=== PATIENT | male | born 1960 | race Caucasian/White ===

== ENCOUNTER 2017-02-01 23:14 | Emergency (ER) | payer MEDICAID, SELFPAY | END 2017-02-02 00:20 | disposition home or self-care (01) | PROVIDERS: Emergency Provider Emergency Medicine; PCP Family Medicine; Visit Provider Emergency Medicine | DX: J20.9 Acute bronchitis, unspecified (principal); I10 Essential (primary) hypertension; E78.5 Hyperlipidemia, unspecified; E11.9 Type 2 diabetes mellitus without complications; F41.8 Other specified anxiety disorders | CPT/HCPCS: 87070; 87275; 87276; 87430; 96372; 99283 ==

== ENCOUNTER 2017-02-03 21:36 | Emergency (ER) | payer MEDICAID, SELFPAY | END 2017-02-04 00:53 | disposition home or self-care (01) | PROVIDERS: Emergency Provider Emergency Medicine; Family Provider Family Medicine; Visit Provider Emergency Medicine | DX: J10.1 Influenza due to other identified influenza virus with other respiratory manifestations (principal); Z87.891 Personal history of nicotine dependence; Z79.899 Other long term (current) drug therapy; I10 Essential (primary) hypertension; E78.5 Hyperlipidemia, unspecified; F41.8 Other specified anxiety disorders | CPT/HCPCS: 36415; 71020; 80053; 81001; 83605; 85025; 87040; 87275; 87276; 96365; 96375; 99285; J2405 ==

== ENCOUNTER 2017-02-17 11:44 | Day surgery (SDC) | payer MEDICAID, SELFPAY ==
[2017-02-17 12:05] VITALS: BP 129/80; BP 131/81; BP 138/84; PULSE 72; PULSE 77; PULSE 84; RESP 18; RESP 20; TEMP 36.2; O2SAT 95
--- NOTE | 2017-02-17 12:27 | HMH.PMPROC ---
- Procedure Date: 02/17/17 Time: 12:27 Anesthesiologist:: Kevin Mayfield MD Complications:: None Pre-procedure Diagnosis:: Degenerative disc disease of cervical spine with cervical radiculopathy symptoms. Post-procedure Diagnosis:: Same Indications for Procedure:: This patient is a pleasant 55-year-old white male who we are treating for neck pain and low back pain. Patient is doing well with his low back after lumbar facet joint injections. He does have some neck pain with radicular symptoms. He does have an MRI that shows degenerative changes with cervical spine with cervical spondylosis and bulging disc at C5-6 and C6-7. We will do a cervical epidural steroid injection today to see if this helps with his pain symptoms. Procedure Details:: Cervical epidural steroid injection under fluoroscopy Informed consent was obtained and the risks and benefits of the procedure was explained to the patient. The patient was taken to the procedure room placed prone on the procedure table. The neck was prepped using ChloraPrep. The skin and subcutaneous tissues were anesthetized using lidocaine. I placed a 18-gauge epidural needle into the C5-C6 interspace and advanced using [id number] to air and fluoroscopic guidance. After confirmation of needle placement in the epidural space with dye, I injected 3 mL's lidocaine 1.5% and Depo-Medrol 80 mg. The patient tolerated the procedure well with no complications. Plan and Disposition:: We will follow-up with him in 2 weeks. We will reevaluate his symptoms at that time.
--- NOTE | 2017-02-17 13:02 | P.PCN_ITS ---
- Procedure Date: 02/17/17 Time: 12:27 Anesthesiologist:: Kevin Mayfield MD Complications:: None Pre-procedure Diagnosis:: Degenerative disc disease of cervical spine with cervical radiculopathy symptoms. Post-procedure Diagnosis:: Same Indications for Procedure:: This patient is a pleasant 55-year-old white male who we are treating for neck pain and low back pain. Patient is doing well with his low back after lumbar facet joint injections. He does have some neck pain with radicular symptoms. He does have an MRI that shows degenerative changes with cervical spine with cervical spondylosis and bulging disc at C5-6 and C6-7. We will do a cervical epidural steroid injection today to see if this helps with his pain symptoms. Procedure Details:: Cervical epidural steroid injection under fluoroscopy Informed consent was obtained and the risks and benefits of the procedure was explained to the patient. The patient was taken to the procedure room placed prone on the procedure table. The neck was prepped using ChloraPrep. The skin and subcutaneous tissues were anesthetized using lidocaine. I placed a 18- gauge epidural needle into the C5-C6 interspace and advanced using loss-of- resistance to air and fluoroscopic guidance. After confirmation of needle placement in the epidural space with dye, I injected 3 mL's lidocaine 1.5% and Depo-Medrol 80 mg. The patient tolerated the procedure well with no complications. Plan and Disposition:: We will follow-up with him in 2 weeks. We will reevaluate his symptoms at that time.
[2017-02-17 13:58] VITALS: BP 122/75; PULSE 74; RESP 20; TEMP 36.6; O2SAT 93
== END 2017-02-17 13:10 | disposition home or self-care (01) ==
LOC: SC.PAINP 11:46
PROVIDERS: Family Provider Family Medicine; PCP Family Medicine; Visit Provider Anesthesiology
DX: M50.10 Cervical disc disorder with radiculopathy, unspecified cervical region (principal)
CPT/HCPCS: 62321; J1040; Q9966

== ENCOUNTER → 2017-05-01 14:16 | Outpatient (POV) | payer MEDICAID, SELFPAY ==
[2017-05-01 15:04] VITALS: BP 138/87; PULSE 80; RESP 21; O2SAT 96; BMI 35.4
--- NOTE | 2017-05-01 15:21 | P.CONS_ITS ---
[facility] Pain Management SOAP Note Subjective:: This patient is a pleasant 55-year-old white male who we have been treating for neck pain and low back pain. He did well after cervical epidural steroid injections and lumbar epidural steroid injections. He was doing well up until recently when he was wrestling with his 5-year-old grandson and aggravated his mid back. He was told that he had a herniated disc in his thoracic spine. This was aggravated after playing with his grandson. Now he has pain in the mid back with some radiation. We will get a thoracic MRI to discern any change in pathology. Objective:: Alert and oriented ?3 in no acute distress. Patient does have a normal gait. Motor strength of the upper and lower extremities is 5/5. There is no gross sensory deficit. Assessment:: Degenerative disc disease of the cervical spine with cervical radiculopathy symptoms. Degenerative disease of lumbar spine with lumbar radiculopathy symptoms. Mid back pain with thoracic radiculopathy. Plan:: We will obtain a MRI of the thoracic spine to discern any change in pathology. This patient may benefit from a thoracic epidural steroid injection.
== END ==
PROVIDERS: Family Provider Family Medicine; PCP Family Medicine; Visit Provider Anesthesiology
DX: M54.12 Radiculopathy, cervical region (principal); M54.16 Radiculopathy, lumbar region
CPT/HCPCS: 99212

== ENCOUNTER → 2017-05-15 12:43 | Outpatient (POV) | payer MEDICAID, SELFPAY ==
[2017-05-15 13:00] VITALS: BP 110/82; PULSE 76; RESP 21; O2SAT 99; BMI 36.1
--- NOTE | 2017-05-15 13:06 | HMH.PAINSOAP ---
[facility] Pain Management SOAP Note Subjective:: Patient is a pleasant 56-year-old white male who presents today for follow-up after recent insurance denial of thoracic MRI. Patient had increased pain after his 5-year-old grandson and him wrestling. Patient states his grandson hit his disc repeatedly . Patient has had an exacerbation of mid back pain because of this. We will send the patient for an x-ray today to help discern pathology. Patient is also having migraines. Patient has tenderness over the occiput bilaterally. Patient states that his migraines have become almost daily. Rates his pain today a 6 out of 10. Patient is receiving medication from his primary care. Patient states that at this time nothing really seems to be helping his overall pain. ROS General: no recent weight change, no fever, no sleep disturbances Respiratory: no cough, no shortness of air, no recurring pulmonary infections Cardiovascular/Peripheral Vascular: No chest pain, No palpitations, no edema, no shortness of breath. Gastrointestinal: no incontinence, normal bowel movements reported Genitourinary: no incontinence Musculoskeletal: Neck pain, occipital neuralgia, mid and low back pain Psychiatric: normal mood/ affect, Neurological: [denies weakness in extremities], [denies balance issues] Objective:: Physical Exam General: Alert and oriented x3, no acute distress, pleasant and cooperative, [on room air] Lungs: Resps E/U, Symmetrical chest expansion, Eyes: PERRL Musculoskeletal: Flexion and extension of thoracic spine somewhat guarded secondary to pain, deep tendon reflexes normal, strength in upper and lower extremities [5/5], slightly antalgic gait noted, extreme tenderness over bilateral occiputs Neurological: speech clear, c d reactor operator equal, no gross sensory deficits Assessment:: Occipital neuralgia, degenerative disc disease of the lumbar spine, degenerative disc disease of the cervical spine, mid back pain Plan:: We will order a thoracic x-ray to discern pathology. We will also schedule him an occipital nerve block. I believe that this will help with his migraines. I will follow-up with this patient after his x-ray or injection. This note was dictated using voice recognition software and may contain errors or omissions
--- NOTE | 2017-05-15 13:09 | P.CONS_ITS ---
[facility] Pain Management SOAP Note Subjective:: Patient is a pleasant 56-year-old white male who presents today for follow-up after recent insurance denial of thoracic MRI. Patient had increased pain after his 5-year-old grandson and him wrestling. Patient states his grandson hit his disc repeatedly . Patient has had an exacerbation of mid back pain because of this. We will send the patient for an x-ray today to help discern pathology. Patient is also having migraines. Patient has tenderness over the occiput bilaterally. Patient states that his migraines have become almost daily. Rates his pain today a 6 out of 10. Patient is receiving medication from his primary care. Patient states that at this time nothing really seems to be helping his overall pain. ROS General: no recent weight change, no fever, no sleep disturbances Respiratory: no cough, no shortness of air, no recurring pulmonary infections Cardiovascular/Peripheral Vascular: No chest pain, No palpitations, no edema, no shortness of breath. Gastrointestinal: no incontinence, normal bowel movements reported Genitourinary: no incontinence Musculoskeletal: Neck pain, occipital neuralgia, mid and low back pain Psychiatric: normal mood/ affect, Neurological: [denies weakness in extremities], [denies balance issues] Objective:: Physical Exam General: Alert and oriented x3, no acute distress, pleasant and cooperative, [ on room air] Lungs: Resps E/U, Symmetrical chest expansion, Eyes: PERRL Musculoskeletal: Flexion and extension of thoracic spine somewhat guarded secondary to pain, deep tendon reflexes normal, strength in upper and lower extremities [5/5], slightly antalgic gait noted, extreme tenderness over bilateral occiputs Neurological: speech clear, manager wind equal, no gross sensory deficits Assessment:: Occipital neuralgia, degenerative disc disease of the lumbar spine, degenerative disc disease of the cervical spine, mid back pain Plan:: We will order a thoracic x-ray to discern pathology. We will also schedule him an occipital nerve block. I believe that this will help with his migraines. I will follow-up with this patient after his x-ray or injection. This note was dictated using voice recognition software and may contain errors or omissions
--- NOTE | 2017-05-15 13:19 | XR_ITS ---
XR thoracic spine 3V COMPARISON: CT scan the chest noncontrast 11/19/2015 HISTORY: Back pain TECHNIQUE: AP and lateral views and swimmer's view cervicothoracic junction FINDINGS: There is normal curvature and alignment. There are multilevel degenerative changes in the lower thoracic spine primarily T8-T12. Prominent anterior ossific spurring is seen at several levels resulting in bony bridging at the T8-9 and T11-12 levels. There is no paraspinal mass. IMPRESSION: Prominent multilevel degenerative changes lower thoracic spine
== END ==
PROVIDERS: Family Provider Family Medicine; PCP Family Medicine; Visit Provider Clinical Nurse Specialist Family Health
DX: M54.81 Occipital neuralgia (principal); M50.30 Other cervical disc degeneration, unspecified cervical region; M51.36 Other intervertebral disc degeneration, lumbar region
CPT/HCPCS: 99212; 72072

== ENCOUNTER → 2017-05-27 13:50 | Outpatient (CLI) | payer MEDICAID, SELFPAY ==
--- NOTE | 2017-05-27 | XR_ITS ---
XR shoulder RT min 2V HISTORY: ITS.REASON: ACUTE PAIN OF RIGHT SHOULDER ORDERING PHYSICIAN: Zurdo Masters MD PATIENT AGE: 56 years COMPARISON: FINDINGS: No fracture or dislocation. No lytic or blastic change. There is normal mineralization. Mild osteoarthritic changes are present at the acromioclavicular joint with mild subacromial stenosis. Unremarkable glenohumeral joint. IMPRESSION: Mild osteoarthritis of the acromioclavicular joint with mild subacromial stenosis
== END ==
PROVIDERS: PCP Family Medicine; Visit Provider Family Medicine
DX: M25.511 Pain in right shoulder (principal)
CPT/HCPCS: 73030

== ENCOUNTER → 2017-06-20 09:37 | Outpatient (POV) | payer MEDICAID, SELFPAY ==
[2017-06-20 09:49] VITALS: BP 122/48; PULSE 86; RESP 18; TEMP 36.6; O2SAT 99; BMI 36.1
--- NOTE | 2017-06-20 11:28 | P.CONS_ITS ---
[facility] Pain Management SOAP Note Subjective:: Patient is a pleasant 56-year-old white male who presents today for follow-up after occipital nerve blocks. Patient states he is doing extremely well after this. He states he has only had one headache since the injection. Patient states that he is doing quite well other than his thoracic back pain. At the last visit we got a thoracic x-ray showing multilevel degenerative changes, prominent anterior ossific spurring resulting in bony bridging of T8-T9 and T11- T12. Patient has not had any epidural injections in this area. Patient is interested in injective therapy. Patient is not used a back brace in the past. Patient rates his pain a 6 out of 10 today. Patient states he is much more active in the summer and would like to be more functional. ROS General: no recent weight change, no fever, no sleep disturbances Respiratory: no cough, no shortness of air, no recurring pulmonary infections Cardiovascular/Peripheral Vascular: No chest pain, No palpitations, no edema, no shortness of breath. Gastrointestinal: no incontinence, normal bowel movements reported Genitourinary: no incontinence Musculoskeletal: Thoracic back pain Psychiatric: normal mood/ affect Neurological: [denies weakness in extremities], [denies balance issues] Objective:: Physical Exam General: Alert and oriented x3, no acute distress, pleasant and cooperative, [ on room air] Lungs: Resps E/U, Symmetrical chest expansion, Eyes: PERRL Musculoskeletal: Flexion and extension of thoracic spine somewhat guarded secondary to pain, deep tendon reflexes normal, strength in upper and lower extremities [5/5], slightly antalgic gait noted Neurological: speech clear, dog food dough mixer equal, no gross sensory deficits Assessment:: Degenerative disc disease of the thoracic spine Plan:: We will schedule a thoracic epidural at T8-T9. Patient has done well with injective therapy in the past. We will also give him a back brace. Patient is continuing to do home stretching routine. Patient's tried and failed NSAIDs along with medications. I will follow-up with the patient after his injection. This note was dictated using voice recognition software and may contain errors or omissions
== END ==
PROVIDERS: Family Provider Family Medicine; PCP Family Medicine; Visit Provider Clinical Nurse Specialist Family Health
DX: M51.34 Other intervertebral disc degeneration, thoracic region (principal)
CPT/HCPCS: 99212

== ENCOUNTER → 2017-06-21 13:35 | Outpatient (POV) | payer MEDICAID, SELFPAY | PROVIDERS: Family Provider Family Medicine; PCP Family Medicine | DX: Z00.00 Encounter for general adult medical examination without abnormal findings (principal) ==

== ENCOUNTER → 2017-09-05 10:30 | Outpatient (POV) | payer MEDICAID, SELFPAY ==
[2017-09-05 10:50] VITALS: BP 142/77; PULSE 81; RESP 18; O2SAT 98; BMI 35.4
--- NOTE | 2017-09-05 11:34 | HMH.PAINSOAP ---
[facility] Pain Management SOAP Note Subjective:: Patient is a pleasant 56-year-old white male who we are following up with after T8-T9 thoracic epidural steroid injection. States he had significant relief with this decreasing his pain up to 80%. However patient went fishing last week and his fishing pole fell off of the boat. Patient states he dove into the beth and the leg was more shallow than he expected. Patient states he el his back during this. Patient rates his pain a 5 out of 10 today. Patient is interested in another thoracic epidural steroid injection given the efficacy of the last one. Patient's tried and failed anti-inflammatories and medications. Patient continues to be as functional as possible and continues with a home stretching program. ROS General: no recent weight change, no fever, no sleep disturbances Respiratory: no cough, no shortness of air, no recurring pulmonary infections Cardiovascular/Peripheral Vascular: No chest pain, No palpitations, no edema, no shortness of breath. Gastrointestinal: no incontinence, normal bowel movements reported Genitourinary: no incontinence Musculoskeletal: Thoracic back pain Psychiatric: normal mood/ affect Neurological: [denies weakness in extremities], [denies balance issues] Objective:: Physical Exam General: Alert and oriented x3, no acute distress, pleasant and cooperative, [on room air] Lungs: Resps E/U, Symmetrical chest expansion, Eyes: PERRL Musculoskeletal: Flexion and extension of thoracic spine somewhat guarded secondary to pain, deep tendon reflexes normal, strength in upper and lower extremities [5/5], antalgic gait noted Neurological: speech clear, dance artist equal, no gross sensory deficits Assessment:: Degenerative disc disease of the thoracic spine with thoracic radiculopathy symptoms Plan:: We will schedule another T8-T9 thoracic epidural steroid injection given the efficacy of his last one. Patient is not on any anticoagulation therapy at this time. This note was dictated using voice recognition software and may contain errors or omissions
--- NOTE | 2017-09-05 11:37 | P.CONS_ITS ---
[facility] Pain Management SOAP Note Subjective:: Patient is a pleasant 56-year-old white male who we are following up with after T8-T9 thoracic epidural steroid injection. States he had significant relief with this decreasing his pain up to 80%. However patient went fishing last week and his fishing pole fell off of the boat. Patient states he dove into the beth and the leg was more shallow than he expected. Patient states he el his back during this. Patient rates his pain a 5 out of 10 today. Patient is interested in another thoracic epidural steroid injection given the efficacy of the last one. Patient's tried and failed anti-inflammatories and medications. Patient continues to be as functional as possible and continues with a home stretching program. ROS General: no recent weight change, no fever, no sleep disturbances Respiratory: no cough, no shortness of air, no recurring pulmonary infections Cardiovascular/Peripheral Vascular: No chest pain, No palpitations, no edema, no shortness of breath. Gastrointestinal: no incontinence, normal bowel movements reported Genitourinary: no incontinence Musculoskeletal: Thoracic back pain Psychiatric: normal mood/ affect Neurological: [denies weakness in extremities], [denies balance issues] Objective:: Physical Exam General: Alert and oriented x3, no acute distress, pleasant and cooperative, [ on room air] Lungs: Resps E/U, Symmetrical chest expansion, Eyes: PERRL Musculoskeletal: Flexion and extension of thoracic spine somewhat guarded secondary to pain, deep tendon reflexes normal, strength in upper and lower extremities [5/5], antalgic gait noted Neurological: speech clear, hazmat truck driver equal, no gross sensory deficits Assessment:: Degenerative disc disease of the thoracic spine with thoracic radiculopathy symptoms Plan:: We will schedule another T8-T9 thoracic epidural steroid injection given the efficacy of his last one. Patient is not on any anticoagulation therapy at this time. This note was dictated using voice recognition software and may contain errors or omissions
== END ==
PROVIDERS: Family Provider Family Medicine; PCP Family Medicine; Visit Provider Clinical Nurse Specialist Family Health
DX: M54.15 Radiculopathy, thoracolumbar region (principal)
CPT/HCPCS: 99212

== ENCOUNTER → 2017-09-11 06:46 | Outpatient (CLI) | payer MEDICAID, SELFPAY ==
--- NOTE | 2017-09-11 06:48 | NM_ITS ---
CARDIOLITE SPECT MYOCARDIAL PERFUSION SCAN, REST AND STRESS: EXERCISE STRESS [facility] REVIEW QGS EF AND WALL MOTION EVALUATION: QPS - PERFUSION EVALUATION HISTORY: Chest pain, HTN, DM, CAD DOSE: 10.16 mCi technetium 99m mibi intravenously at rest followed by 31.2 mCi technetium 99m mibi following the intravenous ministration of 0.4 mg of Lexiscan. Resting blood pressure is 126/81. Stress blood pressure 159/88. FINDINGS: Ejection fraction is calculated to be 66%. Stress images reveal decreased activity distal inferior apical wall with improved activity during rest images. Gated images calculated ejection fraction of 66% with normal wall motion IMPRESSION: Reversible ischemia in the inferior apical wall with normal ejection fraction normal wall motion.
--- NOTE | 2017-09-11 06:48 | CA_ITS ---
PROCEDURE: 2-D M-mode and color Doppler study INDICATIONS FOR THE TEST: Chest pain + COPD Heart Murmur Tobacco Smoking Palpitations Fatigue Syncope Edema Hypertension+Diabetes Mellitus+ Rheumatic Fever SOB SMALL Obesity Hyperlipidemia+ Family History HD Additional History SARKIS PATIENT INFORMATION HEIGHT: 69 WEIGHT:240 GENDER: Male B/P:129/79 2-D/M-MODE INTERPRETATION: 2-D MEASUREMENTS OBSERVED VALUES IN CMS Right Ventricular Dimension (RVDd) 2.5 Interventricular Septum (Thickness)(IVsd) 1.5 Left Ventricular Internal Dimensions(LVIDd) 5.7 Left Ventricular Posterior Wall (Thickness)(LVPWd) 0.9 Aortic Root 4.0 Aortic Cusp Separation 1.9 Left Atrial Dimensions (LAD) 4.7 2D 1. Left atrium is mildly enlarged, left ventricle is normal size, mild concentric left ventricular hypertrophy, visually estimated ejection fraction 55% with no signal wall motion abnormality. 2. The right atrium and right ventricle are normal size and contractility. 3. The aortic valve is minimally thickened and fibrosed. 4. The mitral and tricuspid valve leaflets are minimally thickened and calcified. 5. The pulmonic valve is poorly visualized. 6. No significant pericardial effusion noted. DOPPLER INTERROGATION: Doppler interrogation of the aortic, mitral and tricuspid valvular presence of mild mitral and tricuspid regurgitation, tricuspid and jet velocity is insufficient for calculation of the right ventricular systolic pressure, diastolic parameters are inconclusive. CONCLUSION: 1. Technically difficult study because of the patient's factor and poor acoustic windows 2. Mildly enlarged left atrium, normal left ventricular size, mild concentric left ventricular hypertrophy, visually estimated ejection fraction 55% with no obvious regional wall motion abnormality, diastolic parameters are inconclusive. 3. Mild mitral and tricuspid regurgitation 4. No significant pericardial effusion noted.
--- NOTE | 2017-09-11 07:10 | HMH.ITSHM ---
METOPROLOL FENOFIBRATE TAMSULOSIN RANOLAZINE SITAGLIPTIN OXYBUTYNIN MULTIVITAMIN METFORMIN VENLAFAXINE SUMATRIPTAN OXYCODONE CETIRIZINE ASA
== END ==
PROVIDERS: Family Provider Family Medicine; PCP Family Medicine; Visit Provider Internal Medicine Cardiovascular Disease
DX: I25.10 Atherosclerotic heart disease of native coronary artery without angina pectoris (principal); I20.9 Angina pectoris, unspecified; I10 Essential (primary) hypertension; E78.5 Hyperlipidemia, unspecified; E11.9 Type 2 diabetes mellitus without complications; G47.33 Obstructive sleep apnea (adult) (pediatric)
CPT/HCPCS: 78452; 93017; 93306; A9502; J2785

== ENCOUNTER → 2017-10-02 12:30 | Outpatient (POV) | payer MEDICAID, SELFPAY ==
[2017-10-02 12:53] VITALS: BP 137/87; PULSE 75; RESP 18; O2SAT 98; BMI 81.3
--- NOTE | 2017-10-02 12:57 | HMH.PAINSOAP ---
[facility] Pain Management SOAP Note Subjective:: Patient is a pleasant 56-year-old white male who presents today for follow-up after his thoracic epidural steroid injection. Patient states he is having no mid back pain and states that his injection helped him significantly. Patient recently had a cardiac stent placed and was put on Plavix. Patient was told by his workers compensation administrator that they did not want him to have any more injections for a year. Patient is going to start cardiac rehab. ROS General: no recent weight change, no fever, no sleep disturbances Respiratory: no cough, no shortness of air, no recurring pulmonary infections Cardiovascular/Peripheral Vascular: No chest pain, No palpitations, no edema, no shortness of breath. Gastrointestinal: no incontinence, normal bowel movements reported Genitourinary: no incontinence Musculoskeletal: Back pain Psychiatric: normal mood/ affect Neurological: [denies weakness in extremities], [denies balance issues] Objective:: Physical Exam General: Alert and oriented x3, no acute distress, pleasant and cooperative, [on room air] Lungs: Resps E/U, Symmetrical chest expansion, Eyes: PERRL Musculoskeletal: Flexion and extension of lumbar spine somewhat guarded secondary to pain, deep tendon reflexes normal, strength in upper and lower extremities [5/5], [abnormal gait noted] Neurological: speech clear, accounting supervisor equal, no gross sensory deficits Assessment:: Negative disc disease of the thoracic spine with thoracic radiculopathy symptoms and degenerative disc disease of lumbar spine with lumbar radiculopathy symptoms Plan:: Follow-up with the patient in 3 months to reassess his symptoms. Patient was instructed to call the office if he has any issues prior to his next appointment. This note was dictated using voice recognition software and may contain errors or omissions
--- NOTE | 2017-10-02 13:00 | P.CONS_ITS ---
[facility] Pain Management SOAP Note Subjective:: Patient is a pleasant 56-year-old white male who presents today for follow-up after his thoracic epidural steroid injection. Patient states he is having no mid back pain and states that his injection helped him significantly. Patient recently had a cardiac stent placed and was put on Plavix. Patient was told by his building inspection engineer that they did not want him to have any more injections for a year. Patient is going to start cardiac rehab. ROS General: no recent weight change, no fever, no sleep disturbances Respiratory: no cough, no shortness of air, no recurring pulmonary infections Cardiovascular/Peripheral Vascular: No chest pain, No palpitations, no edema, no shortness of breath. Gastrointestinal: no incontinence, normal bowel movements reported Genitourinary: no incontinence Musculoskeletal: Back pain Psychiatric: normal mood/ affect Neurological: [denies weakness in extremities], [denies balance issues] Objective:: Physical Exam General: Alert and oriented x3, no acute distress, pleasant and cooperative, [ on room air] Lungs: Resps E/U, Symmetrical chest expansion, Eyes: PERRL Musculoskeletal: Flexion and extension of lumbar spine somewhat guarded secondary to pain, deep tendon reflexes normal, strength in upper and lower extremities [5/5], [abnormal gait noted] Neurological: speech clear, c iron worker equal, no gross sensory deficits Assessment:: Negative disc disease of the thoracic spine with thoracic radiculopathy symptoms and degenerative disc disease of lumbar spine with lumbar radiculopathy symptoms Plan:: Follow-up with the patient in 3 months to reassess his symptoms. Patient was instructed to call the office if he has any issues prior to his next appointment. This note was dictated using voice recognition software and may contain errors or omissions
== END ==
PROVIDERS: Family Provider Family Medicine; PCP Family Medicine; Visit Provider Clinical Nurse Specialist Family Health
DX: M51.14 Intervertebral disc disorders with radiculopathy, thoracic region (principal); M51.16 Intervertebral disc disorders with radiculopathy, lumbar region
CPT/HCPCS: 99213

== ENCOUNTER → 2017-10-11 11:06 | Outpatient (CLI) | payer MEDICAID, SELFPAY ==
[2017-10-11 13:54] LABS: Alanine Aminotransferase 34 U/L (12-78); Albumin Level 4.2 gm/dL (3.4-5.0); Alkaline Phosphatase 70 U/L (46-116); Anion Gap 13.8 mEq/L (5-15); Aspartate Amino Transferase 32 U/L (15-37); Bilirubin,Direct 0.1 mg/dL (0.0-0.2); Bilirubin,Indirect 0.2 mg/dL (0.0-0.9); Bilirubin,Total 0.3 mg/dL (0.2-1.0); Blood Urea Nitrogen 19 mg/dL (7-18); Calcium 9.2 mg/dL (8.5-10.1); Carbon Dioxide 28 mmol/L (21.0-32.0); Chloride 106 mmol/L (98-107); Chol/HDL Ratio 4.9 (1-3.5); Cholesterol 233 mg/dL (140-200); Creatinine,Serum 1.07 mg/dL (0.70-1.30); Estimated Glomerular Filt Rate 72 ml/min (>60); GFR (African American) 87 ML/MIN (>60); Glucose 116 mg/dL (74-106); HDL Cholesterol 48 mg/dL (27-67); LDL Cholesterol 153 mg/dL (0-130); Potassium 4.8 mmoL/L (3.5-5.1); Sodium 143 mmol/L (136-145); Total Protein,Serum 8.1 gm/dL (6.4-8.2); Triglycerides 159 mg/dL (30-200); VLDL Cholesterol 32 mg/dL (0-40)
== END ==
PROVIDERS: PCP Family Medicine; Visit Provider Internal Medicine Cardiovascular Disease
DX: R06.00 Dyspnea, unspecified (principal); E78.5 Hyperlipidemia, unspecified; E11.9 Type 2 diabetes mellitus without complications; G47.33 Obstructive sleep apnea (adult) (pediatric); I10 Essential (primary) hypertension; I25.10 Atherosclerotic heart disease of native coronary artery without angina pectoris; I20.9 Angina pectoris, unspecified
CPT/HCPCS: 36415; 80048; 80061; 80076

== ENCOUNTER 2017-10-24 13:32 | Outpatient (RCR) | payer MEDICAID, SELFPAY | END 2018-01-26 15:08 | disposition home or self-care (01) | LOC: PT 13:32 | PROVIDERS: Visit Provider Internal Medicine | DX: Z95.5 Presence of coronary angioplasty implant and graft (principal) | CPT/HCPCS: 93798 ==

== ENCOUNTER → 2017-11-09 11:48 | Outpatient (CLI) | payer MEDICAID, SELFPAY | PROVIDERS: Family Provider Family Medicine; PCP Family Medicine; Visit Provider Internal Medicine Cardiovascular Disease | DX: E11.9 Type 2 diabetes mellitus without complications (principal) ==

== ENCOUNTER → 2017-11-13 08:16 | Outpatient (CLI) | payer MEDICAID, SELFPAY ==
[2017-11-13 09:17] LABS: Chloride 104 mmol/L (98-107); Potassium 4.1 mmoL/L (3.5-5.1); Sodium 144 mmol/L (136-145)
[2017-11-13 09:28] LABS: Alanine Aminotransferase 35 U/L (12-78); Albumin Level 4.2 gm/dL (3.4-5.0); Alkaline Phosphatase 76 U/L (46-116); Anion Gap 13.1 mEq/L (5-15); Aspartate Amino Transferase 38 U/L (15-37); Bilirubin,Direct 0.1 mg/dL (0.0-0.2); Bilirubin,Indirect 0.4 mg/dL (0.0-0.9); Bilirubin,Total 0.5 mg/dL (0.2-1.0); Blood Urea Nitrogen 10 mg/dL (7-18); Calcium 9.4 mg/dL (8.5-10.1); Carbon Dioxide 31 mmol/L (21.0-32.0); Chol/HDL Ratio 4.8 (1-3.5); Cholesterol 182 mg/dL (140-200); Creatinine,Serum 1.11 mg/dL (0.70-1.30); Estimated Glomerular Filt Rate 69 ml/min (>60); GFR (African American) 83 ML/MIN (>60); Glucose 125 mg/dL (74-106); HDL Cholesterol 38 mg/dL (27-67); LDL Cholesterol 113 mg/dL (0-130); Total Protein,Serum 8.2 gm/dL (6.4-8.2); Triglycerides 157 mg/dL (30-200); VLDL Cholesterol 31 mg/dL (0-40)
== END ==
PROVIDERS: PCP Family Medicine; Visit Provider Internal Medicine Cardiovascular Disease
DX: E11.9 Type 2 diabetes mellitus without complications (principal); E78.5 Hyperlipidemia, unspecified; G47.33 Obstructive sleep apnea (adult) (pediatric); I10 Essential (primary) hypertension; I25.10 Atherosclerotic heart disease of native coronary artery without angina pectoris; R06.00 Dyspnea, unspecified; I20.9 Angina pectoris, unspecified
CPT/HCPCS: 36415; 80048; 80061; 80076

== ENCOUNTER → 2017-12-14 10:27 | Outpatient (CLI) | payer MEDICAID, SELFPAY ==
[2017-12-14 12:42] LABS: Blood Urea Nitrogen 11 mg/dL (7-18); Calcium 9.5 mg/dL (8.5-10.1); Carbon Dioxide 28 mmol/L (21.0-32.0); Chloride 101 mmol/L (98-107); Creatinine,Serum 1.08 mg/dL (0.70-1.30); Estimated Glomerular Filt Rate 71 ml/min (>60); GFR (African American) 86 ML/MIN (>60); Glucose 145 mg/dL (74-106); Sodium 140 mmol/L (136-145)
[2017-12-14 13:14] LABS: Creatine Kinase 95 U/L (39-308)
== END ==
PROVIDERS: Physician Assistant; PCP Family Medicine; Visit Provider Internal Medicine Cardiovascular Disease
DX: M79.10 Myalgia, unspecified site (principal); I10 Essential (primary) hypertension; I25.10 Atherosclerotic heart disease of native coronary artery without angina pectoris; E78.5 Hyperlipidemia, unspecified; G47.33 Obstructive sleep apnea (adult) (pediatric); Z95.5 Presence of coronary angioplasty implant and graft
CPT/HCPCS: 36415; 80048; 82550

== ENCOUNTER → 2017-12-20 18:58 | Outpatient (CLI) | payer MEDICAID, SELFPAY | PROVIDERS: PCP Family Medicine; Visit Provider Nurse Practitioner Family | DX: G47.33 Obstructive sleep apnea (adult) (pediatric) (principal); G47.19 Other hypersomnia; R53.83 Other fatigue | CPT/HCPCS: 95811 ==

== ENCOUNTER → 2018-01-15 13:36 | Outpatient (POV) | payer MEDICAID, SELFPAY ==
[2018-01-15 14:10] VITALS: BP 131/82; PULSE 83; RESP 18; O2SAT 98; BMI 36.1
--- NOTE | 2018-01-15 14:16 | HMH.PAINSOAP ---
[facility] Pain Management SOAP Note Subjective:: Patient is a pleasant 57-year-old white male who presents today for follow-up. Patient having a lot of myofascial pain mostly in his thoracic paraspinous. Patient rates his pain a 7 out of 10 today. Patient is on blood thinner and unable to have epidural injections however he is done well with these in the past. Patient is interested in possible trigger point injections. I do believe they would be beneficial for him. Patient is continuing a home stretching program. ROS General: no recent weight change, no fever, no sleep disturbances Respiratory: no cough, no shortness of air, no recurring pulmonary infections Cardiovascular/Peripheral Vascular: No chest pain, No palpitations, no edema, no shortness of breath. Gastrointestinal: no incontinence, normal bowel movements reported Genitourinary: no incontinence Musculoskeletal: Back pain, myofascial pain Psychiatric: normal mood/ affect Neurological: [denies weakness in extremities], [denies balance issues] Objective:: Physical Exam General: Alert and oriented x3, no acute distress, pleasant and cooperative, [on room air] Lungs: Resps E/U, Symmetrical chest expansion, Eyes: PERRL Musculoskeletal: Flexion and extension of thoracic and lumbar spine somewhat guarded secondary to pain, deep tendon reflexes normal, strength in upper and lower extremities [5/5], [abnormal gait noted] Neurological: speech clear, director wholesale equal, no gross sensory deficits Assessment:: Degenerative disc disease lumbar spine lumbar radiculopathy and myofascial pain syndrome Plan:: We will schedule bilateral thoracic paraspinous trigger point injections for the patient. I believe it would be beneficial for him. I will follow-up with him after his injections. Patient does not have to be off of his coagulation therapy. This note was dictated using voice recognition software and may contain errors or omissions
== END ==
PROVIDERS: PCP Family Medicine; Visit Provider Clinical Nurse Specialist Family Health
DX: M51.16 Intervertebral disc disorders with radiculopathy, lumbar region (principal); M79.18 Myalgia, other site
CPT/HCPCS: 99213

== ENCOUNTER → 2018-04-02 11:52 | Outpatient (CLI) | payer MEDICAID, SELFPAY ==
--- NOTE | 2018-04-02 11:58 | XR_ITS ---
XR shoulder RT min 2V Ordering Physician: Taniya Little MD Patient Age: 57 years: Male HISTORY: ITS.REASON: Pain with moving right arm. TECHNIQUE: 3 views right shoulder included Axillary, Grashey, AP internal rotation view right shoulder Order states grashy,scapular y and axillary views COMPARISON :01/30/2018 right shoulder study FINDINGS The humeral head and neck are intact. Glenohumeral relationships appear normal. No fracture nor dislocation. . The roughening along superior aspect greater tuberosity and its junction with base of humeral head or noted on recent January right shoulder radiograph. This feature is slight less evident on today's study but I would note some sclerosis here & note that just above this area, there is some minimal inferior spurring from tip of of acromion which may contribute to impingements and such findings.. Are there impingement symptoms??.] . IMPRESSION: . Slight inferior spurring from the tip of acromion noted. May contribute to impingement symptoms if present. Sequela of such would include slight roughening & sclerosis along superior base of humeral head..
== END ==
PROVIDERS: PCP Family Medicine; Visit Provider Orthopaedic Surgery
DX: M25.511 Pain in right shoulder (principal)
CPT/HCPCS: 73030

== ENCOUNTER → 2018-04-04 12:58 | Outpatient (CLI) | payer MEDICAID, SELFPAY ==
--- NOTE | 2018-04-04 12:59 | MR_ITS ---
MR shoulder RT wo con COMPARISON: 04/02/2018 HISTORY: Right shoulder pain with limited range of motion ORDERING PHYSICIAN: Taniya Little MD PATIENT AGE: 57 years TECHNIQUE: Routine multiplanar multiecho sequences are performed without contrast FINDINGS: Hypertrophic changes are present at the acromioclavicular joint causing some indentation upon the musculotendinous junction of the supraspinatus muscle and tendon. There is heterogeneous increased T2 signal involving the supraspinatus tendon appears somewhat thickened consistent with tendinopathy/tendinosis. There is disruption of the supraspinatous tendon fibers posteriorly and distally consistent with a full-thickness tear. A complete tear with musculotendinous retraction is not present. There is tendinopathy/tendinosis of the infraspinatus tendon as well with pain of the fibers distally suggesting a partial tear. The subscapularis and teres minor tendons are intact. No obvious labral tear. The bicipital tendon is in place. Small amount fluid is present in the bicipital tendon sheath. There is some subcortical irregularity of the humeral head at the greater tuberosity base and a small amount of fluid along the distal aspect of the junction of the supraspinatus and infraspinatus tendons. No fracture evident. IMPRESSION: 1. Full-thickness tear of the distal and posterior aspect of the supraspinatus tendon with partial tear of the infraspinatus tendon with tendinopathy/tendinosis of both supraspinatus and infraspinatus tendons 2. Acromioclavicular hypertrophy causing some impingement of along the superior aspect of the musculotendinous junction of the supraspinatus 3. Small amount fluid in the bicipital tendon sheath suggesting tendinitis
== END ==
PROVIDERS: PCP Family Medicine; Visit Provider Orthopaedic Surgery
DX: M25.511 Pain in right shoulder (principal)
CPT/HCPCS: 73221

== ENCOUNTER → 2018-05-01 15:53 | Outpatient (CLI) | payer MEDICAID, SELFPAY ==
--- NOTE | 2018-05-01 16:06 | XR_ITS ---
XR chest 2V HISTORY: Hypertension ITS.REASON: preop testing ORDERING PHYSICIAN: Taniya Little MD PATIENT AGE: 57 years COMPARISON: 02/01/1717 FINDINGS: The cardiomediastinal silhouette and pulmonary vascularity are within normal limits. The lungs are clear without infiltrates, suspicious nodules, or pleural effusions. There is old granulomatous disease with calcified granuloma within the lingula and calcified nodes in the mediastinum and theodore. There is slight reversal of the thoracic kyphosis. No lobar consolidation or collapse. IMPRESSION: No change with no acute finding
[2018-05-01 16:18] LABS: Basophils % 0.4 % (0.1-2.0); Eosinophils # 0.2 K/mm3 (0.0-0.4); Eosinophils % 3.2 % (0.1-12.0); Hematocrit 39.1 % (42.0-52.0); Hemoglobin 13.1 g/dL (14.1-18.0); Lymphocytes # 2.4 K/mm3 (0.7-4.5); Lymphocytes % 35.5 % (10-50); Mean Corpuscular HGB Conc 33.4 g/dL (31.8-35.4); Mean Corpuscular Volume 83.9 fl (80-94); Mean Platelet Volume 8.9 fl (7.4-10.4); Monocytes # 0.4 K/mm3 (0.1-1.0); Monocytes % 5.5 % (1.7-9.3); Neutrophils # 3.8 K/mm3 (1.8-7.8); Neutrophils % 55.4 % (37.0-80.0); Platelet Count 176 K/mm3 (142-424); Red Blood Count 4.66 M/mm3 (4.60-6.20); Red Cell Distribution Width 14.7 % (11.5-17.5); White Blood Count 6.9 K/mm3 (4.8-10.8)
[2018-05-01 16:24] LABS: INR 1.04 (0.9-1.1); Prothrombin Time 10.7 seconds (9.4-11.8)
[2018-05-01 17:33] LABS: Alanine Aminotransferase 73 U/L (12-78); Albumin Level 4.1 gm/dL (3.4-5.0); Albumin/Globulin Ratio 0.9 (1.1-1.8); Alkaline Phosphatase 220 U/L (46-116); Anion Gap 16.9 mEq/L (5-15); Aspartate Amino Transferase 58 U/L (15-37); Bilirubin,Total 0.5 mg/dL (0.2-1.0); Blood Urea Nitrogen 18 mg/dL (7-18); Calcium 9.4 mg/dL (8.5-10.1); Carbon Dioxide 27 mmol/L (21.0-32.0); Chloride 98 mmol/L (98-107); Creatinine,Serum 0.86 mg/dL (0.70-1.30); Estimated Glomerular Filt Rate 92 ml/min (>60); GFR (African American) 111 ML/MIN (>60); Globulin 4.5 gm/dl (1.3-3.2); Glucose 174 mg/dL (74-106); Potassium 3.9 mmoL/L (3.5-5.1); Sodium 138 mmol/L (136-145); Total Protein,Serum 8.6 gm/dL (6.4-8.2)
[2018-05-01 17:34] LABS: Bilirubin,Direct 0.1 mg/dL (0.0-0.2); Chol/HDL Ratio 6.7 (1-3.5); Cholesterol 254 mg/dL (140-200); HDL Cholesterol 38 mg/dL (27-67); LDL Cholesterol 146 mg/dL (0-130); Triglycerides 351 mg/dL (30-200); VLDL Cholesterol 70 mg/dL (0-40)
== END ==
PROVIDERS: Internal Medicine Cardiovascular Disease; Visit Provider Orthopaedic Surgery
DX: Z01.818 Encounter for other preprocedural examination (principal); E11.9 Type 2 diabetes mellitus without complications; E78.5 Hyperlipidemia, unspecified; G47.33 Obstructive sleep apnea (adult) (pediatric); I10 Essential (primary) hypertension; I25.10 Atherosclerotic heart disease of native coronary artery without angina pectoris; M79.10 Myalgia, unspecified site; Z79.84 Long term (current) use of oral hypoglycemic drugs
CPT/HCPCS: 71046; 80053; 80061; 82248; 85025; 85610

== ENCOUNTER → 2018-05-24 08:32 | Outpatient (CLI) | payer MEDICAID, SELFPAY ==
--- NOTE | 2018-05-24 08:38 | XR_ITS ---
XR shoulder RT min 2V HISTORY: ITS.REASON: AP of shoulder, Scapular-Y, auxillary views ORDERING PHYSICIAN: Taniya Little MD PATIENT AGE: 57 years Comparison: 04/02/2018 FINDINGS: There is an acute nondisplaced fracture of the right neck extending from the greater trochanter region inferiorly. There is a lucency present in the proximal aspect of the humerus measuring 10 mm. The patient has had interval right shoulder surgery. The lucency could be related to sequela from the previous surgery. There are 2 small spikelike densities in the humeral head. There are mild degenerative changes of the glenohumeral joint IMPRESSION: Interval right shoulder surgery with nondisplaced humeral neck fracture along with a lucency in the proximal aspect of the right humerus possibly postsurgical. Please correlate with surgical procedure. If there has not been a surgical defect created in this area than a lytic lesion is considered.
== END ==
PROVIDERS: PCP Family Medicine; Visit Provider Orthopaedic Surgery
DX: S42.309A Unspecified fracture of shaft of humerus, unspecified arm, initial encounter for closed fracture (principal)
CPT/HCPCS: 73030

== ENCOUNTER → 2018-06-07 12:29 | Outpatient (CLI) | payer MEDICAID, SELFPAY ==
--- NOTE | 2018-06-07 12:32 | XR_ITS ---
XR shoulder RT min 2V HISTORY: Follow-up fracture ITS.REASON: ap, scapular-y ORDERING PHYSICIAN: Taniya Little MD PATIENT AGE: 57 years Comparison: 05/24/2018 FINDINGS: Nondisplaced oblique fracture of the right humeral neck is again noted. Fracture lines are somewhat less defined and may represent healing. There is some callus formation noted medially and laterally. There remains good alignment. 2. Anchors are once again noted in the humeral head region. IMPRESSION: Healing nondisplaced oblique right humeral neck fracture
== END ==
PROVIDERS: PCP Family Medicine; Visit Provider Orthopaedic Surgery
DX: M75.101 Unspecified rotator cuff tear or rupture of right shoulder, not specified as traumatic (principal)
CPT/HCPCS: 73030

== ENCOUNTER → 2018-06-29 12:30 | Outpatient (CLI) | payer MEDICAID, SELFPAY ==
--- NOTE | 2018-06-29 12:33 | XR_ITS ---
XR shoulder RT min 2V HISTORY: Follow-up fracture ITS.REASON: AP and Scapular y views ORDERING PHYSICIAN: Taniya Little MD PATIENT AGE: 57 years Comparison: 06/07/2018 FINDINGS: There is a healing oblique fracture involving the proximal shaft of the humerus. Fracture line is still visible. There is some increased callus formation noted. There are 2 anchors along the humeral head. IMPRESSION: Healing nondisplaced proximal right humeral fracture
== END ==
PROVIDERS: PCP Family Medicine; Visit Provider Orthopaedic Surgery
DX: S42.301A Unspecified fracture of shaft of humerus, right arm, initial encounter for closed fracture (principal)
CPT/HCPCS: 73030

== ENCOUNTER → 2018-07-27 09:21 | Outpatient (CLI) | payer MEDICAID, SELFPAY ==
--- NOTE | 2018-07-27 09:31 | XR_ITS ---
XR shoulder RT min 2V HISTORY: Follow-up fracture ITS.REASON: shoulder ORDERING PHYSICIAN: Taniya Little MD PATIENT AGE: 57 years Comparison: 06/29/2018 FINDINGS: Healing fracture involves the neck and diaphyseal metaphyseal region of the proximal humerus. Fracture line is somewhat less apparent with sclerosis indicating healing. [address] along the humeral head. IMPRESSION: Healing proximal humeral fracture
== END ==
PROVIDERS: PCP Family Medicine; Visit Provider Orthopaedic Surgery
DX: M75.100 Unspecified rotator cuff tear or rupture of unspecified shoulder, not specified as traumatic (principal)
CPT/HCPCS: 73030

== ENCOUNTER 2018-08-23 14:30 | Outpatient (RCR) | payer MEDICAID, SELFPAY ==
--- NOTE | 2018-08-17 13:19 | HMH.RHREAS ---
Rehab Reassessment Rehab OP Re-assessment Start: 08/17/18 13:02 Freq: Status: Active Protocol: Document 08/17/18 13:03 TFRY (Rec: 08/17/18 13:19 TFRY [id number]) Electronically Signed By Joanie Jha OT 08/17/18 13:03 Rehab Re-assessment Subjective Subjective 'I'm doing more. Objective Objective Notes Patient seen this date for skilled occupational therapy services. See exercises flow sheet for exercises. Reassessment of right shoulder AROM: flexion - 0-135; abduction - 0-140; int rot - 0 -40; ext rot - 0-60. Right shoulder strength: flexion - 4 -/5; abduction - 4-/5; int rot - 3+/5; ext rot - 3+/5. Patient reports pain as 5/6 on 0-10 scale. He reports that he is able to do more at home. Assessment Progress Assessment Progressing as Expected Assessment Notes Patient showing progress with AROM and strength. Patient goals met STG's - /8 LTG's - 02/21 Goals Not Met strength and pain Plan Plan Continue occupational therapy services working on unmet goals Frequency of Therapy 2x a week Duration of therapy 6 weeks Time and Billing Re-Eval Time 5 Re-Eval Billing Units 0 PHYSICIAN CERTIFICATION: I certify the specified therapy services for Santo Diaz are required, authorized, and reviewed every 30 days.
== END 2018-08-23 14:35 | disposition home or self-care (01) ==
LOC: OT 14:30
PROVIDERS: Visit Provider Orthopaedic Surgery
DX: M75.100 Unspecified rotator cuff tear or rupture of unspecified shoulder, not specified as traumatic (principal)
CPT/HCPCS: 97014; 97110; 97140; 97164; 97165; G0283

== ENCOUNTER → 2018-08-29 09:47 | Outpatient (CLI) | payer MEDICAID, SELFPAY ==
--- NOTE | 2018-08-29 10:19 | XR_ITS ---
XR shoulder RT min 2V HISTORY: ITS.REASON: shoulder postop ORDERING PHYSICIAN: Taniya Little MD PATIENT AGE: 57 years Comparison: 07/27/2018 FINDINGS: 2 metallic anchors once again noted along the proximal humerus. There is a healing oblique proximal humeral fracture with good alignment. No other significant anomalies are evident. No evidence of dislocation. IMPRESSION: Healing proximal humeral fracture
== END ==
PROVIDERS: PCP Family Medicine; Visit Provider Orthopaedic Surgery
DX: Z48.89 Encounter for other specified surgical aftercare (principal)
CPT/HCPCS: 73030

== ENCOUNTER → 2018-12-06 08:57 | Outpatient (POV) | payer MEDICAID, SELFPAY ==
[2018-12-06 09:48] VITALS: BP 131/76; PULSE 73; RESP 18; O2SAT 99; BMI 33.2
--- NOTE | 2018-12-06 11:16 | HMH.PAINSOAP ---
[facility] Pain Management SOAP Note Subjective:: Patient is a pleasant 58-year-old white male who presents today for follow-up. Patient is being treated for mid back to low back pain with lumbar radiculopathy symptoms. Patient has undergone lumbar epidural steroid injections in the past. Recently, the patient was unable to have any type of epidural injections secondary to anticoagulation therapy. Patient did have cardiac stents greater than a year ago. Patient reports that he has not taken any type of anticoagulation therapy for the last 4 months. He is complaining of low back pain today with radiation into his bilateral lower extremities patient says that he has gotten up to 80% relief with his lumbar epidural steroid injections in the past. He says that the pain has been relieved for 2-month in the past. He would like to try another lumbar epidural steroid injection to see if he can get some relief. He is continuing stretching program with anti-inflammatories. Review of Systems General: No recent weight changes, no fever, no sleep disturbances Respiratory: No cough, no shortness of air, no recurring pulmonary infections Cardiovascular/peripheral vascular: No chest pain, no palpitations, no edema, no shortness of breath Gastrointestinal: No new onset incontinence, normal bowel movements reported Genitourinary: No new onset incontinence Musculoskeletal: Back pain, bilateral leg pain Psychiatric: Normal mood/affect Neurological: [Denies weakness in extremities], [denies balance issues] Objective:: Physical exam General: Alert and oriented x3, no acute distress, pleasant and cooperative, [on room air] Lungs: Respirations even and unlabored, symmetrical chest expansion Eyes: PERRL Musculoskeletal: Flexion and extension of lumbar spine somewhat guarded secondary to pain, deep tendon reflexes normal, strength in upper and lower extremities [5/5], slightly antalgic gait noted Neurological: Speech clear, hardware designer equal, no gross sensory deficit Assessment:: Degenerative disc disease lumbar spine with lumbar Plan:: We will plan for the patient to get a lumbar epidural steroid injection at L4-L5. He is not on any anticoagulation therapy. He will continue with anti-inflammatories and home stretching program. We will see the patient back in the clinic following his procedure to reassess his symptoms. He has been instructed to contact the clinic if he has any concerns before his next appointment. Dr. Mayfield has reviewed this note and agrees with this plan of care. This note was dictated using voice recognition software and make contain errors or omissions. [facility] History Medical History: Reports:: Atherosclerotic Heart Disease, Coronary Artery Disease, Diabetes Mellitus Type 2, Gastroesophageal Reflux Disease(GERD), Hyperlipidemia, Hypertension, Migraine Denies:: Cancer, Diabetes Mellitus Type 1, Internal Pacemaker, MRSA, Seizures *Have you ever received a pneumonia vaccine?: Yes *Have you received a flu vaccine this season?: Yes Other Medical History: Reports: Anemia, Arthritis, Other. Denies: Blood Transfusion Reaction Laterality Cases: Other Surgeries: Yes: Angioplasty, Cardiac Catheterization, Coronary Stent, Other. No: Pacemaker Amputation: No Fractures: No - *Social History Smoking Status: Never smoker Tobacco Type: cigarettes Alcohol Intake: never Alcohol Intake Frequency:: other Substance Use Type: denies use *Occupational Status:: other Housing: house Household Members: spouse *Travel in the last 8 weeks: None Family Hx:: Coronary Artery Disease, Cancer, Diabetes, Stroke
== END ==
PROVIDERS: PCP Family Medicine; Visit Provider Clinical Nurse Specialist Family Health
DX: M51.36 Other intervertebral disc degeneration, lumbar region (principal)
CPT/HCPCS: 99212

== ENCOUNTER → 2019-02-26 14:27 | Outpatient (POV) | payer OTHER, SELFPAY ==
[2019-02-26 14:42] VITALS: BP 147/88; PULSE 105; RESP 18; O2SAT 96; BMI 32.9
--- NOTE | 2019-03-05 13:09 | HMH.PAINSOAP ---
[facility] Pain Management SOAP Note Subjective:: Patient is a 58-year-old male who presents today for follow-up after his injection. Patient has not been getting much relief from his injective therapy. He has low back pain bilateral leg pain. Patient is interested in implantable therapies I do believe this would be beneficial for him. He does have color changes along with swelling in his bilateral lower extremities. He rates his pain today a 7 out of 10 he is tried and failed over 6 months of conservative therapy including injections, anti-inflammatories and medications. ROS General: no recent weight change, no fever, no sleep disturbances Respiratory: no cough, no shortness of air, no recurring pulmonary infections Cardiovascular/Peripheral Vascular: No chest pain, No palpitations, no edema, no shortness of breath. Gastrointestinal: no new onset incontinence, normal bowel movements reported Genitourinary: no new onset incontinence Musculoskeletal: Back pain, leg pain Psychiatric: normal mood/ affect Neurological: [denies new onset weakness in extremities], [denies new onset balance issues] Objective:: Physical Exam General: Alert and oriented x3, no acute distress, pleasant and cooperative, [on room air] Lungs: Resps E/U, Symmetrical chest expansion, Eyes: PERRL Musculoskeletal: Flexion and extension of lumbar spine somewhat guarded secondary to pain, deep tendon reflexes normal, strength in upper and lower extremities [5/5], [abnormal gait noted] Neurological: speech clear, poison information specialist equal, no gross sensory deficits Assessment:: Degenerative disc disease lumbar spine with lumbar radiculopathy, CRPS type II Plan:: We will we will set the patient up for psychological evaluation to determine if he is a good candidate for neurostimulator. I do believe it would be beneficial given his symptomology. I will follow-up with the patient after his evaluation reassess his symptoms at that time he is been instructed to call the office if he has any issues prior to his next appointment. Dr. Mayfield has reviewed this note and agrees with this plan of care. This note was dictated using voice recognition software and may contain errors or omissions [facility] History I have reviewed the patient's past medical history: Yes Medical History: Reports:: Atherosclerotic Heart Disease, Coronary Artery Disease, Diabetes Mellitus Type 2, Gastroesophageal Reflux Disease(GERD), Hyperlipidemia, Hypertension, Migraine Denies:: Cancer, Diabetes Mellitus Type 1, Internal Pacemaker, MRSA, Seizures *Have you ever received a pneumonia vaccine?: No *Have you received a flu vaccine this season?: No Other Medical History: Reports: Anemia, Arthritis, Other. Denies: Blood Transfusion Reaction Laterality Cases: Left: Other, Bilateral: Arthroscopy Shoulder, Carpal Tunnel Release Other Surgeries: Yes: Angioplasty, Cardiac Catheterization, Coronary Stent, Other. No: Pacemaker Amputation: No Fractures: No - *Social History Smoking Status: Never smoker Tobacco Type: cigarettes Alcohol Intake: never Alcohol Intake Frequency:: other Substance Use Type: denies use *Occupational Status:: disabled Housing: house Household Members: spouse *Travel in the last 8 weeks: None Family Hx:: Coronary Artery Disease, Cancer, Diabetes, Stroke
== END ==
PROVIDERS: PCP Family Medicine; Visit Provider Clinical Nurse Specialist Family Health
DX: M51.16 Intervertebral disc disorders with radiculopathy, lumbar region (principal); G57.73 Causalgia of bilateral lower limbs; E11.9 Type 2 diabetes mellitus without complications; I10 Essential (primary) hypertension; I25.10 Atherosclerotic heart disease of native coronary artery without angina pectoris; E78.5 Hyperlipidemia, unspecified; K21.9 Gastro-esophageal reflux disease without esophagitis
CPT/HCPCS: 99212; 99213

== ENCOUNTER → 2019-03-19 09:54 | Outpatient (POV) | payer OTHER, SELFPAY ==
[2019-03-19 10:05] VITALS: BP 118/81; PULSE 90; RESP 18; O2SAT 99; BMI 33.2
--- NOTE | 2019-03-19 10:19 | HMH.PAINSOAP ---
[facility] Pain Management SOAP Note Subjective:: Patient is a pleasant 58-year-old white male who presents today for follow-up. Patient is awaiting a neurostimulator psychological evaluation. Patient has degenerative disc disease with CRPS type II bilateral lower extremities. He has color changes along with swelling in his bilateral lower extremities. He is tried and failed stretching, physical therapy, medications. Patient's ultimate goal will be to come off of his pain medication and have sustained control of his pain. He rates his pain a 4 out of 10. Patient has tried and failed sympathetic blocks, epidurals. Patient would like one epidural prior to his implant due to his increased pain. He has tried and failed anti-inflammatories. He has had pain for over 2 years. He is not on any anticoagulation therapy. ROS General: no recent weight change, no fever, no sleep disturbances Respiratory: no cough, no shortness of air, no recurring pulmonary infections Cardiovascular/Peripheral Vascular: No chest pain, No palpitations, no edema, no shortness of breath. Gastrointestinal: no new onset incontinence, normal bowel movements reported Genitourinary: no new onset incontinence Musculoskeletal: Back pain, leg pain Psychiatric: normal mood/ affect, [denies depression], [denies anxiety] Neurological: [denies new onset weakness in extremities], [denies new onset balance issues] Objective:: Physical Exam General: Alert and oriented x3, no acute distress, pleasant and cooperative, [on room air] Lungs: Resps E/U, Symmetrical chest expansion, Eyes: PERRL Musculoskeletal: Flexion and extension of lumbar spine somewhat guarded secondary to pain, deep tendon reflexes normal, strength in upper and lower extremities [5/5], [abnormal gait noted] Neurological: speech clear, concrete panel installer equal, no gross sensory deficits Assessment:: Degenerative disc disease lumbar spine with lumbar radiculopathy and CRPS type II Plan:: We will set the patient up for a lumbar epidural steroid injection along with a psychological evaluation for neurostimulator. I will follow-up with the patient after this reassess his symptoms at that time he is been instructed to call the office if he has any issues prior to his next appointment. Dr. Mayfield has reviewed this note and agrees with this plan of care. This note was dictated using voice recognition software and may contain errors or omissions [facility] History I have reviewed the patient's past medical history: Yes Medical History: Reports:: Atherosclerotic Heart Disease, Coronary Artery Disease, Diabetes Mellitus Type 2, Gastroesophageal Reflux Disease(GERD), Hyperlipidemia, Hypertension, Migraine Denies:: Cancer, Diabetes Mellitus Type 1, Internal Pacemaker, MRSA, Seizures *Have you ever received a pneumonia vaccine?: Yes *Have you received a flu vaccine this season?: Yes Other Medical History: Reports: Anemia, Arthritis, Other. Denies: Blood Transfusion Reaction Laterality Cases: Left: Other, Bilateral: Arthroscopy Shoulder, Carpal Tunnel Release Other Surgeries: Yes: Angioplasty, Cardiac Catheterization, Coronary Stent, Other. No: Pacemaker Amputation: No Fractures: No - *Social History Smoking Status: Never smoker Tobacco Type: cigarettes Alcohol Intake: never Alcohol Intake Frequency:: other Substance Use Type: denies use *Occupational Status:: other Housing: house Household Members: spouse *Travel in the last 8 weeks: None Family Hx:: Coronary Artery Disease, Cancer, Diabetes, Stroke
== END ==
PROVIDERS: PCP Family Medicine; Visit Provider Clinical Nurse Specialist Family Health
DX: M51.16 Intervertebral disc disorders with radiculopathy, lumbar region (principal); G57.73 Causalgia of bilateral lower limbs
CPT/HCPCS: 99212

== ENCOUNTER → 2019-03-20 12:18 | Outpatient (CLI) | payer OTHER, SELFPAY ==
--- NOTE | 2019-03-20 12:50 | MR_ITS ---
PROCEDURE: MR HEAD/BRAIN WO/W CON CLINICAL INDICATION: HEADACHE CAUSING FREQUENT AWAKENING FROM SLEEP, CERVICAL DIS Severe headaches COMPARISON: No exams were available for comparison TECHNIQUE: Routine multiplanar multi echo sequences are performed without and with gadolinium enhancement. FINDINGS: No midline shift, mass effect, intracranial hemorrhage, or hydrocephalus is evident. No evidence of acute infarction. No enhancing lesions are evident. There is prominent pneumatization of the sphenoid sinus. The pituitary, optic chiasm corpus callosum, and craniocervical junction have an unremarkable appearance. There are scattered small T2 white matter hyperintensities bilaterally within the frontal and parietal lobes some of which are subcortical. These are nonspecific. The cerebellopontine angles, cerebellum, and brainstem are unremarkable. There are some scattered opacified mastoid air cells on both sides. No sinus air-fluid level. IMPRESSION: 1. Scattered small T2 white matter hyperintensities. These do not demonstrate enhancement or restricted diffusion and may be due to tiny ischemic gliotic foci from small vessel disease. Migraine headache would be included in the differential diagnosis. 2. Mild bilateral mastoid sinus disease Dictated by: Jhonny Pearce MD 03/21/2019 08:58 Electronically signed by Jhonny Pearce MD in [place] 03/21/2019 08:58
[2019-03-20 13:17] LABS: Blood Urea Nitrogen 17 mg/dL (7-18); Estimated Glomerular Filt Rate 100 ml/min (>60); GFR (African American) 121 ML/MIN (>60)
== END ==
PROVIDERS: Visit Provider Family Medicine
DX: R51 Headache (principal); M50.90 Cervical disc disorder, unspecified, unspecified cervical region
CPT/HCPCS: 36415; 70553; 82565; 84520; A9576

== ENCOUNTER → 2019-03-26 12:49 | Outpatient (CLI) | payer OTHER, SELFPAY ==
--- NOTE | 2019-03-26 12:52 | XR_ITS ---
PROCEDURE: XR FOOT WT BEARING RT 3V CLINICAL INDICATION: pain COMPARISON: No exams were available for comparison FINDINGS: No fracture or dislocation. No lytic or blastic change. There is normal mineralization. Osteoarthritic changes are present at the 1st metatarsophalangeal joint, talonavicular joint, and calcaneal cuboid joint. There is a small calcaneal spur. There are osteoarthritic changes also at the ankle joint. IMPRESSION: Osteoarthritic changes at the foot and Dictated by: Jhonny Pearce MD 03/26/2019 14:58 Electronically signed by Jhonny Pearce MD in [place] 03/26/2019 14:58
--- NOTE | 2019-03-26 12:52 | XR_ITS ---
PROCEDURE: XR FOOT WT BEARING LT 3V CLINICAL INDICATION: pain Foot pain plantar foot pain COMPARISON: XR FOOT WT BEARING RT 3V from 03/26/2019 FINDINGS: No fracture or dislocation. No lytic or blastic change. There is normal mineralization. There are osteoarthritic changes of the 1st MTP joint. Osteoarthritic changes are also present at the talonavicular and navicular cuneiform joint. Decreased attenuation is present along the dorsal medial aspect of the navicular cuneiform joint. This however has a somewhat similar appearance on right side. There is a small calcaneal spur and there is a os trigonum Other findings:None. IMPRESSION: Osteoarthritic changes Dictated by: Jhonny Pearce MD 03/26/2019 14:57 Electronically signed by Jhonny Pearce MD in [place] 03/26/2019 14:57
== END ==
PROVIDERS: PCP Family Medicine; Visit Provider Nurse Practitioner
DX: M72.2 Plantar fascial fibromatosis (principal)
CPT/HCPCS: 73630

== ENCOUNTER → 2019-04-30 10:18 | Outpatient (POV) | payer OTHER, SELFPAY ==
[2019-04-30 10:28] VITALS: BP 128/78; PULSE 86; RESP 18; O2SAT 99; BMI 34.7
--- NOTE | 2019-04-30 10:39 | HMH.PAINSOAP ---
[facility] Pain Management SOAP Note Subjective:: Patient is a pleasant 58-year-old white male who presents today to discuss his recent insurance denial on his neurostimulator. Patient's ultimate goal will be to get off his oral narcotic medications. Patient has had nerve pain caused by diabetic neuropathy CRPS type II for over 12 months. He is failed multiple medications including narcotics, anticonvulsants, anti-inflammatories. Patient has done physical therapy within the last year with no success. Patient is continuing a home stretching program. Patient has had ankle surgery in the past. This did not assist in his nerve pain recovery. Patient's pain keeps him from doing physical activity decreases his activities of daily living. He rates his pain today a 5 out of 10. Mostly in his low back bilateral legs. Patient has swelling in his legs along with color changes at times. ROS General: no recent weight change, no fever, no sleep disturbances Respiratory: no cough, no shortness of air, no recurring pulmonary infections Cardiovascular/Peripheral Vascular: No chest pain, No palpitations, no edema, no shortness of breath. Gastrointestinal: no new onset incontinence, normal bowel movements reported Genitourinary: no new onset incontinence Musculoskeletal: Back pain, leg pain Psychiatric: normal mood/ affect, Neurological: [denies new onset weakness in extremities], [denies new onset balance issues] Objective:: Physical Exam General: Alert and oriented x3, no acute distress, pleasant and cooperative, [on room air] Lungs: Resps E/U, Symmetrical chest expansion, Eyes: PERRL Musculoskeletal: Flexion and extension of lumbar spine somewhat guarded secondary to pain, deep tendon reflexes normal, strength in upper and lower extremities [5/5], [abnormal gait noted] Neurological: speech clear, business rules developer equal, no gross sensory deficits Assessment:: Degenerative disc disease lumbar spine with lumbar radiculopathy, diabetic neuropathy, peripheral neuropathy, CRPS type II Plan:: We will see if we can get his neurostimulator trial approved. He does have an appropriate psychological evaluation. I will follow-up with him after this reassess his symptoms at that time we plan on using a [employer] system. I have answered all of his questions. Dr. Mayfield has reviewed this note and agrees with this plan of care. This note was dictated using voice recognition software and may contain errors or omissions [facility] History I have reviewed the patient's past medical history: Yes Medical History: Reports:: Atherosclerotic Heart Disease, Coronary Artery Disease, Diabetes Mellitus Type 2, Gastroesophageal Reflux Disease(GERD), Hyperlipidemia, Hypertension, Migraine Denies:: Cancer, Diabetes Mellitus Type 1, Internal Pacemaker, MRSA, Seizures *Have you ever received a pneumonia vaccine?: Yes *Have you received a flu vaccine this season?: Yes Other Medical History: Reports: Anemia, Arthritis, Other. Denies: Blood Transfusion Reaction Laterality Cases: Left: Other, Bilateral: Arthroscopy Shoulder, Carpal Tunnel Release Other Surgeries: Yes: Angioplasty, Cardiac Catheterization, Coronary Stent, Other. No: Pacemaker Amputation: No Fractures: No - *Social History Smoking Status: Never smoker Tobacco Type: cigarettes Alcohol Intake: never Alcohol Intake Frequency:: other Substance Use Type: denies use *Occupational Status:: other Housing: house Household Members: spouse *Travel in the last 8 weeks: None Family Hx:: Coronary Artery Disease, Cancer, Diabetes, Stroke
== END ==
PROVIDERS: PCP Family Medicine; Visit Provider Clinical Nurse Specialist Family Health
DX: M51.16 Intervertebral disc disorders with radiculopathy, lumbar region (principal); E11.42 Type 2 diabetes mellitus with diabetic polyneuropathy; G57.73 Causalgia of bilateral lower limbs
CPT/HCPCS: 99212

== ENCOUNTER → 2019-07-10 12:59 | Outpatient (POV) | payer OTHER, SELFPAY | DX: Z00.00 Encounter for general adult medical examination without abnormal findings (principal) ==

== ENCOUNTER 2019-07-18 13:42 | Emergency (ER) | payer OTHER, SELFPAY ==
[2019-07-18 14:05] VITALS: BP 148/90; PULSE 83; RESP 20; TEMP 36.9; O2SAT 97; BMI 34.0
--- NOTE | 2019-07-18 14:08 | XR_ITS ---
PROCEDURE: XR RIBS LT MIN 3V W CXR1V CLINICAL INDICATION: INJURY Posttraumatic pain COMPARISON: [facility] CT CHEST W/O CONTRAST from 11/19/2015 CXR CHEST(2 VIEWS-NOT PORTABLE) from 02/03/2017 [id number] XR ribs LT min 3V w CXR1V from 06/15/2017 CXR2V XR chest 2V from 05/01/2018 FINDINGS: Multiple views of the left ribs show no obvious fracture. No lytic or blastic change. Consider follow-up in 7-[address] with 3D reformats if pain persists Frontal view of the chest shows no acute finding IMPRESSION: No acute findings. If pain persists, consider follow-up exam in 7-[address] with 3D reformats Dictated by: Jhonny Pearce MD 07/18/2019 14:41 Electronically signed by Jhonny Pearce MD in [place] 07/18/2019 14:41
--- NOTE | 2019-07-18 14:21 | HMH.EDUTC ---
[facility] [place] Impression: Rib pain on left side Disposition: Home, Self-Care Condition on Discharge: Good Instructions: Acetaminophen (Alternative Therapy) Additional Instructions: Rest area but make sure that you are taking deep breathes to keep lungs well expanded and secretions clear *Ice and/or heat to the area may help with pain associated with rib pain, you may alternate or see which one helps more with you pain Over the counter Tylenol may help with pain associated with rib pain Return if needed IF no improvement follow up with family doctor for further testing and evaluation Straight to ER if any life threatening symptoms There is some patches over the counter that may help with pain like Lidocaine, Tigerbalm etc Referrals: Zurdo Masters MD [Primary Care Provider] - As needed Time of Disposition: 14:51 Medical Decision Making - Jose Inquiry Pt receiving controlled substance: No Jose was queried for this patient: No Vital Signs: 07/18/19 14:05 Temperature 98.5 F Temperature Source Oral Pulse Rate [Right Brachial] 83 Respiratory Rate 20 Blood Pressure [Right Arm] 148/90 H Blood Pressure Mean [Right Arm] 109 Blood Pressure Source [Right Arm] Automatic Cuff Blood Pressure Position [Right Arm] Sitting 02 Sat by Pulse Oximetry 97 Oxygen Delivery Method Room Air Orders (Tests/Meds): ORDERS Category Date Time Status XR ribs LT min 3V w CXR1V Stat Exams 07/18/19 14:08 Taken - Radiology Data #1 Image(s): Chest (with left ribs) Image Reviewed: Yes I reviewed the patient's radiology image w/the ED provider Preliminary Findings: Normal/NAD, No Fracture Seen Discussed with ED physician negative xray no acute [facility] [place] - General Stated complaint: Rib Pain Time Seen by Provider: 07/18/19 14:21 Mode of Arrival: Ambulatory Source of Information: Patient Limitations: No Limitations Description of Symptoms (Recalled from Triage Doc. by RN): PATIENT STATES HE WAS CRAWLING UNDER HIS HOUSE 2 DAYS AGO TO GET A PUPPY OUT AND INJURED HIS LEFT RIBS. HE DENIES DIFFICULTY BREATHING/SOA, BUT STATES IT IS PAINFUL TO TAKE A DEEP BREATH. NO OTHER INJURIES NOTED. HEENT Symptoms (Recalled from RN notes): No Resp Symptoms (Recalled from RN notes): No Skin Symptoms (Recalled from RN notes): No MS Symptoms (Recalled from RN notes): Yes Functional Status (Recalled from RN notes): WNL - History of Present Illness Provider Complaint: Patient states that 2 days ago his new puppy crawled under trailer and he tried to crawl under there and get it State that he is not sure if he turned the wrong way or what but had a sharp pain in his left ribs and states that he has continued to have pain in his ribs and hurts at times when he takes a deep breath State that he didnt hit his ribs but not sure if he may have twisted them or something Denies any other injury denies shortness of breath States that has pain in left ribs with deep breath and certain movements - Related Data Home Medications Medication Instructions Recorded Confirmed Aspirin [Aspirin 81mg chewable 81 mg PO DAILY 06/15/17 07/02/19 tab] Venlafaxine HCl [Venlafaxine HCl 150 mg PO DAILY 06/15/17 07/02/19 ER] tamsulosin 0.4 mg capsule 0.4 mg PO DAILY 06/20/17 07/02/19 oxycodone-acetaminophen 10 mg-325 1 tab PO Q6H PRN tab 11/22/17 07/02/19 mg tablet diphenhydramine HCl 25 mg capsule 50 mg PO QHS PRN cap 03/08/18 07/02/19 sumatriptan succinate 100 mg tablet 100 mg PO DAILY PRN 03/08/18 07/02/19 empagliflozin 25 mg tablet 25 mg PO DAILY 08/27/18 07/02/19 metformin 1,000 mg tablet 1,000 mg PO BID tab 03/26/19 07/02/19 omeprazole 40 mg capsule,delayed 40 mg PO DAILY cap 03/26/19 07/02/19 release oxybutynin chloride 15 mg 15 mg PO tab 03/26/19 07/02/19 tablet,extended release 24 hr Previous Rx's Medication Instructions Recorded furosemide 40 mg tablet 40 mg PO DAILY 30 Days #90 tab 12/31/18 diclofenac sodium 1 %
[2019-07-18 14:52] VITALS: BP 148/90; PULSE 83; RESP 20; TEMP 36.9; O2SAT 97
== END 2019-07-18 15:00 | disposition home or self-care (01) ==
PROVIDERS: Emergency Provider Nurse Practitioner; PCP Family Medicine
DX: R07.81 Pleurodynia (principal); E11.9 Type 2 diabetes mellitus without complications; Z79.84 Long term (current) use of oral hypoglycemic drugs; I25.10 Atherosclerotic heart disease of native coronary artery without angina pectoris; K21.9 Gastro-esophageal reflux disease without esophagitis; E78.5 Hyperlipidemia, unspecified; I10 Essential (primary) hypertension; Z79.899 Other long term (current) drug therapy
CPT/HCPCS: 71101; 99201

== ENCOUNTER 2019-09-15 08:57 | Emergency (ER) | payer OTHER, SELFPAY ==
[2019-09-15 08:57] VITALS: BP 128/92; PULSE 115; RESP 17; TEMP 36.8; O2SAT 98; BMI 34.7
--- NOTE | 2019-09-15 09:01 | CT_ITS ---
Procedure: CT ABDOMEN PELVIS W CON Patient Age:58Y CLINICAL INDICATION: N/V/D With pain in back COMPARISON: WO CT CHEST W/O CONTRAST from 11/19/2015 ABDPELW/O CT ABD PELVIS W/O CONTRAST from 03/17/2016 TECHNIQUE: Axial images obtained with sagittal and coronal reformats. All CT scans at the facility use one or more dose reduction, viz: automated exposure control, ma/kV adjustment per patient size (including targeted exams where dose is matched to indication, i.e. head), or iterative reconstruction technique. FINDINGS: Lower thorax: No acute finding ABDOMEN: Liver: No masses or biliary dilatation. Overall the liver actually seems slightly smaller than on 2017 exam the right lobe of normal size with perhaps slightly generous portion all left lobe again observed Gallbladder: Nondistended. No radio opaque stones.. Common duct normal Pancreas: No masses or peripancreatic fluid collections. Spleen: Borderline--mild splenomegaly again noted as as seen on 2017 study There has been slight progression of the grouping collateral vessels noted inferior to the spleen.-Curious feature. The portal vein does not appear to be dilated and I do not see other collaterals to support portal venous hypertension. This may warrant follow-up to exclude a developing small AVM type feature Adrenals: unremarkable tract Kidneys/ureters: unremarkable kidneys with normal enhancement. Ureters unremarkable. PELVIS: No free fluid. Small prostate Bladder: Nondistended. No obvious stones or masses. --------GI tract : Stomach: Unremarkable. Moderate fluid in stomach most evident towards fundus and body. Duodenum loop unremarkable. However remainder small-bowel does demonstrate abnormal fluid-filled slightly distended bowel loops throughout abdomen and pelvis. Most prominent fluid-filled bowel loops here at the left abdomen measuring up to 4.2 cm diameter. These distended loops reflected on today's CT tilesetter view as well.. Scattered moderate air-fluid levels.. With some generous air-fluid levels the more prominent loops, upper abdomen. No focal small bowel obstructing lesion or abrupt caliber change identified. Terminal ileum with fluid throughout, but upper normal wall thickness not dilated with no adjacent inflammation. Appendix well visualized and normal Suggestion of small developing right fat containing right inguinal hernia. No bowel loops. No inflammation Large bowel. Liquid stool, fluid do out but most most evident throughout the left colon and rectosigmoid. Minimal fluid at cecum and right colon. No solid stool. Scattered air-fluid levels throughout large bowel. Overall findings most likely reflect a gastroenteritis correlation required. No areas of prominent wall thickening no inflammation and fat adjacent to the bowel. Mesentery satisfactory. No mesenteric or retroperitoneal or pelvic adenopathy. Peritoneum: No abnormal fluid collections. No obvious inflammatory changes. No free air. Lymph nodes: No enlarged lymph nodes apparent. Vasculature: No evidence of abdominal aortic aneurysm.. SMA DREAD celiac unremarkable Bones: No acute fracture or findings.. Lumbar spine degenerative changes IMPRESSION: 1..Findings most likely reflect enterocolitis. Correlation required Notable increased fluid throughout small-bowel and to lesser degree large bowel. No wall thickening nor inflammation and adjacent fat . Fluid-filled, dilated small-bowel loops with moderate air-fluid levels throughout small bowel. Liquid stool throughout nondilated colon most evident left colon and rectosigmoid reflecting diarrhea. 2..Appendix n
--- NOTE | 2019-09-15 09:06 | HMH.EDGENADL ---
ED Disposition Clinical Impression: Gastroenteritis, Enterocolitis Disposition: Home, Self-Care Condition on Discharge: Good Instructions: DI for Colitis, DI for Diarrhea and Traveler's Diarrhea -- Adult Additional Instructions: You have been evaluated for abdominal cramping and diarrhea, most likely due to enterocolitis. Please take Zofran for nausea. Try to drink fluids to stay hydrated. Follow-up with your primary care doctor in 1 to 2 days for symptom recheck and for results of stool studies. Return to the emergency department if you have any new or worsening symptoms, vomiting, headache, chest pain, other concerns. Prescriptions: Ondansetron [Zofran 4mg ODT] 4 mg PO Q6 PRN 3 Days #12 tab.rapdis PRN Reason: Nausea Prescription Printed - Critical Care Critical Care Time: No Attestation: On , the high probability of a clinically significant, sudden or life threatening deterioration of the following system(s) required my full and direct attention, intervention and personal management. The time I documented below is in addition to time spent performing reported procedures but includes the following listed in this critical care notation. Medical Decision Making - Medical Records Medical records reviewed: Yes: I reviewed the patient's medical records. - Jose Inquiry Pt receiving controlled substance: Yes Jose was queried for this patient: Yes Reference #:: [id number] Risks and benefits of using a controlled substance: were discussed with pt by me Vital Signs: 09/15/19 08:57 09/15/19 09:24 09/15/19 09:48 Temperature 98.2 F Temperature Source Oral Pulse Rate [Right Radial] 115 H 104 H 107 H Respiratory Rate 17 Blood Pressure [Right Arm] 128/92 H 125/92 H 143/79 H Blood Pressure Mean [Right Arm] 104 103 100 Blood Pressure Source [Right Arm] Automatic Cuff Automatic Cuff Blood Pressure Position [Right Arm] Sitting Sitting 02 Sat by Pulse Oximetry 98 96 95 Oxygen Delivery Method Room Air Room Air Room Air 09/15/19 10:53 Temperature Temperature Source Pulse Rate [Right Radial] 100 H Respiratory Rate Blood Pressure [Right Arm] 159/99 H Blood Pressure Mean [Right Arm] 119 Blood Pressure Source [Right Arm] Automatic Cuff Blood Pressure Position [Right Arm] Sitting 02 Sat by Pulse Oximetry 95 Oxygen Delivery Method Room Air - Lab Data Lab Results 09/15/19 09:15: WBC 17.6 H, RBC 5.80, Hgb 17.0, Hct 46.6, MCV 80.3, MCH 29.3, MCHC 36.5 H, RDW 14.8, Plt Count 287, MPV 7.7, Neut % (Auto) 86.2 H, Lymph % (Auto) 9.1 L, [place] % (Auto) 4.1, Eos % (Auto) 0.3, Baso % (Auto) 0.4, Neut # (Auto) 15.2 H, Lymph # (Auto) 1.6, [place] # (Auto) 0.7, Eos # (Auto) 0.1, Baso # (Auto) 0.1, Total Counted 100, Neutrophils % (Manual) 82 H, Lymphocytes % (Manual) 17, Monocytes % (Manual) 1 L, Platelet Estimate Normal, RBC Morphology Normal 09/15/19 09:15: Sodium 142, Potassium 3.2 L, Chloride 102, Carbon Dioxide 15 L, Anion Gap 28.2 H, BUN 17, Creatinine 1.30 H, Estimated Creat Clear 95, Estimated GFR 57 L, Est GFR ( Amer) 69, Glucose 251 H, Calcium 10.6 H, Total Bilirubin 1.3, AST 77 H, ALT 81 H, Alkaline Phosphatase 199 H, Total Protein 10.4 H, Albumin 5.4 H, Globulin 5.0 H, Albumin/Globulin Ratio 1.1, Amylase 98, Lipase 62 Result diagrams: 09/15/19 09:15 09/15/19 09:15 Orders (Tests/Meds): ED MEDICATIONS Generic Name Dose Route Start Last Admin Trade Name Freq PRN Reason Stop Dose Admin Sodium Chloride 1,000 mls @ 999 mls/hr 09/15/19 09:15 09/15/19 09:22 Sod Chlor 0.9% 1000ml Bag IV 09/15/19 10:15 999 mls/hr .Q1H1M SJ Administration Sodium Chloride 1,000 mls @ 999 mls/hr 09/15/19 11:30 Sod Chlor 0.9% 1000ml Bag IV 09/15/19 12:30 .Q1H1M SJ Discontinued Medications Generic Name Dose Route Start Last Admin Trade Name Freq PRN Reason Stop Dose Admin Ioversol 75 ml 09/15/19 10:05 09/15/19 10:07 Rad-Optiray 350 100ml Vial IV 09/15/19 10:06 75 ml ONCE ONE Admini
[2019-09-15 09:24] VITALS: BP 125/92; PULSE 104; O2SAT 96
[2019-09-15 09:25] LABS: Basophils # 0.1 K/mm3 (0-0.2); Basophils % 0.4 % (0.1-2.0); Eosinophils # 0.1 K/mm3 (0.0-0.4); Eosinophils % 0.3 % (0.1-12.0); Hematocrit 46.6 % (42.0-52.0); Lymphocytes # 1.6 K/mm3 (0.7-4.5); Lymphocytes % 9.1 % (10-50); Mean Corpuscular HGB Conc 36.5 g/dL (31.8-35.4); Mean Corpuscular Hemoglobin 29.3 pg (27.0-31.2); Mean Corpuscular Volume 80.3 fl (80-94); Mean Platelet Volume 7.7 fl (7.4-10.4); Monocytes # 0.7 K/mm3 (0.1-1.0); Monocytes % 4.1 % (1.7-9.3); Neutrophils # 15.2 K/mm3 (1.8-7.8); Neutrophils % 86.2 % (37.0-80.0); Platelet Count 287 K/mm3 (142-424); Red Cell Distribution Width 14.8 % (11.5-17.5); White Blood Count 17.6 K/mm3 (4.8-10.8)
[2019-09-15 09:27] LABS: MANUAL DIFFERENTIAL MANUAL DIFFERENTIAL (MANUAL DIFF)
[2019-09-15 09:28] LABS: Chloride 102 mmol/L (98-107); Potassium 3.2 mmoL/L (3.5-5.1); Sodium 142 mmol/L (136-145)
[2019-09-15 09:30] LABS: Amylase 98 U/L (30-110); Blood Urea Nitrogen 17 mg/dl (9-20); Creatinine Clearance Estimated 95 mL/min (50-200); Estimated Glomerular Filt Rate 57 ml/min (>60); GFR (African American) 69 ML/MIN (>60)
[2019-09-15 09:31] LABS: Alanine Aminotransferase 81 U/L (12-78); Albumin Level 5.4 g/dl (3.5-5.0); Albumin/Globulin Ratio 1.1 (1.1-1.8); Alkaline Phosphatase 199 U/L (38-126); Anion Gap 28.2 mEq/L (5-15); Aspartate Amino Transferase 77 U/L (17-59); Bilirubin,Total 1.3 mg/dl (0.2-1.3); Calcium 10.6 mg/dl (8.4-10.2); Carbon Dioxide 15 mmol/L (22.0-30.0); Glucose 251 mg/dl (74-100); Lipase 62 U/L (23-300); Total Protein,Serum 10.4 g/dl (6.3-8.2)
[2019-09-15 09:38] LABS: Lymphocytes % 17 % (10-50); Monocytes % 1 % (2-9); Neutrophils % 82 % (42-76); Platelet Estimate Normal; RBC Morphology Normal; Total Cells Counted 100
--- NOTE | 2019-09-15 09:47 | PC.NURSE ---
Pt up to restroom independently
[2019-09-15 09:48] VITALS: BP 143/79; PULSE 107; O2SAT 95
--- NOTE | 2019-09-15 10:17 | PC.NURSE ---
Pt returned from rad
--- NOTE | 2019-09-15 10:52 | PC.NURSE ---
v/s delayed due to pt making several trips to the restroom. Pt states he is still unable to urinate but is having diarrhea.
[2019-09-15 10:53] VITALS: BP 159/99; PULSE 100; O2SAT 95
[2019-09-15 11:22] VITALS: BP 158/100; PULSE 100; O2SAT 95
[2019-09-15 13:06] VITALS: BP 158/100; PULSE 100; RESP 17; TEMP 36.8; O2SAT 95
== END 2019-09-15 12:30 | disposition home or self-care (01) ==
PROVIDERS: Emergency Provider Emergency Medicine; PCP Family Medicine
DX: K52.9 Noninfective gastroenteritis and colitis, unspecified (principal); E11.65 Type 2 diabetes mellitus with hyperglycemia; I25.10 Atherosclerotic heart disease of native coronary artery without angina pectoris; I10 Essential (primary) hypertension; K21.9 Gastro-esophageal reflux disease without esophagitis; E78.5 Hyperlipidemia, unspecified; G43.709 Chronic migraine without aura, not intractable, without status migrainosus; Z88.8 Allergy status to other drugs, medicaments and biological substances; Z79.899 Other long term (current) drug therapy
CPT/HCPCS: 36415; 74177; 80053; 82150; 83690; 85007; 85025; 96365; 96366; 96375; 99283; J2405; Q9967

== ENCOUNTER → 2020-10-08 14:18 | Outpatient (POV) | payer OTHER, SELFPAY ==
[2020-10-08 14:58] VITALS: BP 159/96; PULSE 83; RESP 18; O2SAT 95; BMI 33.7
--- NOTE | 2020-10-08 15:09 | HMH.PAINSOAP ---
[facility] Pain Management SOAP Note Subjective:: Patient is a pleasant 88-year-old white male who presents today for follow-up. Patient was last seen in the clinic on 04/30/2019. At that time, the patient was approval for spinal cord stimulator. Patient had undergone injective therapy as well as conservative therapies of physical therapy for greater than 6 weeks and continued home stretching. Patient is not getting any relief and was continuing to have pain. His goal was to stop oral narcotic medications. The patient is being treated in the clinic for CRPS type II of his lower extremity as well as chronic low back pain. Patient is here today with complaints of right low back pain with radiation into his right buttock and right knee. He is having left hip pain with radiation into his left knee. He is having numbness and tingling to his bilateral buttock that is worse with sitting. The patient says his pain is constant. The pain continues whether he is standing, sitting, walking, or lying down. Patient says he is only able to walk for short periods without developing significant pain. He has pain regardless of standing straight or leaning forward. The patient's pain is a 5 out of 10. He has not had any recent injective therapy. He does say he has tried multiple injections which consisted of medial branch block/facet injections as well as lumbar epidural steroid injections. The patient says the best relief he got was from the initial injection given to him by Dr. Mayfield. The patient's first injection in our clinic was a lumbar epidural steroid injection at L4-L5. The patient reports after that injection, he did get approximately 4 to 5 weeks. Patient has undergone physical therapy for more than 6 weeks. He has tried anti-inflammatories and continues with home stretching. The patient says his pain has progressively worsened. Review of Systems General: No recent weight changes, no fever, no sleep disturbances Respiratory: No cough, no shortness of air, no recurring pulmonary infections Cardiovascular/peripheral vascular: No chest pain, no palpitations, no edema, no shortness of breath Gastrointestinal: No new onset incontinence, normal bowel movements reported Genitourinary: No new onset incontinence Musculoskeletal: Right low back pain, right buttock pain, right knee pain, left hip pain, left knee pain, numbness and tingling to bilateral buttock Psychiatric: [Normal mood/affect] Neurological: [Denies weakness in extremities], [denies balance issues] Objective:: Physical exam General: Alert and oriented x3, no acute distress, pleasant and cooperative, [on room air] Lungs: Respirations even and unlabored, symmetrical chest expansion Eyes: PERRL Musculoskeletal: Flexion and extension of lumbar [spine] somewhat guarded secondary to pain, strength in upper and lower extremities [5/5], [antalgic gait noted] Neurological: Speech clear, [manager storage equal], no gross sensory deficit Assessment:: Degenerative disc disease lumbar spine with lumbar radiculopathy symptoms, Plan:: Patient was worked up for a spinal cord stimulator, however, was denied by his insurance. The patient now has new insurance. He would, however, like to try a repeat injection before proceeding with possible implanted devices. He did get up to 5 weeks of relief with a lumbar epidural steroid injection at L4-L5. Patient says he is not on any anticoagulation therapy. We will schedule him for the lumbar epidural steroid injection at L4-5 and see him back afterwards for reevaluation of symptoms. He will continue with home stretching and anti-inflammatories. Patient does take oxycodone as prescribed by Dr. Masters. Risks and benefits of the procedure have been explained to the patient. Patient would like to proceed with the procedure. Possible side effects of corticosteroids have been discussed with the patient. Patient has been instructed to contact the clinic with any c
== END ==
PROVIDERS: Visit Provider Clinical Nurse Specialist Family Health
DX: M51.16 Intervertebral disc disorders with radiculopathy, lumbar region (principal)
CPT/HCPCS: 99212; G0463

== ENCOUNTER 2020-11-13 10:32 | Day surgery (SDC) | payer OTHER, SELFPAY ==
[2020-11-13 10:36] VITALS: BP 144/81; PULSE 87; RESP 18; TEMP 36.8; O2SAT 97; BMI 34.0
[2020-11-13 11:11] VITALS: BP 147/88; PULSE 83; RESP 18; O2SAT 96
[2020-11-13 11:13] VITALS: BP 141/88; PULSE 78; RESP 18; O2SAT 95
[2020-11-13 11:32] VITALS: BP 141/83; PULSE 87; RESP 20; O2SAT 98
--- NOTE | 2020-11-13 11:32 | HMH.PMPROC ---
- Procedure Date: 11/13/20 Time: 11:32 Anesthesiologist:: Kevin Mayfield MD Complications:: None Pre-procedure Diagnosis:: Degenerative disc disease of lumbar spine with lumbar radiculopathy symptoms Post-procedure Diagnosis:: Same Indications for Procedure:: This patient is a pleasant 60-year-old white male who we are treating for low back pain with lumbar radiculopathy symptoms. He has increasing pain in his back rating down his legs. We will plan on lumbar epidural steroid injection under fluoroscopy today. These have helped in the past. Procedure Details:: Informed consent was obtained and the risk and benefits of the procedure was explained to the patient. The patient was taken to the procedure room. The patient was placed prone on the procedure table. The patient was prepped and draped in sterile fashion. C-arm fluoroscopy was used to view the lumbar spine. Skin and subcutaneous tissues were anesthetized using lidocaine. I placed an 18-gauge epidural needle and advanced into the L4-L5 interspace using fluoroscopic guidance and [id number] to air. After confirmation of needle placement in the epidural space with dye I injected 2 mL of lidocaine 1.5% with Depo-Medrol 80 mg. Patient tolerated the procedure well with no complications. Plan and Disposition:: We will follow-up with him in 2 weeks. Will reevaluate his symptoms at that time.
== END 2020-11-13 11:33 | disposition home or self-care (01) ==
LOC: SC.PAINP 10:33
PROVIDERS: PCP Family Medicine; Visit Provider Anesthesiology
DX: M51.16 Intervertebral disc disorders with radiculopathy, lumbar region (principal); G43.909 Migraine, unspecified, not intractable, without status migrainosus; I25.10 Atherosclerotic heart disease of native coronary artery without angina pectoris; E78.5 Hyperlipidemia, unspecified; I10 Essential (primary) hypertension; G47.33 Obstructive sleep apnea (adult) (pediatric); K21.9 Gastro-esophageal reflux disease without esophagitis; E11.9 Type 2 diabetes mellitus without complications; D64.9 Anemia, unspecified; F41.9 Anxiety disorder, unspecified; F32.9 Major depressive disorder, single episode, unspecified; Z88.8 Allergy status to other drugs, medicaments and biological substances
CPT/HCPCS: 62323; J1040; Q9966

== ENCOUNTER → 2020-12-01 10:03 | Outpatient (POV) | payer OTHER, SELFPAY ==
--- NOTE | 2020-12-01 10:43 | HMH.PAINSOAP ---
[facility] Pain Management SOAP Note Subjective:: Patient is a 60-year-old white male who presents today for follow-up. The patient recently underwent a lumbar epidural steroid injection at L4-L5 area. He is treated for chronic low back pain with radiation into his bilateral lower extremities. The patient reports that he got 100% relief for 1 week. Unfortunately, the patient's pain did return. He has undergone multiple rounds of injective therapy and has gotten short-term relief at 80 to 100%. He has tried physical therapy for greater than 6 weeks and continues with oral medications. Patient does not get long-term relief with conservative therapies. He has tried ice and heat therapies and continues home stretching with limited relief. Today, while sitting, the patient's pain is a 2 out of 10. Standing, walking, and repetitive movements worsen his pain. Patient does have numbness and tingling into his bilateral lower extremities and denies saddle anesthesia or any changes in bowel and bladder habit. Patient has not had any recent imaging. He says that is been greater than 5 years since his last MRI. He is requesting imaging before proceeding with implanted devices. Review of Systems General: No recent weight changes, no fever, no sleep disturbances Respiratory: No cough, no shortness of air, no recurring pulmonary infections Cardiovascular/peripheral vascular: No chest pain, no palpitations, no edema, no shortness of breath Gastrointestinal: No new onset incontinence, normal bowel movements reported Genitourinary: No new onset incontinence Musculoskeletal: Low back pain with radiation into bilateral lower extremities with numbness and tingling Psychiatric: [Normal mood/affect] Neurological: [Denies weakness in extremities], [denies balance issues] Objective:: Physical exam General: Alert and oriented x3, no acute distress, pleasant and cooperative Lungs: Respirations even and unlabored, symmetrical chest expansion Eyes: PERRL Musculoskeletal: Flexion and extension of lumbar [spine] somewhat guarded secondary to pain, [antalgic gait noted] Neurological: Speech clear, no gross sensory deficit Assessment:: Degenerative disc disease lumbar spine with lumbar radiculopathy symptoms Plan:: Patient has had multiple rounds of injection therapy and gets short-term relief with injections at 8200%. Unfortunately he does not get long-term relief. He has not had any recent imaging of his lumbar spine. We will order an MRI of his lumbar spine to determine any changes and pathology of pain. He is open to possible implanted devices, but would like to have imaging before proceeding. We will see him back after his MRI for reevaluation and discussion for plan of care. Patient has been instructed to contact the clinic with any concerns before the next appointment. Dr. Mayfield has reviewed this note and agrees with this plan of care. This note was dictated using voice recognition software and make contain errors or omissions. [facility] History I have reviewed the patient's past medical history: Yes Medical History: Reports:: Atherosclerotic Heart Disease, Coronary Artery Disease, Diabetes Mellitus Type 2, Gastroesophageal Reflux Disease(GERD), Hyperlipidemia, Hypertension, Migraine Denies:: Cancer, Diabetes Mellitus Type 1, Internal Pacemaker, MRSA, Seizures *Have you ever received a pneumonia vaccine?: No *Have you received a flu vaccine this season?: No Other Medical History: Reports: Anemia, Arthritis, Other. Denies: Blood Transfusion Reaction Laterality Cases: Left: Other, Bilateral: Arthroscopy Shoulder, Carpal Tunnel Release, Tonsillectomy Other Surgeries: Yes: Angioplasty, Cardiac Catheterization, Coronary Stent, Other. No: Pacemaker Amputation: No Fractures: No - *Social History Smoking Status: Never smoker Tobacco Type: cigarettes Alcohol Intake: never Alcohol Intake Frequency:: other Substance Use Type: denies use *Occupational Status:: unemploye
[2020-12-01 11:17] VITALS: BP 148/86; PULSE 80; RESP 18; O2SAT 96; BMI 34.0
== END ==
PROVIDERS: Visit Provider Clinical Nurse Specialist Family Health
DX: M51.16 Intervertebral disc disorders with radiculopathy, lumbar region (principal)
CPT/HCPCS: 99212; G0463

== ENCOUNTER → 2020-12-11 09:13 | Outpatient (CLI) | payer OTHER, SELFPAY ==
--- NOTE | 2020-12-11 09:21 | MR_ITS ---
PROCEDURE: MR LUMBAR SPINE WO CON CLINICAL INDICATION: BACK PAIN Low back pain with tingling and numbness in right leg for years. COMPARISON: MR MR HEAD/BRAIN WO/W CON from 03/20/[address] ABDOMEN PELVIS W CON from 09/15/2019 TECHNIQUE: Standard multiplanar multiecho sequences are performed without contrast. 3-D MIP and myelographic images are also rendered and reviewed FINDINGS: Alignment is within normal limits. There is a tiny hemangioma in L2. At T12-L1, the there is no canal or neural foraminal stenosis. At L1-2, there is no canal or neural foraminal stenosis. At L2-3, there is no canal or neural foraminal stenosis. At L3-4, there is diffuse disc bulge and facet arthropathy producing moderate bilateral neural foraminal stenosis. At L4-5, there is diffuse disc bulge producing mild right neural foraminal stenosis. At L5-S1, there is facet arthropathy however no canal or neural foraminal stenosis. There is diffuse muscular atrophy. Visualized abdominal contents appear unremarkable. IMPRESSION: Moderate lumbar spondylosis as detailed above. Dictated by: Nano Guthrie MD 12/11/2020 14:58 Nano Guthrie MD in [place] 12/11/2020 14:58
== END ==
PROVIDERS: PCP Family Medicine; Visit Provider Clinical Nurse Specialist Family Health
DX: M54.50 Low back pain, unspecified (principal)
CPT/HCPCS: 72148; 76376

== ENCOUNTER → 2021-01-21 14:22 | Outpatient (POV) | payer OTHER, SELFPAY ==
[2021-01-21 15:02] VITALS: BP 138/81; PULSE 82; RESP 18; O2SAT 95; BMI 34.7
--- NOTE | 2021-01-21 15:34 | HMH.PAINSOAP ---
[facility] Pain Management SOAP Note Subjective:: Patient is a 60-year-old white male who presents today for follow-up. The patient is following up for an MRI today. Patient says that he has had multiple rounds of different types of injections in his lumbar spine with minimal relief. He has tried physical therapy for greater than 6 weeks in the past and does continue with home stretching. He has taken high doses of anti-inflammatories as well as ice and heat therapies with no relief. He is not considered a neurosurgical candidate. He is having low back pain with radiation into bilateral buttock and legs. The pain does stop at bilateral knee. He does have numbness and tingling into his lower extremities as well. The patient has not gotten any long-term relief with injective therapy is here today to review his MRI and discuss his options. Review of Systems General: No recent weight changes, no fever, no sleep disturbances Respiratory: No cough, no shortness of air, no recurring pulmonary infections Cardiovascular/peripheral vascular: No chest pain, no palpitations, no edema, no shortness of breath Gastrointestinal: No new onset incontinence, normal bowel movements reported Genitourinary: No new onset incontinence Musculoskeletal: Low back pain with radiation into bilateral lower extremities Psychiatric: [Normal mood/affect] Neurological: [Denies weakness in extremities], [denies balance issues] Objective:: Physical exam General: Alert and oriented x3, no acute distress, pleasant and cooperative Lungs: Respirations even and unlabored, symmetrical chest expansion Eyes: PERRL Musculoskeletal: Flexion and extension of lumbar [spine] somewhat guarded secondary to pain, [antalgic gait noted] Neurological: Speech clear, no gross sensory deficit Assessment:: Degenerative disc disease lumbar spine with lumbar facet arthropathy and lumbar spondylosis Plan:: Patient I discussed his options. He would like to consider possible spinal cord stimulation. He is not interested in intrathecal therapy. The patient says he would like to discuss his options with his before proceeding. We will follow up with the patient after he has a discussion with his concerning the procedure. If he does decide to pursue the spinal cord stimulator trial we will need to send the patient for a psychological evaluation. He does understand this. He has had a psychological evaluation in the past. He was worked up for possible spinal cord stimulator screen in the past, but was denied by his insurance company. He now has a different insurance company and is hopeful that he would be approved. Patient has been instructed to contact the clinic with any concerns before the next appointment. Dr. Mayfield has reviewed this note and agrees with this plan of care. This note was dictated using voice recognition software and make contain errors or omissions. [facility] History I have reviewed the patient's past medical history: Yes Medical History: Reports:: Atherosclerotic Heart Disease, Coronary Artery Disease, Diabetes Mellitus Type 2, Gastroesophageal Reflux Disease(GERD), Hyperlipidemia, Hypertension, Migraine Denies:: Cancer, Diabetes Mellitus Type 1, Internal Pacemaker, MRSA, Seizures *Have you ever received a pneumonia vaccine?: No *Have you received a flu vaccine this season?: No Other Medical History: Reports: Anemia, Arthritis, Other. Denies: Blood Transfusion Reaction Laterality Cases: Left: Other, Bilateral: Arthroscopy Shoulder, Carpal Tunnel Release, Tonsillectomy Other Surgeries: Yes: Angioplasty, Cardiac Catheterization, Coronary Stent, Other. No: Pacemaker Amputation: No Fractures: No - *Social History Smoking Status: Never smoker Tobacco Type: cigarettes Alcohol Intake: never Alcohol Intake Frequency:: other Substance Use Type: denies use *Occupational Status:: unemployed Housing: house Household Members: spouse *Travel in the last 8 weeks
== END ==
PROVIDERS: Visit Provider Clinical Nurse Specialist Family Health
DX: M51.36 Other intervertebral disc degeneration, lumbar region (principal); M47.816 Spondylosis without myelopathy or radiculopathy, lumbar region; M54.06 Panniculitis affecting regions of neck and back, lumbar region
CPT/HCPCS: 99202; G0463

== ENCOUNTER 2022-07-21 15:54 | Emergency (ER) | payer OTHER, SELFPAY ==
[2022-07-21 15:55] VITALS: BP 141/89; PULSE 88; RESP 16; TEMP 36.6; O2SAT 95; BMI 35.4
[2022-07-21 16:00] VITALS: BP 141/89; PULSE 86; RESP 20; O2SAT 97
--- NOTE | 2022-07-21 16:08 | HMH.EDEYEP ---
Discharge Plan Disposition Patient Disposition: Home, Self-Care Chief Complaint: Eye Problems Prescriptions Prescriptions: No Action tamsulosin 0.4 mg capsule,extended release 24hr 0.4 mg PO DAILY metformin 1,000 mg tablet 1,000 mg PO BID oxybutynin chloride 15 mg tablet extended release 24hr 15 mg PO DAILY diclofenac sodium 1 % gel 4 g TOPICAL QID PRN (Reason: pain ) Qty: 100 2RF Rx Instructions: apply to single, ankle, foot; for foot includes sole/toes/top of foot urea 40 % cream 1 applic TOPICAL BID Qty: 28 0RF ezetimibe 10 mg tablet 10 mg PO DAILY diphenhydramine HCl [Benadryl] 25 mg capsule 50 mg PO QHS PRN (Reason: unknown) Jardiance 25 mg tablet 25 mg PO DAILY nitroglycerin 400 mcg/spray spray,non-aerosol 0.4 mg SUBLINGUAL Q5M PRN (Reason: chest pain) Qty: 4.9 2RF furosemide 40 mg tablet See Rx Instructions .ROUTE .COMPLEX Qty: 90 1RF Dose Instruction: TAKE 1 TABLET BY MOUTH ONCE DAILY FOR FLUID Rx Instructions: TAKE 1 TABLET BY MOUTH ONCE DAILY FOR FLUID venlafaxine [Effexor XR] 75 mg capsule,extended release 24hr 75 mg PO .COMPLEX Qty: 90 0RF Rx Instructions: 75 mg PO take daily with 150mg capsule; total dose is 225mg daily venlafaxine 150 mg tablet extended release 24hr 150 mg PO DAILY Qty: 90 0RF quetiapine [Seroquel] 100 mg tablet 100 mg PO QHS Qty: 90 0RF omeprazole 40 MG capsule,delayed release(DR/EC) 40 mg PO DAILY Rx Instructions: Needs follow up appt for additional refills. aspirin 81 MG tablet,chewable 81 mg PO DAILY oxycodone-acetaminophen 10-325 mg tablet 1 tab PO Q6H PRN (Reason: PAIN) sumatriptan succinate 100 mg tablet 100 mg PO DAILY PRN (Reason: Headache) Referrals Follow up/Referrals: Zurdo Masters MD [Primary Care Provider] - See instructions Activity Restrictions/Add. Instructions Additional Instructions/Restrictions: Please instill 1 drop of the eyedrops given to you today by me 5 times a day for 1 week. Follow-up with your primary care doctor in about 2 to 3 days if your symptoms do not improve. Return to the emergency department immediately if your symptoms worsen in any way. You can also take over the counter Tylenol for your pain. Clinical Impressions Clinical Impression: Conjunctivitis Instructions Patient Instructions: DI for Conjunctivitis Discharge ED Provider: Kip Modi Eye Problem HPI General Chief complaint: Eye Problems Stated complaint: left side of head pain and eye pain Time Seen by Provider: 07/21/22 16:07 Mode of Arrival: Ambulatory Source of Information: Patient Limitations: No Limitations Description of Symptoms (Recalled from ER Triage Doc. by RN): c/o left eye and head pain. Pt denies any injury, states he was awake all night, today he dosed off and once he woke up, he had light sentivity, pain and irritation. History of Present Illness HPI Narrative: The patient presents to the emergency department complaining of left eye pain after having fallen asleep while playing on his phone last night. He denies any injury. He describes it as burning and pressure. chief complaint: eye redness Related Data Home Medications Medication Instructions Recorded Confirmed aspirin 81 mg chewable tablet 81 mg PO DAILY PREVENTION' 06/15/17 05/26/22 tamsulosin 0.4 mg capsule 0.4 mg PO DAILY bladder 06/20/17 05/26/22 oxycodone-acetaminophen 10 mg-325 1 tab PO Q6H PRN PAIN 11/22/17 05/26/22 mg tablet diphenhydramine HCl 25 mg capsule 50 mg PO QHS PRN unknown 03/08/18 05/26/22 (Benadryl) sumatriptan succinate 100 mg tablet 100 mg PO DAILY PRN Headache 03/08/18 05/26/22 empagliflozin 25 mg tablet 25 mg PO DAILY . 08/27/18 05/26/22 (Jardiance) metformin 1,000 mg tablet 1,000 mg PO BID . 03/26/19 05/26/22 oxybutynin chloride 15 mg 15 mg PO DAILY . 03/26/19 05/26/22 tablet,extended release 24 hr omeprazole 40 mg
[2022-07-21 16:19] VITALS: BP 141/89; PULSE 84; RESP 18; TEMP 36.6; O2SAT 97
== END 2022-07-21 16:18 | disposition home or self-care (01) ==
PROVIDERS: Emergency Provider Emergency Medicine; PCP Family Medicine
DX: H10.32 Unspecified acute conjunctivitis, left eye (principal); F31.9 Bipolar disorder, unspecified; F41.9 Anxiety disorder, unspecified
CPT/HCPCS: 99283; 99284

== ENCOUNTER → 2022-07-27 13:12 | Outpatient (CLI) | payer OTHER, SELFPAY ==
--- NOTE | 2022-07-27 13:20 | XR_ITS ---
FINAL REPORT CLINICAL HISTORY: foot pain FINDINGS: Right foot Three views were obtained. There is no acute fracture or dislocation. There are mild degenerative changes. A plantar calcaneal spur is identified. No soft tissue abnormality is identified. IMPRESSION: No acute process. Reviewed, Interpreted and Dictated by Bernard Virgen III, MD Transcribed by Mellisa Conway Authenticated and [facility]
--- NOTE | 2022-07-27 15:14 | XR_ITS ---
FINAL REPORT CLINICAL HISTORY: Right ankle pain @ medial malleolus COMPARISON: None FINDINGS: RIGHT ANKLE: Three views of the right ankle were obtained. There is no acute fracture or dislocation. There is severe degenerative change. Calcaneal spurs are noted. There is no soft tissue abnormality. IMPRESSION: No acute bony abnormality. Reviewed, Interpreted and Dictated by Bernard Virgen III, MD Transcribed by Karlene Menjivar Authenticated and [facility] [place] [place]
== END ==
PROVIDERS: PCP Family Medicine; Visit Provider Nurse Practitioner Family
DX: M79.671 Pain in right foot (principal); M25.571 Pain in right ankle and joints of right foot
CPT/HCPCS: 73610; 73630

== ENCOUNTER → 2022-09-12 13:59 | Outpatient (CLI) | payer OTHER, SELFPAY ==
[2022-09-12 14:58] LABS: Basophils % 0.3 % (0.1-2.0); Eosinophils # 0.1 K/mm3 (0.0-0.4); Eosinophils % 2.5 % (0.1-12.0); Hematocrit 41.4 % (42.0-52.0); Lymphocytes # 2.5 K/mm3 (0.7-4.5); Lymphocytes % 43.3 % (10-50); Mean Corpuscular HGB Conc 33.7 g/dL (31.8-35.4); Mean Corpuscular Hemoglobin 27.5 pg (27.0-31.2); Mean Corpuscular Volume 81.6 fl (80-94); Mean Platelet Volume 8.3 fl (7.4-10.4); Monocytes # 0.3 K/mm3 (0.1-1.0); Monocytes % 4.7 % (1.7-9.3); Neutrophils # 2.8 K/mm3 (1.8-7.8); Neutrophils % 49.2 % (37.0-80.0); Platelet Count 169 K/mm3 (142-424); Red Blood Count 5.08 M/mm3 (4.60-6.20); Red Cell Distribution Width 15.2 % (11.5-17.5); White Blood Count 5.7 K/mm3 (4.8-10.8)
[2022-09-12 15:45] LABS: Alanine Aminotransferase 51 U/L (12-78); Albumin Level 4.8 g/dl (3.5-5.0); Albumin/Globulin Ratio 1.5 (1.1-1.8); Alkaline Phosphatase 107 U/L (38-126); Anion Gap 16.8 mEq/L (5-15); Aspartate Amino Transferase 61 U/L (17-59); Bilirubin,Total 0.4 mg/dl (0.2-1.3); Blood Urea Nitrogen 15 mg/dl (9-20); Calcium 9.5 mg/dl (8.4-10.2); Carbon Dioxide 25 mmol/L (22.0-30.0); Chloride 106 mmol/L (98-107); Estimated Glomerular Filt Rate 86 ml/min (>60); GFR (African American) 104 ML/MIN (>60); Globulin 3.1 g/dL (1.3-3.2); Glucose 132 mg/dl (74-100); Potassium 3.8 mmoL/L (3.5-5.1); Sodium 144 mmol/L (136-145); Total Protein,Serum 7.9 g/dl (6.3-8.2)
[2022-09-12 16:33] LABS: Erythrocyte Sedimentation Rate 23 mm/hr (0-20)
[2022-09-12 16:35] LABS: Hemoglobin A1C 6.3 % (4.0-6.0)
[2022-09-17 17:08] LABS: 1,25 Dihydroxy Vitamin D 64 pg/mL (.); 1,25-Dihydroxy, Vitamin D-2 <10 pg/mL (.); 1,25-Dihydroxy, Vitamin D-3 61 pg/mL (.)
== END ==
PROVIDERS: PCP Family Medicine; Visit Provider Podiatrist
DX: R60.9 Edema, unspecified (principal); M19.071 Primary osteoarthritis, right ankle and foot; E11.65 Type 2 diabetes mellitus with hyperglycemia; E66.9 Obesity, unspecified; Z68.34 Body mass index [BMI] 34.0-34.9, adult; Z79.84 Long term (current) use of oral hypoglycemic drugs
CPT/HCPCS: 36415; 80053; 82652; 83036; 85025; 85651; 86140

== ENCOUNTER → 2022-09-28 09:06 | Outpatient (CLI) | payer OTHER, SELFPAY ==
--- NOTE | 2022-09-28 09:08 | MR_ITS ---
FINAL REPORT CLINICAL HISTORY: RIGHT ANKLE PAIN, OLD ANKLE INJURY YEARS AGO FINDINGS: Multiplanar MR imaging of the right ankle was performed without contrast. There are moderate degenerative changes. There is chronic calcification adjacent to the lateral malleolus. There is bone marrow edema of the medial malleolus and medial talus with subchondral cysts. There are also several subchondral cysts in the distal tibial articular surface. There is irregularity of the anterior talofibular ligament, favor chronic partial tear. There is posterior tibial and flexor digitorum longus and brevis tenosynovitis. There is a partial tear of the peroneus longus inferior to the lateral malleolus. There is posterior plantar fasciitis with a partial tear. No significant joint effusion is seen. The musculature is intact. There is no evidence of soft tissue mass or cyst. IMPRESSION: Tenosynovitis as detailed above. Partial tear of the peroneus longus. Posterior plantar fasciitis with a partial tear. Degenerative and chronic appearing findings as detailed above. Reviewed, Interpreted and Dictated by Bernard Virgen III, MD Transcribed by Mellisa Conway Authenticated and [facility]
== END ==
PROVIDERS: PCP Family Medicine; Visit Provider Podiatrist
DX: M25.571 Pain in right ankle and joints of right foot (principal)
CPT/HCPCS: 73721

== ENCOUNTER 2022-10-07 14:08 | Outpatient (RCR) | payer OTHER, SELFPAY | END 2022-10-07 16:00 | disposition home or self-care (01) | LOC: PT 14:08 | PROVIDERS: Visit Provider Orthopaedic Surgery | DX: M79.641 Pain in right hand (principal); M25.571 Pain in right ankle and joints of right foot | CPT/HCPCS: 97760 ==

== ENCOUNTER → 2022-10-18 10:40 | Outpatient (CLI) | payer OTHER, SELFPAY ==
--- NOTE | 2022-10-18 11:05 | XR_ITS ---
FINAL REPORT CLINICAL HISTORY: right trigger finger of thumb, hx of carpal tunnel sx COMPARISON: None FINDINGS: RIGHT HAND: 3 views of the right hand were obtained. There is no acute fracture or dislocation. Visualized joint spaces are normally aligned with mild degenerative changes noted.. Soft tissues are unremarkable. IMPRESSION: No acute bony abnormality. Reviewed, Interpreted and Dictated by Bernard Virgen III, MD Transcribed by Karoline Whitfield Authenticated and [facility]
== END ==
PROVIDERS: PCP Family Medicine; Visit Provider Orthopaedic Surgery
DX: M65.311 Trigger thumb, right thumb (principal)
CPT/HCPCS: 73130

== ENCOUNTER → 2022-10-21 08:22 | Outpatient (CLI) | payer OTHER, SELFPAY ==
--- NOTE | 2022-10-21 08:29 | MR_ITS ---
FINAL REPORT CLINICAL HISTORY: NEW ONSET HEADACHES, FAMILY HISTORY OF STROKES double vision 21ml prohance COMPARISON: 03/20/2019 FINDINGS: Multiplanar MR imaging of the brain was performed without and with contrast. Scattered foci of increased T2 signal are seen in the cerebral white matter that have a nonspecific appearance but likely represent mild chronic ischemic/gliotic changes. There is no evidence of intracranial hemorrhage or mass. No abnormal ventricular dilatation is identified. There is no evidence of shift of the midline structures. No abnormal extra-axial fluid collection is seen. No area of abnormal restricted diffusion is identified. The posterior fossa and brainstem have an unremarkable appearance. No abnormal contrast enhancement is seen. Normal major vessel vascular flow voids are seen. IMPRESSION: Mild chronic ischemic/gliotic changes. No acute intracranial abnormality. Reviewed, Interpreted and Dictated by Bernard Virgen III, MD Transcribed by Mellisa Conway Authenticated and [facility]
[2022-10-21 09:01] LABS: Blood Urea Nitrogen 20 mg/dl (9-20); Estimated Glomerular Filt Rate 68 ml/min (>60); GFR (African American) 83 ML/MIN (>60)
== END ==
PROVIDERS: PCP Family Medicine; Visit Provider Family Medicine
DX: H53.2 Diplopia (principal); R51.9 Headache, unspecified; I25.10 Atherosclerotic heart disease of native coronary artery without angina pectoris; Z82.3 Family history of stroke
CPT/HCPCS: 36415; 70553; 82565; 84520; A9576

== ENCOUNTER → 2022-12-01 12:51 | Outpatient (CLI) | payer OTHER, SELFPAY ==
--- NOTE | 2022-12-01 13:19 | XR_ITS ---
FINAL REPORT CLINICAL HISTORY: Right ankle pain COMPARISON: 07/27/2022 FINDINGS: Right ankle Three views were obtained. There is no acute fracture or dislocation. There are moderate degenerative changes. Calcaneal spurs are identified. No acute soft tissue abnormality is identified. IMPRESSION: Moderate degenerative changes. Reviewed, Interpreted and Dictated by Bernard Virgen III, MD Transcribed by Mellisa Conway Authenticated and [facility]
== END ==
PROVIDERS: PCP Family Medicine; Visit Provider Orthopaedic Surgery
DX: M25.571 Pain in right ankle and joints of right foot (principal)
CPT/HCPCS: 73600

== ENCOUNTER 2023-05-30 13:03 | Outpatient (CLI) | payer OTHER, SELFPAY ==
--- NOTE | 2023-05-30 13:07 | XR_ITS ---
FINAL REPORT CLINICAL HISTORY: Right Hand Pain x2 months FINDINGS: Right hand Three views were obtained. There is no acute fracture or dislocation. There is mild DIP and PIP joint space narrowing consistent with mild osteoarthritis. No soft tissue abnormality is identified. IMPRESSION: Mild osteoarthritis. Reviewed, Interpreted and Dictated by Francis Tidwell MD Transcribed by Mellisa Conway Authenticated and . [facility]
--- NOTE | 2023-05-30 13:07 | XR_ITS ---
FINAL REPORT CLINICAL HISTORY: left hand pain x2 months FINDINGS: Left hand Three views were obtained. There is no acute fracture or dislocation. There is mild DIP and PIP joint space narrowing consistent with mild osteoarthritis. No soft tissue abnormality is identified. IMPRESSION: Mild osteoarthritis. Reviewed, Interpreted and Dictated by Francis Tidwell MD Transcribed by Mellisa Conway Authenticated and . [facility]
== END 2023-05-30 23:59 | disposition home or self-care (01) ==
LOC: RAD 13:04
PROVIDERS: PCP Family Medicine; Visit Provider Orthopaedic Surgery
DX: M79.641 Pain in right hand (principal); M79.642 Pain in left hand
CPT/HCPCS: 73130

== ENCOUNTER 2023-07-15 13:05 | Emergency (ER) | payer OTHER, SELFPAY ==
[2023-07-15 13:35] VITALS: BP 124/71; PULSE 74; RESP 18; TEMP 36.9; O2SAT 100; BMI 32.7
--- NOTE | 2023-07-15 13:36 | EXP.UTC ---
Discharge Plan Disposition Patient Disposition: Home, Self-Care Condition: Good Prescriptions Prescriptions: New sulfamethoxazole-trimethoprim [Bactrim DS] 800-160 mg Tablet 1 tab PO BID Qty: 20 0RF No Action tamsulosin 0.4 mg capsule,extended release 24hr 0.4 mg PO DAILY metformin 1,000 mg tablet 1,000 mg PO BID oxybutynin chloride 15 mg tablet extended release 24hr 15 mg PO DAILY diclofenac sodium 1 % gel 4 g TOPICAL QID PRN (Reason: pain ) Qty: 100 2RF Rx Instructions: apply to single, ankle, foot; for foot includes sole/toes/top of foot urea 40 % cream 1 applic TOPICAL BID Qty: 28 0RF ezetimibe 10 mg tablet 10 mg PO DAILY venlafaxine 150 mg tablet extended release 24hr 150 mg PO DAILY Qty: 90 0RF venlafaxine [Effexor XR] 75 mg capsule,extended release 24hr 75 mg PO .COMPLEX Qty: 90 0RF Rx Instructions: 75 mg PO take daily with 150mg capsule; total dose is 225mg daily quetiapine 100 mg tablet 200 mg PO ONCE HS Qty: 180 0RF diphenhydramine HCl [Benadryl] 25 mg capsule 50 mg PO QHS PRN (Reason: unknown) Jardiance 25 mg tablet 25 mg PO DAILY nitroglycerin 400 mcg/spray spray,non-aerosol 0.4 mg SUBLINGUAL Q5M PRN (Reason: chest pain) Qty: 4.9 2RF furosemide 40 mg tablet See Rx Instructions .ROUTE .COMPLEX Qty: 90 3RF Dose Instruction: TAKE 1 TABLET BY MOUTH ONCE DAILY FOR FLUID Rx Instructions: TAKE 1 TABLET BY MOUTH ONCE DAILY FOR FLUID meloxicam 7.5 mg tablet See Rx Instructions .ROUTE .COMPLEX Qty: 60 0RF Dose Instruction: TAKE 1 TABLET BY MOUTH TWICE DAILY FOR PAIN Rx Instructions: TAKE 1 TABLET BY MOUTH TWICE DAILY FOR PAIN omeprazole 40 MG capsule,delayed release(DR/EC) 40 mg PO DAILY Rx Instructions: Needs follow up appt for additional refills. aspirin 81 MG tablet,chewable 81 mg PO DAILY oxycodone-acetaminophen 10-325 mg tablet 1 tab PO Q6H PRN (Reason: PAIN) sumatriptan succinate 100 mg tablet 100 mg PO DAILY PRN (Reason: Headache) Referrals Follow up/Referrals: Zurdo Masters MD [Primary Care Provider] - See instructions Activity Restrictions/Add. Instructions Additional Instructions/Restrictions: Drink plenty of fluids. Take tylenol for pain or fever. Take the medications as directed. Follow up with your regular doctor. GO TO THE ER FOR ANY WORSENING SYMPTOMS We will culture the urine. That will tell what bacteria is causing your infection and which antibiotics will treat it best. Sometimes the first antibiotic we prescribe turns out to not work against different bacteria. So, make sure you follow up within 3 days if you are not getting better. Clinical Impressions Clinical Impression: Dysuria, Low back pain Instructions Patient Instructions: Urine Culture, DI for Urinary Tract Infection (UTI) Discharge ED Provider: Jake Alejo [facility] General Stated complaint: Urine sample for kidney Inf-sent by Dr. Masters Time Seen by Provider: 07/15/23 13:36 History of Present Illness Provider Complaint: He was told to come here today to have his urine checked for infection. He states that he has had low back pain, dysuria and urinary frequency for the past 4 days. He denies any fever, but he has had chills and malaise. Related Data Home Medications Medication Instructions Recorded Confirmed aspirin 81 mg chewable tablet 81 mg PO DAILY PREVENTION' 06/15/17 06/20/23 tamsulosin 0.4 mg capsule 0.4 mg PO DAILY bladder 06/20/17 06/20/23 oxycodone-acetaminophen 10 mg-325 1 tab PO Q6H PRN PAIN 11/22/17 06/20/23 mg tablet diphenhydramine HCl 25 mg capsule 50 mg PO QHS PRN unknown 03/08/18 06/20/23 (Benadryl) sumatriptan succinate 100 mg tablet 100 mg PO DAILY PRN Headache 03/08/18 06/20/23 empagliflozin 25 mg tablet 25 mg PO DAILY . 08/27/18 06/20/23 (Jardiance) metformin 1,000 mg tablet 1,000 mg PO BID . 03/26/19 06/20/23 oxybutynin chloride 15 mg 15 mg PO DAILY . 03/26/19 06/20/23 tablet,extended release 24 hr omeprazole 40 mg capsule,delayed 40 mg PO DAILY GERD 11/13/20 06/20/23 release ezetimibe 10 mg tablet 10 mg PO DAILY 05/26/22 06/20/23 Previous Rx's Medication Instructions Recorded diclofenac sodium 1 % topical gel 4 g topical QID PRN pain #100 03/26/19 grams urea 40 % topical cream 1 applic topical BID dry skin #28 03/26/19 grams nitroglycerin 400 mcg/spray 0.4 mg sublingual Q5M PRN chest 08/05/19 translingual pain #4.9 grams furosemide 40 mg tablet See Rx Instructions .Route 05/29/23 .COMPLEX #90 tabs quetiapine 100 mg tablet 200 mg (2 x 100 mg) PO ONCE HS 06/02/23 #180 tabs venlafaxine 150 mg tablet,extended 150 mg PO DAILY Depression #90 tabs 06/02/23 release 24 hr venlafaxine 75 mg capsule,extended 75 mg PO .COMPLEX #90 caps 06/02/23 release 24 hr (Effexor XR) meloxicam 7.5 mg tablet See Rx Instructions .Route 07/15/23 .COMPLEX #60 tabs sulfamethoxazole 800 1 tab PO BID #20 tabs 07/15/23 mg-trimethoprim 160 mg tablet (Bactrim DS) Allergies Allergy/AdvReac Type Severity Reaction Status Date / Time atorvastatin Allergy Mild myalgias Verified 06/20/23 09:26 rosuvastatin [From Crestor] Allergy Mild myaglias Verified 06/20/23 09:26 simvastatin [From Zocor] Allergy Mild myalgias Verified 06/20/23 09:26 fexofenadine [From YEFRI] Allergy Unknown UNKNOWN Verified 06/20/23 09:26 naproxen [NAPROXEN] Allergy Unknown HAND Verified 06/20/23 09:26 SWELLING PFSH PFS Disclaimer: The information contained in this section may have been updated after the patient was seen, as this information can be updated by other users. Medical History Insomnia Generalized anxiety disorder Bipolar II disorder Social History Smoking Status: Unknown if ever smoked second hand exposure: No alcohol intake: never substance use type: denies use current occupational status: unemployed Travel in the last 8 weeks: Inside the [place] household members: spouse housing: house current occupational exposures/hazards: No caffeine: Yes ROS Obtained: Yes All systems reviewed & no additional complaints except as documented Constitutional Constitutional: Denies chills and Denies fever(s) Eyes Eyes: Denies eye discharge ENT Ears, Nose, Mouth, and Throat: Denies dizziness, Denies otalgia and Denies sore throat Cardiovascular Cardiovascular: Denies chest pain Respiratory Respiratory: Denies shortness of breath, Denies chest congestion, Denies cough, Denies stridor and Denies wheezing Gastrointestinal Gastrointestingal: Denies abdominal pain, constipation, cramping, diarrhea, nausea or vomiting Genitourinary Male Genitourinary: Reports as per HPI, Denies hematuria, Denies testicular pain, Reports urinary frequency and Denies urinary hesitancy Musculoskeletal Musculoskeletal: Reports system reviewed and no additional complaints, except as documented and Denies arthralgias Integumentary/Breasts Skin/Breast: Denies rash Neurologic Neurologic: Denies dizziness and Denies paresthesias Allergic/Immunologic Allergic/Immunologic: Denies wheezing Physical Exam General General appearance: alert and in no apparent distress Head Head exam: atraumatic, normocephalic and normal inspection Eye Eye exam: Present normal appearance, PERRL and EOMI ENT ENT exam: Present normal exam, normal oropharynx, mucous membranes moist, TM's normal bilaterally and normal external ear exam Neck Neck exam: Present normal inspection, full ROM and trachea midline; Absent meningismus or lymphadenopathy Chest Chest inspection: Present normal inspection and symmetric chest wall rise; Absent tenderness Respiratory Respiratory exam: Present normal lung sounds bilaterally; Absent respiratory distress Cardiovascular Cardiovascular exam: Present regular rate and normal rhythm; Absent JVD Abdominal Exam Abdominal exam: Present soft and normal bowel sounds; Absent distention, tenderness or guarding Extremities Exam Extremities exam: Present normal inspection, full ROM and normal capillary refill; Absent calf tenderness Back Exam Back exam: Present normal inspection; Absent tenderness, CVA tenderness (R) or CVA tenderness (L) Neurological Exam Neurological exam: Present alert and oriented X3 Psychiatric Psychiatric exam: Present normal affect and normal mood Skin Skin exam: Present warm, dry, intact and normal color Lymphatic Lymphatic Findings: no adenopathy Medical Decision Making Medical Records Medical records reviewed: No I reviewed the patient's medical records. Jose Inquiry Pt receiving controlled substance: No
[2023-07-15 14:05] LABS: Apearance,Urine Clear (Clear); Color,Urine Yellow (Yellow)
[2023-07-15 14:06] LABS: Bilirubin,Urine Negative (Negative); Blood, Urine Negative (Negative); Glucose,Urine (UA) 1000 (Negative); Ketones,Urine Negative (Negative); Protein,Urine Negative (Negative); Specific Gravity, Urine 1.015 (1.005-1.030); UTC Leukocyte Esterase,Urine Negative (Negative); UTC Nitrate,Urine Negative (Negative); Urobilinogen,Urine 0.2 EU/dl (0.2)
--- NOTE | 2023-07-15 14:06 | PC.NURSE ---
pt refused to go to ER
[2023-07-15 14:18] VITALS: BP 124/71; PULSE 74; RESP 18; TEMP 36.9; O2SAT 100
== END 2023-07-15 14:18 | disposition home or self-care (01) ==
PROVIDERS: Emergency Provider Nurse Practitioner Family; PCP Family Medicine
DX: R30.0 Dysuria (principal); M54.59 Other low back pain; R35.0 Frequency of micturition
CPT/HCPCS: 81003; 87086; 99204; 99212; G0463

== ENCOUNTER 2023-07-19 04:02 | Emergency (ER) | payer OTHER, SELFPAY ==
[2023-07-19] VITALS (18 sets, daily range): BP systolic 97–118; BP diastolic 40–69; PULSE 68–104; RESP 16–20; TEMP 36.8–37.6; O2SAT 89–97; BMI 32.8
--- NOTE | 2023-07-19 04:07 | CT_ITS ---
PROCEDURE INFORMATION: Exam: CT Abdomen And Pelvis With Contrast Exam date and time: 07/19/2023 4:41 AM Age: 62 years old Clinical indication: Other: Back pain; Additional info: Fever, back pain, HX stones/infection TECHNIQUE: Imaging protocol: Computed tomography of the abdomen and pelvis with contrast. Radiation optimization: All CT scans at this facility use at least one of these dose optimization techniques: automated exposure control; mA and/or kV adjustment per patient size (includes targeted exams where dose is matched to clinical indication); or iterative reconstruction. Contrast material: ISOVUE; Contrast volume: 75 ml; Contrast route: IV; COMPARISON: CT ABDOMEN PELVIS W CON 09/15/2019 9:56 AM FINDINGS: Coronary arteries: Coronary atherosclerosis. Liver: Normal. No mass. Gallbladder and bile ducts: Normal. No calcified stones. No ductal dilation. Pancreas: Normal. No ductal dilation. Spleen: Splenomegaly new since prior study of 2019. Adrenal glands: Normal. No mass. Kidneys and ureters: No evidence of renal stone or obstruction is noted. Stomach and bowel: Moderate stool seen throughout the colon.. Appendix: No evidence of appendicitis. Intraperitoneal space: Unremarkable. No free air. No significant fluid collection. Vasculature: Unremarkable. No abdominal aortic aneurysm. Lymph nodes: Unremarkable. No enlarged lymph nodes. Urinary bladder: The bladder is moderately distended. Reproductive: Unremarkable as visualized. Bones/joints: Unremarkable. No acute fracture. Soft tissues: Unremarkable. IMPRESSION: 1. No acute process identified to explain the patient's symptoms. 2. Splenomegaly new since prior exam of uncertain etiology. 3. Moderate retained stool, no evidence of ileus or obstruction.
--- NOTE | 2023-07-19 04:11 | ED_ITS ---
Discharge Plan Disposition Patient Disposition: Home, Self-Care Chief Complaint: Back Pain/Injury Prescriptions Prescriptions: No Action tamsulosin 0.4 mg capsule,extended release 24hr 0.4 mg PO DAILY metformin 1,000 mg tablet 1,000 mg PO BID oxybutynin chloride 15 mg tablet extended release 24hr 15 mg PO DAILY diclofenac sodium 1 % gel 4 g TOPICAL QID PRN (Reason: pain ) Qty: 100 2RF Rx Instructions: apply to single, ankle, foot; for foot includes sole/toes/top of foot urea 40 % cream 1 applic TOPICAL BID Qty: 28 0RF ezetimibe 10 mg tablet 10 mg PO DAILY venlafaxine 150 mg tablet extended release 24hr 150 mg PO DAILY Qty: 90 0RF quetiapine 100 mg tablet 200 mg PO ONCE HS Qty: 180 0RF diphenhydramine HCl [Benadryl] 25 mg capsule 50 mg PO QHS PRN (Reason: unknown) Jardiance 25 mg tablet 25 mg PO DAILY nitroglycerin 400 mcg/spray spray,non-aerosol 0.4 mg SUBLINGUAL Q5M PRN (Reason: chest pain) Qty: 4.9 2RF furosemide 40 mg tablet See Rx Instructions .ROUTE .COMPLEX Qty: 90 3RF Dose Instruction: TAKE 1 TABLET BY MOUTH ONCE DAILY FOR FLUID Rx Instructions: TAKE 1 TABLET BY MOUTH ONCE DAILY FOR FLUID meloxicam 7.5 mg tablet See Rx Instructions .ROUTE .COMPLEX Qty: 60 0RF Dose Instruction: TAKE 1 TABLET BY MOUTH TWICE DAILY FOR PAIN Rx Instructions: TAKE 1 TABLET BY MOUTH TWICE DAILY FOR PAIN omeprazole 40 MG capsule,delayed release(DR/EC) 40 mg PO DAILY Rx Instructions: Needs follow up appt for additional refills. aspirin 81 MG tablet,chewable 81 mg PO DAILY oxycodone-acetaminophen 10-325 mg tablet 1 tab PO Q6H PRN (Reason: PAIN) sumatriptan succinate 100 mg tablet 100 mg PO DAILY PRN (Reason: Headache) sulfamethoxazole-trimethoprim [Bactrim DS] 800-160 mg Tablet 1 tab PO BID Qty: 20 0RF venlafaxine [Effexor XR] 75 mg capsule,extended release 24hr 75 mg PO DAILY Rx Instructions: 75 mg PO take daily with 150mg capsule; total dose is 225mg daily ropinirole 1 mg tablet 1 mg PO ONCE ergocalciferol (vitamin D2) [Vitamin D2] 1,250 mcg (50,000 unit) capsule 50,000 mcg PO WEEKLY Activity Restrictions/Add. Instructions Additional Instructions/Restrictions: Finish entire antibiotic course and follow-up with your family doctor. Call your family doctor to establish care for this visit to the emergency department and schedule follow-up within 48 hours to ensure improvement. If you have any worsening of your condition or any other concerning signs or symptoms, return to the emergency department or your primary care doctor for further evaluation. Clinical Impressions Clinical Impression: Lower back pain, Fever Instructions Patient Instructions: DI for Low Back Pain Discharge ED Provider: Don Lyman General Adult HPI <Mack Vázquez MD - Last Filed: 07/19/23 07:10> General Chief complaint: Back Pain/Injury Stated complaint: low back pain Time Seen by Provider: 07/19/23 04:07 History of Present Illness HPI narrative: 62-year-old male with history of obesity, [id number] diabetes, hypertension, hyperlipidemia, coronary artery disease presents with multiple complaints that includes back pain, dysuria, fever, headache, confusion. Patient is currently being treated with Bactrim for a presumed UTI. He reports he has been having low back pain and dysuria for over a week, he has been on Bactrim for the last 4 days. We do not have a urinalysis from prior to when he was started on antibiotics, but his urine culture from that time showed no growth at 48 hours. He reports history of kidney stones. Regarding his back pain, his pain seems most prominent in the midline, he has no CVA tenderness. His back pain is worse than normal and has been ongoing for couple of weeks. Regarding his headache, he reports it has been present for couple of days. He reports he does sometimes get headaches and when he gets them they last for several days. He reports this headache feels consistent with his prior headaches. They called the ambulance tonight because the patient was reportedly confused and not with it . EMS reports he was febrile to 102 on their arrival. He reports that he has been sweating a lot. Related Data Home Medications Medication Instructions Recorded Confirmed aspirin 81 mg chewable tablet 81 mg PO DAILY PREVENTION' 06/15/17 07/19/23 tamsulosin 0.4 mg capsule 0.4 mg PO DAILY bladder 06/20/17 07/19/23 oxycodone-acetaminophen 10 mg-325 1 tab PO Q6H PRN PAIN 11/22/17 07/19/23 mg tablet diphenhydramine HCl 25 mg capsule 50 mg PO QHS PRN unknown 03/08/18 07/19/23 (Benadryl) sumatriptan succinate 100 mg tablet 100 mg PO DAILY PRN Headache 03/08/18 07/19/23 empagliflozin 25 mg tablet 25 mg PO DAILY . 08/27/18 07/19/23 (Jardiance) metformin 1,000 mg tablet 1,000 mg PO BID . 03/26/19 07/19/23 oxybutynin chloride 15 mg 15 mg PO DAILY . 03/26/19 07/19/23 tablet,extended release 24 hr omeprazole 40 mg capsule,delayed 40 mg PO DAILY GERD 11/13/20 07/19/23 release ezetimibe 10 mg tablet 10 mg PO DAILY 05/26/22 07/19/23 ergocalciferol (vitamin D2) 1,250 50,000 mcg PO WEEKLY SUPPPLEMENT 07/19/23 07/19/23 mcg (50,000 unit) capsule (Vitamin D2) ropinirole 1 mg tablet 1 mg PO ONCE RLS 07/19/23 07/19/23 venlafaxine 75 mg capsule,extended 75 mg PO DAILY Depression 07/19/23 07/19/23 release 24 hr (Effexor XR) Previous Rx's Medication Instructions Recorded diclofenac sodium 1 % topical gel 4 g topical QID PRN pain #100 03/26/19 grams urea 40 % topical cream 1 applic topical BID dry skin #28 03/26/19 grams nitroglycerin 400 mcg/spray 0.4 mg sublingual Q5M PRN chest 08/05/19 translingual pain #4.9 grams furosemide 40 mg tablet See Rx Instructions .Route 05/29/23 .COMPLEX #90 tabs quetiapine 100 mg tablet 200 mg (2 x 100 mg) PO ONCE HS 06/02/23 #180 tabs venlafaxine 150 mg tablet,extended 150 mg PO DAILY Depression #90 tabs 06/02/23 release 24 hr meloxicam 7.5 mg tablet See Rx Instructions .Route 07/15/23 .COMPLEX #60 tabs sulfamethoxazole 800 1 tab PO BID #20 tabs 07/15/23 mg-trimethoprim 160 mg tablet (Bactrim DS) Allergies Allergy/AdvReac Type Severity Reaction Status Date / Time atorvastatin Allergy Mild myalgias Verified 06/20/23 09:26 rosuvastatin [From Crestor] Allergy Mild myaglias Verified 06/20/23 09:26 simvastatin [From Zocor] Allergy Mild myalgias Verified 06/20/23 09:26 fexofenadine [From YEFRI] Allergy Unknown UNKNOWN Verified 06/20/23 09:26 naproxen [NAPROXEN] Allergy Unknown HAND Verified 06/20/23 09:26 SWELLING PFSH <Mack Vázquez MD - Last Filed: 07/19/23 07:10> [facility] Disclaimer: The information contained in this section may have been updated after the patient was seen, as this information can be updated by other users. Medical History Insomnia Generalized anxiety disorder Bipolar II disorder Social History Smoking Status: Never smoker second hand exposure: No alcohol intake: never substance use type: denies use current occupational status: unemployed Travel in the last 8 weeks: Inside the [place] household members: spouse housing: house current occupational exposures/hazards: No caffeine: Yes <Mack Vázquez MD - Last Filed: 07/19/23 07:10> ROS Obtained: Yes All systems reviewed & no additional complaints except as documented Physical Exam <Mack Vázquez MD - Last Filed: 07/19/23 07:10> General General appearance: alert, in no apparent distress and obese Head Head exam: atraumatic and normocephalic Eye Eye exam: Present normal appearance, PERRL and EOMI ENT ENT exam: Present normal oropharynx and normal external ear exam Neck Neck exam: Present normal inspection and full ROM Chest Chest inspection: Present normal inspection and symmetric chest wall rise; Absent tenderness Respiratory Respiratory exam: Present normal lung sounds bilaterally; Absent respiratory distress Cardiovascular Cardiovascular exam: Present normal rhythm and tachycardia Abdominal Exam Abdominal exam: Present soft; Absent distention, tenderness or guarding Extremities Exam Extremities exam: Present normal inspection; Absent edema or joint swelling Back Exam Back exam: Present normal inspection; Absent tenderness Neurological Exam Neurological exam: Present alert, oriented X3, CN II-XII intact and other (Mildly confused/slow to answer questions.); Absent motor sensory deficit Psychiatric Psychiatric exam: Present normal affect and normal mood Skin Skin exam: Present warm, dry and normal color Lymphatic Lymphatic Findings: no adenopathy Medical Decision Making <Mack Vázquez MD - Last Filed: 07/19/23 07:10> Medical Records Medical records reviewed: Yes I reviewed the patient's medical records. Jose Inquiry Pt receiving controlled substance: No Jose was queried for this patient: No Vital Signs: 07/19/23 04:02 07/19/23 05:00 07/19/23 05:30 Temperature 99.6 F Temperature Source Oral Pulse Rate 104 H 98 H Pulse Rate [Left Radial] 103 H Respiratory Rate 20 Blood Pressure 107/60 L 108/66 L Blood Pressure [Right Arm] 115/68 Blood Pressure Mean 75 76 Blood Pressure Mean [Right Arm] 83 Blood Pressure Source [Right Arm] Automatic Cuff Blood Pressure Position [Right Arm] Sitting 02 Sat by Pulse Oximetry 93 L 96 Oxygen Delivery Method Room Air 07/19/23 06:00 07/19/23 06:30 07/19/23 07:00 Temperature Temperature Source Pulse Rate 95 H 94 H 91 H Pulse Rate [Left Radial] Respiratory Rate Blood Pressure 100/59 L 110/64 104/59 L Blood Pressure [Right Arm] Blood Pressure Mean 66 74 Blood Pressure Mean [Right Arm] Blood Pressure Source [Right Arm] Blood Pressure Position [Right Arm] 02 Sat by Pulse Oximetry 92 L 95 89 L Oxygen Delivery Method 07/19/23 07:30 07/19/23 08:00 07/19/23 08:30 Temperature Temperature Source Pulse Rate 87 80 94 H Pulse Rate [Left Radial] Respiratory Rate Blood Pressure 110/64 97/63 L 108/69 L Blood Pressure [Right Arm] Blood Pressure Mean Blood Pressure Mean [Right Arm] Blood Pressure Source [Right Arm] Blood Pressure Position [Right Arm] 02 Sat by Pulse Oximetry 90 L 92 L 92 L Oxygen Delivery Method 07/19/23 09:00 07/19/23 09:30 07/19/23 10:00 Temperature Temperature Source Pulse Rate 87 93 H 77 Pulse Rate [Left Radial] Respiratory Rate Blood Pressure 116/68 110/69 111/69 Blood Pressure [Right Arm] Blood Pressure Mean Blood Pressure Mean [Right Arm] Blood Pressure Source [Right Arm] Blood Pressure Position [Right Arm] 02 Sat by Pulse Oximetry 90 L 93 L 92 L Oxygen Delivery Method 07/19/23 10:30 07/19/23 12:28 07/19/23 12:30 Temperature Temperature Source Pulse Rate 85 91 H 83 Pulse Rate [Left Radial] Respiratory Rate 16 18 16 Blood Pressure 118/66 101/50 L 105/53 L Blood Pressure [Right Arm] Blood Pressure Mean 83 63 63 Blood Pressure Mean [Right Arm] Blood Pressure Source [Right Arm] Blood Pressure Position [Right Arm] 02 Sat by Pulse Oximetry 93 L 97 96 Oxygen Delivery Method 07/19/23 13:00 Temperature Temperature Source Pulse Rate 68 Pulse Rate [Left Radial] Respiratory Rate Blood Pressure 97/45 L Blood Pressure [Right Arm] Blood Pressure Mean 61 Blood Pressure Mean [Right Arm] Blood Pressure Source [Right Arm] Blood Pressure Position [Right Arm] 02 Sat by Pulse Oximetry 94 L Oxygen Delivery Method Lab Data Lab results reviewed: Yes I reviewed the patient's lab results. Lab Results 07/19/23 03:50: WBC 6.3, RBC 4.34 L, Hgb 12.6 L, Hct 36.5 L, MCV 84.2, MCH 29.1, MCHC 34.6, RDW 15.7, Plt Count 112 L, MPV 8.4, Neut % (Auto) 51.0, Lymph % (Auto) 42.0, [place] % (Auto) 5.6, Eos % (Auto) 0.1, Baso % (Auto) 1.2, Neut # (Auto) 3.2, Lymph # (Auto) 2.7, [place] # (Auto) 0.4, Eos # (Auto) 0.0, Baso # (Auto) 0.1, ESR 30 H, Sodium 130 L, Potassium 4.1, Chloride 95 L, Carbon Dioxide 25, Anion Gap 14.1, BUN 15, Creatinine 1.10, Estimated Creat Clear 106, Estimated GFR 68, Est GFR ( Amer) 82, Glucose 116 H, Calcium 9.0, Total Bilirubin 1.1, AST 61 H, ALT 46, Alkaline Phosphatase 136 H, C-Reactive Protein 39.5 H, Total Protein 8.2, Albumin 4.5, Globulin 3.7 H, Albumin/Globulin Ratio 1.2 07/19/23 04:10: VBG pH 7.43 H, VBG pCO2 35.1, VBG pO2 40.5 H, VBG HCO3 22.5 L, VBG Total CO2 23.6, VBG O2 Saturation 78.6 H, VBG Base Excess -1.9, VBG Lactic Acid 2.5 H, Lactate 1.2 07/19/23 04:55: Urine Color Yellow, Urine Appearance Clear, Urine pH 6.5, Ur Specific [place] 1.015, Urine Protein Negative, Urine Glucose (UA) 1+, Urine Ketones Negative, Urine Blood Negative, Urine Nitrate Negative, Urine Bilirubin Negative, Urine Urobilinogen 2.0, Ur Leukocyte Esterase Negative, Urine RBC 5- 10, Urine WBC 3-5, Ur Squamous Epith Cells 3-5, Urine Bacteria 1+ 07/19/23 08:25: Lactate 1.5 07/19/23 03:50 07/19/23 03:50 Orders (Tests/Meds): ED MEDICATIONS Generic Name Dose Route Start Last Admin Trade Name Freq PRN Reason Stop Dose Admin Sodium Chloride 10 ml 07/19/23 04:50 07/19/23 04:51 Sodium Chloride 0.9% 10ml Syr (Rad Only) IV 08/18/23 04:49 10 ml NEEDED PRN Administration Maintain IV Site Discontinued Medications Generic Name Dose Route Start Last Admin Trade Name Freq PRN Reason Stop Dose Admin Acetaminophen 1,000 mg 07/19/23 04:07 07/19/23 04:21 Acetaminophen 500mg Tab PO 07/19/23 04:08 1,000 mg ONCE ONE Administration Gadoteridol 20 ml 07/19/23 11:44 07/19/23 11:46 Gadoteridol Inj 20ml Syringe IV 07/19/23 11:45 20 ml ONCE ONE Administration Sodium Chloride 1,000 mls @ 999 mls/hr 07/19/23 04:15 07/19/23 04:22 Sod Chlor 0.9% 1000ml Bag IV 07/19/23 05:15 999 mls/hr .Q1H1M SJ Administration Magnesium Sulfate 2 gm in 50 mls @ 50 mls/hr 07/19/23 05:55 07/19/23 06:01 Magnesium Sulfate 2gm/50ml Premix IV 07/19/23 06:54 50 mls/hr ONCE ONE Administration Iopamidol 75 ml 07/19/23 04:50 07/19/23 04:51 Iopamidol-370 (76%);100ml Bottle IV 07/19/23 04:51 75 ml ONCE ONE Administration Ketorolac Tromethamine 30 mg 07/19/23 05:31 07/19/23 05:38 Ketorolac 30mg/Ml Vial IV 07/19/23 05:32 30 mg ONCE ONE Administration Prochlorperazine Edisylate 10 mg 07/19/23 05:31 07/19/23 05:39 Prochlorperazine 10mg/2ml Vial IV 07/19/23 05:32 10 mg ONCE ONE Administration Sodium Chloride 10 ml 07/19/23 11:44 07/19/23 11:46 Sodium Chloride 0.9% 10ml Syr (Rad Only) IV 07/19/23 11:45 10 ml ONCE ONE Administration ORDERS Category Date Time Status CT abdomen pelvis w con Stat Cat Scan 07/19/23 04:07 Completed CBC w/Auto Diff [Complete Blood Count Auto Diff] Stat Lab 07/19/23 03:50 Completed CMP [Comprehensive Metabolic Panel] Stat Lab 07/19/23 03:50 Completed CRP [C-Reactive Protein] Stat Lab 07/19/23 03:50 Completed ESR [Erythrocyte Sedimentation Rate] Stat Lab 07/19/23 03:50 Completed Lactic Acid Follow Up (RFLX 1) Stat Lab 07/19/23 08:25 Completed Lactic Acid Stat Lab 07/19/23 04:10 Completed UA [Urinalysis and Microscopic] Stat Lab 07/19/23 04:55 Completed Blood Culture Stat Micro 07/19/23 03:40 Received Urine Culture Stat Micro 07/19/23 04:55 Received VBG [Venous Blood Gas] Stat RT 07/19/23 04:10 Completed Tissue Perfus/Sepsis Re-Eval Sepsis Re-Evaluation Performed: Yes Date Performed: 07/19/23 Time Performed: 06:12 Medical Decision Narrative: 62-year-old male with history of obesity, sjw-[id number] diabetes, hypertension, hyperlipidemia, coronary artery disease presents with multiple complaints that includes back pain, dysuria, fever, headache, confusion. Currently on Bactrim for possible UTI. History was obtained interactive discussion with patient, chart review, EMS. On arrival, patient is afebrile, 99.6 (was reportedly 102.0 with EMS), moving all extremities spontaneously, alert and oriented but somewhat slow to answer questions. Full physical exam performed and significant for midline lumbar spinal tenderness Differential includes but is not limited to UTI, pyelonephritis, ureterolithiasis, osteomyelitis, discitis, COVID, tension headache, migraine headache, viral syndrome, dehydration, meningitis, encephalitis. Patient was given 1 L IV fluid bolus, Tylenol, Toradol, Compazine, mag for symptomatic management of back pain and headache and correction of underlying abnormalities. Full sepsis bolus was not given as patient did not appear to be significantly hypovolemic and I did not feel full bolus was indicated. Workup initiated including CBC CMP blood cultures urine urine cultures CT abdomen pelvis with IV contrast ESR CRP. On re-evaluation, patient [remains afebrile, HD stable.] Patient is more with it, he is able to provide a more clear history of events. Laboratory workup independently interpreted by me and significant for no leukocytosis, mild thrombocytopenia, minimally elevated lactate, mild hyponatremia, ESR 30, CRP 39.5, both elevated. Urine shows 5-10 RBCs, 3-5 WBCs 3-5 squamous cells, and 1+ bacteria with negative nitrates. Imaging independently interpreted by me and significant for CT shows no evidence of ureterolithiasis, no obvious spinal lesions, some constipation. See radiology read for full review of final results. LP was considered, but deemed unnecessary due to history and exam, low concern for bacterial meningitis at this time. At this time I am not convinced that the patient's urine is the underlying source of his fever and back pain. This is because the patient's urine several days ago before antibiotics did not grow anything,, his back pain is different than normal, back pain is midline in nature and not CVA. No improvement with Bactrim, urinalysis here does not appear convincing for urosepsis. Given this, I am concerned patient could have a possible spinal infection such as osteomyelitis or discitis. Given this, lumbar spine MRI with and without contrast was ordered for further assessment. At this time care is handed off to oncoming physician. <Don Lyman MD - Last Filed: 07/19/23 13:56> Vital Signs: 07/19/23 04:02 07/19/23 05:00 07/19/23 05:30 Temperature 99.6 F Temperature Source Oral Pulse Rate 104 H 98 H Pulse Rate [Left Radial] 103 H Respiratory Rate 20 Blood Pressure 107/60 L 108/66 L Blood Pressure [Right Arm] 115/68 Blood Pressure Mean 75 76 Blood Pressure Mean [Right Arm] 83 Blood Pressure Source [Right Arm] Automatic Cuff Blood Pressure Position [Right Arm] Sitting 02 Sat by Pulse Oximetry 93 L 96 Oxygen Delivery Method Room Air 07/19/23 06:00 07/19/23 06:30 07/19/23 07:00 Temperature Temperature Source Pulse Rate 95 H 94 H 91 H Pulse Rate [Left Radial] Respiratory Rate Blood Pressure 100/59 L 110/64 104/59 L Blood Pressure [Right Arm] Blood Pressure Mean 66 74 Blood Pressure Mean [Right Arm] Blood Pressure Source [Right Arm] Blood Pressure Position [Right Arm] 02 Sat by Pulse Oximetry 92 L 95 89 L Oxygen Delivery Method 07/19/23 07:30 07/19/23 08:00 07/19/23 08:30 Temperature Temperature Source Pulse Rate 87 80 94 H Pulse Rate [Left Radial] Respiratory Rate Blood Pressure 110/64 97/63 L 108/69 L Blood Pressure [Right Arm] Blood Pressure Mean Blood Pressure Mean [Right Arm] Blood Pressure Source [Right Arm] Blood Pressure Position [Right Arm] 02 Sat by Pulse Oximetry 90 L 92 L 92 L Oxygen Delivery Method 07/19/23 09:00 07/19/23 09:30 07/19/23 10:00 Temperature Temperature Source Pulse Rate 87 93 H 77 Pulse Rate [Left Radial] Respiratory Rate Blood Pressure 116/68 110/69 111/69 Blood Pressure [Right Arm] Blood Pressure Mean Blood Pressure Mean [Right Arm] Blood Pressure Source [Right Arm] Blood Pressure Position [Right Arm] 02 Sat by Pulse Oximetry 90 L 93 L 92 L Oxygen Delivery Method 07/19/23 10:30 07/19/23 12:28 07/19/23 12:30 Temperature Temperature Source Pulse Rate 85 91 H 83 Pulse Rate [Left Radial] Respiratory Rate 16 18 16 Blood Pressure 118/66 101/50 L 105/53 L Blood Pressure [Right Arm] Blood Pressure Mean 83 63 63 Blood Pressure Mean [Right Arm] Blood Pressure Source [Right Arm] Blood Pressure Position [Right Arm] 02 Sat by Pulse Oximetry 93 L 97 96 Oxygen Delivery Method 07/19/23 13:00 Temperature Temperature Source Pulse Rate 68 Pulse Rate [Left Radial] Respiratory Rate Blood Pressure 97/45 L Blood Pressure [Right Arm] Blood Pressure Mean 61 Blood Pressure Mean [Right Arm] Blood Pressure Source [Right Arm] Blood Pressure Position [Right Arm] 02 Sat by Pulse Oximetry 94 L Oxygen Delivery Method Lab Data Lab Results 07/19/23 03:50: WBC 6.3, RBC 4.34 L, Hgb 12.6 L, Hct 36.5 L, MCV 84.2, MCH 29.1, MCHC 34.6, RDW 15.7, Plt Count 112 L, MPV 8.4, Neut % (Auto) 51.0, Lymph % (Auto) 42.0, [place] % (Auto) 5.6, Eos % (Auto) 0.1, Baso % (Auto) 1.2, Neut # (Auto) 3.2, Lymph # (Auto) 2.7, [place] # (Auto) 0.4, Eos # (Auto) 0.0, Baso # (Auto) 0.1, ESR 30 H, Sodium 130 L, Potassium 4.1, Chloride 95 L, Carbon Dioxide 25, Anion Gap 14.1, BUN 15, Creatinine 1.10, Estimated Creat Clear 106, Estimated GFR 68, Est GFR ( Amer) 82, Glucose 116 H, Calcium 9.0, Total Bilirubin 1.1, AST 61 H, ALT 46, Alkaline Phosphatase 136 H, C-Reactive Protein 39.5 H, Total Protein 8.2, Albumin 4.5, Globulin 3.7 H, Albumin/Globulin Ratio 1.2 07/19/23 04:10: VBG pH 7.43 H, VBG pCO2 35.1, VBG pO2 40.5 H, VBG HCO3 22.5 L, VBG Total CO2 23.6, VBG O2 Saturation 78.6 H, VBG Base Excess -1.9, VBG Lactic Acid 2.5 H, Lactate 1.2 07/19/23 04:55: Urine Color Yellow, Urine Appearance Clear, Urine pH 6.5, Ur Specific [place] 1.015, Urine Protein Negative, Urine Glucose (UA) 1+, Urine Ketones Negative, Urine Blood Negative, Urine Nitrate Negative, Urine Bilirubin Negative, Urine Urobilinogen 2.0, Ur Leukocyte Esterase Negative, Urine RBC 5- 10, Urine WBC 3-5, Ur Squamous Epith Cells 3-5, Urine Bacteria 1+ 07/19/23 08:25: Lactate 1.5 Orders (Tests/Meds): ED MEDICATIONS Generic Name Dose Route Start Last Admin Trade Name Frank PRN Reason Stop Dose Admin Sodium Chloride 10 ml 07/19/23 04:50 07/19/23 04:51 Sodium Chloride 0.9% 10ml Syr (Rad Only) IV 08/18/23 04:49 10 ml NEEDED PRN Administration Maintain IV Site Discontinued Medications Generic Name Dose Route Start Last Admin Trade Name Frank PRN Reason Stop Dose Admin Acetaminophen 1,000 mg 07/19/23 04:07 07/19/23 04:21 Acetaminophen 500mg Tab PO 07/19/23 04:08 1,000 mg ONCE ONE Administration Gadoteridol 20 ml 07/19/23 11:44 07/19/23 11:46 Gadoteridol Inj 20ml Syringe IV 07/19/23 11:45 20 ml ONCE ONE Administration Sodium Chloride 1,000 mls @ 999 mls/hr 07/19/23 04:15 07/19/23 04:22 Sod Chlor 0.9% 1000ml Bag IV 07/19/23 05:15 999 mls/hr .Q1H1M SJ Administration Magnesium Sulfate 2 gm in 50 mls @ 50 mls/hr 07/19/23 05:55 07/19/23 06:01 Magnesium Sulfate 2gm/50ml Premix IV 07/19/23 06:54 50 mls/hr ONCE ONE Administration Iopamidol 75 ml 07/19/23 04:50 07/19/23 04:51 Iopamidol-370 (76%);100ml Bottle IV 07/19/23 04:51 75 ml ONCE ONE Administration Ketorolac Tromethamine 30 mg 07/19/23 05:31 07/19/23 05:38 Ketorolac 30mg/Ml Vial IV 07/19/23 05:32 30 mg ONCE ONE Administration Prochlorperazine Edisylate 10 mg 07/19/23 05:31 07/19/23 05:39 Prochlorperazine 10mg/2ml Vial IV 07/19/23 05:32 10 mg ONCE ONE Administration Sodium Chloride 10 ml 07/19/23 11:44 07/19/23 11:46 Sodium Chloride 0.9% 10ml Syr (Rad Only) IV 07/19/23 11:45 10 ml ONCE ONE Administration ORDERS Category Date Time Status CT abdomen pelvis w con Stat Cat Scan 07/19/23 04:07 Completed CBC w/Auto Diff [Complete Blood Count Auto Diff] Stat Lab 07/19/23 03:50 Completed CMP [Comprehensive Metabolic Panel] Stat Lab 07/19/23 03:50 Completed CRP [C-Reactive Protein] Stat Lab 07/19/23 03:50 Completed ESR [Erythrocyte Sedimentation Rate] Stat Lab 07/19/23 03:50 Completed Lactic Acid Follow Up (RFLX 1) Stat Lab 07/19/23 08:25 Completed Lactic Acid Stat Lab 07/19/23 04:10 Completed UA [Urinalysis and Microscopic] Stat Lab 07/19/23 04:55 Completed Blood Culture Stat Micro 07/19/23 03:40 Received Urine Culture Stat Micro 07/19/23 04:55 Received VBG [Venous Blood Gas] Stat RT 07/19/23 04:10 Completed Medical Decision Narrative: 62-year-old male with history of obesity, [id number] diabetes, hypertension, hyperlipidemia, coronary artery disease presents with multiple complaints that includes back pain, dysuria, fever, headache, confusion. Currently on Bactrim for possible UTI. History was obtained interactive discussion with patient, chart review, EMS. On arrival, patient is afebrile, 99.6 (was reportedly 102.0 with EMS), moving all extremities spontaneously, alert and oriented but somewhat slow to answer questions. Full physical exam performed and significant for midline lumbar spinal tenderness Differential includes but is not limited to UTI, pyelonephritis, ureterolithiasis, osteomyelitis, discitis, COVID, tension headache, migraine headache, viral syndrome, dehydration, meningitis, encephalitis. Patient was given 1 L IV fluid bolus, Tylenol, Toradol, Compazine, mag for symptomatic management of back pain and headache and correction of underlying abnormalities. Full sepsis bolus was not given as patient did not appear to be significantly hypovolemic and I did not feel full bolus was indicated. Workup initiated including CBC CMP blood cultures urine urine cultures CT abdomen pelvis with IV contrast ESR CRP. On re-evaluation, patient remains afebrile, HD stable. Patient is more with it, he is able to provide a more clear history of events. Laboratory workup independently interpreted by me and significant for no leukocytosis, mild thrombocytopenia, minimally elevated lactate, mild hyponatremia, ESR 30, CRP 39.5, both elevated. Urine shows 5-10 RBCs, 3-5 WBCs 3-5 squamous cells, and 1+ bacteria with negative nitrates. Imaging independently interpreted by me and significant for CT shows no evidence of ureterolithiasis, no obvious spinal lesions, some constipation. See radiology read for full review of final results. LP was considered, but deemed unnecessary due to history and exam, low concern for bacterial meningitis at this time. At this time I am not convinced that the patient's urine is the underlying source of his fever and back pain. This is because the patient's urine several days ago before antibiotics did not grow anything,, his back pain is different than normal, back pain is midline in nature and not CVA. No improvement with Bactrim, urinalysis here does not appear convincing for urosepsis. Given this, I am concerned patient could have a possible spinal infection such as osteomyelitis or discitis. Given this, lumbar spine MRI with and without contrast was ordered for further assessment. At this time care is handed off to oncoming physician. Nura: I assumed primary responsibility for this patient after signout from previous physician. No leukocytosis. ESR elevated at 30, CRP elevated at 40. Patient does have mild hyponatremia 130, otherwise nonactionable chemistry. Lactate unremarkable at 1.2. Urinalysis without concern for UTI, no leukocyte esterase, no nitrates, no blood or protein -confounded by the fact patient currently on Bactrim. Patient was placed in observation beginning at 7 AM in order to obtain lumbar spine MRI and rule out discitis versus osteomyelitis versus epidural abscess, among other pathologies and determine need for admission versus home-going. The patient was provided serial exams, monitoring, while awaiting results. Independent interpretation of results demonstrated nonacute MRI of the lumbar spine. On reevaluation, patient alert, oriented, has no complaints at this time other than being thirsty and hungry. At this time, I feel patient is appropriate for discharge. Total observation time 5 hours. Because patient at baseline without signs or symptoms of clinical decompensation, deemed appropriate for discharge. Results were relayed to patient who voiced understanding and were agreeable to outpatient management and follow up. I discussed my clinical impression with patient and answered all questions. At this time, the evidence for any other entities in the differential is insufficient to warrant any further testing or ED observation. This was explained as well. Advisory was given that persistent or worsening symptoms require further evaluation. I confirmed the understanding of this discussion. Procedures <Mack Vázquez MD - Last Filed: 07/19/23 07:10> Risk/Benefits of Procedure(s) Were Explained: Yes Critical Care <Mack Vázquez MD - Last Filed: 07/19/23 07:10> Critical Care Time Critical Care Time: No
--- NOTE | 2023-07-19 04:16 | PC.NURSE ---
MD Vázquez notified of sepsis risk
[2023-07-19 04:19] LABS: VBG Base Excess -1.9 mmol/L (-2.4-2.3); VBG HCO3 22.5 mmol/L (23-30); VBG Oxygen Saturation 78.6 % (50-70); VBG PCO2 35.1 mmol/L (35-51); VBG PH 7.43 mmol/L (7.31-7.41); VBG PO2 40.5 mmol/L (28-40); VBG Total CO2 23.6 mmol/L (23-27)
[2023-07-19 04:20] LABS: Lactate Venous 2.5 mmol/L (0.4-2.0)
[2023-07-19 04:21] LABS: Basophils # 0.1 K/mm3 (0-0.2); Basophils % 1.2 % (0.1-2.0); Chloride 95 mmol/L (98-107); Eosinophils % 0.1 % (0.1-12.0); Hematocrit 36.5 % (42.0-52.0); Hemoglobin 12.6 g/dL (14.1-18.0); Lymphocytes # 2.7 K/mm3 (0.7-4.5); Mean Corpuscular HGB Conc 34.6 g/dL (31.8-35.4); Mean Corpuscular Hemoglobin 29.1 pg (27.0-31.2); Mean Corpuscular Volume 84.2 fl (80-94); Mean Platelet Volume 8.4 fl (7.4-10.4); Monocytes # 0.4 K/mm3 (0.1-1.0); Monocytes % 5.6 % (1.7-9.3); Neutrophils # 3.2 K/mm3 (1.8-7.8); Platelet Count 112 K/mm3 (142-424); Potassium 4.1 mmoL/L (3.5-5.1); Red Blood Count 4.34 M/mm3 (4.60-6.20); Red Cell Distribution Width 15.7 % (11.5-17.5); Sodium 130 mmol/L (136-145); White Blood Count 6.3 K/mm3 (4.8-10.8)
[2023-07-19] MEDS: ACETAMINOPHEN 500MG TAB 1000 MG PO (04:21)
[2023-07-19] MEDS: 0.9 % SODIUM CHLORIDE 1000ML 1,000 ML 999 ML IV (04:22)
[2023-07-19 04:24] LABS: Alanine Aminotransferase 46 U/L (12-78); Albumin Level 4.5 g/dl (3.5-5.0); Albumin/Globulin Ratio 1.2 (1.1-1.8); Alkaline Phosphatase 136 U/L (38-126); Anion Gap 14.1 mEq/L (5-15); Aspartate Amino Transferase 61 U/L (17-59); Bilirubin,Total 1.1 mg/dl (0.2-1.3); Blood Urea Nitrogen 15 mg/dl (9-20); Carbon Dioxide 25 mmol/L (22.0-30.0); Creatinine Clearance Estimated 106 mL/min (50-200); Estimated Glomerular Filt Rate 68 ml/min (>60); GFR (African American) 82 ML/MIN (>60); Globulin 3.7 g/dL (1.3-3.2); Total Protein,Serum 8.2 g/dl (6.3-8.2)
[2023-07-19 04:25] LABS: Glucose 116 mg/dl (74-100)
[2023-07-19 04:29] LABS: Lactic Acid 1.2 mmol/L (0.7-2.1)
[2023-07-19] MEDS: SODIUM CHLORIDE 0.9% 10ML SYR (RAD ONLY) 10 ML IV ×2 (04:51→11:46)
[2023-07-19] MEDS: IOPAMIDOL-370 (76%);100ML BOTTLE 75 ML IV (04:51)
[2023-07-19 05:00] LABS: Microscopic, Urine URINE MICROSCOPIC (MICROSCOPIC)
[2023-07-19 05:01] LABS: Appearance,Urine CLEAR (Clear); Bilirubin,Urine Negative (Negative); Blood, Urine Negative (Negative); Color,Urine YELLOW (Yellow); Glucose,Urine (UA) 1+ (Negative); Ketones,Urine Negative (Negative); Leukocyte Esterase,Urine Negative (Negative); Nitrate,Urine Negative (Negative); PH,Urine 6.5 (5.0-8.5); Protein,Urine Negative (Negative); Specific Gravity, Urine 1.015 (1.005-1.030)
[2023-07-19 05:11] LABS: Bacteria,Urine 1+ /lpf
--- NOTE | 2023-07-19 05:33 | PC.NURSE ---
ESR,CRP ADDED TO ORDERS VIA MD. LAB NOTIFIED.
[2023-07-19] MEDS: KETOROLAC 30MG/ML VIAL 30 MG IV (05:38)
[2023-07-19] MEDS: PROCHLORPERAZINE 10MG/2ML VIAL 10 MG IV (05:39)
[2023-07-19 05:47] LABS: C-Reactive Protein 39.5 mg/L (0-4)
[2023-07-19 06:00] LABS: Erythrocyte Sedimentation Rate 30 mm/hr (0-20)
[2023-07-19] MEDS: MAGNESIUM SULFATE IN WATER 2 GM/50 ML PIGGYBACK IV (06:01)
--- NOTE | 2023-07-19 06:28 | MR_ITS ---
FINAL REPORT CLINICAL HISTORY: low back pain, fever COMPARISON: 12/11/2020 FINDINGS: Multiplanar MR imaging of the lumbar spine was performed without and with contrast. Motion artifact is identified on some of the images. On the sagittal T2-weighted images, disc degeneration is seen throughout. There is a hemangioma in the L2 vertebral body. The vertebral alignment is normal. There is no evidence of fracture. The conus is seen at approximately the L1 level and has an unremarkable appearance. L1-2: An annular bulge is present. Facet arthropathy and osteophytes are present. There is mild bilateral neural foraminal narrowing. L2-3: An annular bulge and facet arthropathy are present. There is mild bilateral neural foraminal narrowing. L3-4: An annular bulge is present. Facet arthropathy and osteophytes are present. There is mild right and moderate left neural foraminal narrowing. L4-5: An annular bulge is present. Facet arthropathy and osteophytes are present. There is moderate bilateral neural foraminal narrowing. L5-S1: An annular bulge and facet arthropathy are present. No abnormal contrast enhancement is identified. IMPRESSION: Multilevel mild degenerative disc disease and spondylosis with areas of neural foraminal narrowing as described. Findings are stable since previous. Reviewed, Interpreted and Dictated by Bernard Virgen III, MD Transcribed by Mellisa Conway Authenticated and [facility]
--- NOTE | 2023-07-19 06:47 | PC.NURSE ---
rounded on pt at this time. Pt voices no needs. Mag infusing @ 50 ml/hr.
--- NOTE | 2023-07-19 07:53 | PC.NURSE ---
this nurse took call from MRI, asking about care management approval for MRI. call made to care management, spoke with Enriqueta, approval given for MRI. Dr. Lyman looking for discitis versus osteomylitis. call made to [facility], spoke with elsa, states that she can work pt into schedule around 11am.
[2023-07-19 08:19] LABS: Reflex Lactic Add Lactic Reflex
[2023-07-19 08:45] LABS: Lactic Acid Follow Up (RFLX 1) 1.5 mmol/L (0.7-2.1)
--- NOTE | 2023-07-19 08:57 | PC.NURSE ---
600 ml emptied out of pts urinal at bedside
--- NOTE | 2023-07-19 10:34 | PC.NURSE ---
PT TO MRI
--- NOTE | 2023-07-19 11:45 | PC.NURSE ---
Pt back from MRI
[2023-07-19] MEDS: GADOTERIDOL INJ 20ML SYRINGE 20 ML IV (11:46)
--- NOTE | 2023-07-19 12:28 | PC.NURSE ---
mri said they are reading mri now
--- NOTE | 2023-07-19 13:57 | PC.NURSE ---
LUNCH PROVIDED FOR PT
== END 2023-07-19 14:04 | disposition home or self-care (01) ==
PROVIDERS: Emergency Medicine; Emergency Provider Emergency Medicine; PCP Family Medicine
DX: M54.59 Other low back pain (principal); R50.9 Fever, unspecified; R74.02 Elevation of levels of lactic acid dehydrogenase [LDH]; E87.1 Hypo-osmolality and hyponatremia; R70.0 Elevated erythrocyte sedimentation rate; R79.82 Elevated C-reactive protein (CRP); R30.0 Dysuria; R51.9 Headache, unspecified; R41.0 Disorientation, unspecified; I11.9 Hypertensive heart disease without heart failure; I25.10 Atherosclerotic heart disease of native coronary artery without angina pectoris; E78.5 Hyperlipidemia, unspecified; E11.9 Type 2 diabetes mellitus without complications; Z79.84 Long term (current) use of oral hypoglycemic drugs
CPT/HCPCS: 72158; 74177; 80053; 81001; 82803; 83605; 85025; 85651; 86140; 87040; 87086; 96361; 96365; 96375; 99285; A9576; J3475; Q9967

== ENCOUNTER 2023-07-23 06:09 | Inpatient (IN) | payer OTHER, SELFPAY ==
[2023-07-23] VITALS (30 sets, daily range): BP systolic 86–140; BP diastolic 41–89; PULSE 99–161; RESP 12–27; TEMP 37.7–39.6; O2SAT 92–100; BMI 35.4; BMI 32.6
--- NOTE | 2023-07-23 06:13 | XR_ITS ---
PROCEDURE INFORMATION: Exam: XR Chest Exam date and time: 07/23/2023 6:57 AM Age: 62 years old Clinical indication: Fever TECHNIQUE: Imaging protocol: Radiologic exam of the chest. Views: 1 view. COMPARISON: CR XR RIBS LT MIN 3V W CXR1V 07/18/2019 2:12 PM FINDINGS: Lungs: Sequela of granulomatous disease. Hypoventilatory changes bilaterally. Suggestion of retrocardiac airspace opacity. Pleural spaces: Unremarkable. No pleural effusion. No pneumothorax. Heart/Mediastinum: Unremarkable. No cardiomegaly. Bones/joints: Diffuse degenerative change of the visualized osseous structures. IMPRESSION: 1. Suggestion of possible retrocardiac airspace opacity which can be seen in pneumonia, although nonspecific. 2. Additional findings as above.
--- NOTE | 2023-07-23 06:14 | CT_ITS ---
PROCEDURE INFORMATION: Exam: CT Head Without Contrast Exam date and time: 07/23/2023 6:39 AM Age: 62 years old Clinical indication: Altered mental status/memory loss; Additional info: Confusion TECHNIQUE: Imaging protocol: Computed tomography of the head without contrast. Radiation optimization: All CT scans at this facility use at least one of these dose optimization techniques: automated exposure control; mA and/or kV adjustment per patient size (includes targeted exams where dose is matched to clinical indication); or iterative reconstruction. COMPARISON: MR HEAD/BRAIN WO/W CON 10/21/2022 8:51 AM FINDINGS: Brain: Scattered dural calcifications. Pineal gland calcifications. Cerebral ventricles: Choroid plexus calcifications. Paranasal sinuses: Visualized sinuses are unremarkable. No fluid levels. Mastoid air cells: Visualized mastoid air cells are well aerated. Bones: Unremarkable. No acute fracture. Soft tissues: Unremarkable. Other findings: Moderate calcified intracranial atherosclerotic disease. IMPRESSION: No acute intracranial findings.
--- NOTE | 2023-07-23 06:30 | PC.NURSE ---
Pt arrived via [facility] with a #20 in right a/c that has infiltrated. IV removed, coban placed around swelling.
[2023-07-23 06:55] LABS: Adenovirus,PCR Not Detected (NotDetected); Bordetella Pertussis Not Detected (NotDetected); Chlamydophila Pneumoniae, PCR Not Detected (NotDetected); Coronavirus 19, PCR Not Detected (NotDetected); Coronavirus 229E Not Detected (NotDetected); Coronavirus NL63 Not Detected (NotDetected); Coronavirus OC43 Not Detected (NotDetected); Coronovirus HKU1,PCR Not Detected (NotDetected); Human Metapneumovirus Not Detected (NotDetected); Influenza A, PCR Not Detected (NotDetected); Influenza AH1, 2009 Not Detected (NotDetected); Influenza AH1, PCR Not Detected (NotDetected); Influenza AH3,PCR Not Detected (NotDetected); Influenza B, PCR Not Detected (NotDetected); Mycoplasma Pneumoniae, PCR Not Detected (NotDetected); Parainfluenza 1, PCR Not Detected (NotDetected); Parainfluenza 2, PCR Not Detected (NotDetected); Parainfluenza 3, PCR Not Detected (NotDetected); Parainfluenza 4, PCR Not Detected (NotDetected); Respiratory Syncytial Virus Not Detected (NotDetected); Rhinovirus/Enterovirus Not Detected (NotDetected)
[2023-07-23 07:13] LABS: Basophils # 0.1 K/mm3 (0-0.2); Basophils % 1.9 % (0.1-2.0); Eosinophils % 0.1 % (0.1-12.0); Hematocrit 40.2 % (42.0-52.0); Hemoglobin 13.2 g/dL (14.1-18.0); Lymphocytes # 0.7 K/mm3 (0.7-4.5); Mean Corpuscular HGB Conc 32.7 g/dL (31.8-35.4); Mean Corpuscular Hemoglobin 28.7 pg (27.0-31.2); Mean Corpuscular Volume 87.7 fl (80-94); Mean Platelet Volume 11.5 fl (7.4-10.4); Monocytes # 0.1 K/mm3 (0.1-1.0); Monocytes % 2.7 % (1.7-9.3); Neutrophils % 71.2 % (37.0-80.0); Red Blood Count 4.59 M/mm3 (4.60-6.20); White Blood Count 2.8 K/mm3 (4.8-10.8)
--- NOTE | 2023-07-23 07:13 | ED_ITS ---
Discharge Plan Disposition Patient Disposition: Admitted Chief Complaint: Fever Prescriptions Prescriptions: No Action tamsulosin 0.4 mg capsule,extended release 24hr 0.4 mg PO DAILY metformin 1,000 mg tablet 1,000 mg PO BID oxybutynin chloride 15 mg tablet extended release 24hr 15 mg PO DAILY diclofenac sodium 1 % gel 4 g TOPICAL QID PRN (Reason: pain ) Qty: 100 2RF Rx Instructions: apply to single, ankle, foot; for foot includes sole/toes/top of foot urea 40 % cream 1 applic TOPICAL BID Qty: 28 0RF ezetimibe 10 mg tablet 10 mg PO DAILY venlafaxine 150 mg tablet extended release 24hr 150 mg PO DAILY Qty: 90 0RF quetiapine 100 mg tablet 200 mg PO ONCE HS Qty: 180 0RF diphenhydramine HCl [Benadryl] 25 mg capsule 50 mg PO QHS PRN (Reason: unknown) Jardiance 25 mg tablet 25 mg PO DAILY nitroglycerin 400 mcg/spray spray,non-aerosol 0.4 mg SUBLINGUAL Q5M PRN (Reason: chest pain) Qty: 4.9 2RF furosemide 40 mg tablet See Rx Instructions .ROUTE .COMPLEX Qty: 90 3RF Dose Instruction: TAKE 1 TABLET BY MOUTH ONCE DAILY FOR FLUID Rx Instructions: TAKE 1 TABLET BY MOUTH ONCE DAILY FOR FLUID meloxicam 7.5 mg tablet See Rx Instructions .ROUTE .COMPLEX Qty: 60 0RF Dose Instruction: TAKE 1 TABLET BY MOUTH TWICE DAILY FOR PAIN Rx Instructions: TAKE 1 TABLET BY MOUTH TWICE DAILY FOR PAIN omeprazole 40 MG capsule,delayed release(DR/EC) 40 mg PO DAILY Rx Instructions: Needs follow up appt for additional refills. aspirin 81 MG tablet,chewable 81 mg PO DAILY oxycodone-acetaminophen 10-325 mg tablet 1 tab PO Q6H PRN (Reason: PAIN) sumatriptan succinate 100 mg tablet 100 mg PO DAILY PRN (Reason: Headache) sulfamethoxazole-trimethoprim [Bactrim DS] 800-160 mg Tablet 1 tab PO BID Qty: 20 0RF venlafaxine [Effexor XR] 75 mg capsule,extended release 24hr 75 mg PO DAILY Rx Instructions: 75 mg PO take daily with 150mg capsule; total dose is 225mg daily ropinirole 1 mg tablet 1 mg PO ONCE ergocalciferol (vitamin D2) [Vitamin D2] 1,250 mcg (50,000 unit) capsule 50,000 mcg PO WEEKLY Referrals Follow up/Referrals: Provider,Referral, [Primary Care Provider] - See instructions Clinical Impressions Clinical Impression: Tick-borne fever, Sepsis, Atrial flutter, Transaminitis, Hyponatremia, Thrombocytopenia Discharge ED Provider: Mack Vázquez Adult HPI <Mack Vázquez MD - Last Filed: 07/23/23 07:22> General Chief complaint: Fever Stated complaint: weakness, fever Time Seen by Provider: 07/23/23 06:12 Mode of Arrival: EMS Source of Information: Patient Limitations: No Limitations Description of Symptoms (Recalled from ER Triage Doc. by RN): Pt arrives via EMS from home when family became concerned for increased confusion, temp of 103.0 and difficulty walking. Pt was dx with UTI 1 week ago and placed on Bactrim, pt states he stopped taking it because he had allergic reaction to it. Pt is a/o x 3 at this time, temp 99.8 complains of lower back pain at this time. Denies any CP or SOA History of Present Illness HPI narrative: 62-year-old male with history of obesity [id number]-[id number] diabetes hypertension hyperlipidemia coronary artery disease presents with fever and confusion. He was seen around the beginning of the month at urgent care and was diagnosed with UTI and was placed on Bactrim. He was seen here a few days later for fever back pain dysuria. His workup at that time did not show a source, despite extensive workup including CT abdomen pelvis, MRI lumbar spine, blood cultures urine urine culture. He was discharged home. He has reportedly not been taking his Bactrim because he had some sort of reaction. Today he has apparently been doing worse. Tachycardic to the 120 on arrival, febrile with EMS to 103. Patient currently complains of low back pain which she reports is chronic. Denies chest pain abdominal pain shortness of breath headache etc. Patient is a poor historian. Related Data Home Medications Medication Instructions Recorded Confirmed aspirin 81 mg chewable tablet 81 mg PO DAILY PREVENTION' 06/15/17 07/19/23 tamsulosin 0.4 mg capsule 0.4 mg PO DAILY bladder 06/20/17 07/19/23 oxycodone-acetaminophen 10 mg-325 1 tab PO Q6H PRN PAIN 11/22/17 07/19/23 mg tablet diphenhydramine HCl 25 mg capsule 50 mg PO QHS PRN unknown 03/08/18 07/19/23 (Benadryl) sumatriptan succinate 100 mg tablet 100 mg PO DAILY PRN Headache 03/08/18 07/19/23 empagliflozin 25 mg tablet 25 mg PO DAILY . 08/27/18 07/19/23 (Jardiance) metformin 1,000 mg tablet 1,000 mg PO BID . 03/26/19 07/19/23 oxybutynin chloride 15 mg 15 mg PO DAILY . 03/26/19 07/19/23 tablet,extended release 24 hr omeprazole 40 mg capsule,delayed 40 mg PO DAILY GERD 11/13/20 07/19/23 release ezetimibe 10 mg tablet 10 mg PO DAILY 05/26/22 07/19/23 ergocalciferol (vitamin D2) 1,250 50,000 mcg PO WEEKLY SUPPPLEMENT 07/19/23 07/19/23 mcg (50,000 unit) capsule (Vitamin D2) ropinirole 1 mg tablet 1 mg PO ONCE RLS 07/19/23 07/19/23 venlafaxine 75 mg capsule,extended 75 mg PO DAILY Depression 07/19/23 07/19/23 release 24 hr (Effexor XR) Previous Rx's Medication Instructions Recorded diclofenac sodium 1 % topical gel 4 g topical QID PRN pain #100 03/26/19 grams urea 40 % topical cream 1 applic topical BID dry skin #28 03/26/19 grams nitroglycerin 400 mcg/spray 0.4 mg sublingual Q5M PRN chest 08/05/19 translingual pain #4.9 grams furosemide 40 mg tablet See Rx Instructions .Route 05/29/23 .COMPLEX #90 tabs quetiapine 100 mg tablet 200 mg (2 x 100 mg) PO ONCE HS 06/02/23 #180 tabs venlafaxine 150 mg tablet,extended 150 mg PO DAILY Depression #90 tabs 06/02/23 release 24 hr meloxicam 7.5 mg tablet See Rx Instructions .Route 07/15/23 .COMPLEX #60 tabs sulfamethoxazole 800 1 tab PO BID #20 tabs 07/15/23 mg-trimethoprim 160 mg tablet (Bactrim DS) Allergies Allergy/AdvReac Type Severity Reaction Status Date / Time sulfamethoxazole Allergy Intermediate Verified 07/23/23 06:21 [From Bactrim] trimethoprim [From Bactrim] Allergy Intermediate Verified 07/23/23 06:21 atorvastatin Allergy Mild myalgias Verified 06/20/23 09:26 rosuvastatin [From Crestor] Allergy Mild myaglias Verified 06/20/23 09:26 simvastatin [From Zocor] Allergy Mild myalgias Verified 06/20/23 09:26 fexofenadine [From YEFRI] Allergy Unknown UNKNOWN Verified 06/20/23 09:26 naproxen [NAPROXEN] Allergy Unknown HAND Verified 06/20/23 09:26 SWELLING PFSH <Mack Vázquez MD - Last Filed: 07/23/23 07:22> PFS Disclaimer: The information contained in this section may have been updated after the patient was seen, as this information can be updated by other users. Medical History Insomnia Generalized anxiety disorder Bipolar II disorder Social History Smoking Status: Unknown if ever smoked second hand exposure: No alcohol intake: never substance use type: denies use current occupational status: unemployed Travel in the last 8 weeks: Inside the [place] household members: spouse housing: house current occupational exposures/hazards: No caffeine: Yes <Mack Vázquez MD - Last Filed: 07/23/23 07:22> ROS Obtained: Yes All systems reviewed & no additional complaints except as documented Physical Exam <Mack Vázquez MD - Last Filed: 07/23/23 07:22> General General appearance: alert Comment: In no acute distress Head Head exam: atraumatic and normocephalic Eye Eye exam: Present normal appearance, PERRL and EOMI ENT ENT exam: Present normal oropharynx and normal external ear exam Neck Neck exam: Present normal inspection and full ROM; Absent meningismus Chest Chest inspection: Present normal inspection and symmetric chest wall rise; Absent tenderness Respiratory Respiratory exam: Present normal lung sounds bilaterally; Absent respiratory distress Cardiovascular Cardiovascular exam: Present normal rhythm and tachycardia Abdominal Exam Abdominal exam: Present soft; Absent distention, tenderness or guarding Extremities Exam Extremities exam: Present normal inspection; Absent edema or joint swelling Back Exam Back exam: Present normal inspection and tenderness (Midline, lumbar) Neurological Exam Neurological exam: Present alert and other (Poor historian, only intermittently answers questions); Absent motor sensory deficit Psychiatric Psychiatric exam: Present flat affect Skin Skin exam: Present warm, dry and normal color Lymphatic Lymphatic Findings: no adenopathy Medical Decision Making <Mack Vázquez MD - Last Filed: 07/23/23 07:22> Medical Records Medical records reviewed: Yes I reviewed the patient's medical records. Jose Inquiry Pt receiving controlled substance: No Jose was queried for this patient: No Vital Signs: 07/23/23 06:09 07/23/23 06:18 07/23/23 06:29 Temperature 99.8 F H Temperature Source Oral Oral Pulse Rate 122 H Pulse Rate [Left] 130 H Respiratory Rate 16 17 Blood Pressure 99/80 L Blood Pressure [Right Arm] 99/80 L Blood Pressure Mean Blood Pressure Mean [Right Arm] 86 Blood Pressure Source [Right Arm] Automatic Cuff Blood Pressure Position [Right Arm] Supine 02 Sat by Pulse Oximetry 99 98 Oxygen Delivery Method Room Air 07/23/23 06:30 07/23/23 07:15 07/23/23 07:31 Temperature Temperature Source Pulse Rate 122 H 127 H 127 H Pulse Rate [Left] Respiratory Rate 12 17 14 Blood Pressure 90/53 L 100/68 L 109/89 L Blood Pressure [Right Arm] Blood Pressure Mean Blood Pressure Mean [Right Arm] Blood Pressure Source [Right Arm] Blood Pressure Position [Right Arm] 02 Sat by Pulse Oximetry 98 98 98 Oxygen Delivery Method 07/23/23 07:37 07/23/23 08:01 07/23/23 08:28 Temperature 103.2 F H 103.1 F H Temperature Source Oral Oral Pulse Rate 123 H Pulse Rate [Left] Respiratory Rate 18 Blood Pressure 121/79 Blood Pressure [Right Arm] Blood Pressure Mean Blood Pressure Mean [Right Arm] Blood Pressure Source [Right Arm] Blood Pressure Position [Right Arm] 02 Sat by Pulse Oximetry 94 L Oxygen Delivery Method Room Air 07/23/23 08:42 07/23/23 09:30 07/23/23 09:37 Temperature Temperature Source Pulse Rate 119 H 116 H 158 H Pulse Rate [Left] Respiratory Rate 17 14 18 Blood Pressure 108/64 L 90/59 L 109/69 L Blood Pressure [Right Arm] Blood Pressure Mean Blood Pressure Mean [Right Arm] Blood Pressure Source [Right Arm] Blood Pressure Position [Right Arm] 02 Sat by Pulse Oximetry 94 L 96 92 L Oxygen Delivery Method 07/23/23 09:41 07/23/23 10:04 07/23/23 10:30 Temperature 100.1 F H Temperature Source Oral Pulse Rate 143 H 145 H Pulse Rate [Left] Respiratory Rate 21 27 H Blood Pressure 86/57 L 95/57 L Blood Pressure [Right Arm] Blood Pressure Mean Blood Pressure Mean [Right Arm] Blood Pressure Source [Right Arm] Blood Pressure Position [Right Arm] 02 Sat by Pulse Oximetry 92 L 94 L Oxygen Delivery Method Room Air Room Air 07/23/23 11:00 Temperature Temperature Source Pulse Rate 152 H Pulse Rate [Left] Respiratory Rate Blood Pressure 104/62 L Blood Pressure [Right Arm] Blood Pressure Mean 76 Blood Pressure Mean [Right Arm] Blood Pressure Source [Right Arm] Blood Pressure Position [Right Arm] 02 Sat by Pulse Oximetry 94 L Oxygen Delivery Method Room Air Lab Data Lab results reviewed: Yes I reviewed the patient's lab results. Lab Results 07/23/23 06:40: WBC 2.8 L, RBC 4.59 L, Hgb 13.2 L, Hct 40.2 L, MCV 87.7, MCH 28.7, MCHC 32.7, RDW 16.0, Plt Count 41 L*, MPV 11.5 H, Neut % (Auto) 71.2, Lymph % (Auto) 24.0, Russell % (Auto) 2.7, Eos % (Auto) 0.1, Baso % (Auto) 1.9, Neut # (Auto) 2.0, Lymph # (Auto) 0.7, Russell # (Auto) 0.1, Eos # (Auto) 0.0, Baso # (Auto) 0.1, Troponin I 0.03, Chlamy pneumoniae PCR Not detected, Adenovirus (PCR) Not detected, B. pertussis DNA (PCR) Not detected, Coronavirus OC43 (PCR) Not detected, Coronavirus HKU1 (PCR) Not detected, Coronavirus 229E (PCR) Not detected, SARS-CoV-2 (PCR) Not detected, Coronavirus NL63 (PCR) Not detected, Human Metapneumovir PCR Not detected, Influenza A (H1) PCR Not detected, Influ A (H1N1/09) PCR Not detected, Influenza A (H3) PCR Not detected, Influenza Type A (PCR) Not detected, Influenza Type B (PCR) Not detected, M. pneumoniae (PCR) Not detected, Parainfluenza 1 (PCR) Not detected, Parainfluenza 2 (PCR) Not detected, Parainfluenza 3 (PCR) Not detected, Parainfluenza 4 (PCR) Not detected, RSV (PCR) Not detected, Entero/Rhino (PCR) Not detected 07/23/23 07:48: WBC 2.8 L, RBC 4.30 L, Hgb 12.3 L, Hct 37.2 L, MCV 86.6, MCH 28.6, MCHC 33.0, RDW 15.9, Plt Count 40 L*, MPV 9.4, Neut % (Auto) 70.8, Lymph % (Auto) 23.8, Russell % (Auto) 3.3, Eos % (Auto) 0.2, Baso % (Auto) 1.9, Neut # (Auto) 2.0, Lymph # (Auto) 0.7, Russell # (Auto) 0.1, Eos # (Auto) 0.0, Baso # (Auto) 0.1 07/23/23 07:50: VBG pH 7.38, VBG pCO2 25.4 L, VBG pO2 63.5 H, VBG HCO3 14.6 L, V BG Total CO2 15.4 L, VBG O2 Saturation 92.2 H, VBG Base Excess -10.5 L, VBG Lactic Acid 6.2 H 07/23/23 07:58: Sodium 131 L, Potassium 4.0, Chloride 102, Carbon Dioxide 15 L, Anion Gap 18.0 H, BUN 30 H, Creatinine 1.50 H, Estimated Creat Clear 80, E stimated GFR 48 L, Est GFR ( Amer) 58 L, Glucose 167 H, Calcium 8.2 L, Total Bilirubin 0.9, AST 173 H, ALT 67, Alkaline Phosphatase 309 H, Total Creatine Kinase 51 L, Total Protein 7.3, Albumin 3.5, Globulin 3.8 H, A lbumin/Globulin Ratio 0.9 L 07/23/23 09:48: Urine Color Yellow, Urine Appearance Slightly cloudy, Urine pH 5.5, Ur Specific [place] 1.015, Urine Protein 1+, Urine Glucose (UA) 3+, Urine Ketones Negative, Urine Blood Negative, Urine Nitrate Negative, Urine Bilirubin Negative, Urine Urobilinogen 0.2, Ur Leukocyte Esterase Negative, Urine RBC Occasional, Urine WBC Occasional, Ur Squamous Epith Cells Occasional, Amorphous Sediment 2+, Urine Bacteria 1+ 07/23/23 10:23: Troponin I 0.05 H 07/23/23 07:48 07/23/23 07:58 Orders (Tests/Meds): ED MEDICATIONS Generic Name Dose Route Start Last Admin Trade Name Frank PRN Reason Stop Dose Admin Acetaminophen 650 mg 07/23/23 10:14 Acetaminophen 325mg Tab PO 08/22/23 10:13 Q4HP PRN Fever or Mild Pain (1-3) Acyclovir Sodium 900 mg/ 250 mls @ 250 mls/hr 07/23/23 08:00 07/23/23 09:11 Sodium Chloride IV 07/30/23 07:59 250 mls/hr Q8H SJ Administration Diltiazem HCl 100 mg/ Sodium 100 mls @ 5 mls/hr 07/23/23 09:54 07/23/23 11:25 Chloride IV 08/22/23 09:53 15 mg/hr .Q20H SJ 15 mls/hr Titration Protocol 5 MG/HR Sodium Chloride 10 ml 07/23/23 09:04 07/23/23 09:05 Sodium Chloride 0.9% 10ml Syr (Rad Only) IV 08/22/23 09:03 10 ml NEEDED PRN Administration Maintain IV Site Discontinued Medications Generic Name Dose Route Start Last Admin Trade Name Frank PRN Reason Stop Dose Admin Acetaminophen 1,000 mg 07/23/23 07:38 07/23/23 07:41 Acetaminophen 1,000mg/100ml Vial IV 07/23/23 07:39 1,000 mg ONCE ONE Administration Diltiazem HCl 20 mg 07/23/23 11:34 Diltiazem 25mg/5ml Vial IV 07/23/23 11:35 ONCE ONE Piperacillin Sod/Tazobactam 100 mls @ 200 mls/hr 07/23/23 07:11 07/23/23 07:34 Sod 4.5 gm/ Sodium Chloride IV 07/23/23 07:40 Not Given ONCE ONE Lactated Ringer's 1,000 mls @ 999 mls/hr 07/23/23 07:15 07/23/23 07:39 Lactated Ringer's 1000 Ml Bag IV 07/23/23 08:15 Not Given .Q1H1M SJ Cefepime HCl 2 gm/ Sodium 100 mls @ 200 mls/hr 07/23/23 07:30 07/23/23 07:39 Chloride IV 07/23/23 07:59 200 mls/hr ONCE ONE Administration Metronidazole 500 mg in 100 mls @ 100 mls/hr 07/23/23 07:30 07/23/23 07:41 Flagyl 500mg/100ml Ivpb IV 07/23/23 08:29 100 mls/hr ONCE ONE Administration Lactated Ringer's 2,120 mls @ 1,060 mls/hr 07/23/23 07:38 07/23/23 07:40 Lactated Ringer's 1000 Ml Bag 30 ml/kg infuse over 2 hr (2120 ml) 07/23/23 09:37 1,060 mls/hr IV Administration .Q2H ONE Vancomycin/PEG/NADA/Lysine/Water 1.75 gm in 350 mls @ 175 mls/hr 07/23/23 08:15 07/23/23 11:36 Vancomycin 1.75gm/350ml (Peg) Premix IV 07/23/23 10:14 175 mls/hr ONCE ONE Administration Doxycycline Hyclate 100 mg/ 250 mls @ 166.667 mls/hr 07/23/23 09:40 07/23/23 09:52 Sodium Chloride IV 07/23/23 09:41 166.667 mls/hr ONCE ONE Administration Iopamidol 100 ml 07/23/23 09:04 07/23/23 09:05 Iopamidol-370 (76%);100ml Bottle IV 07/23/23 09:05 100 ml ONCE ONE Administration Metoprolol Tartrate 5 mg 07/23/23 09:53 07/23/23 09:56 Metoprolol Tartrate 5mg/5ml Vial IV 07/23/23 09:54 5 mg ONCE ONE Administration Miscellaneous 1 each 07/23/23 07:15 07/23/23 08:29 Vancomycin Consult Request NOTAPPLIC 08/22/23 07:14 1 each CONSULT PHARMACY SJ Administration Sodium Chloride 50 ml 07/23/23 09:04 07/23/23 09:05 0.9 % Sodium Chloride 50 Ml Vial IV 07/23/23 09:05 50 ml ONCE ONE Administration ORDERS Category Date Time Status CT angio chest - dissection Stat Cat Scan 07/23/23 07:[address] head/brain wo con Stat Cat Scan 07/23/23 06:14 Completed CXR --portable [XR chest portable] Stat Exams 07/23/23 06:13 Completed CBC w/Auto Diff [Complete Blood Count Auto Diff] Stat Lab 07/23/23 06:40 Completed CK [Creatine Kinase] Stat Lab 07/23/23 07:58 Completed CMP [Comprehensive Metabolic Panel] Stat Lab 07/23/23 07:58 Completed Complete Blood Count Auto Diff AMLAB Lab 07/24/23 06:00 Ordered Complete Blood Count Auto Diff Stat Lab 07/23/23 07:48 Completed Comprehensive Metabolic Panel AMLAB Lab 07/24/23 06:00 Ordered Full Resp Panel w/COVID ([facility]) Routine Lab 07/23/23 06:40 Completed Magnesium AMLAB Lab 07/24/23 06:00 Ordered Trop I [Troponin I] Stat Lab 07/23/23 06:40 Completed Troponin I Q3H Lab 07/23/23 10:23 Completed Troponin I Q3H Lab 07/23/23 13:30 Ordered UA [Urinalysis and Microscopic] Stat Lab 07/23/23 09:48 Completed Blood Culture Stat Micro 07/23/23 06:40 Received VBG [Venous Blood Gas] Stat RT 07/23/23 07:50 Completed EKG Request [ECG Request] Stat Y 07/23/23 07:28 Ordered Tissue Perfus/Sepsis Re-Eval Sepsis Re-Evaluation Performed: Yes Date Performed: 07/23/23 Time Performed: 07:19 Medical Decision Narrative: 62-year-old male with history of hypertension hyperlipidemia fux-cqhrafu-[id number] diabetes, obesity, coronary artery disease presents with persistent fever, confusion. Recently treated for potential UTI. Has been seen in the ER within the last week and had extensive workup which did not find an ultimate source. Blood cultures and urine cultures have all grown out negative. History was obtained interactive discussion with patient and EMS. On arrival, patient is febrile, tachycardic, normotensive, moving all extremities spontaneously. Full physical exam performed and significant for no significant physical exam abnormalities. Differential includes but is not limited to UTI, pyelonephritis, intra-abdominal infection, pneumonia, viral infection, bacteremia, meningitis encephalitis Patient was given 1 L IV fluid bolus, IV vancomycin, IV Zosyn for symptomatic management and correction of underlying abnormalities. Workup initiated including CBC CMP UA blood cultures urine urine cultures CT head chest x-ray EKG. At this time care handed off to oncoming physician. <Mil Chau MD - Last Filed: 07/23/23 11:44> Vital Signs: 07/23/23 06:09 07/23/23 06:18 07/23/23 06:29 Temperature 99.8 F H Temperature Source Oral Oral Pulse Rate 122 H Pulse Rate [Left] 130 H Respiratory Rate 16 17 Blood Pressure 99/80 L Blood Pressure [Right Arm] 99/80 L Blood Pressure Mean Blood Pressure Mean [Right Arm] 86 Blood Pressure Source [Right Arm] Automatic Cuff Blood Pressure Position [Right Arm] Supine 02 Sat by Pulse Oximetry 99 98 Oxygen Delivery Method Room Air 07/23/23 06:30 07/23/23 07:15 07/23/23 07:31 Temperature Temperature Source Pulse Rate 122 H 127 H 127 H Pulse Rate [Left] Respiratory Rate 12 17 14 Blood Pressure 90/53 L 100/68 L 109/89 L Blood Pressure [Right Arm] Blood Pressure Mean Blood Pressure Mean [Right Arm] Blood Pressure Source [Right Arm] Blood Pressure Position [Right Arm] 02 Sat by Pulse Oximetry 98 98 98 Oxygen Delivery Method 07/23/23 07:37 07/23/23 08:01 07/23/23 08:28 Temperature 103.2 F H 103.1 F H Temperature Source Oral Oral Pulse Rate 123 H Pulse Rate [Left] Respiratory Rate 18 Blood Pressure 121/79 Blood Pressure [Right Arm] Blood Pressure Mean Blood Pressure Mean [Right Arm] Blood Pressure Source [Right Arm] Blood Pressure Position [Right Arm] 02 Sat by Pulse Oximetry 94 L Oxygen Delivery Method Room Air 07/23/23 08:42 07/23/23 09:30 07/23/23 09:37 Temperature Temperature Source Pulse Rate 119 H 116 H 158 H Pulse Rate [Left] Respiratory Rate 17 14 18 Blood Pressure 108/64 L 90/59 L 109/69 L Blood Pressure [Right Arm] Blood Pressure Mean Blood Pressure Mean [Right Arm] Blood Pressure Source [Right Arm] Blood Pressure Position [Right Arm] 02 Sat by Pulse Oximetry 94 L 96 92 L Oxygen Delivery Method 07/23/23 09:41 07/23/23 10:04 07/23/23 10:30 Temperature 100.1 F H Temperature Source Oral Pulse Rate 143 H 145 H Pulse Rate [Left] Respiratory Rate 21 27 H Blood Pressure 86/57 L 95/57 L Blood Pressure [Right Arm] Blood Pressure Mean Blood Pressure Mean [Right Arm] Blood Pressure Source [Right Arm] Blood Pressure Position [Right Arm] 02 Sat by Pulse Oximetry 92 L 94 L Oxygen Delivery Method Room Air Room Air 07/23/23 11:00 Temperature Temperature Source Pulse Rate 152 H Pulse Rate [Left] Respiratory Rate Blood Pressure 104/62 L Blood Pressure [Right Arm] Blood Pressure Mean 76 Blood Pressure Mean [Right Arm] Blood Pressure Source [Right Arm] Blood Pressure Position [Right Arm] 02 Sat by Pulse Oximetry 94 L Oxygen Delivery Method Room Air Lab Data Lab Results 07/23/23 06:40: WBC 2.8 L, RBC 4.59 L, Hgb 13.2 L, Hct 40.2 L, MCV 87.7, MCH 28.7, MCHC 32.7, RDW 16.0, Plt Count 41 L*, MPV 11.5 H, Neut % (Auto) 71.2, Lymph % (Auto) 24.0, Russell % (Auto) 2.7, Eos % (Auto) 0.1, Baso % (Auto) 1.9, Neut # (Auto) 2.0, Lymph # (Auto) 0.7, Russell # (Auto) 0.1, Eos # (Auto) 0.0, Baso # (Auto) 0.1, Troponin I 0.03, Chlamy pneumoniae PCR Not detected, Adenovirus (PCR) Not detected, B. pertussis DNA (PCR) Not detected, Coronavirus OC43 (PCR) Not detected, Coronavirus HKU1 (PCR) Not detected, Coronavirus 229E (PCR) Not detected, SARS-CoV-2 (PCR) Not detected, Coronavirus NL63 (PCR) Not detected, Human Metapneumovir PCR Not detected, Influenza A (H1) PCR Not detected, Influ A (H1N1/09) PCR Not detected, Influenza A (H3) PCR Not detected, Influenza Type A (PCR) Not detected, Influenza Type B (PCR) Not detected, M. pneumoniae (PCR) Not detected, Parainfluenza 1 (PCR) Not detected, Parainfluenza 2 (PCR) Not detected, Parainfluenza 3 (PCR) Not detected, Parainfluenza 4 (PCR) Not detected, RSV (PCR) Not detected, Entero/Rhino (PCR) Not detected 07/23/23 07:48: WBC 2.8 L, RBC 4.30 L, Hgb 12.3 L, Hct 37.2 L, MCV 86.6, MCH 28.6, MCHC 33.0, RDW 15.9, Plt Count 40 L*, MPV 9.4, Neut % (Auto) 70.8, Lymph % (Auto) 23.8, Russell % (Auto) 3.3, Eos % (Auto) 0.2, Baso % (Auto) 1.9, Neut # (Auto) 2.0, Lymph # (Auto) 0.7, Russell # (Auto) 0.1, Eos # (Auto) 0.0, Baso # (Auto) 0.1 07/23/23 07:50: VBG pH 7.38, VBG pCO2 25.4 L, VBG pO2 63.5 H, VBG HCO3 14.6 L, V BG Total CO2 15.4 L, VBG O2 Saturation 92.2 H, VBG Base Excess -10.5 L, VBG Lactic Acid 6.2 H 07/23/23 07:58: Sodium 131 L, Potassium 4.0, Chloride 102, Carbon Dioxide 15 L, Anion Gap 18.0 H, BUN 30 H, Creatinine 1.50 H, Estimated Creat Clear 80, E stimated GFR 48 L, Est GFR ( Amer) 58 L, Glucose 167 H, Calcium 8.2 L, Total Bilirubin 0.9, AST 173 H, ALT 67, Alkaline Phosphatase 309 H, Total Creatine Kinase 51 L, Total Protein 7.3, Albumin 3.5, Globulin 3.8 H, A lbumin/Globulin Ratio 0.9 L 07/23/23 09:48: Urine Color Yellow, Urine Appearance Slightly cloudy, Urine pH 5.5, Ur Specific [place] 1.015, Urine Protein 1+, Urine Glucose (UA) 3+, Urine Ketones Negative, Urine Blood Negative, Urine Nitrate Negative, Urine Bilirubin Negative, Urine Urobilinogen 0.2, Ur Leukocyte Esterase Negative, Urine RBC Occasional, Urine WBC Occasional, Ur Squamous Epith Cells Occasional, Amorphous Sediment 2+, Urine Bacteria 1+ 07/23/23 10:23: Troponin I 0.05 H Orders (Tests/Meds): ED MEDICATIONS Generic Name Dose Route Start Last Admin Trade Name Freq PRN Reason Stop Dose Admin Acetaminophen 650 mg 07/23/23 10:14 Acetaminophen 325mg Tab PO 08/22/23 10:13 Q4HP PRN Fever or Mild Pain (1-3) Acyclovir Sodium 900 mg/ 250 mls @ 250 mls/hr 07/23/23 08:00 07/23/23 09:11 Sodium Chloride IV 07/30/23 07:59 250 mls/hr Q8H SJ Administration Diltiazem HCl 100 mg/ Sodium 100 mls @ 5 mls/hr 07/23/23 09:54 07/23/23 11:25 Chloride IV 08/22/23 09:53 15 mg/hr .Q20H SJ 15 mls/hr Titration Protocol 5 MG/HR Sodium Chloride 10 ml 07/23/23 09:04 07/23/23 09:05 Sodium Chloride 0.9% 10ml Syr (Rad Only) IV 08/22/23 09:03 10 ml NEEDED PRN Administration Maintain IV Site Discontinued Medications Generic Name Dose Route Start Last Admin Trade Name Freq PRN Reason Stop Dose Admin Acetaminophen 1,000 mg 07/23/23 07:38 07/23/23 07:41 Acetaminophen 1,000mg/100ml Vial IV 07/23/23 07:39 1,000 mg ONCE ONE Administration Diltiazem HCl 20 mg 07/23/23 11:34 Diltiazem 25mg/5ml Vial IV 07/23/23 11:35 ONCE ONE Piperacillin Sod/Tazobactam 100 mls @ 200 mls/hr 07/23/23 07:11 07/23/23 07:34 Sod 4.5 gm/ Sodium Chloride IV 07/23/23 07:40 Not Given ONCE ONE Lactated Ringer's 1,000 mls @ 999 mls/hr 07/23/23 07:15 07/23/23 07:39 Lactated Ringer's 1000 Ml Bag IV 07/23/23 08:15 Not Given .Q1H1M SJ Cefepime HCl 2 gm/ Sodium 100 mls @ 200 mls/hr 07/23/23 07:30 07/23/23 07:39 Chloride IV 07/23/23 07:59 200 mls/hr ONCE ONE Administration Metronidazole 500 mg in 100 mls @ 100 mls/hr 07/23/23 07:30 07/23/23 07:41 Flagyl 500mg/100ml Ivpb IV 07/23/23 08:29 100 mls/hr ONCE ONE Administration Lactated Ringer's 2,120 mls @ 1,060 mls/hr 07/23/23 07:38 07/23/23 07:40 Lactated Ringer's 1000 Ml Bag 30 ml/kg infuse over 2 hr (2120 ml) 07/23/23 09:37 1,060 mls/hr IV Administration .Q2H ONE Vancomycin/PEG/NADA/Lysine/Water 1.75 gm in 350 mls @ 175 mls/hr 07/23/23 08:15 07/23/23 11:36 Vancomycin 1.75gm/350ml (Peg) Premix IV 07/23/23 10:14 175 mls/hr ONCE ONE Administration Doxycycline Hyclate 100 mg/ 250 mls @ 166.667 mls/hr 07/23/23 09:40 07/23/23 09:52 Sodium Chloride IV 07/23/23 09:41 166.667 mls/hr ONCE ONE Administration Iopamidol 100 ml 07/23/23 09:04 07/23/23 09:05 Iopamidol-370 (76%);100ml Bottle IV 07/23/23 09:05 100 ml ONCE ONE Administration Metoprolol Tartrate 5 mg 07/23/23 09:53 07/23/23 09:56 Metoprolol Tartrate 5mg/5ml Vial IV 07/23/23 09:54 5 mg ONCE ONE Administration Miscellaneous 1 each 07/23/23 07:15 07/23/23 08:29 Vancomycin Consult Request NOTAPPLIC 08/22/23 07:14 1 each CONSULT PHARMACY [facility] Administration Sodium Chloride 50 ml 07/23/23 09:04 07/23/23 09:05 0.9 % Sodium Chloride 50 Ml Vial IV 07/23/23 09:05 50 ml ONCE ONE Administration ORDERS Category Date Time Status CT angio chest - dissection Stat Cat Scan 07/23/23 07:[address] head/brain wo con Stat Cat Scan 07/23/23 06:14 Completed CXR --portable [XR chest portable] Stat Exams 07/23/23 06:13 Completed CBC w/Auto Diff [Complete Blood Count Auto Diff] Stat Lab 07/23/23 06:40 Completed CK [Creatine Kinase] Stat Lab 07/23/23 07:58 Completed CMP [Comprehensive Metabolic Panel] Stat Lab 07/23/23 07:58 Completed Complete Blood Count Auto Diff AMLAB Lab 07/24/23 06:00 Ordered Complete Blood Count Auto Diff Stat Lab 07/23/23 07:48 Completed Comprehensive Metabolic Panel AMLAB Lab 07/24/23 06:00 Ordered Full Resp Panel w/COVID ([facility]) Routine Lab 07/23/23 06:40 Completed Magnesium AMLAB Lab 07/24/23 06:00 Ordered Trop I [Troponin I] Stat Lab 07/23/23 06:40 Completed Troponin I Q3H Lab 07/23/23 10:23 Completed Troponin I Q3H Lab 07/23/23 13:30 Ordered UA [Urinalysis and Microscopic] Stat Lab 07/23/23 09:48 Completed Blood Culture Stat Micro 07/23/23 06:40 Received VBG [Venous Blood Gas] Stat RT 07/23/23 07:50 Completed EKG Request [ECG Request] Stat Y 07/23/23 07:28 Ordered ECG Data Tracing #1: Independently interpreted by me, rate is 125, rhythm is regular, axis is normal tachycardia, no ST elevation in anatomical contiguous leads, QTc 409. Tracing #2: Independently interpreted by me, rate is 160, rhythm is regular, axis is normal, atrial flutter with 2-1 block, no ST elevation in anatomical contiguous leads, QTc 394. HEART Score History (anamnesis): Slightly suspicious ECG: Normal Age: 45-65 years Risk factors: 1-2 risk factors Troponin: </= normal limit HEART Score: 2 Medical Decision Narrative: 62-year-old male with history of hypertension hyperlipidemia [id number] diabetes, obesity, coronary artery disease presents with persistent fever, confusion. Recently treated for potential UTI. Has been seen in the ER within the last week and had extensive workup which did not find an ultimate source. Blood cultures and urine cultures have all grown out negative. History was obtained interactive discussion with patient and EMS. On arrival, patient is febrile, tachycardic, normotensive, moving all extremities spontaneously. Full physical exam performed and significant for no significant physical exam abnormalities. Differential includes but is not limited to UTI, pyelonephritis, intra-abdominal infection, pneumonia, viral infection, bacteremia, meningitis encephalitis Patient was given 1 L IV fluid bolus, IV vancomycin, IV Zosyn for symptomatic management and correction of underlying abnormalities. Workup initiated including CBC CMP UA blood cultures urine urine cultures CT head chest x-ray EKG. At this time care handed off to oncoming physician. Mil Chau: Upon assumption of care patient was hemodynamically stable, tachycardic, febrile temperature 103.2 ?F. Family is at bedside, patient has chronic low back pain, no vomiting, no significant cough. He is reportedly being treated for UTI with Bactrim which was discontinued after he developed high fever and they called the urgent care for advice. Patient has normal functional baseline. In the middle of the night patient stood up walked down the hallway and had an episode of urinary incontinence after standing in the middle of the hallway. He is intermittently oriented, has automatisms with his mouth on exam. Patient has thrombocytopenia and leukopenia however lab called to say that his CMP was hemolyzed, given significant abnormalities CBC will be repeated as well. Antibiotics will be broadened to vancomycin, cefepime, Flagyl, acyclovir given encephalitis is a consideration. Platelets less than 50 preclude me from performing lumbar puncture. A more favorable diagnosis that would align with all of these findings would be a viral infection. Bactrim is also known to cause aseptic meningitis and thrombocytopenia as well as myelosuppression which could align with all of the symptoms. Patient reportedly last administered Bactrim approximately 48 hours ago. Remainder of workup reviewed by me, thrombocytopenia is real, repeat platelet count of 40, acid-base status lactic acidosis with respiratory compensation, no critical electrolyte abnormality, there is MIKEY. Workup not consistent with DKA. Chest x-ray shows possible retrocardiac opacity, clinically patient does not have significant cough however encephalopathy is a known presentation of pulmonary embolism given tachycardia and additional evaluation of lung parenchyma CT imaging will be conducted. CT imaging of the chest shows no acute abnormality. CT head no acute intracranial abnormality. Leading differential currently is sepsis secondary to UTI, urine has not been collected yet as patient voided without capture. Differential also includes encephalitis versus medication adverse reaction. Upon further discussion with family they note that he has a tick on his pubis that has been there for an unknown amount of time. Confirmed on physical exam and removed, it was in his right intertriginous area in the suprapubic region. Case was discussed with labs and tickborne illness antibody panel will be sent out with 2 gold tops. Patient had volume responsive tachycardia heart rate 115 however jumped to approximately 152 with minimal variation. Repeat EKG shows atrial flutter with 2:1 block. The case was discussed with Dr. Manriquez who recommends metoprolol followed by diltiazem which will be administered. The case was discussed with Dr. White guarding management who recommends immediate initiation of doxycycline which will be administered, he is concern for tickborne illness versus serotonin or dopamine mediated process given his medication list. Patient does have hyponatremia, thrombocytopenia with tick present which is concerning for tickborne illness. Given this patient admitted to hospitalist for continued evaluation at this time. Procedures <Mack Vázquez MD - Last Filed: 07/23/23 07:22> Risk/Benefits of Procedure(s) Were Explained: Yes Critical Care <Mack Vázquez MD - Last Filed: 07/23/23 07:22> Critical Care Time Critical Care Time: No
[2023-07-23 07:17] LABS: Platelet Count 41 K/mm3 (142-424)
--- NOTE | 2023-07-23 07:34 | ECG_ITS ---
APPROVED REPORT Exam: Resting ECG HR:125 bpm ECG Measurements Heart Rate 125 AXES KS 138 P 51 QRSd 89 QRS 34 QT 335 T 34 QTc 409 Conclusion SINUS TACHYCARDIA LOW QRS VOLTAGE IN PRECORDIAL LEADS [QRS DEFLECTION < 1.0 mV IN CHEST LEADS] ABNORMAL RHYTHM ECG Electronically signed by : NATALY SPANN, 07/23/2023 12:22:02
[2023-07-23] MEDS: CEFEPIME HCL 2 GM in 0.9 % SODIUM CHLORIDE 100 ML IV (07:39)
[2023-07-23] MEDS: LACTATED RINGERS 1000ML 2,120 ML 1060 ML IV (07:40)
[2023-07-23] MEDS: ACETAMINOPHEN 1,000MG/100ML VIAL 1000 MG IV (07:41)
[2023-07-23] MEDS: METRONIDAZ/SOD CHL 500 MG/100 ML PIGGYBACK 100 MG IV (07:41)
--- NOTE | 2023-07-23 07:55 | CT_ITS ---
PROCEDURE INFORMATION: Exam: CTA Chest With Contrast Exam date and time: 07/23/2023 8:46 AM Age: 62 years old Clinical indication: Tachypnea; Additional info: Tachycardia, encephalopathy TECHNIQUE: Imaging protocol: Computed tomographic angiography of the chest with contrast. Exam focused on the arteries. 3D rendering (Not supervised by radiologist): MIP and/or 3D reconstructed images were created by the technologist. Radiation optimization: All CT scans at this facility use at least one of these dose optimization techniques: automated exposure control; mA and/or kV adjustment per patient size (includes targeted exams where dose is matched to clinical indication); or iterative reconstruction. Contrast material: ISOVUE 370; Contrast volume: 100 ml; Contrast route: INTRAVENOUS (IV); COMPARISON: CR XR CHEST PORTABLE 07/23/2023 6:57 AM FINDINGS: Pulmonary arteries: Contrast bolus is not well timed for assessment of the distal main pulmonary arteries, segmental pulmonary arteries, subsegmental pulmonary arteries. Within the limitations, no large main pulmonary embolus. No secondary signs of hemodynamically significant pulmonary embolus. Aorta: Mild scattered calcified atherosclerotic disease of the aorta. Lungs: Hypoventilatory changes of the bilateral lung goncalves. Pleural spaces: Unremarkable. No pneumothorax. No pleural effusion. Heart: Unremarkable. No cardiomegaly. No pericardial effusion. Coronary arteries: Heavy coronary calcified atherosclerotic disease. Lymph nodes: Unremarkable. No enlarged lymph nodes. Bones/joints: Diffuse degenerative change of the visualized osseous structures. Soft tissues: Unremarkable. Other findings: Sequela of granulomatous disease. IMPRESSION: 1. Within the limitations as discussed above, no acute vascular finding. 2. No acute thoracic findings.
[2023-07-23 08:04] LABS: Troponin I 0.03 ng/ml (0.00-0.034)
[2023-07-23 08:06] LABS: VBG Base Excess -10.5 mmol/L (-2.4-2.3); VBG HCO3 14.6 mmol/L (23-30); VBG Oxygen Saturation 92.2 % (50-70); VBG PCO2 25.4 mmol/L (35-51); VBG PH 7.38 mmol/L (7.31-7.41); VBG PO2 63.5 mmol/L (28-40); VBG Total CO2 15.4 mmol/L (23-27)
[2023-07-23 08:08] LABS: Lactate Venous 6.2 mmol/L (0.4-2.0)
[2023-07-23 08:14] LABS: Basophils # 0.1 K/mm3 (0-0.2); Basophils % 1.9 % (0.1-2.0); Eosinophils % 0.2 % (0.1-12.0); Hematocrit 37.2 % (42.0-52.0); Hemoglobin 12.3 g/dL (14.1-18.0); Lymphocytes # 0.7 K/mm3 (0.7-4.5); Lymphocytes % 23.8 % (10-50); Mean Corpuscular Hemoglobin 28.6 pg (27.0-31.2); Mean Corpuscular Volume 86.6 fl (80-94); Mean Platelet Volume 9.4 fl (7.4-10.4); Monocytes # 0.1 K/mm3 (0.1-1.0); Monocytes % 3.3 % (1.7-9.3); Neutrophils % 70.8 % (37.0-80.0); Platelet Count 40 K/mm3 (142-424); Red Cell Distribution Width 15.9 % (11.5-17.5); White Blood Count 2.8 K/mm3 (4.8-10.8)
[2023-07-23 08:15] LABS: Chloride 102 mmol/L (98-107); Sodium 131 mmol/L (136-145)
[2023-07-23 08:18] LABS: Alanine Aminotransferase 67 U/L (12-78); Albumin Level 3.5 g/dl (3.5-5.0); Albumin/Globulin Ratio 0.9 (1.1-1.8); Alkaline Phosphatase 309 U/L (38-126); Aspartate Amino Transferase 173 U/L (17-59); Bilirubin,Total 0.9 mg/dl (0.2-1.3); Blood Urea Nitrogen 30 mg/dl (9-20); Calcium 8.2 mg/dl (8.4-10.2); Carbon Dioxide 15 mmol/L (22.0-30.0); Creatinine Clearance Estimated 80 mL/min (50-200); Estimated Glomerular Filt Rate 48 ml/min (>60); GFR (African American) 58 ML/MIN (>60); Globulin 3.8 g/dL (1.3-3.2); Glucose 167 mg/dl (74-100); Total Protein,Serum 7.3 g/dl (6.3-8.2)
[2023-07-23] MEDS: VANCOMYCIN CONSULT REQUEST 1 EACH NOTAPPLIC (08:29)
[2023-07-23] MEDS: IOPAMIDOL-370 (76%);100ML BOTTLE 100 ML IV (09:05)
[2023-07-23] MEDS: SODIUM CHLORIDE 0.9% 10ML SYR (RAD ONLY) 10 ML IV (09:05)
[2023-07-23] MEDS: 0.9 % SODIUM CHLORIDE 50 ML VIAL IV (09:05)
[2023-07-23] MEDS: SODIUM CHLORIDE 0.9% IV ×3 (09:11→23:56)
[2023-07-23] MEDS: ACYCLOVIR SODIUM IV ×3 (09:11→23:56)
--- NOTE | 2023-07-23 09:30 | ECG_ITS ---
APPROVED REPORT Exam: Resting ECG HR:160 bpm ECG Measurements Heart Rate 160 AXES QRSd 114 QRS 34 QT 305 T -66 QTc 394 Conclusion ATRIAL FLUTTER/TACHYCARDIA WITH RAPID VENTRICULAR RESPONSE MODERATE INTRAVENTRICULAR CONDUCTION DELAY [110+ ms QRS DURATION] MODERATE T-WAVE ABNORMALITY, CONSIDER INFERIOR ISCHEMIA [-0.1+ mV T-WAVE IN II/aVF] Electronically signed by : NATALY SPANN, 07/23/2023 12:21:11
--- NOTE | 2023-07-23 09:35 | PC.NURSE ---
on phone with hospitalist
[2023-07-23 09:49] LABS: Creatine Kinase 51 U/L (55-170)
[2023-07-23 09:51] LABS: Microscopic, Urine URINE MICROSCOPIC (MICROSCOPIC)
[2023-07-23] MEDS: DOXYCYCLINE HYCLATE 100 MG in 0.9 % SODIUM CHLORIDE 250 ML 166.667 MG IV ×2 (09:52→20:47)
[2023-07-23] MEDS: METOPROLOL TARTRATE 5MG/5ML VIAL 5 MG IV ×2 (09:56→14:10)
[2023-07-23 10:00] LABS: Bilirubin,Urine Negative (Negative); Blood, Urine Negative (Negative); Color,Urine YELLOW (Yellow); Glucose,Urine (UA) 3+ (Negative); Ketones,Urine Negative (Negative); Leukocyte Esterase,Urine Negative (Negative); Nitrate,Urine Negative (Negative); PH,Urine 5.5 (5.0-8.5); Protein,Urine 1+ (Negative); Specific Gravity, Urine 1.015 (1.005-1.030); Urobilinogen,Urine 0.2 EU/dl (0.2)
[2023-07-23 10:09] LABS: Appearance,Urine Slightly Cloudy (Clear)
--- NOTE | 2023-07-23 10:16 | P.HP_ITS ---
History of Present Illness *Admission Date: 07/23/23 *Reason for visit:: Fever *History of present illness: 62-year-old male who presents to the ER because he is felt bad for approximately 2 weeks. States has been feeling more weak. Today he has worsening abdominal pain. Has had fever and worsening confusion over the past 4 to 5 days. Temperature of 103 on arrival to the ER today. Family at bedside states has been having difficulty walking. Reportedly was diagnosed with a UTI week ago and started on Bactrim however urine cultures did not grow any pathogens. History significant for diabetes, hypertension, hyperlipidemia, bipolar, obesity. Workup in the ER initiated. Imaging of his abdomen showed splenomegaly but no focal source of infection or abscess. Labs remarkable for leukopenia, thrombocytopenia, mild elevation in liver enzymes, and MIKEY. Patient clinically meeting sepsis criteria with tachycardia, tachypnea, fever, low white cell count, and elevated lactate. Administered sepsis bolus in the ER. Differential diagnosis includes tickborne fever (tick found on exam in the ER), tickborne illness, neuroleptic malignant syndrome (patient on Seroquel and venlafaxine), allergic reaction to Bactrim, viral illness, meningitis. Medicine consulted for admission and further management. Started on broad-spectrum antibiotics including vancomycin, Zosyn, doxycycline. On arrival to the floor, patient is reportedly looking somewhat better according to family at bedside. Patient went into a flutter with RVR prior to transferring to the floor and was initiated on a diltiazem drip. Heart rate still fast at time of evaluation. Oxygen for comfort but was not hypoxic prior to application. Denies any nausea or vomiting. Has been having some urinary incontinence per family. Was also having some myoclonic jerking earlier at home. Difficulty obtaining history from patient, majority of history obtained from ER record and family at bedside. [facility] Disclaimer: The information contained in this section may have been updated after the patient was seen, as this information can be updated by other users. Medical History Diabetes mellitus CAD (coronary artery disease) BPH (benign prostatic hyperplasia) RLS (restless legs syndrome) Chest pain HLD (hyperlipidemia) HTN (hypertension) Kidney stones Depression Insomnia Generalized anxiety disorder Bipolar II disorder Social History Smoking Status: Unknown if ever smoked second hand exposure: No alcohol intake: never substance use type: denies use current occupational status: unemployed Travel in the last 8 weeks: Inside the [place] household members: spouse housing: house current occupational exposures/hazards: No caffeine: Yes Review of Systems Review of Systems Review of systems (narrative): 14 point review of systems performed, pertinent positives and negatives as per [facility] Meds Home Medications and Allergies Home Medications Medication Instructions Recorded Confirmed Type aspirin 81 mg chewable tablet 81 mg PO DAILY PREVENTION' 06/15/17 07/23/23 History tamsulosin 0.4 mg capsule 0.4 mg PO DAILY bladder 06/20/17 07/23/23 History diphenhydramine HCl 25 mg capsule 50 mg PO QHS PRN unknown 03/08/18 07/23/23 History (Benadryl) empagliflozin 25 mg tablet 25 mg PO DAILY . 08/27/18 07/23/23 History (Jardiance) metformin 1,000 mg tablet 1,000 mg PO BID . 03/26/19 07/23/23 History oxybutynin chloride 15 mg 15 mg PO DAILY . 03/26/19 07/23/23 History tablet,extended release 24 hr nitroglycerin 400 mcg/spray 0.4 mg sublingual Q5M PRN chest 08/05/19 07/23/23 Rx translingual pain #4.9 grams omeprazole 40 mg capsule,delayed 40 mg PO DAILY GERD 11/13/20 07/23/23 History release ezetimibe 10 mg tablet 10 mg PO DAILY 05/26/22 07/23/23 History furosemide 40 mg tablet See Rx Instructions .Route 05/29/23 07/23/23 Rx .COMPLEX #90 tabs quetiapine 100 mg tablet 200 mg (2 x 100 mg) PO ONCE HS 06/02/23 07/23/23 Rx #180 tabs venlafaxine 150 mg tablet,extended 150 mg PO DAILY Depression #90 tabs 06/02/23 07/23/23 Rx release 24 hr meloxicam 7.5 mg tablet See Rx Instructions .Route 07/15/23 07/23/23 Rx .COMPLEX #60 tabs ergocalciferol (vitamin D2) 1,250 50,000 mcg PO WEEKLY SUPPPLEMENT 07/19/23 07/23/23 History mcg (50,000 unit) capsule (Vitamin D2) venlafaxine 75 mg capsule,extended 75 mg PO DAILY Depression 07/19/23 07/23/23 History release 24 hr (Effexor XR) oxycodone 5 mg tablet 10 mg PO QIDP PRN Pain, Moderate 07/23/23 07/23/23 History ropinirole 1 mg tablet 1 mg PO DAILY 07/23/23 07/23/23 History New Prescriptions to Start Prescriptions: Allergies Allergy/AdvReac Type Severity Reaction Status Date / Time sulfamethoxazole Allergy Intermediate Verified 07/23/23 13:45 [From Bactrim] trimethoprim [From Bactrim] Allergy Intermediate Verified 07/23/23 13:45 atorvastatin Allergy Mild myalgias Verified 07/23/23 13:45 rosuvastatin [From Crestor] Allergy Mild myaglias Verified 07/23/23 13:45 simvastatin [From Zocor] Allergy Mild myalgias Verified 07/23/23 13:45 fexofenadine [From YEFRI] Allergy Unknown UNKNOWN Verified 07/23/23 13:45 naproxen [NAPROXEN] Allergy Unknown HAND Verified 07/23/23 13:45 SWELLING Exam Data for Last 24 hours Vital signs and Labs for Last 24 Hours: Temp Pulse Resp BP Pulse Ox O2 Del Method 100.1 F H 143 H 21 86/57 L 92 L Room Air 07/23/23 09:41 07/23/23 10:04 07/23/23 10:04 07/23/23 10:04 07/23/23 10:04 07/23/23 10:04 Laboratory Results - last 24 hr 07/23/23 06:40: WBC 2.8 L, RBC 4.59 L, Hgb 13.2 L, Hct 40.2 L, MCV 87.7, MCH 28.7, MCHC 32.7, RDW 16.0, Plt Count 41 L*, MPV 11.5 H, Neut % (Auto) 71.2, Lymph % (Auto) 24.0, [place] % (Auto) 2.7, Eos % (Auto) 0.1, Baso % (Auto) 1.9, Neut # (Auto) 2.0, Lymph # (Auto) 0.7, [place] # (Auto) 0.1, Eos # (Auto) 0.0, Baso # (Auto) 0.1, Troponin I 0.03, Chlamy pneumoniae PCR Not detected, Adenovirus (PCR) Not detected, B. pertussis DNA (PCR) Not detected, Coronavirus OC43 (PCR) Not detected, Coronavirus HKU1 (PCR) Not detected, Coronavirus 229E (PCR) Not detected, SARS-CoV-2 (PCR) Not detected, Coronavirus NL63 (PCR) Not detected, Human Metapneumovir PCR Not detected, Influenza A (H1) PCR Not detected, Influ A (H1N1/) PCR Not detected, Influenza A (H3) PCR Not detected, Influenza Type A (PCR) Not detected, Influenza Type B (PCR) Not detected, M. pneumoniae (PCR) Not detected, Parainfluenza 1 (PCR) Not detected, Parainfluenza 2 (PCR) Not detected, Parainfluenza 3 (PCR) Not detected, Parainfluenza 4 (PCR) Not detected, RSV (PCR) Not detected, Entero/Rhino (PCR) Not detected 07/23/23 07:48: WBC 2.8 L, RBC 4.30 L, Hgb 12.3 L, Hct 37.2 L, MCV 86.6, MCH 28.6, MCHC 33.0, RDW 15.9, Plt Count 40 L*, MPV 9.4, Neut % (Auto) 70.8, Lymph % (Auto) 23.8, [place] % (Auto) 3.3, Eos % (Auto) 0.2, Baso % (Auto) 1.9, Neut # (Auto) 2.0, Lymph # (Auto) 0.7, [place] # (Auto) 0.1, Eos # (Auto) 0.0, Baso # (Auto) 0.1 07/23/23 07:50: VBG pH 7.38, VBG pCO2 25.4 L, VBG pO2 63.5 H, VBG HCO3 14.6 L, VBG Total CO2 15.4 L, VBG O2 Saturation 92.2 H, VBG Base Excess -10.5 L, VBG Lactic Acid 6.2 H 07/23/23 07:58: Sodium 131 L, Potassium 4.0, Chloride 102, Carbon Dioxide 15 L, Anion Gap 18.0 H, BUN 30 H, Creatinine 1.50 H, Estimated Creat Clear 80, Estimated GFR 48 L, Est GFR ( Amer) 58 L, Glucose 167 H, Calcium 8.2 L, Total Bilirubin 0.9, AST 173 H, ALT 67, Alkaline Phosphatase 309 H, Total Creatine Kinase 51 L, Total Protein 7.3, Albumin 3.5, Globulin 3.8 H, Albumin/Globulin Ratio 0.9 L 07/23/23 09:48: Urine Color Yellow, Urine Appearance Slightly cloudy, Urine pH 5.5, Ur Specific [place] 1.015, Urine Protein 1+, Urine Glucose (UA) 3+, Urine Ketones Negative, Urine Blood Negative, Urine Nitrate Negative, Urine Bilirubin Negative, Urine Urobilinogen 0.2, Ur Leukocyte Esterase Negative I & O for Last 24 hours: Intake & Output 07/20/23 07/21/23 07/22/23 07/23/23 23:59 23:59 23:59 23:59 Weight 108.862 kg Constitutional Constitutional: moderate distress, obese, chronically ill appearing and cooperative *Routine HEENT Exam Head: Present normocephalic Eye: Present EOMI and PERRL ENT: Present mucous membranes moist Comments: Light sensitivity on exam *Routine Neck Exam Neck: Present supple; Absent lymphadenopathy or meningismus *Routine Respiratory Exam Respiratory: Present CTA bilaterally; Absent rhonchi, wheezes or crackles *Routine Cardiovascular Exam Cardiovascular: Present tachycardia *Routine Abdominal Exam Abdominal: Present soft, normoactive bowel sounds, tenderness (Mild, nonfocal) and distended *Routine Rectal Exam Rectal:: deferred *Routine Genitalia Exam Genitalia:: deferred *Routine Extremities Exam Extremities: Absent cyanosis, clubbing or edema *Routine Skin Exam Skin: Present warm; Absent rash *Routine Neurological Exam Neurological: Present alert, altered mental status and moving all extremities Comments: Oriented to self. Slow to answer questions. Senior [employer] Program [employer]st strength equal. No hyperreflexia. Assessment and Plan *Assessment and plan (1) Sepsis: Status: Acute Category: Medical Code(s): A41.9 - Sepsis, unspecified organism (2) Thrombocytopenia: Status: Acute Category: Medical Code(s): D69.6 - Thrombocytopenia, unspecified (3) Hyponatremia: Status: Acute Category: Medical Code(s): E87.1 - Hypo-osmolality and hyponatremia (4) Transaminitis: Status: Acute Category: Medical Code(s): R74.01 - Elevation of levels of liver transaminase levels (5) Atrial flutter: Status: Acute Category: Medical Code(s): I48.92 - Unspecified atrial flutter (6) Tick-borne fever: Status: Acute Category: Medical Code(s): A93.8 - Other specified arthropod-borne viral fevers (7) Bipolar II disorder: Status: Acute Category: Medical Code(s): F31.81 - Bipolar II disorder (8) Obesity (BMI 30.0-34.9): Status: Acute Category: Medical Code(s): E66.9 - Obesity, unspecified (9) Type 2 diabetes mellitus: Status: Acute Qualifiers: Diabetes mellitus complication status: with hyperglycemia Diabetes mellitus long-term insulin use: without termite control representative use Qualified Code(s): E11.65 - Type 2 diabetes mellitus with hyperglycemia Category: Medical Code(s): E11.9 - Type 2 diabetes mellitus without complications (10) SARKIS (obstructive sleep apnea): Status: Acute Category: Medical Code(s): G47.33 - Obstructive sleep apnea (adult) (pediatric) (11) HLD (hyperlipidemia): Status: Chronic Qualifiers: Hyperlipidemia type: other hyperlipidemia Qualified Code(s): E78.4 - Other hyperlipidemia Category: Medical Code(s): E78.5 - Hyperlipidemia, unspecified (12) HTN (hypertension): Status: Chronic Qualifiers: Hypertension type: essential hypertension Qualified Code(s): I10 - Essential (primary) hypertension Category: Medical Code(s): I10 - Essential (primary) hypertension (13) CAD (coronary artery disease): Status: Chronic Qualifiers: Associated angina: without angina Coronary Disease-Associated Artery/Lesion type: [place] artery [place] vs. transplanted heart: [place] heart Qualified Code(s): I25.10 - Atherosclerotic heart disease of [place] coronary artery without angina pectoris Category: Medical Code(s): I25.10 - Atherosclerotic heart disease of [place] coronary artery without angina pectoris Plan 62-year-old male who presented to the ER with persistent fever, confusion, difficulty walking. Workup in the ER concerning for thrombocytopenia, presence of tick, febrile illness. Meeting sepsis criteria. Discussed case with ER, request admission for further treatment and IV antibiotics. Medicine agreed to admit. Patient technically meeting septic shock with tachycardia, leukopenia, tachypnea, fever of 103, and elevated lactate of 6. Not requiring pressors however at this time. Admitted to stepdown level of care. Differential as mentioned in H&P concerning for infection such as tickborne illness, tick fever, neuroleptic malignant syndrome, or potentially meningitis. Lower concern for meningitis given no meningismus. Confusion, hypothermia, and unsteady gait in the setting of quetiapine/venlafaxine supporting NMS. Presence of tics with worsening symptoms in spite of use of Bactrim supporting tickborne fever/illness. Further management pending lab results. Zoonotic studies pending. Problems addressed as follows: Septic shock -Continue vancomycin, Zosyn, doxycycline. Medications necessitating monitoring for risk of toxicity - White cell count low at 2.8. Platelets 40. Platelets were normal a week ago. Repeat CBC, CMP, magnesium ordered for the morning. -Blood culture and urine cultures pending. -Tickborne illness studies pending, concerning for early ketosis or anaplasmosis -CBV and EBV antibody titers pending in the setting of splenomegaly on CT personally reviewed -AST 173, alk phos 309. Continue to monitor liver labs daily for improvement in transaminitis. -Comp respiratory panel negative. -Will consider LP if no improvement in mentation or defervescent's of symptoms. Myocardial injury: Atrial fibrillation with RVR - Troponin elevated to 0.05. Likely due to supply/demand mismatch in the sett ing of sepsis. -Continue diltiazem drip, titrate for rate less than 100 -Necessitating as needed metoprolol. -Adequately fluid resuscitated. -EKG personally reviewed showing a flutter Bipolar 2: Holding Seroquel and venlafaxine in the setting of concern for NMS. Treatment is removal of offending agent. Monitor for improvement Diabetes: A1c pending. Will continue fingersticks ACHS and sliding scale insulin Full code Holding anticoagulation due to thrombocyopenia diabetic diet
[2023-07-23] MEDS: dilTIAZem HCL 100 MG in 0.9 % SODIUM CHLORIDE 100 ML IV (10:38)
[2023-07-23 10:59] LABS: RBC,Urine Occasional #/hpf (0-3); Squamous Epithelial Cell,Urine Occasional #/hpf (0-5); WBC,Urine Occasional #/hpf (0-3)
[2023-07-23 11:00] LABS: Amorphous Sediment,Urine 2+ /lpf; Bacteria,Urine 1+ /lpf
[2023-07-23 11:01] LABS: Troponin I 0.05 ng/ml (0.00-0.034)
[2023-07-23] MEDS: VANCOMYCIN/WATER FOR INJ (PEG) 1.75 GM/350 ML PIGGYBACK IV (11:36)
[2023-07-23] MEDS: dilTIAZem 25MG/5ML VIAL 20 MG IV (11:38)
[2023-07-23 12:07] LABS: Reflex Lactic Add Lactic Reflex
[2023-07-23] MEDS: ACETAMINOPHEN 325MG TAB 650 MG PO ×2 (12:55→18:51)
--- NOTE | 2023-07-23 13:00 | ECG_ITS ---
APPROVED REPORT Exam: Resting ECG HR:156 bpm ECG Measurements Heart Rate 156 AXES QRSd 110 QRS 17 QT 305 T 75 QTc 393 Conclusion ATRIAL FLUTTER/TACHYCARDIA WITH RAPID VENTRICULAR RESPONSE LOW QRS VOLTAGE IN PRECORDIAL LEADS [QRS DEFLECTION < 1.0 mV IN CHEST LEADS] NONSPECIFIC T-WAVE ABNORMALITY CRITICAL TEST RESULT UNCONFIRMED REPORT Electronically signed by : Zurdo Ling MD 07/23/2023 16:47:30
--- NOTE | 2023-07-23 13:36 | EXP.PHA.CONS ---
Pharmacy Consult Date: 07/23/23 Time: 13:36 Referring provider: DR. PROCTOR Reason for Consult:: VANCOMYCIN DOSING Allergies Allergy/AdvReac Type Severity Reaction Status Date / Time sulfamethoxazole Allergy Intermediate Verified 07/23/23 06:21 [From Bactrim] trimethoprim [From Bactrim] Allergy Intermediate Verified 07/23/23 06:21 atorvastatin Allergy Mild myalgias Verified 06/20/23 09:26 rosuvastatin [From Crestor] Allergy Mild myaglias Verified 06/20/23 09:26 simvastatin [From Zocor] Allergy Mild myalgias Verified 06/20/23 09:26 fexofenadine [From YEFRI] Allergy Unknown UNKNOWN Verified 06/20/23 09:26 naproxen [NAPROXEN] Allergy Unknown HAND Verified 06/20/23 09:26 SWELLING Home Medications Medication Instructions Recorded Confirmed Type aspirin 81 mg chewable tablet 81 mg PO DAILY PREVENTION' 06/15/17 07/19/23 History tamsulosin 0.4 mg capsule 0.4 mg PO DAILY bladder 06/20/17 07/19/23 History oxycodone-acetaminophen 10 mg-325 1 tab PO Q6H PRN PAIN 11/22/17 07/19/23 History mg tablet diphenhydramine HCl 25 mg capsule 50 mg PO QHS PRN unknown 03/08/18 07/19/23 History (Benadryl) sumatriptan succinate 100 mg tablet 100 mg PO DAILY PRN Headache 03/08/18 07/19/23 History empagliflozin 25 mg tablet 25 mg PO DAILY . 08/27/18 07/19/23 History (Jardiance) diclofenac sodium 1 % topical gel 4 g topical QID PRN pain #100 03/26/19 07/19/23 Rx grams metformin 1,000 mg tablet 1,000 mg PO BID . 03/26/19 07/19/23 History oxybutynin chloride 15 mg 15 mg PO DAILY . 03/26/19 07/19/23 History tablet,extended release 24 hr urea 40 % topical cream 1 applic topical BID dry skin #28 03/26/19 07/19/23 Rx grams nitroglycerin 400 mcg/spray 0.4 mg sublingual Q5M PRN chest 08/05/19 07/19/23 Rx translingual pain #4.9 grams omeprazole 40 mg capsule,delayed 40 mg PO DAILY GERD 11/13/20 07/19/23 History release ezetimibe 10 mg tablet 10 mg PO DAILY 05/26/22 07/19/23 History furosemide 40 mg tablet See Rx Instructions .Route 05/29/23 07/19/23 Rx .COMPLEX #90 tabs quetiapine 100 mg tablet 200 mg (2 x 100 mg) PO ONCE HS 06/02/23 07/19/23 Rx #180 tabs venlafaxine 150 mg tablet,extended 150 mg PO DAILY Depression #90 tabs 06/02/23 07/19/23 Rx release 24 hr meloxicam 7.5 mg tablet See Rx Instructions .Route 07/15/23 07/19/23 Rx .COMPLEX #60 tabs sulfamethoxazole 800 1 tab PO BID #20 tabs 07/15/23 07/19/23 Rx mg-trimethoprim 160 mg tablet (Bactrim DS) ergocalciferol (vitamin D2) 1,250 50,000 mcg PO WEEKLY SUPPPLEMENT 07/19/23 07/19/23 History mcg (50,000 unit) capsule (Vitamin D2) ropinirole 1 mg tablet 1 mg PO ONCE RLS 07/19/23 07/19/23 History venlafaxine 75 mg capsule,extended 75 mg PO DAILY Depression 07/19/23 07/19/23 History release 24 hr (Effexor XR) New Prescriptions to Start Prescriptions: Height: 1.75 m Weight: 100.357 kg Laboratory Results:: Laboratory Results - last 24 hr 07/23/23 06:40: WBC 2.8 L, RBC 4.59 L, Hgb 13.2 L, Hct 40.2 L, MCV 87.7, MCH 28.7, MCHC 32.7, RDW 16.0, Plt Count 41 L*, MPV 11.5 H, Neut % (Auto) 71.2, Lymph % (Auto) 24.0, [place] % (Auto) 2.7, Eos % (Auto) 0.1, Baso % (Auto) 1.9, Neut # (Auto) 2.0, Lymph # (Auto) 0.7, [place] # (Auto) 0.1, Eos # (Auto) 0.0, Baso # (Auto) 0.1, Troponin I 0.03, Chlamy pneumoniae PCR Not detected, Adenovirus (PCR) Not detected, B. pertussis DNA (PCR) Not detected, Coronavirus OC43 (PCR) Not detected, Coronavirus HKU1 (PCR) Not detected, Coronavirus 229E (PCR) Not detected, SARS-CoV-2 (PCR) Not detected, Coronavirus NL63 (PCR) Not detected, Human Metapneumovir PCR Not detected, Influenza A (H1) PCR Not detected, Influ A (H1N1/) PCR Not detected, Influenza A (H3) PCR Not detected, Influenza Type A (PCR) Not detected, Influenza Type B (PCR) Not detected, M. pneumoniae (PCR) Not detected, Parainfluenza 1 (PCR) Not detected, Parainfluenza 2 (PCR) Not detected, Parainfluenza 3 (PCR) Not detected, Parainfluenza 4 (PCR) Not detected, RSV (PCR) Not detected, Entero/Rhino (PCR) Not detected 07/23/23 07:48: WBC 2.8 L, RBC 4.30 L, Hgb 12.3 L, Hct 37.2 L, MCV 86.6, MCH 28.6, MCHC 33.0, RDW 15.9, Plt Count 40 L*, MPV 9.4, Neut % (Auto) 70.8, Lymph % (Auto) 23.8, [place] % (Auto) 3.3, Eos % (Auto) 0.2, Baso % (Auto) 1.9, Neut # (Auto) 2.0, Lymph # (Auto) 0.7, [place] # (Auto) 0.1, Eos # (Auto) 0.0, Baso # (Auto) 0.1 07/23/23 07:50: VBG pH 7.38, VBG pCO2 25.4 L, VBG pO2 63.5 H, VBG HCO3 14.6 L, VBG Total CO2 15.4 L, VBG O2 Saturation 92.2 H, VBG Base Excess -10.5 L, VBG Lactic Acid 6.2 H 07/23/23 07:58: Sodium 131 L, Potassium 4.0, Chloride 102, Carbon Dioxide 15 L, Anion Gap 18.0 H, BUN 30 H, Creatinine 1.50 H, Estimated Creat Clear 80, Estimated GFR 48 L, Est GFR ( Amer) 58 L, Glucose 167 H, Calcium 8.2 L, Total Bilirubin 0.9, AST 173 H, ALT 67, Alkaline Phosphatase 309 H, Total Creatine Kinase 51 L, Total Protein 7.3, Albumin 3.5, Globulin 3.8 H, Albumin/Globulin Ratio 0.9 L 07/23/23 09:48: Urine Color Yellow, Urine Appearance Slightly cloudy, Urine pH 5.5, Ur Specific [place] 1.015, Urine Protein 1+, Urine Glucose (UA) 3+, Urine Ketones Negative, Urine Blood Negative, Urine Nitrate Negative, Urine Bilirubin Negative, Urine Urobilinogen 0.2, Ur Leukocyte Esterase Negative, Urine RBC Occasional, Urine WBC Occasional, Ur Squamous Epith Cells Occasional, Amorphous Sediment 2+, Urine Bacteria 1+ 07/23/23 10:23: Troponin I 0.05 H Medical History: Medical History (Updated 07/23/23 @ 11:44 by Mil Chua MD) Insomnia Generalized anxiety disorder Bipolar II disorder Assessment and Plan Assessment and plan all Dx Assessment and Plan for all problems:: Pharmacokinetic dosing service Objective: Patient: Floor: Age: 62 yo Serum creatinine: 1.5 mg/dL Height: 69.0 Inches Weight (kg): 100 Assessment: IBW (kg): 70.70 Dosing wt(kg): 100 Estimated Creatinine clearance (ml/min): 51.7 CRCL method: Cockcroft and Gault using ibw(default). Drug selected: Vancomycin Loading dose (mg): 0 Vd (liters): 80.0 (factor used: 0.8 L/kg) Alejandro (hr-1): 0.047 Half life (hrs): 14.75 Recommended dose: 1500 mg Interval: 18 hrs Infusion time (hrs): 2.0 Predicted peak (mcg/mL): 31.3 Predicted trough (mcg/mL): 14.76 Total body weight is being used for vancomycin dosing. Recommendations: Give Vancomycin 1500 mg q 18 hrs with an expected Cpeak of 31.3 mcg/ml and an expected Ctrough of 14.76 mcg/ml ----Vanco only - ignore for aminoglycosides----- CLvanco= 3.76 L/hr AUC 0-24 /DARIAN Data: DARIAN 0.5 mcg/mL: AUC/DARIAN: 1063.8 DARIAN 1.0 mcg/mL: AUC/DARIAN: 531.9 --------- DARIAN 1.5 mcg/mL: AUC/DARIAN: 354.6 DARIAN 2.0 mcg/mL: AUC/DARIAN: 266.0
[2023-07-23 13:50] LABS: Lactic Acid Follow Up (RFLX 1) 5.3 mmol/L (0.7-2.1)
[2023-07-23 13:54] LABS: Troponin I 0.05 ng/ml (0.00-0.034)
[2023-07-23] MEDS: PIPERACILLIN/TAZO 4.5 GM in 0.9 % SODIUM CHLORIDE 100 ML IV ×2 (14:07→20:06)
[2023-07-23] MEDS: OXYBUTYNIN 5MG TAB 5 MG PO ×2 (14:07→21:03)
[2023-07-23 15:13] LABS: Reflex Lactic (2 hrs) Add Lactic Reflex
[2023-07-23 16:10] LABS: Lactic Acid Follow up (RFLX 2) 5.1 mmol/L (0.7-2.1)
[2023-07-23] MEDS: dilTIAZem HCL 100 MG in 0.9 % SODIUM CHLORIDE 100 ML 20 MG IV (16:19)
--- NOTE | 2023-07-23 16:32 | PC.NURSE ---
ice packs applied to pt under arms and groin r/t temp 101.9 orally
--- NOTE | 2023-07-23 16:57 | PC.NURSE ---
Pt has been sitting up in the bed with family present in the room since arrival to unit. pt currently has acyclovir and diltiazem infusing. attempting to wean diltiazem as pt tolerates. pt is alert to self and location and why he is at hospital. pt responses are noted to be delayed, family states this has been common for the past week prior to admission. nad noted.
[2023-07-23] MEDS: LACTATED RINGERS 1000ML 1,000 ML 500 ML IV (17:09)
[2023-07-23 17:20] LABS: POC Glucose,Bedside 148 (70-110)
[2023-07-23 18:17] LABS: Microscopic, Urine URINE MICROSCOPIC (MICROSCOPIC)
[2023-07-23 18:45] LABS: Appearance,Urine CLEAR (Clear); Bilirubin,Urine Negative (Negative); Blood, Urine 1+ (Negative); Color,Urine YELLOW (Yellow); Glucose,Urine (UA) 1+ (Negative); Ketones,Urine Negative (Negative); Leukocyte Esterase,Urine Negative (Negative); Nitrate,Urine Negative (Negative); PH,Urine 5.5 (5.0-8.5); Protein,Urine 1+ (Negative); Specific Gravity, Urine 1.015 (1.005-1.030); Urobilinogen,Urine 0.2 EU/dl (0.2)
[2023-07-23 18:54] LABS: Hemoglobin A1C 6.1 % (4.0-6.0)
[2023-07-23 19:25] LABS: Bacteria,Urine Trace /lpf; Fine Granular Casts,Urine Occasional #/lpf (0); RBC,Urine Occasional #/hpf (0-3)
[2023-07-23 19:26] LABS: Amorphous Sediment,Urine Trace /lpf
[2023-07-23] MEDS: humaLOG 100 UNITS/ML 10ML VIAL (SSI) SQ (21:03)
[2023-07-23] MEDS: PANTOPRAZOLE 40MG TABLET 40 MG PO (21:03)
[2023-07-23] MEDS: OXYCODONE 10MG W/APAP 325MG TABLET 1 EACH PO (21:17)
[2023-07-24] VITALS (33 sets, daily range): BP systolic 97–141; BP diastolic 44–74; PULSE 78–105; RESP 16–28; TEMP 36.6–37.8; O2SAT 94–100; BMI 33.5
[2023-07-24] MEDS: dilTIAZem HCL 100 MG in 0.9 % SODIUM CHLORIDE 100 ML 7.5 MG IV (00:56)
[2023-07-24] MEDS: PIPERACILLIN/TAZO 4.5 GM in 0.9 % SODIUM CHLORIDE 100 ML IV ×2 (00:58→07:56)
[2023-07-24] MEDS: ACETAMINOPHEN 325MG TAB 650 MG PO (01:00)
[2023-07-24] MEDS: OXYCODONE 10MG W/APAP 325MG TABLET 1 EACH PO ×2 (04:17→20:10)
[2023-07-24] MEDS: LORazepam 2MG/ML VIAL 1 MG IV (04:57)
[2023-07-24 05:11] LABS: POC Glucose,Bedside 174 (70-110)
[2023-07-24] MEDS: VANCOMYCIN/WATER FOR INJ (PEG) 1.5 GM/300 ML PIGGYBACK IV (05:58)
[2023-07-24 06:18] LABS: POC Glucose,Bedside 113 (70-110)
[2023-07-24 06:50] LABS: Basophils % 1.6 % (0.1-2.0); Hematocrit 34.1 % (42.0-52.0); Hemoglobin 11.3 g/dL (14.1-18.0); Lymphocytes # 1.1 K/mm3 (0.7-4.5); Lymphocytes % 37.6 % (10-50); Mean Corpuscular HGB Conc 33.2 g/dL (31.8-35.4); Mean Corpuscular Hemoglobin 28.7 pg (27.0-31.2); Mean Corpuscular Volume 86.2 fl (80-94); Mean Platelet Volume 9.5 fl (7.4-10.4); Monocytes # 0.1 K/mm3 (0.1-1.0); Monocytes % 2.2 % (1.7-9.3); Neutrophils # 1.7 K/mm3 (1.8-7.8); Neutrophils % 58.7 % (37.0-80.0); Red Blood Count 3.95 M/mm3 (4.60-6.20); Red Cell Distribution Width 16.3 % (11.5-17.5); White Blood Count 2.8 K/mm3 (4.8-10.8)
[2023-07-24 06:53] LABS: Chloride 102 mmol/L (98-107); Potassium 3.6 mmoL/L (3.5-5.1); Sodium 129 mmol/L (136-145)
[2023-07-24 06:55] LABS: Alanine Aminotransferase 78 U/L (12-78); Aspartate Amino Transferase 254 U/L (17-59); Blood Urea Nitrogen 29 mg/dl (9-20); Creatinine Clearance Estimated 70 mL/min (50-200); Estimated Glomerular Filt Rate 44 ml/min (>60); GFR (African American) 53 ML/MIN (>60)
[2023-07-24 06:56] LABS: Albumin Level 2.9 g/dl (3.5-5.0); Albumin/Globulin Ratio 0.8 (1.1-1.8); Alkaline Phosphatase 299 U/L (38-126); Anion Gap 11.6 mEq/L (5-15); Bilirubin,Total 0.8 mg/dl (0.2-1.3); Calcium 7.7 mg/dl (8.4-10.2); Carbon Dioxide 19 mmol/L (22.0-30.0); Globulin 3.5 g/dL (1.3-3.2); Glucose 111 mg/dl (74-100); Magnesium 2.5 mg/dl (1.6-2.3); Total Protein,Serum 6.4 g/dl (6.3-8.2)
[2023-07-24 08:03] LABS: Platelet Count 34 K/mm3 (142-424)
--- NOTE | 2023-07-24 08:05 | HMH.PHAINT1 ---
Pharmacy Intervention Comments: MEDICATION RECONCILIATION COMPLETED ON PATIENT USING EXTERNAL FILL HISTORY FROM PHARMACY. -DARVIN VALDEZ, CELIAD
[2023-07-24] MEDS: CEFTRIAXONE SODIUM 2 GM in 0.9 % SODIUM CHLORIDE 100 ML IV ×2 (08:29→21:37)
[2023-07-24] MEDS: SODIUM CHLORIDE 0.9% IV ×3 (09:12→23:33)
[2023-07-24] MEDS: ACYCLOVIR SODIUM IV ×3 (09:12→23:33)
[2023-07-24] MEDS: DOXYCYCLINE HYCLATE 100 MG in 0.9 % SODIUM CHLORIDE 250 ML 166.667 MG IV ×2 (10:15→20:05)
[2023-07-24] MEDS: EMPAGLIFLOZIN 10MG TABLET 20 MG PO (10:16)
[2023-07-24] MEDS: OXYBUTYNIN 5MG TAB 5 MG PO ×3 (10:16→20:10)
[2023-07-24] MEDS: ASPIRIN 81MG CHEWABLE TABLET 81 MG PO (10:16)
[2023-07-24] MEDS: TAMSULOSIN 0.4MG CAPSULE 0.4 MG PO (10:16)
[2023-07-24 11:32] LABS: POC Glucose,Bedside 145 (70-110)
[2023-07-24] MEDS: VENLAFAXINE XR 75MG CAPSULE 75 MG PO (12:25)
[2023-07-24] MEDS: METOPROLOL TARTRATE 25MG TABLET 25 MG PO ×2 (12:25→20:10)
[2023-07-24] MEDS: diphenhydrAMINE 25MG CAPSULE 25 MG PO ×2 (14:31→20:10)
[2023-07-24 15:42] LABS: Basophils # 0.1 K/mm3 (0-0.2); Basophils % 3.1 % (0.1-2.0); Hematocrit 32.3 % (42.0-52.0); Hemoglobin 10.6 g/dL (14.1-18.0); Lymphocytes # 1.7 K/mm3 (0.7-4.5); Lymphocytes % 51.7 % (10-50); Mean Corpuscular HGB Conc 32.8 g/dL (31.8-35.4); Mean Corpuscular Hemoglobin 28.5 pg (27.0-31.2); Mean Corpuscular Volume 86.9 fl (80-94); Mean Platelet Volume 9.4 fl (7.4-10.4); Monocytes # 0.1 K/mm3 (0.1-1.0); Monocytes % 2.7 % (1.7-9.3); Neutrophils # 1.4 K/mm3 (1.8-7.8); Neutrophils % 42.5 % (37.0-80.0); Platelet Count 53 K/mm3 (142-424); Red Blood Count 3.72 M/mm3 (4.60-6.20); Red Cell Distribution Width 16.4 % (11.5-17.5); White Blood Count 3.2 K/mm3 (4.8-10.8)
[2023-07-24 15:52] LABS: MANUAL DIFFERENTIAL MANUAL DIFFERENTIAL (MANUAL DIFF)
[2023-07-24 16:17] LABS: POC Glucose,Bedside 113 (70-110)
--- NOTE | 2023-07-24 17:29 | PC.NURSE ---
VS stable, patient remained on room air. Patient only alert to name but able to follow commands and be redirected easily. [place] in place, urine clear, dark yellow. Lung sounds diminished. Patient tolerating po medications and platelet transfusions.
[2023-07-24 17:40] LABS: Burr Cells 1+; Lymphocytes % 44 % (10-50); Monocytes % 3 % (2-9); Neutrophils % 53 % (42-76); Platelet Estimate Marked Decrease; Total Cells Counted 100
--- NOTE | 2023-07-24 19:34 | EXP.ACUTE.PN ---
Subjective *Date: 07/24/23 *Time: 19:34 Interval history: Oriented to self with name and birthdate this morning. Fevers effervescing. Remains tachycardic but in sinus rhythm. Transitioned antibiotics to ceftriaxone for better coverage for meningitis. No nausea or vomiting. Family at bedside. Platelets low this morning, will transfuse 2 units platelets. Stable on room air. No nausea or vomiting. Eating small portions of his trays. Medical Exam Vital signs and Labs for Last 24 Hours: Vital Signs Temp Pulse Pulse Pulse Resp BP BP 07/24/23 18:58 07/24/23 17:00 07/24/23 16:00 92 H 20 122/67 07/24/23 16:00 90 07/24/23 16:00 07/24/23 14:58 07/24/23 14:53 98.5 F 85 22 114/65 07/24/23 14:00 98 H 22 117/62 07/24/23 13:53 99.1 F 91 H 22 119/69 07/24/23 13:50 99.4 F 95 H 22 129/74 07/24/23 13:45 100 F H 94 H 20 135/70 07/24/23 13:40 99.5 F 98 H 22 141/70 H 07/24/23 13:31 99.4 F 93 H 22 121/65 07/24/23 13:13 98.4 F 91 H 22 97/52 L 07/24/23 13:10 97.9 F 93 H 24 07/24/23 13:05 98.1 F 92 H 25 H 07/24/23 13:00 07/24/23 13:00 98.4 F 92 H 22 119/63 07/24/23 12:55 98.8 F 94 H 21 117/55 L 07/24/23 12:48 98.5 F 101 H 27 H 124/65 07/24/23 12:00 99.5 F 07/24/23 12:00 100 H 07/24/23 11:00 98 H 24 127/55 L 07/24/23 11:00 07/24/23 10:00 100 H 22 98/45 L 07/24/23 09:00 07/24/23 08:00 105 H 07/24/23 08:00 99.8 F H 07/24/23 08:00 103 H 24 116/56 L 07/24/23 08:00 07/24/23 06:00 99 H 28 H 115/64 07/24/23 04:05 102 H 07/24/23 04:00 101 H 07/24/23 04:00 98 H 24 127/65 07/24/23 02:00 94 H 27 H 100/44 L 07/24/23 00:00 97 H 07/24/23 00:00 100.1 F H 98 H 26 H 109/56 L 07/23/23 22:00 99 H 23 113/61 07/23/23 20:00 103 H 07/23/23 20:00 100.5 F H 103 H 18 111/56 L 07/23/23 19:55 103 H Pulse Ox O2 Del Method 07/24/23 18:58 Room Air 07/24/23 17:00 Room Air 07/24/23 16:00 100 Room Air 07/24/23 16:00 07/24/23 16:00 Room Air 07/24/23 14:58 Room Air 07/24/23 14:53 97 07/24/23 14:00 96 Room Air 07/24/23 13:53 100 07/24/23 13:50 100 07/24/23 13:45 94 L 07/24/23 13:40 100 07/24/23 13:31 100 07/24/23 13:13 100 07/24/23 13:10 100 07/24/23 13:05 100 07/24/23 13:00 Room Air 07/24/23 13:00 100 07/24/23 12:55 100 07/24/23 12:48 96 07/24/23 12:00 07/24/23 12:00 07/24/23 11:00 100 Room Air 07/24/23 11:00 Room Air 07/24/23 10:00 100 Room Air 07/24/23 09:00 Room Air 07/24/23 08:00 07/24/23 08:00 07/24/23 08:00 100 Room Air 07/24/23 08:00 100 Room Air 07/24/23 06:00 100 Room Air 07/24/23 04:05 100 Room Air 07/24/23 04:00 07/24/23 04:00 100 Room Air 07/24/23 02:00 100 Room Air 07/24/23 00:00 07/24/23 00:00 100 Room Air 07/23/23 22:00 100 Room Air 07/23/23 20:00 07/23/23 20:00 100 Room Air 07/23/23 19:55 100 Room Air Intake and Output 07/24/23 07/24/23 07/24/23 07:59 15:59 23:59 Intake Total 519.25 / 2182.50 1413.25 / 2182.50 250 / 2182.50 Output Total 1400 / 3600 1500 / 3600 700 / 3600 Balance -880.75 / -1417.50 -86.75 / -1417.50 -450 / -1417.50 Intake: Intake, Oral Amount 480 / 540 60 / 540 Intake, Total IV Amount 39.25 / 989.25 700 / 989.25 250 / 989.25 Acyclovir Sodium 900 mg In 0.9 250 / 500 250 / 500 % Sodium Chloride 250 ml @ 250 mls/hr IV Q8H [facility] [place] Rx#:[id number] Ceftriaxone Sodium 2 gm In 0.9 100 / 100 % Sodium Chloride 100 ml @ 200 mls/hr IV Q12H [facility] [place] Rx#:[id number] Vancomycin/Water For Inj (Peg) 350 / 350 1.75 gm In 350 ml @ 175 mls/hr IV ONCE ONE Rx#:[id number] Infusion Intake 450 / 450 Ceftriaxone Sodium 2 gm In 0.9 100 / 100 % Sodium Chloride 100 ml @ 200 mls/hr IV Q12H [facility] [place] Rx#:[id number] Vancomycin/Water For Inj (Peg) 350 / 350 1.75 gm In 350 ml @ 175 mls/hr IV ONCE ONE Rx#:[id number] Intake (Blood Product) Amt 203.25 / 203.25 Pheresis Platelets Unit 0.25 / 0.25 [id number] Pheresis Platelets Unit 203 / [id number] Output: Output, Urine Amount 0 / 2200 1500 / 2200 700 / 2200 Output, Urine Amount (Catheter) 1400 / 1400 [place] 1400 / 1400 Other: Number of Unmeasured Voids 0 Weight 102.557 kg Patient Weight 07/24/23 23:59 Weight 102.557 kg Laboratory Results - last 24 hr 07/23/23 20:50: POC Glucose 174 H 07/24/23 05:29: WBC 2.8 L, RBC 3.95 L, Hgb 11.3 L, Hct 34.1 L, MCV 86.2, MCH 28.7, MCHC 33.2, RDW 16.3, Plt Count 34 L*, MPV 9.5, Neut % (Auto) 58.7, Lymph % (Auto) 37.6, [place] % (Auto) 2.2, Eos % (Auto) 0.0 L, Baso % (Auto) 1.6, Neut # (Auto) 1.7 L, Lymph # (Auto) 1.1, [place] # (Auto) 0.1, Eos # (Auto) 0.0, Baso # (Auto) 0.0, Sodium 129 L, Potassium 3.6, Chloride 102, Carbon Dioxide 19 L, Anion Gap 11.6, BUN 29 H, Creatinine 1.60 H, Estimated Creat Clear 70, Estimated GFR 44 L, Est GFR ( Amer) 53 L, Glucose 111 H D, Calcium 7.7 L, Magnesium 2.5 H, Total Bilirubin 0.8, AST 254 H D, ALT 78, Alkaline Phosphatase 299 H, Total Protein 6.4, Albumin 2.9 L D, Globulin 3.5 H, Albumin/Globulin Ratio 0.8 L 07/24/23 06:04: POC Glucose 113 H 07/24/23 08:36: Blood Type A Positive 07/24/23 11:25: POC Glucose 145 H 07/24/23 15:22: WBC 3.2 L, RBC 3.72 L, Hgb 10.6 L, Hct 32.3 L, MCV 86.9, MCH 28.5, MCHC 32.8, RDW 16.4, Plt Count 53 L D, MPV 9.4, Neut % (Auto) 42.5, Lymph % (Auto) 51.7 H, [place] % (Auto) 2.7, Eos % (Auto) 0.0 L, Baso % (Auto) 3.1 H, Neut # (Auto) 1.4 L, Lymph # (Auto) 1.7, [place] # (Auto) 0.1, Eos # (Auto) 0.0, Baso # (Auto) 0.1, Total Counted 100, Neutrophils % (Manual) 53, Lymphocytes % (Manual) 44, Monocytes % (Manual) 3, Platelet Estimate Marked decrease, Reanna Cells 1+ 07/24/23 16:10: POC Glucose 113 H 07/24/23 16:51: Blood Type Cancelled 07/24/23 : Blood Type Confirm A Positive I & O for Labs for Last 24 Hours: Intake & Output 07/21/23 07/22/23 07/23/23 07/24/23 23:59 23:59 23:59 23:59 Intake Total 1451.667 / 3964.979 9483.50 / 2182.50 Output Total 1590 / 2290 3600 / 3600 Balance -138.333 / -358.333 -1417.50 / -1417.50 Weight 100.357 kg 102.557 kg Microbiology Reports for the Last 24 Hours: Microbiology 07/23/23 06:40 Blood Blood Culture - Preliminary 07/23/23 06:40 Blood Blood Culture - Preliminary Constitutional: Present mild distress, obese, chronically ill appearing and cooperative Head: Present atraumatic and normocephalic ENT: Present normal exam Comment:: Pupils equal and reactive Respiratory: Present normal respiratory effort; Absent rhonchi, wheezes or crackles Cardiac: Present Regular Rhythm and Tachycardia GI: Present soft, distention and normal bowel sounds; Absent tenderness, guarding or rebound (male): Present normal inspection Extremities: Present normal inspection and full ROM Skin: Present intact; Absent erythema or rash Comment:: No petechiae or purpura Neuro: Present Grossly Intact, alert, awake and moves all extremities Comment:: Oriented to self, knows his name and date of . Knows he is at a [facility]. Still altered from baseline. Denies light sensitivity today. Assessment and Plan *Assessment and plan (1) Sepsis: Status: Acute Category: Medical Code(s): A41.9 - Sepsis, unspecified organism (2) Thrombocytopenia: Status: Acute Category: Medical Code(s): D69.6 - Thrombocytopenia, unspecified (3) Hyponatremia: Status: Acute Category: Medical Code(s): E87.1 - Hypo-osmolality and hyponatremia (4) Transaminitis: Status: Acute Category: Medical Code(s): R74.01 - Elevation of levels of liver transaminase levels (5) Atrial flutter: Status: Acute Category: Medical Code(s): I48.92 - Unspecified atrial flutter (6) Tick-borne fever: Status: Acute Category: Medical Code(s): A93.8 - Other specified arthropod-borne viral fevers (7) Bipolar II disorder: Status: Acute Category: Medical Code(s): F31.81 - Bipolar II disorder (8) Obesity (BMI 30.0-34.9): Status: Acute Category: Medical Code(s): E66.9 - Obesity, unspecified (9) Type 2 diabetes mellitus: Status: Acute Qualifiers: Diabetes mellitus long term care pharmacist insulin use: without intermediate use Diabetes mellitus complication status: with hyperglycemia Qualified Code(s): E11.65 - Type 2 diabetes mellitus with hyperglycemia Category: Medical Code(s): E11.9 - Type 2 diabetes mellitus without complications (10) SARKIS (obstructive sleep apnea): Status: Acute Category: Medical Code(s): G47.33 - Obstructive sleep apnea (adult) (pediatric) (11) HLD (hyperlipidemia): Status: Chronic Qualifiers: Hyperlipidemia type: other hyperlipidemia Qualified Code(s): E78.4 - Other hyperlipidemia Category: Medical Code(s): E78.5 - Hyperlipidemia, unspecified (12) HTN (hypertension): Status: Chronic Qualifiers: Hypertension type: essential hypertension Qualified Code(s): I10 - Essential (primary) hypertension Category: Medical Code(s): I10 - Essential (primary) hypertension (13) CAD (coronary artery disease): Status: Chronic Qualifiers: Coronary Disease-Associated Artery/Lesion type: [place] artery [place] vs. transplanted heart: [place] heart Associated angina: without angina Qualified Code(s): I25.10 - Atherosclerotic heart disease of [place] coronary artery without angina pectoris Category: Medical Code(s): I25.10 - Atherosclerotic heart disease of [place] coronary artery without angina pectoris Plan 62-year-old male who presented to the ER with persistent fever, confusion, difficulty walking. Workup in the ER concerning for thrombocytopenia, presence of tick, febrile illness. Meeting sepsis criteria. Discussed case with ER, request admission for further treatment and IV antibiotics. Medicine agreed to admit. Patient technically meeting septic shock with tachycardia, leukopenia, tachypnea, fever of 103, and elevated lactate of 6. Not requiring pressors however at this time. Admitted to stepdown level of care. Differential as mentioned in H&P concerning for infection such as tickborne illness, tick fever, neuroleptic malignant syndrome, or potentially meningitis. Lower concern for meningitis given no meningismus. Confusion, hypothermia, and unsteady gait in the setting of quetiapine/venlafaxine supporting NMS. Presence of ticks with worsening symptoms in spite of use of Bactrim supporting tickborne fever/illness. Further management pending lab results. Zoonotic studies pending. Problems addressed as follows: Septic shock DIC Thrombocytopenia -Continue vancomycin, monitoring kidneys closely for toxicity. Transition to ceftriaxone 2 g every 12 hours for meningitic coverage. Continue doxycycline for tickborne illness 100 mg IV twice daily. -White cell count remains low at 2.8, platelets dropped to 34. Plan for LP tomorrow, transfuse platelets for goal greater than 50 but ideally greater than 80. Repeat CBC, CMP, magnesium ordered for the morning. -Blood culture and urine cultures pending. -Tickborne illness studies pending, concerning for ehrlichiosis or anaplasmosis -CBV and EBV antibody titers pending in the setting of splenomegaly on CT personally reviewed -Bilirubin 0.8, AST 254, ALT 78, alk phos 299. Continue to monitor liver labs daily for improvement in transaminitis. -Comprehensive respiratory panel negative. -CSF labs ordered pending acquisition of fluid in the morning with assistance of anesthesia -Encephalitis/meningitis panel ordered awaiting fluid to be obtained in the morning Myocardial injury: Atrial fibrillation with RVR - Troponin elevated to 0.05. Likely due to supply/demand mismatch in the setting of sepsis. -In sinus rhythm. Discontinue diltiazem drip, initiate metoprolol 25 mg tartrate twice daily. MIKEY: BUN 29, creatinine 1.6. Repeat labs in the morning. Consider as needed boluses if appears dry Bipolar 2: Holding Seroquel. Resume partial dose venlafaxine to decrease risk for withdrawal from SNRI. Monitor for improvement; lorazepam IV as needed for agitation Diabetes: A1c 6.1. Will continue fingersticks ACHS and sliding scale insulin Full code Holding anticoagulation due to thrombocyopenia diabetic diet
[2023-07-24] MEDS: PANTOPRAZOLE 40MG TABLET 40 MG PO (20:10)
[2023-07-24 23:03] LABS: POC Glucose,Bedside 109 (70-110)
[2023-07-25] VITALS (12 sets, daily range): BP systolic 100–128; BP diastolic 42–70; PULSE 74–95; RESP 16–22; TEMP 36.3–37.1; O2SAT 92–100; BMI 33.5; BMI 33.3
[2023-07-25] MEDS: VANCOMYCIN/WATER FOR INJ (PEG) 1.5 GM/300 ML PIGGYBACK IV ×2 (00:36→14:22)
[2023-07-25] MEDS: OXYCODONE 10MG W/APAP 325MG TABLET 1 EACH PO ×3 (02:09→20:56)
[2023-07-25 05:58] LABS: POC Glucose,Bedside 117 (70-110)
[2023-07-25 07:03] LABS: Chloride 106 mmol/L (98-107); Sodium 134 mmol/L (136-145)
[2023-07-25 07:04] LABS: Potassium 3.5 mmoL/L (3.5-5.1)
[2023-07-25 07:06] LABS: Alanine Aminotransferase 82 U/L (12-78); Albumin Level 3.2 g/dl (3.5-5.0); Albumin/Globulin Ratio 0.8 (1.1-1.8); Alkaline Phosphatase 367 U/L (38-126); Anion Gap 13.5 mEq/L (5-15); Aspartate Amino Transferase 236 U/L (17-59); Bilirubin,Total 0.7 mg/dl (0.2-1.3); Blood Urea Nitrogen 19 mg/dl (9-20); Carbon Dioxide 18 mmol/L (22.0-30.0); Creatinine Clearance Estimated 112 mL/min (50-200); Estimated Glomerular Filt Rate 76 ml/min (>60); GFR (African American) 92 ML/MIN (>60); Globulin 3.9 g/dL (1.3-3.2); Glucose 111 mg/dl (74-100); Total Protein,Serum 7.1 g/dl (6.3-8.2)
[2023-07-25 07:07] LABS: Magnesium 2.7 mg/dl (1.6-2.3)
[2023-07-25 07:51] LABS: Basophils # 0.2 K/mm3 (0-0.2); Basophils % 3.6 % (0.1-2.0); Hematocrit 33.4 % (42.0-52.0); Hemoglobin 11.1 g/dL (14.1-18.0); Lymphocytes # 3.3 K/mm3 (0.7-4.5); Lymphocytes % 65.7 % (10-50); Mean Corpuscular HGB Conc 33.1 g/dL (31.8-35.4); Mean Corpuscular Hemoglobin 28.6 pg (27.0-31.2); Mean Corpuscular Volume 86.2 fl (80-94); Mean Platelet Volume 9.4 fl (7.4-10.4); Monocytes # 0.1 K/mm3 (0.1-1.0); Monocytes % 2.7 % (1.7-9.3); Neutrophils # 1.4 K/mm3 (1.8-7.8); Platelet Count 81 K/mm3 (142-424); Red Blood Count 3.88 M/mm3 (4.60-6.20); Red Cell Distribution Width 16.6 % (11.5-17.5); White Blood Count 5.1 K/mm3 (4.8-10.8)
--- NOTE | 2023-07-25 07:51 | P.CONPHA_ITS ---
Pharmacy Consult Date: 07/25/23 Time: 07:51 Referring provider: DR. PROCTOR Reason for Consult:: VANCOMYCIN DOSE ADJUSTMENT Allergies Allergy/AdvReac Type Severity Reaction Status Date / Time sulfamethoxazole Allergy Intermediate Verified 07/23/23 13:45 [From Bactrim] trimethoprim [From Bactrim] Allergy Intermediate Verified 07/23/23 13:45 atorvastatin Allergy Mild myalgias Verified 07/23/23 13:45 rosuvastatin [From Crestor] Allergy Mild myaglias Verified 07/23/23 13:45 simvastatin [From Zocor] Allergy Mild myalgias Verified 07/23/23 13:45 fexofenadine [From YEFRI] Allergy Unknown UNKNOWN Verified 07/23/23 13:45 naproxen [NAPROXEN] Allergy Unknown HAND Verified 07/23/23 13:45 SWELLING Home Medications Medication Instructions Recorded Confirmed Type aspirin 81 mg chewable tablet 81 mg PO DAILY 06/15/17 07/23/23 History tamsulosin 0.4 mg capsule 0.4 mg PO DAILY 06/20/17 07/24/23 History empagliflozin 25 mg tablet 25 mg PO DAILY 08/27/18 07/24/23 History (Jardiance) metformin 1,000 mg tablet 1,000 mg PO BID 03/26/19 07/24/23 History oxybutynin chloride 15 mg 15 mg PO DAILY 03/26/19 07/24/23 History tablet,extended release 24 hr omeprazole 40 mg capsule,delayed 40 mg PO DAILY 11/13/20 07/24/23 History release ezetimibe 10 mg tablet 10 mg PO DAILY 05/26/22 07/24/23 History venlafaxine 150 mg tablet,extended 150 mg PO DAILY Depression #90 tabs 06/02/23 07/24/23 Rx release 24 hr ergocalciferol (vitamin D2) 1,250 50,000 mcg PO WEEKLY 07/19/23 07/24/23 History mcg (50,000 unit) capsule (Vitamin D2) venlafaxine 75 mg capsule,extended 75 mg PO DAILY 07/19/23 07/24/23 History release 24 hr (Effexor XR) oxycodone 5 mg tablet 10 mg PO QIDP PRN Moderate Pain 07/23/23 07/24/23 History (Scale Score 5-6) ropinirole 1 mg tablet 1 mg PO DAILY 07/23/23 07/24/23 History diphenhydramine HCl 50 mg capsule 50 mg PO QIDP PRN Allergy Symptoms 07/24/23 07/24/23 History furosemide 40 mg tablet 40 mg PO DAILY 07/24/23 07/24/23 History meloxicam 7.5 mg tablet 7.5 mg PO BID 07/24/23 07/24/23 History quetiapine 100 mg tablet 200 mg PO HS 07/24/23 07/24/23 History New Prescriptions to Start Prescriptions: Height: 1.75 m Weight: 102.5 kg Laboratory Results:: Laboratory Results - last 24 hr 07/24/23 05:29: WBC 2.8 L, RBC 3.95 L, Hgb 11.3 L, Hct 34.1 L, MCV 86.2, MCH 28.7, MCHC 33.2, RDW 16.3, Plt Count 34 L*, MPV 9.5, Neut % (Auto) 58.7, Lymph % (Auto) 37.6, [place] % (Auto) 2.2, Eos % (Auto) 0.0 L, Baso % (Auto) 1.6, Neut # (Auto) 1.7 L, Lymph # (Auto) 1.1, [place] # (Auto) 0.1, Eos # (Auto) 0.0, Baso # (Auto) 0.0 07/24/23 08:36: Blood Type A Positive 07/24/23 11:25: POC Glucose 145 H 07/24/23 15:22: WBC 3.2 L, RBC 3.72 L, Hgb 10.6 L, Hct 32.3 L, MCV 86.9, MCH 28.5, MCHC 32.8, RDW 16.4, Plt Count 53 L D, MPV 9.4, Neut % (Auto) 42.5, Lymph % (Auto) 51.7 H, [place] % (Auto) 2.7, Eos % (Auto) 0.0 L, Baso % (Auto) 3.1 H, Neut # (Auto) 1.4 L, Lymph # (Auto) 1.7, [place] # (Auto) 0.1, Eos # (Auto) 0.0, Baso # (Auto) 0.1, Total Counted 100, Neutrophils % (Manual) 53, Lymphocytes % (Manual) 44, Monocytes % (Manual) 3, Platelet Estimate Marked decrease, Reanna Cells 1+ 07/24/23 16:10: POC Glucose 113 H 07/24/23 16:51: Blood Type Cancelled 07/24/23 21:38: POC Glucose 109 07/24/23 : Blood Type Confirm A Positive 07/25/23 05:51: POC Glucose 117 H 07/25/23 06:22: Sodium 134 L, Potassium 3.5, Chloride 106, Carbon Dioxide 18 L, Anion Gap 13.5, BUN 19 D, Creatinine 1.00 D, Estimated Creat Clear 112, Estim ated GFR 76, Est GFR ( Amer) 92 D, Glucose 111 H, Calcium 8.0 L, Magnesium 2.7 H, Total Bilirubin 0.7, AST 236 H, ALT 82 H, Alkaline Phosphatase 367 H, Total Protein 7.1, Albumin 3.2 L D, Globulin 3.9 H, Albumin/Globulin Ratio 0.8 L Medical History: Medical History (Updated 07/23/23 @ 14:57 by Tavia Rust RN) Diabetes mellitus CAD (coronary artery disease) BPH (benign prostatic hyperplasia) RLS (restless legs syndrome) Chest pain HLD (hyperlipidemia) HTN (hypertension) Kidney stones Depression Insomnia Generalized anxiety disorder Bipolar II disorder Assessment and Plan Assessment and plan all Dx Assessment and Plan for all problems:: PATIENTS SCR HAS IMPROVED FROM YESTERDAY FROM 1.6 TO 1.0. WILL CHANGE DOSING INTERVAL OF VANCOMYCIN 1,500MG TO EVERY 12 HOURS. WILL OBTAIN PEAK/TROUGH LEVELS TONIGHT. PHARMACY WILL CONTINUE TO FOLLOW. -DARVIN VALDEZ PHARMD
[2023-07-25 08:13] LABS: Cytomegalovirus (CMV) Ab, IgM <30.0 AU/mL (0.0-29.9)
[2023-07-25 08:17] LABS: MANUAL DIFFERENTIAL MANUAL DIFFERENTIAL (MANUAL DIFF)
[2023-07-25] MEDS: diphenhydrAMINE 25MG CAPSULE 25 MG PO ×3 (08:48→20:56)
[2023-07-25] MEDS: TAMSULOSIN 0.4MG CAPSULE 0.4 MG PO (08:48)
[2023-07-25] MEDS: OXYBUTYNIN 5MG TAB 5 MG PO ×3 (08:48→20:57)
[2023-07-25] MEDS: METOPROLOL TARTRATE 25MG TABLET 25 MG PO ×2 (08:48→20:57)
[2023-07-25] MEDS: VENLAFAXINE XR 75MG CAPSULE 75 MG PO (08:48)
[2023-07-25] MEDS: SODIUM CHLORIDE 0.9% IV ×3 (08:48→23:00)
[2023-07-25] MEDS: ACYCLOVIR SODIUM IV ×3 (08:48→23:00)
[2023-07-25] MEDS: DOXYCYCLINE HYCLATE 100 MG in 0.9 % SODIUM CHLORIDE 250 ML 166.667 MG IV ×2 (08:48→20:57)
[2023-07-25] MEDS: ASPIRIN 81MG CHEWABLE TABLET 81 MG PO (08:49)
[2023-07-25] MEDS: EMPAGLIFLOZIN 10MG TABLET 20 MG PO (08:49)
[2023-07-25] MEDS: CEFTRIAXONE SODIUM 2 GM in 0.9 % SODIUM CHLORIDE 100 ML IV ×2 (10:01→20:57)
[2023-07-25 11:21] LABS: Eosinophils % 4 % (0-3); Lymphocytes % 31 % (10-50); Monocytes % 11 % (2-9); Neutrophils % 46 % (42-76); Total Cells Counted 100
[2023-07-25 11:25] LABS: Tear Drop Cells 1+
[2023-07-25 11:29] LABS: Platelet Estimate Moderate Decrease
--- NOTE | 2023-07-25 11:48 | EXP.ANES.CKL ---
[facility] Disclaimer: The information contained in this section may have been updated after the patient was seen, as this information can be updated by other users. Medical History Diabetes mellitus CAD (coronary artery disease) BPH (benign prostatic hyperplasia) RLS (restless legs syndrome) Chest pain HLD (hyperlipidemia) HTN (hypertension) Kidney stones Depression Insomnia Generalized anxiety disorder Bipolar II disorder Social History Smoking Status: Unknown if ever smoked second hand exposure: No alcohol intake: never substance use type: denies use current occupational status: unemployed Travel in the last 8 weeks: Inside the [place] household members: spouse housing: house current occupational exposures/hazards: No caffeine: Yes [facility] Anesthesia Checklist Patient Identification Patient Identification: Arm Band and Family Structural Data Admitted From: Inpatient Planned Operative Procedure/s: Lumbar Puncture Consent for Planned Operative Procedure(s) Verified: Yes Verified Documents: History and Physical Additional verifications Anesthesia Reactions: No Hx Blood Transfusions: No Blood Transfusion Reaction: No Neurological Assessment Level of Consciousness: Awake and Disoriented Anesthesia Plan Anesthesia Risk discussed: Yes Anesthesia Plan: Verified (with who is primary decision maker for the patient at this point) ASA Class: III Anesthesia Type: None (Lumbar Puncture) Preoperative Comments Pre-Operative Comments: Anesthesia consulted for Lumbar Puncture to rule out Meningitis. Pt is only oriented to self only at this time. Discussed plan of care with the in detail along with obtaining consent. Risk/benefits of procedure were discussed at length, specifically the risk of developing a spinal hematoma d/t low platelet count. agreed and wanted to proceed with procedure today. Discussed case with Dr. White yesterday and Dr. Looney today and everyone is in agreeance to proceed with Lumbar Puncture.
--- NOTE | 2023-07-25 11:53 | P.PCN_ITS ---
[facility] Procedure Note Date: 07/25/23 Time: 11:30 Procedure Note:: Room #218, patient identified (with ), chart checked, procedure verified, risks explained, patient and agree to proceed. With help of nursing staff, patient was positioned in the sitting position. Sterile prep and drape with betadine. 1% Lidocaine skin wheal 1 cc at L3-4. #22 G Sprotte Spinal needle inserted midline x1 with positive return of CSF. Opening pressure was obtained at 32-33 mmhg. 4 vials of CSF collected (2cc each vial), and sent to Laboratory. Closing pressure was not obtained. Spinal needle was withdrawn and bandaid applied. Patient then returned to supine position in bed. Pt tolerated procedure well with no immediate complications.
[2023-07-25 12:02] LABS: POC Glucose,Bedside 102 (70-110)
[2023-07-25 12:26] LABS: Glucose,CSF 55 mg/dl (40-70)
[2023-07-25 12:50] LABS: Appearance,CSF Clear (Clear); Volume,CSF 8.5 mL
[2023-07-25 12:51] LABS: Appearance,CSF Clear (Clear); Red Blood Cell,CSF 1 cells/uL (0); Volume,CSF 8.5 mL; White Blood Cell,CSF 51 cells/uL (0-5); White Blood Cell,CSF 69 cells/uL (0-5)
[2023-07-25 15:22] LABS: EBV Ab VCA, IgG >600.0 U/mL (0.0-17.9); EBV Ab VCA, IgM <36.0 U/mL (0.0-35.9)
--- NOTE | 2023-07-25 16:05 | PC.NURSE ---
Patient tolerated lumbar puncture at bedside well, site clean dry and intact. VS stable and patient remained on room air. Patient able to answer questions, aphasia still present but not as severe as prior assessments. Lung sounds clear. No fevers during shift.
[2023-07-25 16:40] LABS: POC Glucose,Bedside 82 (70-110)
[2023-07-25 17:14] LABS: Mononuclear WBCs,CSF 100 %; Polynuclear WBCs,CSF 0 %
--- NOTE | 2023-07-25 17:14 | EXP.PN ---
Subjective *Date: 07/25/23 *Time: 17:14 Interval history: patient is seen at bedside, he appears alert awake but still confused Exam Data for Last 24 hours Vital signs and Labs for Last 24 Hours: Temp Pulse Resp BP Pulse Ox O2 Del Method O2 Flow Rate 97.6 F 80 19 112/58 L 97 Room Air 2 07/25/23 11:59 07/25/23 16:00 07/25/23 11:59 07/25/23 11:59 07/25/23 11:59 07/25/23 14:55 07/23/23 14:00 Laboratory Results - last 24 hr 07/24/23 05:29: CMV IgG Ab 9.60 H, CMV IgM Ab <30.0, EBV Capsid Ag IgG Ab >600.0 H, EBV Capsid Ag IgM Ab <36.0 07/24/23 08:36: Blood Type A Positive 07/24/23 11:35: CSF Glucose 55, CSF Total Protein 566.0 H* 07/24/23 15:22: Total Counted 100, Neutrophils % (Manual) 53, Lymphocytes % (Manual) 44, Monocytes % (Manual) 3, Platelet Estimate Marked decrease, [place] Cells 1+ 07/24/23 16:51: Blood Type Cancelled 07/24/23 21:38: POC Glucose 109 07/25/23 05:51: POC Glucose 117 H 07/25/23 06:22: WBC 5.1 D, RBC 3.88 L, Hgb 11.1 L, Hct 33.4 L, MCV 86.2, MCH 28.6, MCHC 33.1, RDW 16.6, Plt Count 81 L D, MPV 9.4, Neut % (Auto) 28.0 L, Lymph % (Auto) 65.7 H, [place] % (Auto) 2.7, Eos % (Auto) 0.0 L, Baso % (Auto) 3.6 H, Neut # (Auto) 1.4 L, Lymph # (Auto) 3.3, [place] # (Auto) 0.1, Eos # (Auto) 0.0, Baso # (Auto) 0.2, Total Counted 100, Neutrophils % (Manual) 46, Lymphocytes % (Manual) 31, Atypical Lymphs % 6.0, Monocytes % (Manual) 11 H, Eosinophils % (Manual) 4 H, Blast Cells % 2.0, Platelet Estimate Moderate decrease, Tear Drop Cells 1+, Sodium 134 L, Potassium 3.5, Chloride 106, Carbon Dioxide 18 L, Anion Gap 13.5, BUN 19 D, Creatinine 1.00 D, Estimated Creat Clear 112, Estimated GFR 76, Est GFR ( Amer) 92 D, Glucose 111 H, Calcium 8.0 L, Magnesium 2.7 H, Total Bilirubin 0.7, AST 236 H, ALT 82 H, Alkaline Phosphatase 367 H, Total Protein 7.1, Albumin 3.2 L D, Globulin 3.9 H, Albumin/Globulin Ratio 0.8 L 07/25/23 11:20: POC Glucose 102 07/25/23 11:35: CSF Volume 8.5 07/25/23 11:35: CSF Volume 8.5, CSF Appearance Clear 07/25/23 11:35: CSF Appearance Clear, CSF WBC 69 H 07/25/23 11:35: CSF WBC 51 H, CSF RBC 1 07/25/23 11:35: CSF RBC 1 07/25/23 16:25: POC Glucose 82 I & O for Last 24 hours: Intake & Output 07/22/23 07/23/23 07/24/23 07/25/23 23:59 23:59 23:59 23:59 Intake Total 1451.667 / 2931.877 8986.50 / 2625.50 2460 / 2460 Output Total 1590 / 2290 4400 / 4400 1000 / 1000 Balance -138.333 / -358.333 -1774.50 / -1774.50 1460 / 1460 Weight 100.357 kg 102.557 kg 102 kg Microbiology Reports for the Last 24 Hours: Microbiology 07/24/23 11:37 Cerebral Spinal Fluid Gram Stain - Final 07/23/23 06:40 Blood Blood Culture - Preliminary 07/23/23 06:40 Blood Blood Culture - Preliminary Constitutional Constitutional: no acute distress *Routine HEENT Exam Head: Present normocephalic Eye: Present EOMI and PERRL ENT: Present mucous membranes moist *Routine Neck Exam Neck: Present supple; Absent lymphadenopathy *Routine Respiratory Exam Respiratory: Present CTA bilaterally *Routine Cardiovascular Exam Cardiovascular: Present RRR *Routine Abdominal Exam Abdominal: Present soft and normoactive bowel sounds; Absent tenderness *Routine Extremities Exam Extremities: Absent cyanosis, clubbing or edema *Routine Skin Exam Skin: Present warm; Absent rash *Routine Neurological Exam Neurological: Present alert Assessment and Plan *Assessment and plan (1) Sepsis: Status: Acute Category: Medical Code(s): A41.9 - Sepsis, unspecified organism (2) Thrombocytopenia: Status: Acute Category: Medical Code(s): D69.6 - Thrombocytopenia, unspecified (3) Hyponatremia: Status: Acute Category: Medical Code(s): E87.1 - Hypo-osmolality and hyponatremia (4) Transaminitis: Status: Acute Category: Medical Code(s): R74.01 - Elevation of levels of liver transaminase levels (5) Atrial flutter: Status: Acute Category: Medical Code(s): I48.92 - Unspecified atrial flutter (6) Tick-borne fever: Status: Acute Category: Medical Code(s): A93.8 - Other specified arthropod-borne viral fevers (7) Bipolar II disorder: Status: Acute Category: Medical Code(s): F31.81 - Bipolar II disorder (8) Obesity (BMI 30.0-34.9): Status: Acute Category: Medical Code(s): E66.9 - Obesity, unspecified (9) Type 2 diabetes mellitus: Status: Acute Qualifiers: Diabetes mellitus assisted insulin use: without assisted use Diabetes mellitus complication status: with hyperglycemia Qualified Code(s): E11.65 - Type 2 diabetes mellitus with hyperglycemia Category: Medical Code(s): E11.9 - Type 2 diabetes mellitus without complications (10) SARKIS (obstructive sleep apnea): Status: Acute Category: Medical Code(s): G47.33 - Obstructive sleep apnea (adult) (pediatric) (11) HLD (hyperlipidemia): Status: Chronic Qualifiers: Hyperlipidemia type: other hyperlipidemia Qualified Code(s): E78.4 - Other hyperlipidemia Category: Medical Code(s): E78.5 - Hyperlipidemia, unspecified (12) HTN (hypertension): Status: Chronic Qualifiers: Hypertension type: essential hypertension Qualified Code(s): I10 - Essential (primary) hypertension Category: Medical Code(s): I10 - Essential (primary) hypertension (13) CAD (coronary artery disease): Status: Chronic Qualifiers: Coronary Disease-Associated Artery/Lesion type: [place] artery [place] vs. transplanted heart: [place] heart Associated angina: without angina Qualified Code(s): I25.10 - Atherosclerotic heart disease of [place] coronary artery without angina pectoris Category: Medical Code(s): I25.10 - Atherosclerotic heart disease of [place] coronary artery without angina pectoris Plan 62-year-old male who presented to the ER with persistent fever, confusion, difficulty walking. Workup in the ER concerning for thrombocytopenia, presence of tick, febrile illness. Meeting sepsis criteria. Discussed case with ER, request admission for further treatment and IV antibiotics. Medicine agreed to admit. Patient technically meeting septic shock with tachycardia, leukopenia, tachypnea, fever of 103, and elevated lactate of 6. Not requiring pressors however at this time. Admitted to stepdown level of care. Differential as mentioned in H&P concerning for infection such as tickborne illness, tick fever, neuroleptic malignant syndrome, or potentially meningitis. Lower concern for meningitis given no meningismus. Confusion, hypothermia, and unsteady gait in the setting of quetiapine/venlafaxine supporting NMS. Presence of ticks with worsening symptoms in spite of use of Bactrim supporting tickborne fever/illness. Further management pending lab results. Zoonotic studies pending. Problems addressed as follows: Septic shock DIC Thrombocytopenia -Continue vancomycin, monitoring kidneys closely for toxicity. Transition to ceftriaxone 2 g every 12 hours for meningitic coverage. Continue doxycycline for tickborne illness 100 mg IV twice daily. -White cell count remains low at 2.8, platelets dropped to 34. s/p LP - elevated WBC, CSF clear, await further results, may need MRI, will evaluate needs for MRI -Blood culture and urine cultures pending. -Tickborne illness studies pending, concerning for ehrlichiosis or anaplasmosis -Comprehensive respiratory panel negative. -CSF labs ordered pending acquisition of fluid in the morning with assistance of anesthesia -Encephalitis/meningitis panel ordered awaiting fluid to be obtained in the morning Myocardial injury: Atrial fibrillation with RVR - Troponin elevated to 0.05. Likely due to supply/demand mismatch in the setting of sepsis. -In sinus rhythm. Discontinue diltiazem drip, initiate metoprolol 25 mg tartrate twice daily. MIKEY: monitor, encouarged oral hydration Bipolar 2: Holding Seroquel. Resume partial dose venlafaxine to decrease risk for withdrawal from SNRI. Monitor for improvement; lorazepam IV as needed for agitation Diabetes: A1c 6.1. Will continue fingersticks ACHS and sliding scale insulin Full code Holding anticoagulation due to thrombocyopenia diabetic diet
[2023-07-25 17:34] LABS: Mononuclear WBCs,CSF 100 %; Polynuclear WBCs,CSF 0 %
[2023-07-25] MEDS: PANTOPRAZOLE 40MG TABLET 40 MG PO (20:56)
[2023-07-25 21:12] LABS: POC Glucose,Bedside 108 (70-110)
--- NOTE | 2023-07-25 22:53 | PC.NURSE ---
RECEIVED VERBAL REPORT FROM NITHIN CORONADO/ZAHIDA AT [id number].
--- NOTE | 2023-07-25 23:04 | PC.NURSE ---
CARE TRANSFER TO JOSH, RN @ [id number]
[2023-07-25] MEDS: PHA TO NURSING INSTRUCTION 1 EACH NOTAPPLIC (23:35)
[2023-07-26] VITALS (10 sets, daily range): BP systolic 97–139; BP diastolic 43–82; PULSE 81–95; RESP 15–22; TEMP 36.5–37.2; O2SAT 95–100; BMI 34.0
[2023-07-26] MEDS: VANCOMYCIN/WATER FOR INJ (PEG) 1.5 GM/300 ML PIGGYBACK IV ×2 (00:04→13:04)
[2023-07-26 00:07] LABS: Vancomycin,Trough 12.1 ug/mL (5.0-10.0)
--- NOTE | 2023-07-26 00:22 | PC.NURSE ---
vanc trough 12.1. consulted with Andrea/[facility]watch pharmacist. no changes needed at this time.
[2023-07-26 05:01] LABS: Chloride 104 mmol/L (98-107); Potassium 3.2 mmoL/L (3.5-5.1); Sodium 132 mmol/L (136-145)
[2023-07-26 05:03] LABS: Blood Urea Nitrogen 13 mg/dl (9-20); Creatinine Clearance Estimated 115 mL/min (50-200); Estimated Glomerular Filt Rate 115 ml/min (>60); GFR (African American) 139 ML/MIN (>60)
[2023-07-26 05:04] LABS: Alanine Aminotransferase 70 U/L (12-78); Albumin Level 2.8 g/dl (3.5-5.0); Albumin/Globulin Ratio 0.7 (1.1-1.8); Alkaline Phosphatase 348 U/L (38-126); Anion Gap 10.2 mEq/L (5-15); Aspartate Amino Transferase 197 U/L (17-59); Bilirubin,Total 0.5 mg/dl (0.2-1.3); Calcium 7.9 mg/dl (8.4-10.2); Carbon Dioxide 21 mmol/L (22.0-30.0); Globulin 3.8 g/dL (1.3-3.2); Glucose 89 mg/dl (74-100); Total Protein,Serum 6.6 g/dl (6.3-8.2)
--- NOTE | 2023-07-26 05:05 | PC.NURSE ---
PATIENT COMPLAINS THAT ELECTRODES MAKE HIM ITCH.SINUS RHYTHM ON TELEMETRY. DENIES PAIN /DISCOMFORT. SOME DIFFICULTY WITH MUMBLING, GARBLED WORDS BUT IS ORIENTED. VITAL SIGNS STABE/AFEBRILE. NEWBY CATH TO BSD, URINE CLEAR YELLOW. AT BEDSIDE.
[2023-07-26 05:12] LABS: Vancomycin,Peak 18.2 ug/ml (11-39)
[2023-07-26 05:43] LABS: POC Glucose,Bedside 84 (70-110)
[2023-07-26 06:32] LABS: Peripheral Smear Review Scanned Result
[2023-07-26] MEDS: CEFTRIAXONE SODIUM 2 GM in 0.9 % SODIUM CHLORIDE 100 ML IV ×2 (08:29→20:07)
[2023-07-26] MEDS: DOXYCYCLINE HYCLATE 100 MG in 0.9 % SODIUM CHLORIDE 250 ML 166.667 MG IV ×2 (08:29→20:07)
[2023-07-26] MEDS: OXYBUTYNIN 5MG TAB 5 MG PO ×3 (08:30→20:08)
[2023-07-26] MEDS: diphenhydrAMINE 25MG CAPSULE 25 MG PO ×3 (08:30→20:08)
[2023-07-26] MEDS: ASPIRIN 81MG CHEWABLE TABLET 81 MG PO (08:30)
[2023-07-26] MEDS: TAMSULOSIN 0.4MG CAPSULE 0.4 MG PO (08:30)
[2023-07-26] MEDS: METOPROLOL TARTRATE 25MG TABLET 25 MG PO ×2 (08:30→20:07)
[2023-07-26] MEDS: VENLAFAXINE XR 75MG CAPSULE 75 MG PO (08:30)
[2023-07-26] MEDS: EMPAGLIFLOZIN 10MG TABLET 20 MG PO (08:31)
[2023-07-26] MEDS: SODIUM CHLORIDE 0.9% IV ×2 (08:33→16:48)
[2023-07-26] MEDS: ACYCLOVIR SODIUM IV ×2 (08:33→16:48)
--- NOTE | 2023-07-26 09:00 | P.CONPHA_ITS ---
Pharmacy Consult Date: 07/26/23 Time: 09:00 Referring provider: DR. PROCTOR Reason for Consult:: VANCOMYCIN LEVELS Allergies Allergy/AdvReac Type Severity Reaction Status Date / Time sulfamethoxazole Allergy Intermediate Verified 07/23/23 13:45 [From Bactrim] trimethoprim [From Bactrim] Allergy Intermediate Verified 07/23/23 13:45 atorvastatin Allergy Mild myalgias Verified 07/23/23 13:45 rosuvastatin [From Crestor] Allergy Mild myaglias Verified 07/23/23 13:45 simvastatin [From Zocor] Allergy Mild myalgias Verified 07/23/23 13:45 fexofenadine [From YEFRI] Allergy Unknown UNKNOWN Verified 07/23/23 13:45 naproxen [NAPROXEN] Allergy Unknown HAND Verified 07/23/23 13:45 SWELLING Home Medications Medication Instructions Recorded Confirmed Type aspirin 81 mg chewable tablet 81 mg PO DAILY 06/15/17 07/23/23 History tamsulosin 0.4 mg capsule 0.4 mg PO DAILY 06/20/17 07/24/23 History empagliflozin 25 mg tablet 25 mg PO DAILY 08/27/18 07/24/23 History (Jardiance) metformin 1,000 mg tablet 1,000 mg PO BID 03/26/19 07/24/23 History oxybutynin chloride 15 mg 15 mg PO DAILY 03/26/19 07/24/23 History tablet,extended release 24 hr omeprazole 40 mg capsule,delayed 40 mg PO DAILY 11/13/20 07/24/23 History release ezetimibe 10 mg tablet 10 mg PO DAILY 05/26/22 07/24/23 History venlafaxine 150 mg tablet,extended 150 mg PO DAILY Depression #90 tabs 06/02/23 07/24/23 Rx release 24 hr ergocalciferol (vitamin D2) 1,250 50,000 mcg PO WEEKLY 07/19/23 07/24/23 History mcg (50,000 unit) capsule (Vitamin D2) venlafaxine 75 mg capsule,extended 75 mg PO DAILY 07/19/23 07/24/23 History release 24 hr (Effexor XR) oxycodone 5 mg tablet 10 mg PO QIDP PRN Moderate Pain 07/23/23 07/24/23 History (Scale Score 5-6) ropinirole 1 mg tablet 1 mg PO DAILY 07/23/23 07/24/23 History diphenhydramine HCl 50 mg capsule 50 mg PO QIDP PRN Allergy Symptoms 07/24/23 07/24/23 History furosemide 40 mg tablet 40 mg PO DAILY 07/24/23 07/24/23 History meloxicam 7.5 mg tablet 7.5 mg PO BID 07/24/23 07/24/23 History quetiapine 100 mg tablet 200 mg PO HS 07/24/23 07/24/23 History New Prescriptions to Start Prescriptions: Height: 1.75 m Weight: 104.372 kg Laboratory Results:: Laboratory Results - last 24 hr 07/24/23 05:29: EBV Capsid Ag IgG Ab >600.0 H, EBV Capsid Ag IgM Ab <36.0 07/24/23 11:35: CSF Glucose 55, CSF Total Protein 566.0 H* 07/25/23 06:22: Total Counted 100, Neutrophils % (Manual) 46, Lymphocytes % (Manual) 31, Atypical Lymphs % 6.0, Monocytes % (Manual) 11 H, Eosinophils % (Manual) 4 H, Blast Cells % 2.0, Platelet Estimate Moderate decrease, Tear Drop Cells 1+ 07/25/23 11:20: POC Glucose 102 07/25/23 11:35: CSF Volume 8.5 07/25/23 11:35: CSF Volume 8.5, CSF Appearance Clear 07/25/23 11:35: CSF Appearance Clear, CSF WBC 69 H 07/25/23 11:35: CSF WBC 51 H, CSF RBC 1 07/25/23 11:35: CSF RBC 1, CSF Mononuclear WBCs % 100 07/25/23 11:35: CSF Mononuclear WBCs % 100, CSF Polynuclear WBCs % 0 07/25/23 11:35: CSF Polynuclear WBCs % 0 07/25/23 16:25: POC Glucose 82 07/25/23 20:44: POC Glucose 108 07/25/23 23:32: Vancomycin Trough 12.1 H 07/26/23 04:35: Sodium 132 L, Potassium 3.2 L, Chloride 104, Carbon Dioxide 21 L , Anion Gap 10.2, BUN 13 D, Creatinine 0.70 D, Estimated Creat Clear 115, Estimated GFR 115, Est GFR ( Amer) 139 D, Glucose 89, Calcium 7.9 L, Total Bilirubin 0.5, AST 197 H, ALT 70, Alkaline Phosphatase 348 H, Total Protein 6.6, Albumin 2.8 L D, Globulin 3.8 H, Albumin/Globulin Ratio 0.7 L, Vancomycin Peak 18.2 07/26/23 05:36: POC Glucose 84 Medical History: Medical History (Updated 07/23/23 @ 14:57 by Tavia Rust RN) Diabetes mellitus CAD (coronary artery disease) BPH (benign prostatic hyperplasia) RLS (restless legs syndrome) Chest pain HLD (hyperlipidemia) HTN (hypertension) Kidney stones Depression Insomnia Generalized anxiety disorder Bipolar II disorder Assessment and Plan Assessment and plan all Dx Assessment and Plan for all problems:: PATIENT'S VANCOMYCIN LEVELS WERE 12.1 MCG/ML AND 18.2 MCG/ML FOR TROUGH AND PEAK RESPECTIVELY. CONTINUE WITH VANCOMYCIN 1500 MG Q12H AT THIS TIME.
[2023-07-26 11:39] LABS: POC Glucose,Bedside 99 (70-110)
[2023-07-26] MEDS: OXYCODONE 10MG W/APAP 325MG TABLET 1 EACH PO ×2 (12:07→18:11)
--- NOTE | 2023-07-26 16:43 | P.PN_ITS ---
Subjective *Date: 07/26/23 *Time: 16:43 Interval history: seen at bedside, alert and awake, holding conversations, but still confused, slightly better than yesterday Exam Data for Last 24 hours Vital signs and Labs for Last 24 Hours: Temp Pulse Resp BP Pulse Ox O2 Del Method O2 Flow Rate 98.9 F 90 19 126/65 97 Room Air 2 07/26/23 15:54 07/26/23 16:00 07/26/23 15:54 07/26/23 15:54 07/26/23 15:54 07/26/23 15:54 07/23/23 14:00 Laboratory Results - last 24 hr 07/25/23 11:35: CSF Mononuclear WBCs % 100 07/25/23 11:35: CSF Mononuclear WBCs % 100, CSF Polynuclear WBCs % 0 07/25/23 11:35: CSF Polynuclear WBCs % 0 07/25/23 20:44: POC Glucose 108 07/25/23 23:32: Vancomycin Trough 12.1 H 07/26/23 04:35: Sodium 132 L, Potassium 3.2 L, Chloride 104, Carbon Dioxide 21 L , Anion Gap 10.2, BUN 13 D, Creatinine 0.70 D, Estimated Creat Clear 115, Estimated GFR 115, Est GFR ( Amer) 139 D, Glucose 89, Calcium 7.9 L, Total Bilirubin 0.5, AST 197 H, ALT 70, Alkaline Phosphatase 348 H, Total Protein 6.6, Albumin 2.8 L D, Globulin 3.8 H, Albumin/Globulin Ratio 0.7 L, Vancomycin Peak 18.2 07/26/23 05:36: POC Glucose 84 07/26/23 11:31: POC Glucose 99 I & O for Last 24 hours: Intake & Output 07/23/23 07/24/23 07/25/23 07/26/23 23:59 23:59 23:59 23:59 Intake Total 1451.667 / 1142.561 2810.50 / 2625.50 3550 / 3800 1270 / 1270 Output Total 1590 / 2290 4400 / 4400 1350 / 3050 3750 / 3750 Balance -138.333 / -358.333 -1774.50 / -1774.50 2200 / 750 -2480 / -2480 Weight 100.357 kg 102.557 kg 102 kg 104.372 kg Microbiology Reports for the Last 24 Hours: Microbiology 07/24/23 11:37 Cerebral Spinal Fluid Gram Stain - Final 07/24/23 11:37 Cerebral Spinal Fluid CSF Culture - Preliminary NO GROWTH AFTER 24 HOURS 07/23/23 06:40 Blood Blood Culture - Final Corynebacterium urealyticum Constitutional Constitutional: no acute distress *Routine HEENT Exam Head: Present normocephalic Eye: Present EOMI and PERRL ENT: Present mucous membranes moist *Routine Neck Exam Neck: Present supple; Absent lymphadenopathy *Routine Respiratory Exam Respiratory: Present CTA bilaterally *Routine Cardiovascular Exam Cardiovascular: Present RRR *Routine Abdominal Exam Abdominal: Present soft and normoactive bowel sounds; Absent tenderness *Routine Extremities Exam Extremities: Absent cyanosis, clubbing or edema *Routine Skin Exam Skin: Present warm; Absent rash *Routine Neurological Exam Neurological: Present alert Comments: AxO x 2 Assessment and Plan *Assessment and plan (1) Sepsis: Status: Acute Category: Medical Code(s): A41.9 - Sepsis, unspecified organism (2) Thrombocytopenia: Status: Acute Category: Medical Code(s): D69.6 - Thrombocytopenia, unspecified (3) Hyponatremia: Status: Acute Category: Medical Code(s): E87.1 - Hypo-osmolality and hyponatremia (4) Transaminitis: Status: Acute Category: Medical Code(s): R74.01 - Elevation of levels of liver transaminase levels (5) Atrial flutter: Status: Acute Category: Medical Code(s): I48.92 - Unspecified atrial flutter (6) Tick-borne fever: Status: Acute Category: Medical Code(s): A93.8 - Other specified arthropod-borne viral fevers (7) Bipolar II disorder: Status: Acute Category: Medical Code(s): F31.81 - Bipolar II disorder (8) Obesity (BMI 30.0-34.9): Status: Acute Category: Medical Code(s): E66.9 - Obesity, unspecified (9) Type 2 diabetes mellitus: Status: Acute Qualifiers: 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: without 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 home use Diabetes mellitus complication status: with hyperglycemia Qualified Code(s): E11.65 - Type 2 diabetes mellitus with hyperglycemia Category: Medical Code(s): E11.9 - Type 2 diabetes mellitus without complications (10) SARKIS (obstructive sleep apnea): Status: Acute Category: Medical Code(s): G47.33 - Obstructive sleep apnea (adult) (pediatric) (11) HLD (hyperlipidemia): Status: Chronic Qualifiers: Hyperlipidemia type: other hyperlipidemia Qualified Code(s): E78.4 - Other hyperlipidemia Category: Medical Code(s): E78.5 - Hyperlipidemia, unspecified (12) HTN (hypertension): Status: Chronic Qualifiers: Hypertension type: essential hypertension Qualified Code(s): I10 - Essential (primary) hypertension Category: Medical Code(s): I10 - Essential (primary) hypertension (13) CAD (coronary artery disease): Status: Chronic Qualifiers: Coronary Disease-Associated Artery/Lesion type: [place] artery [place] vs. transplanted heart: [place] heart Associated angina: without angina Qualified Code(s): I25.10 - Atherosclerotic heart disease of [place] coronary artery without angina pectoris Category: Medical Code(s): I25.10 - Atherosclerotic heart disease of [place] coronary artery without angina pectoris Plan 62-year-old male who presented to the ER with persistent fever, confusion, difficulty walking. Workup in the ER concerning for thrombocytopenia, presence of tick, febrile illness. Meeting sepsis criteria. Discussed case with ER, request admission for further treatment and IV antibiotics. Medicine agreed to admit. Patient technically meeting septic shock with tachycardia, leukopenia, tachypnea, fever of 103, and elevated lactate of 6. Not requiring pressors however at this time. Admitted to stepdown level of care. Differential as mentioned in H&P concerning for infection such as tickborne illness, tick fever, neuroleptic malignant syndrome, or potentially meningitis. Lower concern for meningitis given no meningismus. Confusion, hypothermia, and unsteady gait in the setting of quetiapine/venlafaxine supporting NMS. Presence of ticks with worsening symptoms in spite of use of Bactrim supporting tickborne fever/illness. Further management pending lab results. Zoonotic studies pending. Problems addressed as follows: Septic shock DIC Thrombocytopenia -Continue vancomycin, monitoring kidneys closely for toxicity. Transition to ceftriaxone 2 g every 12 hours for meningitic coverage. Continue doxycycline for tickborne illness 100 mg IV twice daily. -White cell count remains low at 2.8, platelets dropped to 34. s/p LP - elevated WBC, CSF clear, await further results, may need MRI, will evaluate needs for MRI -Blood culture - positive for Corynebacterium urealyticum - concern for contamination, will repeat blood culture and urine cultures pending. -Tickborne illness studies pending, concerning for ehrlichiosis or anaplasmosis -Comprehensive respiratory panel negative. -CSF labs ordered pending acquisition of fluid in the morning with assistance of anesthesia -Encephalitis/meningitis panel ordered awaiting fluid to be obtained in the morning Myocardial injury: Atrial fibrillation with RVR - Troponin elevated to 0.05. Likely due to supply/demand mismatch in the setting of sepsis. -In sinus rhythm. Discontinue diltiazem drip, initiate metoprolol 25 mg tartrate twice daily. MIKEY: monitor, encouarged oral hydration Bipolar 2: Holding Seroquel. Resume partial dose venlafaxine to decrease risk for withdrawal from SNRI. Monitor for improvement; lorazepam IV as needed for agitation Diabetes: A1c 6.1. Will continue fingersticks ACHS and sliding scale insulin Full code Holding anticoagulation due to thrombocyopenia diabetic diet continue IV abx with Doxycycline, IV vancomycin
[2023-07-26 17:05] LABS: POC Glucose,Bedside 130 (70-110)
[2023-07-26] MEDS: PANTOPRAZOLE 40MG TABLET 40 MG PO (20:08)
[2023-07-26 20:55] LABS: POC Glucose,Bedside 132 (70-110)
[2023-07-27] VITALS (9 sets, daily range): BP systolic 100–146; BP diastolic 52–78; PULSE 80–94; RESP 16–18; TEMP 36.7–37.1; O2SAT 95–99; BMI 74.9
[2023-07-27] MEDS: SODIUM CHLORIDE 0.9% IV ×4 (00:04→23:52)
[2023-07-27] MEDS: OXYCODONE 10MG W/APAP 325MG TABLET 1 EACH PO ×4 (00:04→21:19)
[2023-07-27] MEDS: VANCOMYCIN/WATER FOR INJ (PEG) 1.5 GM/300 ML PIGGYBACK IV ×3 (00:04→23:53)
[2023-07-27] MEDS: ACYCLOVIR SODIUM IV ×4 (00:04→23:52)
--- NOTE | 2023-07-27 00:31 | PC.NURSE ---
TRANSFER OF CARE TO IVA RN AND TRINID[facility] RN
--- NOTE | 2023-07-27 04:41 | PC.NURSE ---
Patient remains A/O x3, slept well this shift. Patient has been ambulating to bathroom with standby assist to void. Patient voiced no c/o of pain/discomfort this shift. remains at bedside, call light within reach.
[2023-07-27 06:30] LABS: Chloride 109 mmol/L (98-107); Potassium 3.5 mmoL/L (3.5-5.1); Sodium 138 mmol/L (136-145)
[2023-07-27 06:31] LABS: POC Glucose,Bedside 124 (70-110)
[2023-07-27 06:33] LABS: Alanine Aminotransferase 70 U/L (12-78); Albumin Level 3.1 g/dl (3.5-5.0); Albumin/Globulin Ratio 0.8 (1.1-1.8); Alkaline Phosphatase 335 U/L (38-126); Anion Gap 10.5 mEq/L (5-15); Aspartate Amino Transferase 169 U/L (17-59); Bilirubin,Total 0.5 mg/dl (0.2-1.3); Blood Urea Nitrogen 8 mg/dl (9-20); Carbon Dioxide 22 mmol/L (22.0-30.0); Creatinine Clearance Estimated 75 mL/min (50-200); Estimated Glomerular Filt Rate 115 ml/min (>60); GFR (African American) 139 ML/MIN (>60); Globulin 3.8 g/dL (1.3-3.2); Total Protein,Serum 6.9 g/dl (6.3-8.2)
[2023-07-27 06:34] LABS: Glucose 98 mg/dl (74-100)
--- NOTE | 2023-07-27 07:38 | EXP.PHA.PN ---
Subjective *Date: 07/27/23 *Time: 07:38 Medical Exam Vital signs and Labs for Last 24 Hours: Vital Signs Temp Pulse Pulse Resp BP Pulse Ox O2 Del Method 07/27/23 07:24 98.2 F 94 H 18 146/78 H 97 Room Air 07/27/23 06:56 Room Air 07/27/23 04:53 Room Air 07/27/23 04:00 98.2 F 81 16 126/75 96 07/27/23 03:00 Room Air 07/27/23 01:00 Room Air 07/27/23 00:00 80 07/27/23 00:00 98.7 F 84 16 134/76 98 Room Air 07/26/23 23:00 Room Air 07/26/23 21:00 Room Air 07/26/23 20:00 90 07/26/23 20:00 Room Air 07/26/23 19:54 97.9 F 95 H 22 139/80 95 Room Air 07/26/23 18:18 Room Air 07/26/23 17:43 Room Air 07/26/23 16:00 90 07/26/23 15:54 98.9 F 91 H 19 126/65 97 Room Air 07/26/23 14:58 Room Air 07/26/23 13:00 Room Air 07/26/23 12:00 90 07/26/23 11:36 98.8 F 85 19 129/82 97 Room Air 07/26/23 11:00 Room Air 07/26/23 09:00 Room Air 07/26/23 08:00 Room Air 07/26/23 08:00 90 07/26/23 07:53 98.6 F 91 H 17 134/76 96 Room Air Intake and Output 07/26/23 07/26/23 07/27/23 15:59 23:59 07:59 Intake Total 720 / 1540 270 / 1540 Output Total 1050 / 3850 100 / 3850 0 / 0 Balance -330 / -2310 170 / -2310 0 / 0 Intake: Intake, Oral Amount 720 / 990 270 / 990 Output: Output, Urine Amount 100 / 2800 0 / 0 Output, Urine Amount (Catheter) 1050 / 1050 [place] 1050 / 1050 Other: Number of Unmeasured Voids 1 1 Number of Bowel Movements 1 1 Weight 104.372 kg 229.4 kg Patient Weight 07/27/23 23:59 Weight 229.4 kg Laboratory Results - last 24 hr 07/26/23 11:31: POC Glucose 99 07/26/23 16:49: POC Glucose 130 H 07/26/23 20:47: POC Glucose 132 H 07/27/23 05:50: Sodium 138, Potassium 3.5, Chloride 109 H, Carbon Dioxide 22, Anion Gap 10.5, BUN 8 L D, Creatinine 0.70, Estimated Creat Clear 75, Estimated GFR 115, Est GFR ( Amer) 139, Glucose 98, Calcium 8.0 L, Total Bilirubin 0.5, AST 169 H, ALT 70, Alkaline Phosphatase 335 H, Total Protein 6.9, Albumin 3.1 L D, Globulin 3.8 H, Albumin/Globulin Ratio 0.8 L 07/27/23 06:24: POC Glucose 124 H I & O for Labs for Last 24 Hours: Intake & Output 07/24/23 07/25/23 07/26/23 07/27/23 23:59 23:59 23:59 23:59 Intake Total 2625.50 / 2625.50 3550 / 3800 1540 / 1540 Output Total 4400 / 4400 1350 / 3050 3850 / 3850 0 / 0 Balance -1774.50 / -1774.50 2200 / 750 -2310 / -2310 0 / 0 Weight 102.557 kg 102 kg 104.372 kg 229.4 kg Microbiology Reports for the Last 24 Hours: Microbiology 07/24/23 11:37 Cerebral Spinal Fluid Gram Stain - Final 07/24/23 11:37 Cerebral Spinal Fluid CSF Culture - Preliminary NO GROWTH AFTER 24 HOURS 07/23/23 06:40 Blood Blood Culture - Final Corynebacterium urealyticum The patient's infection will respond to the chosen ABx?: Yes (AFEBRILE OVER 24 HRS, REPEAT BLOOD CULTURES PENDING.) Is the patient receiving the right drug, dose, and route?: Yes Could a more targeted ABx be ordered?: No
[2023-07-27] MEDS: DOXYCYCLINE HYCLATE 100 MG in 0.9 % SODIUM CHLORIDE 250 ML 166.667 MG IV ×2 (07:46→19:54)
[2023-07-27 07:48] LABS: Peripheral Smear Review Scanned Result
[2023-07-27 08:13] LABS: Miscellaneous Test SCANNED IMAGE
[2023-07-27] MEDS: VENLAFAXINE XR 75MG CAPSULE 75 MG PO (08:57)
[2023-07-27] MEDS: OXYBUTYNIN 5MG TAB 5 MG PO ×3 (08:57→20:00)
[2023-07-27] MEDS: TAMSULOSIN 0.4MG CAPSULE 0.4 MG PO (08:57)
[2023-07-27] MEDS: ASPIRIN 81MG CHEWABLE TABLET 81 MG PO (08:57)
[2023-07-27] MEDS: METOPROLOL TARTRATE 25MG TABLET 25 MG PO ×2 (08:58→20:00)
[2023-07-27] MEDS: EMPAGLIFLOZIN 10MG TABLET 20 MG PO (08:58)
[2023-07-27] MEDS: diphenhydrAMINE 25MG CAPSULE 25 MG PO ×3 (08:58→20:00)
[2023-07-27 09:14] LABS: Lyme B. burgdorferi PCR Blood Negative (Negative)
[2023-07-27] MEDS: CEFTRIAXONE SODIUM 2 GM in 0.9 % SODIUM CHLORIDE 100 ML IV ×2 (09:48→21:19)
[2023-07-27 11:22] LABS: POC Glucose,Bedside 125 (70-110)
[2023-07-27 13:11] LABS: A. phagocytophilum,PCR Negative (Negative); Ehrlichia chaffeensis Positive (Negative)
--- NOTE | 2023-07-27 14:45 | EXP.PN ---
Subjective *Date: 07/27/23 *Time: 14:45 Interval history: seen at bedside, alert and awake, holding conversations, but still confused, slightly better than yesterday, at bedside, no acute events overnight Exam Data for Last 24 hours Vital signs and Labs for Last 24 Hours: Temp Pulse Resp BP Pulse Ox O2 Del Method O2 Flow Rate 98.1 F 80 18 100/52 L 98 Room Air 2 07/27/23 11:36 07/27/23 12:00 07/27/23 11:36 07/27/23 11:36 07/27/23 11:36 07/27/23 14:36 07/23/23 14:00 Laboratory Results - last 24 hr 07/23/23 10:23: Miscellaneous Test Scanned image 07/24/23 08:36: A.phagocytophil DNA PCR Negative, Lyme Disease (PCR) Negative, E.chaffeensis DNA (PCR) Positive A 07/26/23 16:49: POC Glucose 130 H 07/26/23 20:47: POC Glucose 132 H 07/27/23 05:50: Sodium 138, Potassium 3.5, Chloride 109 H, Carbon Dioxide 22, Anion Gap 10.5, BUN 8 L D, Creatinine 0.70, Estimated Creat Clear 75, Estimated GFR 115, Est GFR ( Amer) 139, Glucose 98, Calcium 8.0 L, Total Bilirubin 0.5, AST 169 H, ALT 70, Alkaline Phosphatase 335 H, Total Protein 6.9, Albumin 3.1 L D, Globulin 3.8 H, Albumin/Globulin Ratio 0.8 L 07/27/23 06:24: POC Glucose 124 H 07/27/23 11:15: POC Glucose 125 H I & O for Last 24 hours: Intake & Output 07/24/23 07/25/23 07/26/23 07/27/23 23:59 23:59 23:59 23:59 Intake Total 2625.50 / 2625.50 3550 / 3800 1540 / 1540 1047 / 1047 Output Total 4400 / 4400 1350 / 3050 3850 / 3850 0 / 0 Balance -1774.50 / -1774.50 2200 / 750 -2310 / -2310 1047 / 1047 Weight 102.557 kg 102 kg 104.372 kg 229.4 kg Microbiology Reports for the Last 24 Hours: Microbiology 07/26/23 10:45 Blood Blood Culture - Preliminary NO GROWTH AFTER 24 HOURS 07/24/23 11:37 Cerebral Spinal Fluid Gram Stain - Final 07/24/23 11:37 Cerebral Spinal Fluid CSF Culture - Final NO GROWTH AFTER 48 HOURS Constitutional Constitutional: no acute distress *Routine HEENT Exam Head: Present normocephalic Eye: Present EOMI and PERRL ENT: Present mucous membranes moist *Routine Neck Exam Neck: Present supple; Absent lymphadenopathy *Routine Respiratory Exam Respiratory: Present CTA bilaterally *Routine Cardiovascular Exam Cardiovascular: Present RRR *Routine Abdominal Exam Abdominal: Present soft and normoactive bowel sounds; Absent tenderness *Routine Extremities Exam Extremities: Absent cyanosis, clubbing or edema *Routine Skin Exam Skin: Present warm; Absent rash *Routine Neurological Exam Neurological: Present alert and oriented X3 Assessment and Plan *Assessment and plan (1) Sepsis: Status: Acute Category: Medical Code(s): A41.9 - Sepsis, unspecified organism (2) Thrombocytopenia: Status: Acute Category: Medical Code(s): D69.6 - Thrombocytopenia, unspecified (3) Hyponatremia: Status: Acute Category: Medical Code(s): E87.1 - Hypo-osmolality and hyponatremia (4) Transaminitis: Status: Acute Category: Medical Code(s): R74.01 - Elevation of levels of liver transaminase levels (5) Atrial flutter: Status: Acute Category: Medical Code(s): I48.92 - Unspecified atrial flutter (6) Tick-borne fever: Status: Acute Category: Medical Code(s): A93.8 - Other specified arthropod-borne viral fevers (7) Bipolar II disorder: Status: Acute Category: Medical Code(s): F31.81 - Bipolar II disorder (8) Obesity (BMI 30.0-34.9): Status: Acute Category: Medical Code(s): E66.9 - Obesity, unspecified (9) Type 2 diabetes mellitus: Status: Acute Qualifiers: Diabetes mellitus 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: without parts counterman use Diabetes mellitus complication status: with hyperglycemia Qualified Code(s): E11.65 - Type 2 diabetes mellitus with hyperglycemia Category: Medical Code(s): E11.9 - Type 2 diabetes mellitus without complications (10) SARKIS (obstructive sleep apnea): Status: Acute Category: Medical Code(s): G47.33 - Obstructive sleep apnea (adult) (pediatric) (11) HLD (hyperlipidemia): Status: Chronic Qualifiers: Hyperlipidemia type: other hyperlipidemia Qualified Code(s): E78.4 - Other hyperlipidemia Category: Medical Code(s): E78.5 - Hyperlipidemia, unspecified (12) HTN (hypertension): Status: Chronic Qualifiers: Hypertension type: essential hypertension Qualified Code(s): I10 - Essential (primary) hypertension Category: Medical Code(s): I10 - Essential (primary) hypertension (13) CAD (coronary artery disease): Status: Chronic Qualifiers: Coronary Disease-Associated Artery/Lesion type: [place] artery [place] vs. transplanted heart: [place] heart Associated angina: without angina Qualified Code(s): I25.10 - Atherosclerotic heart disease of [place] coronary artery without angina pectoris Category: Medical Code(s): I25.10 - Atherosclerotic heart disease of [place] coronary artery without angina pectoris Plan 62-year-old male who presented to the ER with persistent fever, confusion, difficulty walking. Workup in the ER concerning for thrombocytopenia, presence of tick, febrile illness. Meeting sepsis criteria. Discussed case with ER, request admission for further treatment and IV antibiotics. Medicine agreed to admit. Patient technically meeting septic shock with tachycardia, leukopenia, tachypnea, fever of 103, and elevated lactate of 6. Not requiring pressors however at this time. Admitted to stepdown level of care. Differential as mentioned in H&P concerning for infection such as tickborne illness, tick fever, neuroleptic malignant syndrome, or potentially meningitis. Lower concern for meningitis given no meningismus. Confusion, hypothermia, and unsteady gait in the setting of quetiapine/venlafaxine supporting NMS. Presence of ticks with worsening symptoms in spite of use of Bactrim supporting tickborne fever/illness. Further management pending lab results. Zoonotic studies pending. Problems addressed as follows: Septic shock DIC Thrombocytopenia -Continue vancomycin, monitoring kidneys closely for toxicity. Transition to ceftriaxone 2 g every 12 hours for meningitic coverage. Continue doxycycline for tickborne illness 100 mg IV twice daily. -White cell count remains low at 2.8, platelets dropped to 34. s/p LP - elevated WBC, CSF clear, await further results, may need MRI, will evaluate needs for MRI -Blood culture - positive for Corynebacterium urealyticum - concern for contamination, will repeat blood culture and urine cultures pending. -Tickborne illness studies pending, concerning for ehrlichiosis or anaplasmosis -Comprehensive respiratory panel negative. -CSF labs ordered pending acquisition of fluid in the morning with assistance of anesthesia -Encephalitis/meningitis panel ordered awaiting fluid to be obtained in the morning Myocardial injury: Atrial fibrillation with RVR - Troponin elevated to 0.05. Likely due to supply/demand mismatch in the setting of sepsis. -In sinus rhythm. Discontinue diltiazem drip, initiate metoprolol 25 mg tartrate twice daily. MIKEY: check BMP Bipolar 2: Holding Seroquel. Resume partial dose venlafaxine to decrease risk for withdrawal from SNRI. Monitor for improvement; lorazepam IV as needed for agitation Diabetes: A1c 6.1. Will continue fingersticks ACHS and sliding scale insulin Full code Holding anticoagulation due to thrombocyopenia diabetic diet continue IV abx with Doxycycline, IV vancomycin , patient continues to improve, will likely DC tomorrow
[2023-07-27 15:21] LABS: Miscellaneous Test SCANNED IMAGE
[2023-07-27 16:23] LABS: POC Glucose,Bedside 102 (70-110)
--- NOTE | 2023-07-27 16:39 | PC.NURSE ---
PT IS RESTING IN BED WITH FAMILY AT BEDSIDE. ALERT AND ORIENTED X4. AMBULATES TO THE BATHROOM STANDBY ASSIST. EATING AND DRINKING WELL. MEDICATED PER MAR FOR LOWER BACK PAIN. LUNG SOUNDS CLEAR. ABDOMEN SOFT/NON TENDER WITH ACTIVE BOWEL SOUNDS. WILL CONTINUE TO MONITOR.
[2023-07-27] MEDS: PANTOPRAZOLE 40MG TABLET 40 MG PO (20:00)
[2023-07-27 20:28] LABS: POC Glucose,Bedside 111 (70-110)
[2023-07-28] VITALS: BP 116/59; PULSE 80; PULSE 82; RESP 16; TEMP 36.7; O2SAT 95
[2023-07-28] MEDS: MELATONIN 5MG TABLET 5 MG PO (01:27)
[2023-07-28] MEDS: ACETAMINOPHEN 325MG TAB 650 MG PO ×2 (02:36→12:33)
[2023-07-28 04:00] VITALS: BP 126/67; PULSE 78; PULSE 90; RESP 16; TEMP 36.5; O2SAT 95; BMI 34.0
[2023-07-28] MEDS: OXYCODONE 10MG W/APAP 325MG TABLET 1 EACH PO (05:39)
[2023-07-28 05:50] LABS: POC Glucose,Bedside 126 (70-110)
[2023-07-28 07:03] LABS: Chloride 110 mmol/L (98-107); Potassium 3.1 mmoL/L (3.5-5.1); Sodium 138 mmol/L (136-145)
[2023-07-28 07:06] LABS: Anion Gap 7.1 mEq/L (5-15); Blood Urea Nitrogen 7 mg/dl (9-20); Carbon Dioxide 24 mmol/L (22.0-30.0); Creatinine Clearance Estimated 114 mL/min (50-200); Estimated Glomerular Filt Rate 137 ml/min (>60); GFR (African American) 166 ML/MIN (>60)
[2023-07-28 07:07] LABS: Calcium 7.5 mg/dl (8.4-10.2); Glucose 110 mg/dl (74-100)
[2023-07-28 07:20] LABS: Basophils % 0.9 % (0.1-2.0); Eosinophils % 0.5 % (0.1-12.0); Hematocrit 28.9 % (42.0-52.0); Hemoglobin 9.6 g/dL (14.1-18.0); Lymphocytes # 2.5 K/mm3 (0.7-4.5); Lymphocytes % 69.3 % (10-50); Mean Corpuscular HGB Conc 33.4 g/dL (31.8-35.4); Mean Corpuscular Hemoglobin 27.9 pg (27.0-31.2); Mean Corpuscular Volume 83.5 fl (80-94); Mean Platelet Volume 8.6 fl (7.4-10.4); Monocytes # 0.3 K/mm3 (0.1-1.0); Monocytes % 8.6 % (1.7-9.3); Neutrophils # 0.8 K/mm3 (1.8-7.8); Neutrophils % 20.7 % (37.0-80.0); Platelet Count 95 K/mm3 (142-424); Red Blood Count 3.45 M/mm3 (4.60-6.20); Red Cell Distribution Width 16.7 % (11.5-17.5); White Blood Count 3.7 K/mm3 (4.8-10.8)
[2023-07-28 07:21] VITALS: BP 118/72; PULSE 67; RESP 17; TEMP 36.5; O2SAT 94
[2023-07-28 07:23] LABS: MANUAL DIFFERENTIAL MANUAL DIFFERENTIAL (MANUAL DIFF)
--- NOTE | 2023-07-28 08:00 | EXP.PHA.PN ---
Subjective *Date: 07/28/23 *Time: 08:00 Medical Exam Vital signs and Labs for Last 24 Hours: Vital Signs Temp Pulse Pulse Resp BP Pulse Ox O2 Del Method 07/28/23 07:21 97.7 F 67 17 118/72 94 L Room Air 07/28/23 07:00 Room Air 07/28/23 05:00 Room Air 07/28/23 04:00 97.7 F 78 16 126/67 95 Room Air 07/28/23 04:00 90 07/28/23 03:00 Room Air 07/28/23 01:00 Room Air 07/28/23 00:00 80 07/28/23 00:00 98.1 F 82 16 116/59 L 95 Room Air 07/27/23 23:00 Room Air 07/27/23 21:00 Room Air 07/27/23 20:00 80 07/27/23 20:00 98.2 F 80 16 133/73 95 Room Air 07/27/23 19:00 Room Air 07/27/23 16:41 Room Air 07/27/23 16:02 85 07/27/23 15:28 98.4 F 83 18 111/65 99 Room Air 07/27/23 14:36 Room Air 07/27/23 12:34 Room Air 07/27/23 12:00 80 07/27/23 11:36 98.1 F 81 18 100/52 L 98 Room Air 07/27/23 10:21 Room Air 07/27/23 09:00 Room Air Intake and Output 07/27/23 07/28/23 07/28/23 23:59 07:59 15:59 Intake Total 1672 / 4069 1350 / 1350 Output Total 0 / 0 0 / 0 Balance 1672 / 4069 1350 / 1350 Intake: Intake, Oral Amount 540 / 2337 750 / 750 Intake, Total IV Amount 1132 / 1732 600 / 600 Acyclovir Sodium 900 mg In 0.9 250 / 250 % Sodium Chloride 250 ml @ 250 mls/hr IV Q8H [facility] Rx#:[id number] Ceftriaxone Sodium 2 gm In 0.9 100 / 100 % Sodium Chloride 100 ml @ 200 mls/hr IV Q12H [facility] Rx#:[id number] Doxycycline Hyclate 100 mg In 0 250 / 250 .9 % Sodium Chloride 250 ml @ 166.667 mls/hr IV Q12H [facility] Rx#: [id number] Lactated Ringers 1000ML 1,000 1132 / 1132 ml @ 500 mls/hr IV .Q2H [facility] Rx# :[id number] Output: Output, Urine Amount 0 / 0 0 / 0 Other: Number of Unmeasured Voids 1 4 Number of Bowel Movements 1 Weight 104.054 kg Patient Weight 07/28/23 23:59 Weight 104.054 kg Laboratory Results - last 24 hr 07/23/23 10:23: Miscellaneous Test Scanned image 07/24/23 08:36: A.phagocytophil DNA PCR Negative, Lyme Disease (PCR) Negative, E.chaffeensis DNA (PCR) Positive A 07/24/23 11:35: Miscellaneous Test Scanned image 07/27/23 11:15: POC Glucose 125 H 07/27/23 16:16: POC Glucose 102 07/27/23 19:52: POC Glucose 111 H 07/28/23 05:41: POC Glucose 126 H 07/28/23 06:23: WBC 3.7 L, RBC 3.45 L, Hgb 9.6 L, Hct 28.9 L, MCV 83.5, MCH 27.9, MCHC 33.4, RDW 16.7, Plt Count 95 L, MPV 8.6, Neut % (Auto) 20.7 L, Lymph % (Auto) 69.3 H, [place] % (Auto) 8.6, Eos % (Auto) 0.5, Baso % (Auto) 0.9, Neut # (Auto) 0.8 L*, Lymph # (Auto) 2.5, [place] # (Auto) 0.3, Eos # (Auto) 0.0, Baso # (Auto) 0.0, Sodium 138, Potassium 3.1 L, Chloride 110 H, Carbon Dioxide 24, Anion Gap 7.1, BUN 7 L, Creatinine 0.60 L, Estimated Creat Clear 114, Estimated GFR 137, Est GFR ( Amer) 166, Glucose 110 H, Calcium 7.5 L I & O for Labs for Last 24 Hours: Intake & Output 07/25/23 07/26/23 07/27/23 07/28/23 23:59 23:59 23:59 23:59 Intake Total 3550 / 3800 1540 / 1540 2719 / 4069 1350 / 1350 Output Total 1350 / 3050 3850 / 3850 0 / 0 0 / 0 Balance 2200 / 750 -2310 / -2310 2719 / 4069 1350 / 1350 Weight 102 kg 104.372 kg 229.4 kg 104.054 kg Microbiology Reports for the Last 24 Hours: Microbiology 07/26/23 15:35 Blood Blood Culture - Preliminary NO GROWTH AFTER 24 HOURS 07/26/23 10:45 Blood Blood Culture - Preliminary NO GROWTH AFTER 24 HOURS 07/24/23 11:37 Cerebral Spinal Fluid Gram Stain - Final 07/24/23 11:37 Cerebral Spinal Fluid CSF Culture - Final NO GROWTH AFTER 48 HOURS The patient's infection will respond to the chosen ABx?: Yes (REPEAT BLOOD CX AND CSF CX = NO GROWTH, AFEBRILE OVER 24HR) Is the patient receiving the right drug, dose, and route?: Yes Could a more targeted ABx be ordered?: No
[2023-07-28 08:20] VITALS: PULSE 80
[2023-07-28] MEDS: ACYCLOVIR SODIUM IV (08:44)
[2023-07-28] MEDS: SODIUM CHLORIDE 0.9% IV (08:44)
[2023-07-28] MEDS: TAMSULOSIN 0.4MG CAPSULE 0.4 MG PO (08:45)
[2023-07-28] MEDS: ASPIRIN 81MG CHEWABLE TABLET 81 MG PO (08:45)
[2023-07-28] MEDS: METOPROLOL TARTRATE 25MG TABLET 25 MG PO (08:45)
[2023-07-28] MEDS: diphenhydrAMINE 25MG CAPSULE 25 MG PO (08:45)
[2023-07-28] MEDS: OXYBUTYNIN 5MG TAB 5 MG PO (08:46)
[2023-07-28] MEDS: EMPAGLIFLOZIN 10MG TABLET 20 MG PO (08:46)
[2023-07-28] MEDS: VENLAFAXINE XR 75MG CAPSULE 75 MG PO (08:46)
[2023-07-28] MEDS: DOXYCYCLINE HYCLATE 100 MG in 0.9 % SODIUM CHLORIDE 250 ML 166.667 MG IV (08:49)
[2023-07-28 09:14] LABS: Eosinophils % 1 % (0-3); Lymphocytes % 62 % (10-50); Monocytes % 6 % (2-9); Neutrophils % 31 % (42-76); Total Cells Counted 100
[2023-07-28 09:17] LABS: Burr Cells 1+
[2023-07-28 09:23] LABS: Platelet Estimate Slight Decrease
[2023-07-28] MEDS: CEFTRIAXONE SODIUM 2 GM in 0.9 % SODIUM CHLORIDE 100 ML IV (09:55)
--- NOTE | 2023-08-11 08:24 | EXP.DC.SUM ---
General Admission date:: 07/23/23 Discharge date: 07/28/23 HPI HPI HPI: 62-year-old male who presents to the ER because he is felt bad for approximately 2 weeks. States has been feeling more weak. Today he has worsening abdominal pain. Has had fever and worsening confusion over the past 4 to 5 days. Temperature of 103 on arrival to the ER today. Family at bedside states has been having difficulty walking. Reportedly was diagnosed with a UTI week ago and started on Bactrim however urine cultures did not grow any pathogens. History significant for diabetes, hypertension, hyperlipidemia, bipolar, obesity. Workup in the ER initiated. Imaging of his abdomen showed splenomegaly but no focal source of infection or abscess. Labs remarkable for leukopenia, thrombocytopenia, mild elevation in liver enzymes, and MIKEY. Patient clinically meeting sepsis criteria with tachycardia, tachypnea, fever, low white cell count, and elevated lactate. Administered sepsis bolus in the ER. Differential diagnosis includes tickborne fever (tick found on exam in the ER), tickborne illness, neuroleptic malignant syndrome (patient on Seroquel and venlafaxine), allergic reaction to Bactrim, viral illness, meningitis. Medicine consulted for admission and further management. Started on broad-spectrum antibiotics including vancomycin, Zosyn, doxycycline. On arrival to the floor, patient is reportedly looking somewhat better according to family at bedside. Patient went into a flutter with RVR prior to transferring to the floor and was initiated on a diltiazem drip. Heart rate still fast at time of evaluation. Oxygen for comfort but was not hypoxic prior to application. Denies any nausea or vomiting. Has been having some urinary incontinence per family. Was also having some myoclonic jerking earlier at home. Difficulty obtaining history from patient, majority of history obtained from ER record and family at bedside. Hospital Course Hospital Course Hospital Course: 62-year-old male who presented to the ER with persistent fever, confusion, difficulty walking. Workup in the ER concerning for thrombocytopenia, presence of tick, febrile illness. Meeting sepsis criteria. Discussed case with ER, request admission for further treatment and IV antibiotics. Medicine agreed to admit. Patient technically meeting septic shock with tachycardia, leukopenia, tachypnea, fever of 103, and elevated lactate of 6. Not requiring pressors however at this time. Admitted to stepdown level of care. Differential as mentioned in H&P concerning for infection such as tickborne illness, tick fever, neuroleptic malignant syndrome, or potentially meningitis. Septic shock - improved DIC - improved Thrombocytopenia - improved patient septic shock improved, patient had significant improvement in mental status, patient was dischargred on oral antibiotics, patient was tracey to walk and able to follow commands, family agrees with discharge plan and follow up on oral antibiotics. patient was discharged in stable condition. On the date of discharge, the patient reported feeling stable. The patient was found not to be in any acute distress, and no new abnormalities on physical examination. Further, the patient expressed appropriate understanding of, and agreement with, the discharge recommendations, medications, and plan. Time spent 37 mins Exam Data for Last 24 hours Vital signs and Labs for Last 24 Hours: Temp Pulse Resp BP Pulse Ox O2 Del Method O2 Flow Rate 97.7 F 80 17 118/72 94 L Room Air 2 07/28/23 07:21 07/28/23 08:20 07/28/23 07:21 07/28/23 07:21 07/28/23 07:21 07/28/23 13:00 07/23/23 14:00 Constitutional Constitutional: no acute distress *Routine HEENT Exam Head: Present normocephalic Eye: Present EOMI and PERRL ENT: Present mucous membranes moist *Routine Neck Exam Neck: Present supple; Absent lymphadenopathy *Routine Respiratory Exam Respiratory: Present CTA bilaterally *Routine Cardiovascular Exam Cardiovascular: Present RRR *Routine Abdominal Exam Abdominal: Present soft and normoactive bowel sounds; Absent tenderness *Routine Extremities Exam Extremities: Absent cyanosis, clubbing or edema *Routine Skin Exam Skin: Present warm; Absent rash *Routine Neurological Exam Neurological: Present alert and oriented X3 DS: Diagnosis Discharge Diagnosis (1) Sepsis: Status: Acute Code(s): A41.9 - Sepsis, unspecified organism (2) Thrombocytopenia: Status: Acute Code(s): D69.6 - Thrombocytopenia, unspecified (3) Hyponatremia: Status: Acute Code(s): E87.1 - Hypo-osmolality and hyponatremia (4) Transaminitis: Status: Acute Code(s): R74.01 - Elevation of levels of liver transaminase levels (5) Atrial flutter: Status: Acute Code(s): I48.92 - Unspecified atrial flutter (6) Tick-borne fever: Status: Acute Code(s): A93.8 - Other specified arthropod-borne viral fevers (7) Bipolar II disorder: Status: Acute Code(s): F31.81 - Bipolar II disorder (8) Obesity (BMI 30.0-34.9): Status: Acute Code(s): E66.9 - Obesity, unspecified (9) Type 2 diabetes mellitus: Status: Acute Code(s): E11.9 - Type 2 diabetes mellitus without complications Qualifiers: Diabetes mellitus complication status: with hyperglycemia 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: without intermodal 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 truck driver use Qualified Code(s): E11.65 - Type 2 diabetes mellitus with hyperglycemia (10) SARKIS (obstructive sleep apnea): Status: Acute Code(s): G47.33 - Obstructive sleep apnea (adult) (pediatric) (11) HLD (hyperlipidemia): Status: Chronic Code(s): E78.5 - Hyperlipidemia, unspecified Qualifiers: Hyperlipidemia type: other hyperlipidemia Qualified Code(s): E78.4 - Other hyperlipidemia (12) HTN (hypertension): Status: Chronic Code(s): I10 - Essential (primary) hypertension Qualifiers: Hypertension type: essential hypertension Qualified Code(s): I10 - Essential (primary) hypertension (13) CAD (coronary artery disease): Status: Chronic Code(s): I25.10 - Atherosclerotic heart disease of [place] coronary artery without angina pectoris Qualifiers: Associated angina: without angina Coronary Disease-Associated Artery/Lesion type: [place] artery [place] vs. transplanted heart: [place] heart Qualified Code(s): I25.10 - Atherosclerotic heart disease of [place] coronary artery without angina pectoris Meds Home Medications and Allergies Home Medications Medication Instructions Recorded Confirmed Type aspirin 81 mg chewable tablet 81 mg PO DAILY 06/15/17 07/23/23 History tamsulosin 0.4 mg capsule 0.4 mg PO DAILY 06/20/17 07/24/23 History empagliflozin 25 mg tablet 25 mg PO DAILY 08/27/18 07/24/23 History (Jardiance) metformin 1,000 mg tablet 1,000 mg PO BID 03/26/19 07/24/23 History oxybutynin chloride 15 mg 15 mg PO DAILY 03/26/19 07/24/23 History tablet,extended release 24 hr omeprazole 40 mg capsule,delayed 40 mg PO DAILY 11/13/20 07/24/23 History release ezetimibe 10 mg tablet 10 mg PO DAILY 05/26/22 07/24/23 History venlafaxine 150 mg tablet,extended 150 mg PO DAILY Depression #90 tabs 06/02/23 07/24/23 Rx release 24 hr ergocalciferol (vitamin D2) 1,250 50,000 mcg PO WEEKLY 07/19/23 07/24/23 History mcg (50,000 unit) capsule (Vitamin D2) venlafaxine 75 mg capsule,extended 75 mg PO DAILY 07/19/23 07/24/23 History release 24 hr (Effexor XR) oxycodone 5 mg tablet 10 mg PO QIDP PRN Moderate Pain 07/23/23 07/24/23 History (Scale Score 5-6) ropinirole 1 mg tablet 1 mg PO DAILY 07/23/23 07/24/23 History diphenhydramine HCl 50 mg capsule 50 mg PO QIDP PRN Allergy Symptoms 07/24/23 07/24/23 History furosemide 40 mg tablet 40 mg PO DAILY 07/24/23 07/24/23 History meloxicam 7.5 mg tablet 7.5 mg PO BID 07/24/23 07/24/23 History quetiapine 100 mg tablet 200 mg PO HS 07/24/23 07/24/23 History acyclovir 400 mg tablet 400 mg PO QID 10 days #40 tabs 07/28/23 Rx amoxicillin 875 mg-potassium 1 tab PO Q12H 10 days #20 tabs 07/28/23 Rx clavulanate 125 mg tablet doxycycline hyclate 100 mg capsule 100 mg PO BID 10 days #20 caps 07/28/23 Rx New Prescriptions to Start Prescriptions: acyclovir Aayush,Irfan amoxicillin-pot clavulanate Aayush,Irfan doxycycline hyclate Aayush,Irfan Allergies Allergy/AdvReac Type Severity Reaction Status Date / Time sulfamethoxazole Allergy Intermediate Verified 07/23/23 13:45 [From Bactrim] trimethoprim [From Bactrim] Allergy Intermediate Verified 07/23/23 13:45 atorvastatin Allergy Mild myalgias Verified 07/23/23 13:45 rosuvastatin [From Crestor] Allergy Mild myaglias Verified 07/23/23 13:45 simvastatin [From Zocor] Allergy Mild myalgias Verified 07/23/23 13:45 fexofenadine [From YEFRI] Allergy Unknown UNKNOWN Verified 07/23/23 13:45 naproxen [NAPROXEN] Allergy Unknown HAND Verified 07/23/23 13:45 SWELLING Discharge Plan Disposition Patient Disposition: Home, Self-Care Condition: Fair Discharge Order Discharge Orders: Discharge Order (Routine); Ordered 07/28/23 Ordered By: Mechelle Looney Follow up Plan Follow up with: Zurdo Masters MD [Referring] - 08/08/23 11:15 am Prescriptions/Medication Reconciliation: New doxycycline hyclate 100 mg capsule 100 mg PO BID 10 Days Qty: 20 0RF amoxicillin-pot clavulanate 875-125 mg tablet 1 tab PO Q12H 10 Days Qty: 20 0RF acyclovir 400 mg tablet 400 mg PO QID 10 Days Qty: 40 0RF Continued tamsulosin 0.4 mg capsule,extended release 24hr 0.4 mg PO DAILY metformin 1,000 mg tablet 1,000 mg PO BID oxybutynin chloride 15 mg tablet extended release 24hr 15 mg PO DAILY ezetimibe 10 mg tablet 10 mg PO DAILY venlafaxine 150 mg tablet extended release 24hr 150 mg PO DAILY Qty: 90 0RF Jardiance 25 mg tablet 25 mg PO DAILY omeprazole 40 MG capsule,delayed release(DR/EC) 40 mg PO DAILY ropinirole 1 mg tablet 1 mg PO DAILY oxycodone 5 mg tablet 10 mg PO QIDP PRN (Reason: Moderate Pain (Scale Score 5-6)) furosemide 40 mg tablet 40 mg PO DAILY diphenhydramine HCl 50 mg capsule 50 mg PO QIDP PRN (Reason: Allergy Symptoms) quetiapine 100 mg tablet 200 mg PO HS meloxicam 7.5 mg tablet 7.5 mg PO BID Patient Comments: TAKE 1 TABLET BY MOUTH TWICE DAILY FOR PAIN aspirin 81 MG tablet,chewable 81 mg PO DAILY venlafaxine [Effexor XR] 75 mg capsule,extended release 24hr 75 mg PO DAILY Rx Instructions: 75 mg PO take daily with 150mg capsule; total dose is 225mg daily ergocalciferol (vitamin D2) [Vitamin D2] 1,250 mcg (50,000 unit) capsule 50,000 mcg PO WEEKLY Problem Reconciliation Problems Reviewed?: Yes Patient Discharge Instructions ACTIVITY: Ambulate as tolerated DIET: continue same diet Patient Instructions: DI for Lumbar Puncture, DI for Surgical Site Infection, DI for Sepsis -- Adult Providers Primary Care Provider: Provider,Referral Admit Provider: Jake White Attending Provider: Jake White
== END 2023-07-28 13:58 | disposition home or self-care (01) | DRG 871 ==
LOC: ER 11:44 → 2ND 11:47
PROVIDERS: Emergency Medicine; Internal Medicine; Admitting Provider Internal Medicine Adolescent Medicine; Emergency Provider Emergency Medicine; Visit Provider Internal Medicine Adolescent Medicine
DX: A41.9 Sepsis, unspecified organism (principal); D65 Disseminated intravascular coagulation [defibrination syndrome]; R65.21 Severe sepsis with septic shock; I21.A1 Myocardial infarction type 2; E87.1 Hypo-osmolality and hyponatremia; F31.81 Bipolar II disorder; A93.8 Other specified arthropod-borne viral fevers; N17.9 Acute kidney failure, unspecified; I48.3 Typical atrial flutter; I10 Essential (primary) hypertension; E78.5 Hyperlipidemia, unspecified; E11.9 Type 2 diabetes mellitus without complications; E66.9 Obesity, unspecified; Z68.34 Body mass index [BMI] 34.0-34.9, adult; I25.10 Atherosclerotic heart disease of native coronary artery without angina pectoris; G47.00 Insomnia, unspecified; F41.1 Generalized anxiety disorder; G25.81 Restless legs syndrome; N40.0 Benign prostatic hyperplasia without lower urinary tract symptoms; G47.33 Obstructive sleep apnea (adult) (pediatric); Z79.84 Long term (current) use of oral hypoglycemic drugs; I48.0 Paroxysmal atrial fibrillation
CPT/HCPCS: 62272; 36415; 70450; 71045; 71275; 80048; 80053; 80202; 81001; 82550; 82803; 82945; 82962; 83036; 83605; 83735; 84155; 84484; 85007; 85025; 85027; 86644; 86645; 86665; 86900; 86901; 87040; 87070; 87186; 87205; 87476; 87581; 87632; 87635; 87798; 89051; 93005; 99285; J0131; J0696; J2060; J2543; J7120; P9034; Q9967

== ENCOUNTER 2023-08-12 11:04 | Emergency (ER) | payer OTHER, SELFPAY ==
[2023-08-12 11:05] VITALS: BP 119/78; PULSE 88; RESP 16; TEMP 37.1; O2SAT 96; BMI 34.0
[2023-08-12 11:09] VITALS: BP 119/78; PULSE 83; O2SAT 96
[2023-08-12 11:30] VITALS: BP 103/77; PULSE 86; O2SAT 97
--- NOTE | 2023-08-12 11:31 | XR_ITS ---
PROCEDURE INFORMATION: Exam: XR Soft Tissue Neck Exam date and time: 08/12/2023 11:28 AM Age: 62 years old Clinical indication: Dysphagia / difficulty swallowing and other: Sore throat; Additional info: Dysphagia, difficulty swallowing, sore throat TECHNIQUE: Imaging protocol: Radiologic exam of the soft tissues of the neck. 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 No abnormal narrowing. Soft tissues: Normal. Normal epiglottis. Bones/joints: Degenerative changes along the cervical spine IMPRESSION: No definite abnormality Recommend CT soft tissue neck with contrast for further evaluation
--- NOTE | 2023-08-12 11:31 | HMH.EDGENADL ---
Discharge Plan Disposition Patient Disposition: Home, Self-Care Condition: Good Prescriptions Prescriptions: No Action tamsulosin 0.4 mg capsule,extended release 24hr 0.4 mg PO DAILY metformin 1,000 mg tablet 1,000 mg PO BID oxybutynin chloride 15 mg tablet extended release 24hr 15 mg PO DAILY ezetimibe 10 mg tablet 10 mg PO DAILY venlafaxine 150 mg tablet extended release 24hr 150 mg PO DAILY Qty: 90 0RF Jardiance 25 mg tablet 25 mg PO DAILY omeprazole 40 MG capsule,delayed release(DR/EC) 40 mg PO DAILY ropinirole 1 mg tablet 1 mg PO DAILY oxycodone 5 mg tablet 10 mg PO QIDP PRN (Reason: Moderate Pain (Scale Score 5-6)) furosemide 40 mg tablet 40 mg PO DAILY diphenhydramine HCl 50 mg capsule 50 mg PO QIDP PRN (Reason: Allergy Symptoms) quetiapine 100 mg tablet 200 mg PO HS meloxicam 7.5 mg tablet 7.5 mg PO BID Patient Comments: TAKE 1 TABLET BY MOUTH TWICE DAILY FOR PAIN doxycycline hyclate 100 mg capsule 100 mg PO BID 10 Days Qty: 20 0RF amoxicillin-pot clavulanate 875-125 mg tablet 1 tab PO Q12H 10 Days Qty: 20 0RF acyclovir 400 mg tablet 400 mg PO QID 10 Days Qty: 40 0RF aspirin 81 MG tablet,chewable 81 mg PO DAILY venlafaxine [Effexor XR] 75 mg capsule,extended release 24hr 75 mg PO DAILY Rx Instructions: 75 mg PO take daily with 150mg capsule; total dose is 225mg daily ergocalciferol (vitamin D2) [Vitamin D2] 1,250 mcg (50,000 unit) capsule 50,000 mcg PO WEEKLY Referrals Follow up/Referrals: Zurdo Masters MD [Primary Care Provider] - See instructions Activity Restrictions/Add. Instructions Additional Instructions/Restrictions: You were evaluated in the emergency department today. Please take Tylenol and ibuprofen at home every 4-6 hours as needed for pain. You may also take [id number] cold and flu medication if it seems to help you. Use the Magic mouthwash provided to you as needed up to 3 times a day. Return to the emergency department for new or worsening symptoms, such as difficulty breathing, significant worsening in difficulty swallowing, or other concerns. Clinical Impressions Clinical Impression: Pharyngitis Stand Alone Forms Stand Alone Forms: Work/School Release Instructions Patient Instructions: DI for Pharyngitis/Tonsillopharyngitis -- Adult Discharge ED Provider: Sharyn Collazo General Adult HPI General Chief complaint: Upper Respiratory Infection Stated complaint: diff. swallowing, throat burning, cough Time Seen by Provider: 08/12/23 11:17 Mode of Arrival: Ambulatory Source of Information: Patient Limitations: No Limitations Description of Symptoms (Recalled from ER Triage Doc. by RN): Patient reports waking up with a sore throat and difficulty swallowing. Denies fever. History of Present Illness HPI narrative: This patient is a 62-year-old male with a history of hypertension, hyperlipidemia, SARKIS, CAD, type 2 diabetes, obesity, bipolar disorder, polypharmacy, and recent admission at the beginning of July with concern for potential sepsis with discharge home 07/28/2023 presenting with concern for sore throat. Patient states that he was doing well since discharge home and has been in his usual state of health last night. He notes that this morning, he woke up with sore throat and is having trouble swallowing secondary to pain. He also notes a mild cough. No neck swelling, meningismus, difficulty breathing, stridor, chest pain, shortness of breath, skin color changes, or other concerns. Of note, he is edentulous with no recent oropharyngeal swelling or lesions. No other concerns noted at this time. Related Data Home Medications Medication Instructions Recorded Confirmed aspirin 81 mg chewable tablet 81 mg PO DAILY 06/15/17 07/23/23 tamsulosin 0.4 mg capsule 0.4 mg PO DAILY 06/20/17 07/24/23 empagliflozin 25 mg tablet 25 mg PO DAILY 08/27/18 07/24/23 (Jardiance) metformin 1,000 mg tablet 1,000 mg PO BID 03/26/19 07/24/23 oxybutynin chloride 15 mg 15 mg PO DAILY 03/26/19 07/24/23 tablet,extended release 24 hr omeprazole 40 mg capsule,delayed 40 mg PO DAILY 11/13/20 07/24/23 release ezetimibe 10 mg tablet 10 mg PO DAILY 05/26/22 07/24/23 ergocalciferol (vitamin D2) 1,250 50,000 mcg PO WEEKLY 07/19/23 07/24/23 mcg (50,000 unit) capsule (Vitamin D2) venlafaxine 75 mg capsule,extended 75 mg PO DAILY 07/19/23 07/24/23 release 24 hr (Effexor XR) oxycodone 5 mg tablet 10 mg PO QIDP PRN Moderate Pain 07/23/23 07/24/23 (Scale Score 5-6) ropinirole 1 mg tablet 1 mg PO DAILY 07/23/23 07/24/23 diphenhydramine HCl 50 mg capsule 50 mg PO QIDP PRN Allergy Symptoms 07/24/23 07/24/23 furosemide 40 mg tablet 40 mg PO DAILY 07/24/23 07/24/23 meloxicam 7.5 mg tablet 7.5 mg PO BID 07/24/23 07/24/23 quetiapine 100 mg tablet 200 mg PO HS 07/24/23 07/24/23 Previous Rx's Medication Instructions Recorded venlafaxine 150 mg tablet,extended 150 mg PO DAILY Depression #90 tabs 06/02/23 release 24 hr acyclovir 400 mg tablet 400 mg PO QID 10 days #40 tabs 07/28/23 amoxicillin 875 mg-potassium 1 tab PO Q12H 10 days #20 tabs 07/28/23 clavulanate 125 mg tablet doxycycline hyclate 100 mg capsule 100 mg PO BID 10 days #20 caps 07/28/23 Allergies Allergy/AdvReac Type Severity Reaction Status Date / Time sulfamethoxazole Allergy Intermediate Verified 07/23/23 13:45 [From Bactrim] trimethoprim [From Bactrim] Allergy Intermediate Verified 07/23/23 13:45 atorvastatin Allergy Mild myalgias Verified 07/23/23 13:45 rosuvastatin [From Crestor] Allergy Mild myaglias Verified 07/23/23 13:45 simvastatin [From Zocor] Allergy Mild myalgias Verified 07/23/23 13:45 fexofenadine [From YEFRI] Allergy Unknown UNKNOWN Verified 07/23/23 13:45 naproxen [NAPROXEN] Allergy Unknown HAND Verified 07/23/23 13:45 SWELLING PFSH PFS Disclaimer: The information contained in this section may have been updated after the patient was seen, as this information can be updated by other users. Medical History Diabetes mellitus CAD (coronary artery disease) BPH (benign prostatic hyperplasia) RLS (restless legs syndrome) Chest pain HLD (hyperlipidemia) HTN (hypertension) Kidney stones Depression Insomnia Generalized anxiety disorder Bipolar II disorder Social History Smoking Status: Never smoker second hand exposure: No alcohol intake: never substance use type: denies use current occupational status: unemployed Travel in the last 8 weeks: Inside the [place] household members: spouse housing: house current occupational exposures/hazards: No caffeine: Yes ROS Obtained: Yes All systems reviewed & no additional complaints except as documented Physical Exam General General appearance: alert and in no apparent distress Head Head exam: atraumatic and normocephalic Eye Eye exam: Present normal appearance, PERRL and EOMI ENT ENT exam: Present mucous membranes moist, normal external ear exam and other (Mild posterior pharyngeal erythema with no exudates, uvular swelling, uvular deviation, or other concerns. Voice is normal with no muffling or hoarseness.) Neck Neck exam: Present normal inspection, full ROM and trachea midline; Absent tenderness, meningismus, lymphadenopathy or thyromegaly Chest Chest inspection: Present normal inspection and symmetric chest wall rise; Absent tenderness Respiratory Respiratory exam: Present normal lung sounds bilaterally; Absent respiratory distress, wheezes, stridor or accessory muscle use Cardiovascular Cardiovascular exam: Present regular rate and normal rhythm Abdominal Exam Abdominal exam: Present soft; Absent distention, tenderness or guarding Extremities Exam Extremities exam: Present normal inspection, full ROM and normal capillary refill; Absent tenderness or edema Back Exam Back exam: Present normal inspection and full ROM; Absent tenderness Neurological Exam Neurological exam: Present alert, oriented X3, CN II-XII intact and normal gait; Absent motor sensory deficit Psychiatric Psychiatric exam: Present normal affect and normal mood Skin Skin exam: Present warm and dry Medical Decision Making Medical Records Medical records reviewed: Yes I reviewed the patient's medical records. Jose Inquiry Pt receiving controlled substance: No Vital Signs: 08/12/23 11:05 08/12/23 11:09 08/12/23 11:30 Temperature 98.8 F Temperature Source Oral Pulse Rate 83 86 Pulse Rate [Radial] 88 Respiratory Rate 16 Blood Pressure 119/78 103/77 L Blood Pressure [Right Arm] 119/78 Blood Pressure Mean 85 Blood Pressure Mean [Right Arm] 91 Blood Pressure Source Blood Pressure Source [Right Arm] Automatic Cuff Blood Pressure Position Blood Pressure Position [Right Arm] Sitting 02 Sat by Pulse Oximetry 96 96 97 Oxygen Delivery Method Room Air Room Air 08/12/23 12:54 Temperature 98.3 F Temperature Source Oral Pulse Rate 80 Pulse Rate [Radial] Respiratory Rate 18 Blood Pressure 108/76 L Blood Pressure [Right Arm] Blood Pressure Mean Blood Pressure Mean [Right Arm] Blood Pressure Source Automatic Cuff Blood Pressure Source [Right Arm] Blood Pressure Position Sitting Blood Pressure Position [Right Arm] 02 Sat by Pulse Oximetry Oxygen Delivery Method Room Air Lab Data Lab results reviewed: Yes I reviewed the patient's lab results. Lab Results 08/12/23 11:10: SARS-CoV-2 (PCR) Not detected, Influenza A Untype (PCR) Not detected, Influenza Type B (PCR) Not detected, Group A Strep Rapid Negative Orders (Tests/Meds): ED MEDICATIONS Discontinued Medications Generic Name Dose Route Start Last Admin Trade Name Freq PRN Reason Stop Dose Admin Acetaminophen 1,000 mg 08/12/23 11:27 08/12/23 11:35 Acetaminophen 500mg Tab PO 08/12/23 11:28 1,000 mg ONCE ONE Administration Dexamethasone Sodium Phosphate 10 mg 08/12/23 11:27 08/12/23 11:35 Dexamethasone 4mg/Ml 1ml Vial IM 08/12/23 11:28 10 mg ONCE ONE Administration Ibuprofen 800 mg 08/12/23 11:27 08/12/23 11:35 Ibuprofen 400 Mg Tablet PO 08/12/23 11:28 800 mg ONCE ONE Administration Tetracycl/Hydrocort/Nystatin/Diphen 15 ml 08/12/23 11:27 08/12/23 11:34 Magic Mouthwash 300ml Bottle PO 08/12/23 11:28 15 ml ONCE ONE Administration ORDERS Category Date Time Status XR soft tissue neck Stat Exams 08/12/23 11:31 Completed Rapid PCR Covid and Flu A/B Stat Lab 08/12/23 11:10 Completed Strep Scrn Group A (Rapid) Stat Lab 08/12/23 11:10 Completed Strep Screen Confirmation Stat Micro 08/12/23 11:10 Received Medical Decision Narrative: In summary, this patient is a 62-year-old male presenting to the Emergency Department for evaluation of sore throat and difficulty swallowing secondary to pain. Differential diagnoses considered include but are not limited to viral pharyngitis, bacterial pharyngitis, laryngitis, peritonsillar abscess, retropharyngeal abscess. Ruling out the most morbid conditions drove assessment. It should be noted patient's history includes hypertension, hyperlipidemia, CAD, diabetes, bipolar disorder, and recent admission for sepsis which are reportedly currently at goal therapy. This complicates all aspects of care by increasing patient's risk for morbidity. I reviewed patient's past medical records and noted his recent admission as per HPI. On exam, the patient is very well-appearing with normal vital signs on cardiac telemetry. He has no neck swelling, lymphadenopathy, or tenderness. He has intact range of motion of his neck with no meningismus. No stridor or other concerns. He is tolerating his secretions well without drooling and has no posterior pharyngeal swelling most notable on exam, uvular deviation, or other concerns. Voice is normal and is not hoarse or muffled. Given this, doubt significant abscess or life-threatening pharyngeal pathology at this time. Workup included strep swab, viral swab, and 2 view neck soft tissue x-ray. Patient was given oral Magic mouthwash, IM dexamethasone, and oral Tylenol and ibuprofen for symptomatic improvement. I independently interpreted x-ray prior to the radiologist read and noted no obvious swelling. Please see their read for final interpretation. Labs were obtained that demonstrated negative strep swab and negative COVID/flu swab. On reassessment, patient had great improvement after administration of interventions above. He is resting comfortably with no increased work of breathing. He is tolerating oral intake without difficulty. Radiology recommended CT scan for further evaluation, however given that the patient has very mild symptoms of pharyngitis which has significantly improved and he has no evidence of swelling or inability to tolerate his secretions or oral intake, I do not feel that further workup is indicated at this time. I gave the patient instructions for supportive management as well as strict return precautions. He was discharged in stable condition after all questions were answered. Critical Care Critical Care Time Critical Care Time: No
[2023-08-12 11:33] LABS: Coronavirus 19, PCR Not Detected (NotDetected); Influenza A, PCR Not Detected (NotDetected); Influenza B, PCR Not Detected (NotDetected)
[2023-08-12] MEDS: MAGIC MOUTHWASH 300ML BOTTLE 15 ML PO (11:34)
[2023-08-12] MEDS: IBUPROFEN 400 MG TABLET 800 MG PO (11:35)
[2023-08-12] MEDS: ACETAMINOPHEN 500MG TAB 1000 MG PO (11:35)
[2023-08-12] MEDS: DEXAMETHASONE 4MG/ML 1ML VIAL 10 MG IM (11:35)
--- NOTE | 2023-08-12 11:37 | PC.NURSE ---
Pt ambulating to CT at this time
--- NOTE | 2023-08-12 11:37 | PC.NURSE ---
PT TO XR
--- NOTE | 2023-08-12 11:44 | PC.NURSE ---
PT RETURNED FROM XR
[2023-08-12 11:51] LABS: Strep Scrn Group A (Rapid) Negative (Negative)
[2023-08-12 12:54] VITALS: BP 108/76; PULSE 80; RESP 18; TEMP 36.8; O2SAT 98
== END 2023-08-12 12:58 | disposition home or self-care (01) ==
PROVIDERS: Emergency Provider Emergency Medicine; PCP Family Medicine
DX: J02.9 Acute pharyngitis, unspecified (principal); R05.9 Cough, unspecified
CPT/HCPCS: 70360; 87430; 87636; 96372; 99283; J1100

== ENCOUNTER 2023-08-31 18:56 | Emergency (ER) | payer OTHER, SELFPAY ==
[2023-08-31] VITALS (7 sets, daily range): BP systolic 131–156; BP diastolic 81–99; PULSE 86–95; RESP 16; TEMP 36.9–37; O2SAT 97–99; BMI 31.8
--- NOTE | 2023-08-31 19:04 | ED_ITS ---
Discharge Plan Disposition Patient Disposition: Home, Self-Care Condition: Good Prescriptions Prescriptions: No Action tamsulosin 0.4 mg capsule,extended release 24hr 0.4 mg PO DAILY metformin 1,000 mg tablet 1,000 mg PO BID oxybutynin chloride 15 mg tablet extended release 24hr 15 mg PO DAILY ezetimibe 10 mg tablet 10 mg PO DAILY venlafaxine 150 mg tablet extended release 24hr 150 mg PO DAILY Qty: 90 0RF Jardiance 25 mg tablet 25 mg PO DAILY meloxicam 7.5 mg tablet See Rx Instructions .ROUTE .COMPLEX Qty: 60 1RF Dose Instruction: TAKE 1 TABLET BY MOUTH TWICE DAILY FOR PAIN Rx Instructions: TAKE 1 TABLET BY MOUTH TWICE DAILY FOR PAIN omeprazole 40 MG capsule,delayed release(DR/EC) 40 mg PO DAILY ropinirole 1 mg tablet 1 mg PO DAILY oxycodone 5 mg tablet 10 mg PO QIDP PRN (Reason: Moderate Pain (Scale Score 5-6)) furosemide 40 mg tablet 40 mg PO DAILY diphenhydramine HCl 50 mg capsule 50 mg PO QIDP PRN (Reason: Allergy Symptoms) quetiapine 100 mg tablet 200 mg PO HS doxycycline hyclate 100 mg capsule 100 mg PO BID 10 Days Qty: 20 0RF amoxicillin-pot clavulanate 875-125 mg tablet 1 tab PO Q12H 10 Days Qty: 20 0RF acyclovir 400 mg tablet 400 mg PO QID 10 Days Qty: 40 0RF aspirin 81 MG tablet,chewable 81 mg PO DAILY venlafaxine [Effexor XR] 75 mg capsule,extended release 24hr 75 mg PO DAILY Rx Instructions: 75 mg PO take daily with 150mg capsule; total dose is 225mg daily ergocalciferol (vitamin D2) [Vitamin D2] 1,250 mcg (50,000 unit) capsule 50,000 mcg PO WEEKLY Referrals Follow up/Referrals: Zurdo Masters MD [Primary Care Provider] - See instructions Activity Restrictions/Add. Instructions Additional Instructions/Restrictions: Take Tylenol alternating with Motrin every 4 hours as needed for pain. If your pain persist please follow-up with your PCP for reevaluation or return to ER as needed Clinical Impressions Clinical Impression: Acute chest wall pain, Acute pain of left shoulder Discharge ED Provider: Don Lyman General Adult HPI <ANAI Nam - Last Filed: 08/31/23 21:30> General Chief complaint: Fall Stated complaint: AO07 fall rib pain, LT shoulder pain Time Seen by Provider: 08/31/23 19:04 History of Present Illness HPI narrative: Patient presents for evaluation after a fall down stairs. Patient was walking upstairs and when he got to the top he fell striking his right chest wall his left shoulder and his neck. Patient reports significant pain of his right chest wall and left humerus pain and pain in his C-spine. He denies loss of consciousness. He was able to ambulate immediately after. Patient presented immediately after the accident. He denies chest pain shortness of breath fever chills hemoptysis hematochezia melena nausea vomiting diarrhea loss of vision severe headache. Related Data Home Medications Medication Instructions Recorded Confirmed aspirin 81 mg chewable tablet 81 mg PO DAILY 06/15/17 07/23/23 tamsulosin 0.4 mg capsule 0.4 mg PO DAILY 06/20/17 07/24/23 empagliflozin 25 mg tablet 25 mg PO DAILY 08/27/18 07/24/23 (Jardiance) metformin 1,000 mg tablet 1,000 mg PO BID 03/26/19 07/24/23 oxybutynin chloride 15 mg 15 mg PO DAILY 03/26/19 07/24/23 tablet,extended release 24 hr omeprazole 40 mg capsule,delayed 40 mg PO DAILY 11/13/20 07/24/23 release ezetimibe 10 mg tablet 10 mg PO DAILY 05/26/22 07/24/23 ergocalciferol (vitamin D2) 1,250 50,000 mcg PO WEEKLY 07/19/23 07/24/23 mcg (50,000 unit) capsule (Vitamin D2) venlafaxine 75 mg capsule,extended 75 mg PO DAILY 07/19/23 07/24/23 release 24 hr (Effexor XR) oxycodone 5 mg tablet 10 mg PO QIDP PRN Moderate Pain 07/23/23 07/24/23 (Scale Score 5-6) ropinirole 1 mg tablet 1 mg PO DAILY 07/23/23 07/24/23 diphenhydramine HCl 50 mg capsule 50 mg PO QIDP PRN Allergy Symptoms 07/24/23 07/24/23 furosemide 40 mg tablet 40 mg PO DAILY 07/24/23 07/24/23 quetiapine 100 mg tablet 200 mg PO HS 07/24/23 07/24/23 Previous Rx's Medication Instructions Recorded venlafaxine 150 mg tablet,extended 150 mg PO DAILY Depression #90 tabs 06/02/23 release 24 hr acyclovir 400 mg tablet 400 mg PO QID 10 days #40 tabs 07/28/23 amoxicillin 875 mg-potassium 1 tab PO Q12H 10 days #20 tabs 07/28/23 clavulanate 125 mg tablet doxycycline hyclate 100 mg capsule 100 mg PO BID 10 days #20 caps 07/28/23 meloxicam 7.5 mg tablet See Rx Instructions .Route 08/21/23 .COMPLEX #60 tabs Allergies Allergy/AdvReac Type Severity Reaction Status Date / Time sulfamethoxazole Allergy Intermediate Verified 07/23/23 13:45 [From Bactrim] trimethoprim [From Bactrim] Allergy Intermediate Verified 07/23/23 13:45 atorvastatin Allergy Mild myalgias Verified 07/23/23 13:45 rosuvastatin [From Crestor] Allergy Mild myaglias Verified 07/23/23 13:45 simvastatin [From Zocor] Allergy Mild myalgias Verified 07/23/23 13:45 fexofenadine [From YEFRI] Allergy Unknown UNKNOWN Verified 07/23/23 13:45 naproxen [NAPROXEN] Allergy Unknown HAND Verified 07/23/23 13:45 SWELLING PFSH <ANAI Nam - Last Filed: 08/31/23 21:30> [facility] Disclaimer: The information contained in this section may have been updated after the patient was seen, as this information can be updated by other users. Medical History Diabetes mellitus CAD (coronary artery disease) BPH (benign prostatic hyperplasia) RLS (restless legs syndrome) Chest pain HLD (hyperlipidemia) HTN (hypertension) Kidney stones Depression Insomnia Generalized anxiety disorder Bipolar II disorder Social History Smoking Status: Never smoker second hand exposure: No alcohol intake: never substance use type: denies use current occupational status: unemployed Travel in the last 8 weeks: Inside the [place] household members: spouse housing: house current occupational exposures/hazards: No caffeine: Yes <ANAI Nam - Last Filed: 08/31/23 21:30> ROS Obtained: Yes Systems reviewed as appropriate & no additional complaints except as documented Physical Exam <ANAI Nam - Last Filed: 08/31/23 21:30> General General appearance: alert and in no apparent distress Head Head exam: atraumatic and normal inspection Eye Eye exam: Present normal appearance and EOMI ENT ENT exam: Present normal exam and normal oropharynx Neck Neck exam: Present normal inspection, full ROM and tenderness (Tender to palpation in the midline of the C-spine) Chest Chest inspection: Present normal inspection, symmetric chest wall rise and tenderness (Tender to palpation in the lateral right chest wall but no obvious deformity contusions or abrasions.) Respiratory Respiratory exam: Present normal lung sounds bilaterally; Absent respiratory distress or wheezes Cardiovascular Cardiovascular exam: Present regular rate, normal rhythm and normal heart sounds Extremities Exam Extremities exam: Present normal inspection, full ROM and tenderness (Tenderness to palpation in the proximal humerus but no obvious bony deformity. Patient has pain with range of motion of the shoulder and the humerus.) Back Exam Back exam: Present normal inspection and full ROM; Absent tenderness Neurological Exam Neurological exam: Present alert and oriented X3 Medical Decision Making <ANAI Nam - Last Filed: 08/31/23 21:30> Medical Records Medical records reviewed: Yes I reviewed the patient's medical records. Jose Inquiry Pt receiving controlled substance: No Vital Signs: 08/31/23 19:04 08/31/23 19:43 08/31/23 20:00 Temperature 98.6 F Temperature Source Oral Pulse Rate 91 H 90 Pulse Rate [Left Radial] 95 H Respiratory Rate 16 Blood Pressure 156/91 H 142/83 H Blood Pressure [Right Arm] 137/99 H Blood Pressure Mean 93 Blood Pressure Mean [Right Arm] 111 02 Sat by Pulse Oximetry 97 97 98 Oxygen Delivery Method Room Air Room Air 08/31/23 20:30 08/31/23 21:00 08/31/23 21:31 Temperature Temperature Source Pulse Rate 95 H 86 87 Pulse Rate [Left Radial] Respiratory Rate Blood Pressure 147/94 H 138/91 H 131/81 Blood Pressure [Right Arm] Blood Pressure Mean 105 Blood Pressure Mean [Right Arm] 02 Sat by Pulse Oximetry 99 97 97 Oxygen Delivery Method Room Air 08/31/23 21:54 Temperature 98.4 F Temperature Source Oral Pulse Rate 88 Pulse Rate [Left Radial] Respiratory Rate 16 Blood Pressure 131/84 Blood Pressure [Right Arm] Blood Pressure Mean Blood Pressure Mean [Right Arm] 02 Sat by Pulse Oximetry Oxygen Delivery Method Room Air Orders (Tests/Meds): ED MEDICATIONS Discontinued Medications Generic Name Dose Route Start Last Admin Trade Name Frank PRN Reason Stop Dose Admin Acetaminophen 1,000 mg 08/31/23 19:10 08/31/23 19:17 Acetaminophen 500mg Tab PO 08/31/23 19:11 1,000 mg ONCE ONE Administration ORDERS Category Date Time Status CT cervical spine wo con Stat Cat Scan 08/31/23 19:[address] chest wo con Stat Cat Scan 08/31/23 19:[address] head/brain wo con Stat Cat Scan 08/31/23 19:08 Completed Humerus XR left [XR humerus LT] Stat Exams 08/31/23 19:08 Completed Shoulder XR left minimum 2 views [XR shoulder LT min 2V Exams 08/31/23 19:08 Completed ] Stat Medical Decision Narrative: In summary patient is a 62-year-old male who presents to the emergency department for evaluation of of a fall with right chest wall pain and left proximal humerus pain. Patient is hemodynamically stable upon arrival, febrile. Physical exam is remarkable for tenderness to palpation of the right lateral chest wall but no obvious ecchymosis bony deformity breath sounds are clear and equal bilaterally. Patient also has pain to palpation in the proximal humerus but no palpable bony deformity noted. Patient is neurovascular intact distally. Patient also has pain to palpation in the midline C-spine without bony deformity. Patient has full range of motion of the C-spine in all cardinal directions of greater than 45 degrees.. Differential diagnosis includes contusion versus fracture of the shoulder/humerus, contusion versus fracture of the right lateral ribs, pulmonary contusion, C-spine injury, closed head injury etc. Initial workup will be conducted with CT scan of the head, chest and C- spine and plain film x-rays of the left shoulder and humerus. Initial interventions include acetaminophen Motrin. Initial workup reviewed by me and his plain film x-rays informally interpreted by myself show no acute fracture and his CT scans also showed no acute fracture informally interpreted by me. Upon repeat evaluation still has range of motion but painful but better after initial intervention. Given this appropriate for discharge with strict return precautions <Don Lyman MD - Last Filed: 08/31/23 23:07> Vital Signs: 08/31/23 19:04 08/31/23 19:43 08/31/23 20:00 Temperature 98.6 F Temperature Source Oral Pulse Rate 91 H 90 Pulse Rate [Left Radial] 95 H Respiratory Rate 16 Blood Pressure 156/91 H 142/83 H Blood Pressure [Right Arm] 137/99 H Blood Pressure Mean 93 Blood Pressure Mean [Right Arm] 111 02 Sat by Pulse Oximetry 97 97 98 Oxygen Delivery Method Room Air Room Air 08/31/23 20:30 08/31/23 21:00 08/31/23 21:31 Temperature Temperature Source Pulse Rate 95 H 86 87 Pulse Rate [Left Radial] Respiratory Rate Blood Pressure 147/94 H 138/91 H 131/81 Blood Pressure [Right Arm] Blood Pressure Mean 105 Blood Pressure Mean [Right Arm] 02 Sat by Pulse Oximetry 99 97 97 Oxygen Delivery Method Room Air 08/31/23 21:54 Temperature 98.4 F Temperature Source Oral Pulse Rate 88 Pulse Rate [Left Radial] Respiratory Rate 16 Blood Pressure 131/84 Blood Pressure [Right Arm] Blood Pressure Mean Blood Pressure Mean [Right Arm] 02 Sat by Pulse Oximetry Oxygen Delivery Method Room Air Orders (Tests/Meds): ED MEDICATIONS Discontinued Medications Generic Name Dose Route Start Last Admin Trade Name Freq PRN Reason Stop Dose Admin Acetaminophen 1,000 mg 08/31/23 19:10 08/31/23 19:17 Acetaminophen 500mg Tab PO 08/31/23 19:11 1,000 mg ONCE ONE Administration ORDERS Category Date Time Status CT cervical spine wo con Stat Cat Scan 08/31/23 19:[address] chest wo con Stat Cat Scan 08/31/23 19:[address] head/brain wo con Stat Cat Scan 08/31/23 19:08 Completed Humerus XR left [XR humerus LT] Stat Exams 08/31/23 19:08 Completed Shoulder XR left minimum 2 views [XR shoulder LT min 2V Exams 08/31/23 19:08 Completed ] Stat Medical Decision Narrative: In summary patient is a 62-year-old male who presents to the emergency department for evaluation of of a fall with right chest wall pain and left proximal humerus pain. Patient is hemodynamically stable upon arrival, febrile. Physical exam is remarkable for tenderness to palpation of the right lateral chest wall but no obvious ecchymosis bony deformity breath sounds are clear and equal bilaterally. Patient also has pain to palpation in the proximal humerus but no palpable bony deformity noted. Patient is neurovascular intact distally. Patient also has pain to palpation in the midline C-spine without bony deformity. Patient has full range of motion of the C-spine in all cardinal di rections of greater than 45 degrees.. Differential diagnosis includes contusion versus fracture of the shoulder/humerus, contusion versus fracture of the right lateral ribs, pulmonary contusion, C-spine injury, closed head injury etc. Initial workup will be conducted with CT scan of the head, chest and C-spine and plain film x-rays of the left shoulder and humerus. Initial interventions include acetaminophen Motrin. Initial workup reviewed by me and his plain film x-rays informally interpreted by myself show no acute fracture and his CT scans also showed no acute fracture informally interpreted by me. Upon repeat evaluation still has range of motion but painful but better after initial intervention. Given this appropriate for discharge with strict return precautions I was consulted by the HARDIK, and we discussed the complexity of the problems being addressed. I approved the treatment and management plan for this patient?s care in the Emergency Department, thus performing a substantive portion of the medical decision making. Don Lyman MD Critical Care <ANAI Nam - Last Filed: 08/31/23 21:30> Critical Care Time Critical Care Time: No
--- NOTE | 2023-08-31 19:08 | XR_ITS ---
PROCEDURE INFORMATION: Exam: XR Left Humerus Exam date and time: 08/31/2023 7:33 PM Age: 62 years old Clinical indication: Pain; Upper arm; Left; Additional info: Fall down stairs TECHNIQUE: Imaging protocol: Radiologic exam of the left humerus. Views: 2 or more views. COMPARISON: CR XR HUMERUS LT 08/31/2023 7:33 PM FINDINGS: Bones/joints: No acute fracture. Soft tissues: There is no evidence for soft tissue swelling. IMPRESSION: No evidence for acute fracture.
--- NOTE | 2023-08-31 19:08 | CT_ITS ---
PROCEDURE INFORMATION: Exam: CT Chest Without Contrast; Diagnostic Exam date and time: 08/31/2023 7:35 PM Age: 62 years old Clinical indication: Injury or trauma; Fall; Other: Shoulder, chest pain; Additional info: Fall right chest wall pain TECHNIQUE: Imaging protocol: Diagnostic computed tomography of the chest without contrast. Radiation optimization: All CT scans at this facility use at least one of these dose optimization techniques: automated exposure control; mA and/or kV adjustment per patient size (includes targeted exams where dose is matched to clinical indication); or iterative reconstruction. COMPARISON: CT ANGIO CHEST 07/23/2023 8:46 AM FINDINGS: Lungs: No acute infiltrates. Pleural spaces: No pneumothorax. Heart: See Vasculature finding. Coronary arteries: Three-vessel coronary artery calcifications. Lymph nodes: There are a few sub cm calcified mediastinal and hilar lymph nodes consistent with old granulomatous disease. Vasculature: The mediastinal structures including the esophagus, trachea, great vessels, and heart show no evidence of injury or acute pathologic processes. Liver: Partially visualized changes of cirrhosis. Spleen: Partially visualized splenomegaly. Bones/joints: Unremarkable. No acute fracture. Soft tissues: Unremarkable. IMPRESSION: 1. No acute abnormalities are identified. 2. Partially visualized changes of cirrhosis. 3. Partially visualized splenomegaly.
--- NOTE | 2023-08-31 19:08 | XR_ITS ---
PROCEDURE INFORMATION: Exam: XR Left Shoulder Exam date and time: 08/31/2023 7:33 PM Age: 62 years old Clinical indication: Pain; Shoulder; Left; Additional info: Fall down stairs TECHNIQUE: Imaging protocol: Radiologic exam of the left shoulder. Views: 2 or more views. COMPARISON: CR XR SHOULDER LT MIN 2V 08/31/2023 7:33 PM FINDINGS: Bones/joints: No acute fracture. Soft tissues: Normal. IMPRESSION: No evidence for acute fracture.
--- NOTE | 2023-08-31 19:08 | CT_ITS ---
PROCEDURE INFORMATION: Exam: CT Cervical Spine Without Contrast Exam date and time: 08/31/2023 7:33 PM Age: 62 years old Clinical indication: Injury or trauma; Fall; Other: Fell off porch; Additional info: Fall downstairs TECHNIQUE: Imaging protocol: Computed tomography of the cervical spine without contrast. Radiation optimization: All CT scans at this facility use at least one of these dose optimization techniques: automated exposure control; mA and/or kV adjustment per patient size (includes targeted exams where dose is matched to clinical indication); or iterative reconstruction. COMPARISON: [employer]/O MRI-C-SPINE W/O 11/09/2016 12:02 PM FINDINGS: Bones: Bulky anterior bridging and non bridging osteophytes noted at C4 through C7. Relative preservation of the disc space is noted. Posterior disc disease noted at C5-C6 and C6-C7. Bilateral neural foraminal narrowing, [id number], noted at C5-C6 and C6-C7. Severe central canal stenosis noted at C6-C7. No acute fracture or dislocation. Lungs: Lung apices are normal. Soft tissues: Unremarkable. IMPRESSION: 1. No acute fracture 2. Multilevel degenerative changes in the lower cervical spine with central canal stenosis or neural foraminal narrowing ranging from [id number] 3. Probable diffuse idiopathic skeletal hyperostosis
--- NOTE | 2023-08-31 19:08 | CT_ITS ---
PROCEDURE INFORMATION: Exam: CT Head Without Contrast Exam date and time: 08/31/2023 7:30 PM Age: 62 years old Clinical indication: Injury or trauma; Fall TECHNIQUE: Imaging protocol: Computed tomography of the head without contrast. Radiation optimization: All CT scans at this facility use at least one of these dose optimization techniques: automated exposure control; mA and/or kV adjustment per patient size (includes targeted exams where dose is matched to clinical indication); or iterative reconstruction. COMPARISON: CT HEAD/BRAIN WO CON 08/31/2023 7:30 PM FINDINGS: Brain: There is no acute hemorrhage or obvious acute infarct. Cortical volume loss noted. Scattered hypodensities noted in the bilateral periventricular and deep white matter. Atherosclerosis noted in the bilateral cavernous carotid and vertebral arteries. Cerebral ventricles: No ventriculomegaly. Paranasal sinuses: Visualized sinuses are unremarkable. No fluid levels. Mastoid air cells: Visualized mastoid air cells are well aerated. Bones: Unremarkable. No acute fracture. Soft tissues: Unremarkable. IMPRESSION: 1. No acute intracranial disease or hemorrhage. 2. No obvious acute infarct. Please note if the patient's symptoms do not improve, or worsen, consider MRI with diffusion imaging. 3. Chronic deep white matter ischemic and senescent changes noted. Please see above.
[2023-08-31] MEDS: ACETAMINOPHEN 500MG TAB 1000 MG PO (19:17)
--- NOTE | 2023-08-31 20:05 | PC.NURSE ---
rounded on patient, drinks given to him and his visitor
--- NOTE | 2023-08-31 20:56 | PC.NURSE ---
iNno Johnson PA-C asking to check with xray reads. I called mickey Sahu and she states the xrays are assigned but not ion reading mode yet. She will chat with [facility] and let us know. Tre Johnson made aware of this.
== END 2023-08-31 21:57 | disposition home or self-care (01) ==
PROVIDERS: Emergency Provider Emergency Medicine; PCP Family Medicine
DX: R07.89 Other chest pain (principal); M25.512 Pain in left shoulder; W10.8XXA Fall (on) (from) other stairs and steps, initial encounter
CPT/HCPCS: 70450; 71250; 72125; 73030; 73060; 99285

== ENCOUNTER 2023-09-18 12:48 | Outpatient (RCR) | payer OTHER, SELFPAY | END 2023-09-18 12:50 | disposition home or self-care (01) | LOC: PT 12:48 | PROVIDERS: Visit Provider Family Medicine | DX: M25.512 Pain in left shoulder (principal); S40.012D Contusion of left shoulder, subsequent encounter; R29.6 Repeated falls; Z74.09 Other reduced mobility | CPT/HCPCS: 97016; 97035; 97163 ==

== ENCOUNTER → 2024-01-09 08:55 | Outpatient (CLI) | payer OTHER, SELFPAY | LOC: SL 08:56 | PROVIDERS: PCP Specialist; Visit Provider Specialist | DX: G47.30 Sleep apnea, unspecified (principal); R53.83 Other fatigue; R06.83 Snoring | CPT/HCPCS: G0399 ==

== ENCOUNTER 2024-01-09 12:36 | Outpatient (CLI) | payer OTHER, SELFPAY ==
--- NOTE | 2024-01-09 12:41 | XR_ITS ---
FINAL REPORT CLINICAL HISTORY: left shoulder pain COMPARISON: 08/31/2023 FINDINGS: 2 views of the left shoulder were obtained. There is no fracture or dislocation. The humeral head is high riding. Rotator cuff injury is not excluded. Degenerative joint disease is noted. Soft tissues are unremarkable. IMPRESSION: High riding humeral head, rotator cuff injury not excluded. Reviewed, Interpreted and Dictated by Sheree Kapoor MD Transcribed by Karlene Menjivar Authenticated and [facility]
== END 2024-01-09 23:59 | disposition home or self-care (01) ==
LOC: RAD 12:39
PROVIDERS: PCP Family Medicine; Visit Provider Specialist
DX: M25.512 Pain in left shoulder (principal)
CPT/HCPCS: 73030

== ENCOUNTER 2024-01-29 13:44 | Outpatient (CLI) | payer OTHER, SELFPAY ==
--- NOTE | 2024-01-29 13:44 | MR_ITS ---
FINAL REPORT TECHNIQUE: Multiplanar MR without contrast CLINICAL HISTORY: Left Shoulder Pain FINDINGS: Marrow signal: Unremarkable Glenohumeral joint: Moderate joint effusion. Moderate degenerative changes. AC joint: Advanced arthropathy with mild rotator cuff impingement. Rotator cuff: Complete tear of the supraspinatus tendon with tendon retraction. Near complete tear of the infraspinatus tendon. Subscapularis tendon intact. Labrum: Frayed appearance of the superior labrum compatible with labral degeneration and tear. Anterior and posterior labrum intact. Biceps tendon: Intra-articular long head biceps tendon intact. IMPRESSION: 1. Complete tear of the supraspinatus tendon with tendon retraction. 2. Near complete tear of the infraspinatus tendon. 3. Moderate degenerative changes with advanced AC joint arthropathy and mild rotator cuff impingement. 4. Frayed appearance of the superior labrum compatible with labral degeneration and tear. Reviewed, Interpreted and Dictated by Solange Plaza MD Transcribed by Harmony Craig Authenticated and [facility]
== END 2024-01-29 23:59 | disposition home or self-care (01) ==
LOC: RAD 13:44
PROVIDERS: PCP Family Medicine; Visit Provider Physician Assistant
DX: M25.512 Pain in left shoulder (principal); M67.912 Unspecified disorder of synovium and tendon, left shoulder
CPT/HCPCS: 73221

== ENCOUNTER 2024-02-12 15:15 | Emergency (ER) | payer OTHER, SELFPAY ==
[2024-02-12 16:05] VITALS: BP 130/80; PULSE 87; RESP 20; TEMP 37.3; O2SAT 98; BMI 34.0
--- NOTE | 2024-02-12 16:27 | EXP.UTC ---
Discharge Plan Disposition Patient Disposition: Home, Self-Care Condition: Good Prescriptions Prescriptions: New doxycycline hyclate 100 mg capsule 100 mg PO BID Qty: 20 0RF benzonatate 100 mg capsule 100 mg PO TID PRN (Reason: cough) Qty: 30 0RF No Action tamsulosin 0.4 mg capsule,extended release 24hr 0.4 mg PO DAILY metformin 1,000 mg tablet 1,000 mg PO BID oxybutynin chloride 15 mg tablet extended release 24hr 15 mg PO DAILY ezetimibe 10 mg tablet 10 mg PO DAILY omeprazole 20 mg capsule,delayed release(DR/EC) 20 mg feeding tube DAILY Ozempic 0.25 mg or 0.5 mg (2 mg/3 mL) pen injector SQ Jardiance 25 mg tablet 25 mg PO DAILY venlafaxine 75 mg capsule,extended release 24hr See Rx Instructions .ROUTE .COMPLEX Qty: 90 0RF Dose Instruction: TAKE 1 CAPSULE BY MOUTH ONCE DAILY (TAKE DAILY WITH 150MG CAPSULE; TOTAL DOSE IS 225MG DAILY) Rx Instructions: TAKE 1 CAPSULE BY MOUTH ONCE DAILY (TAKE DAILY WITH 150MG CAPSULE; TOTAL DOSE IS 225MG DAILY) meloxicam 7.5 mg tablet See Rx Instructions .ROUTE .COMPLEX Qty: 60 1RF Dose Instruction: TAKE 1 TABLET BY MOUTH TWICE DAILY FOR PAIN Rx Instructions: TAKE 1 TABLET BY MOUTH TWICE DAILY FOR PAIN venlafaxine 150 mg capsule,extended release 24hr 150 mg PO DAILY 90 Days Qty: 90 0RF quetiapine 100 mg tablet See Rx Instructions .ROUTE .COMPLEX Qty: 60 0RF Dose Instruction: TAKE 2 TABLETS BY MOUTH AT BEDTIME NIGHTLY Rx Instructions: TAKE 2 TABLETS BY MOUTH AT BEDTIME NIGHTLY ropinirole 1 mg tablet 1 mg PO DAILY oxycodone 5 mg tablet 10 mg PO QIDP PRN (Reason: Moderate Pain (Scale Score 5-6)) furosemide 40 mg tablet 40 mg PO DAILY diphenhydramine HCl 50 mg capsule 50 mg PO QIDP PRN (Reason: Allergy Symptoms) aspirin 81 MG tablet,chewable 81 mg PO DAILY ergocalciferol (vitamin D2) [Vitamin D2] 1,250 mcg (50,000 unit) capsule 50,000 mcg PO WEEKLY Referrals Follow up/Referrals: Zurdo Masters MD [Primary Care Provider] - See instructions Activity Restrictions/Add. Instructions Additional Instructions/Restrictions: Start antibiotic today. Be sure to complete entire prescription even if feeling better Monitor temp. Tylenol every 4 hours as needed and / or ibuprofen every 6 hours as needed ( As long as your primary care physician has told you that it ok to take both. For fever/aches/pains ER if no less than 101 despite Tylenol or Motrin Humidifier/vaporizer or hot steamy shower *Tessalon Perles will not cause drowsiness but use at bedtime to help stop cough so that you may get some rest. Follow up IMMEDIATELY for new or worsening of symptoms OR no noticeable improvement over the next 48-72 hours. 911 immediately for any life threatening symptoms such as chest pain or difficulty breathing Clinical Impressions Clinical Impression: Sinusitis, Bronchitis Instructions Patient Instructions: DI for Sinusitis, Acute Bronchitis Print Language Print Language: Maori Discharge ED Provider: Minnie Haynes [facility] [place] [facility] [place] General Stated complaint: cough,hoarse,body aches Mode of Arrival: Ambulatory Source of Information: Patient Limitations: No Limitations Time Seen by Provider: 02/12/24 16:27 Description of Symptoms (Recalled from Triage Doc. by RN): PATIENT C/O COUGH AND BODY ACHES X 5 DAYS HEENT Symptoms (Recalled from RN notes): No Resp Symptoms (Recalled from RN notes): Yes Skin Symptoms (Recalled from RN notes): No MS Symptoms (Recalled from RN notes): No Functional Status (Recalled from RN notes): WNL History of Present Illness Provider Complaint: Patient states that he has been exposed to walking pneumonia and now having symptoms States that he has been having body aches, cough and chest congestion States not had a fever yet but has had chills Related Data Home Medications ?Medication ?Instructions ?Recorded ?Confirmed aspirin 81 mg chewable tablet 81 mg PO DAILY 06/15/17 01/09/24 tamsulosin 0.4 mg capsule 0.4 mg PO DAILY 06/20/17 01/09/24 empagliflozin 25 mg tablet 25 mg PO DAILY 08/27/18 01/09/24 (Jardiance) metformin 1,000 mg tablet 1,000 mg PO BID 03/26/19 01/09/24 oxybutynin chloride 15 mg 15 mg PO DAILY 03/26/19 01/09/24 tablet,extended release 24 hr ezetimibe 10 mg tablet 10 mg PO DAILY 05/26/22 01/09/24 ergocalciferol (vitamin D2) 1,250 50,000 mcg PO WEEKLY 07/19/23 01/09/24 mcg (50,000 unit) capsule (Vitamin D2) oxycodone 5 mg tablet 10 mg PO QIDP PRN Moderate Pain 07/23/23 01/09/24 (Scale Score 5-6) ropinirole 1 mg tablet 1 mg PO DAILY 07/23/23 01/09/24 diphenhydramine HCl 50 mg capsule 50 mg PO QIDP PRN Allergy Symptoms 07/24/23 01/09/24 furosemide 40 mg tablet 40 mg PO DAILY 07/24/23 01/09/24 omeprazole 20 mg capsule,delayed 20 mg feeding tube DAILY 11/29/23 01/09/24 release semaglutide 0.25 mg or 0.5 mg (2 mg SQ 11/29/23 01/09/24 mg/3 mL) subcutaneous pen injector (Ozempic) Previous Rx's ?Medication ?Instructions ?Recorded venlafaxine 75 mg capsule,extended See Rx Instructions .Route 10/12/23 release 24 hr .COMPLEX #90 caps meloxicam 7.5 mg tablet See Rx Instructions .Route 11/02/23 .COMPLEX #60 tabs venlafaxine 150 mg 150 mg PO DAILY 90 days #90 caps 11/29/23 capsule,extended release 24 hr quetiapine 100 mg tablet See Rx Instructions .Route 01/22/24 .COMPLEX #60 tabs benzonatate 100 mg capsule 100 mg PO TID PRN cough #30 caps 02/12/24 doxycycline hyclate 100 mg capsule 100 mg PO BID #20 caps 02/12/24 Allergies Allergy/AdvReac Type Severity Reaction Status Date / Time sulfamethoxazole (From Allergy Intermediate Verified 01/09/24 14:15 Bactrim) trimethoprim (From Bactrim) Allergy Intermediate Verified 01/09/24 14:15 atorvastatin Allergy Mild myalgias Verified 01/09/24 14:15 rosuvastatin (From Crestor) Allergy Mild myaglias Verified 01/09/24 14:15 simvastatin (From Zocor) Allergy Mild myalgias Verified 01/09/24 14:15 fexofenadine (From YEFRI) Allergy Unknown UNKNOWN Verified 01/09/24 14:15 naproxen (NAPROXEN) Allergy Unknown HAND Verified 01/09/24 14:15 SWELLING Worker's Comp Is this a Worker's Comp case?: No [facility] Disclaimer: The information contained in this section may have been updated after the patient was seen, as this information can be updated by other users. Medical History Fatigue Sleep disorder breathing History of kidney stones Diabetes mellitus CAD (coronary artery disease) BPH (benign prostatic hyperplasia) RLS (restless legs syndrome) Chest pain HLD (hyperlipidemia) HTN (hypertension) Kidney stones Depression Insomnia Generalized anxiety disorder Bipolar II disorder Surgical History History of vasectomy History of rotator cuff surgery History of heart artery stent History of carpal tunnel surgery History of ankle surgery Family History Other Cancer Coronary artery disease Diabetes Heart attack Hyperlipidemia Hypertension Stroke Social History Smoking Status: Never smoker second hand exposure: No alcohol intake: former substance use type: denies use current occupational status: unemployed and disabled Travel in the last 8 weeks: None household members: spouse housing: other details: mobile home marital status: number of children: 2 current occupational exposures/hazards: No caffeine: Yes Have you lived/traveled outside [place] in past 30 days?: No Contact w/someone who lives/traveled outside [place] past 30 days?: No Exposure to someone with infectious disease in past 14 days?: Yes Do you have a fever (greater than 100.4 F or 38 C)?: No Have you tested positive for COVID-19: No Exposed to someone with COVID-19 in past 14 days?: No Do you have a sore throat?: No Do you have a cough?: Yes Do you have any weakness?: Yes Do you have any diarrhea?: No Are you experiencing any unusual bleeding?: No Do you have any muscle aches/pain?: Yes Do you have any abdominal pain?: No Are you experiencing loss of taste or smell?: No ROS Obtained: Yes All systems reviewed & no additional complaints except as documented and Yes Systems reviewed as appropriate & no additional complaints except as documented Constitutional Constitutional: Reports system reviewed and no additional complaints, except as documented, Reports as per HPI, Reports body ache and Reports chills ENT Ears, Nose, Mouth, and Throat: Reports system reviewed and no additional complaints, except as documented, Reports as per HPI, Reports sinus pain and Reports sinus pressure Cardiovascular Cardiovascular: Reports system reviewed and no additional complaints, except as documented and Reports as per HPI Respiratory Respiratory: Reports system reviewed and no additional complaints, except as documented, Reports as per HPI, Denies shortness of breath, Reports chest congestion, Reports cough and Denies wheezing Gastrointestinal Gastrointestingal: Reports system reviewed and no additional complaints, except as documented and as per HPI Allergic/Immunologic Allergic/Immunologic: Denies wheezing Physical Exam General General appearance: alert and in no apparent distress ENT ENT exam: Present mucous membranes moist Expanded ENT Exam Nose exam: Present sinus tenderness Throat exam: Present other (PND noted) Chest Chest inspection: Present normal inspection and symmetric chest wall rise Respiratory Respiratory exam: Present normal lung sounds bilaterally; Absent respiratory distress or wheezes Cardiovascular Cardiovascular exam: Present regular rate, normal rhythm and normal heart sounds Abdominal Exam Abdominal exam: Present soft and normal bowel sounds; Absent distention or tenderness Neurological Exam Neurological exam: Present alert, oriented X3 and normal gait Medical Decision Making Medical Records Screening: Per USPSTF and CDC recommendations, given the prevalence of disease in our region, it is our hospital?s policy to screen for HIV and viral Hepatitis for all patients aged 18 and over and those with ongoing risk factors. Jose Inquiry Pt receiving controlled substance: No Jose was queried for this patient: No Vital Signs: 02/12/24 16:05 Temperature 99.2 F Temperature Source Oral Pulse Rate [Right Brachial] 87 Respiratory Rate 20 Blood Pressure [Right Arm] 130/80 Blood Pressure Mean [Right Arm] 96 Blood Pressure Source [Right Arm] Automatic Cuff Blood Pressure Position [Right Arm] Sitting 02 Sat by Pulse Oximetry 98 Oxygen Delivery Method Room Air Medical Decision Narrative: Discussed CXR and lab testing and he declined
[2024-02-12 16:30] VITALS: BP 130/80; PULSE 87; RESP 20; TEMP 37.3; O2SAT 98
== END 2024-02-12 16:40 | disposition home or self-care (01) ==
PROVIDERS: Emergency Provider Nurse Practitioner; PCP Family Medicine
DX: J32.9 Chronic sinusitis, unspecified (principal); J40 Bronchitis, not specified as acute or chronic; R05.9 Cough, unspecified; R49.9 Unspecified voice and resonance disorder; M79.10 Myalgia, unspecified site; R07.89 Other chest pain; Z20.828 Contact with and (suspected) exposure to other viral communicable diseases
CPT/HCPCS: 99212; G0381

== ENCOUNTER 2024-04-12 09:31 | Outpatient (CLI) | payer OTHER, SELFPAY ==
[2024-04-12 10:06] VITALS: BMI 34.0
[2024-04-12 10:15] LABS: Basophils % 0.5 % (0.1-2.0); Eosinophils # 0.2 K/mm3 (0.0-0.4); Eosinophils % 2.3 % (0.1-12.0); Hematocrit 40.1 % (42.0-52.0); Hemoglobin 13.4 g/dL (14.1-18.0); Lymphocytes # 2.9 K/mm3 (0.7-4.5); Lymphocytes % 38.8 % (10-50); Mean Corpuscular HGB Conc 33.4 g/dL (31.8-35.4); Mean Corpuscular Volume 83.7 fl (80-94); Mean Platelet Volume 10.2 fl (7.4-10.4); Monocytes # 0.5 K/mm3 (0.1-1.0); Monocytes % 6.8 % (1.7-9.3); Neutrophils # 3.8 K/mm3 (1.8-7.8); Neutrophils % 51.2 % (37.0-80.0); Platelet Count 147 K/mm3 (142-424); Red Blood Count 4.79 M/mm3 (4.60-6.20); Red Cell Distribution Width 13.7 % (11.5-17.5); White Blood Count 7.4 K/mm3 (4.8-10.8)
[2024-04-12 10:26] LABS: Blood Urea Nitrogen 22 mg/dl (9-20); Calcium 9.4 mg/dl (8.4-10.2); Carbon Dioxide 20 mmol/L (22.0-30.0); Chloride 105 mmol/L (98-107); Creatinine Clearance Estimated 113 mL/min (50-200); Estimated Glomerular Filt Rate 114 ml/min (>60); GFR (African American) 138 ML/MIN (>60); Glucose 220 mg/dl (74-100); Sodium 136 mmol/L (136-145)
[2024-04-12 11:38] LABS: Anion Gap 15.2 mEq/L (5-15); Potassium 4.2 mmoL/L (3.5-5.1)
== END 2024-04-12 23:59 | disposition home or self-care (01) ==
LOC: PREOP 09:32
PROVIDERS: Nurse Anesthetist, Certified Registered; PCP Family Medicine; Visit Provider Orthopaedic Surgery
DX: Z01.812 Encounter for preprocedural laboratory examination (principal)
CPT/HCPCS: 80048; 85025

== ENCOUNTER 2024-04-17 06:11 | Day surgery (SDC) | payer OTHER, SELFPAY ==
[2024-04-12 10:17] VITALS: BMI 34.0
[2024-04-17] VITALS (10 sets, daily range): BP systolic 108–184; BP diastolic 72–89; PULSE 76–97; RESP 12–18; TEMP 36.2–36.8; O2SAT 86–96
[2024-04-17] MEDS: LACTATED RINGERS 1000ML 1,000 ML 100 ML IV (06:26)
[2024-04-17 06:44] LABS: POC Glucose,Bedside 134 (70-110)
--- NOTE | 2024-04-17 07:14 | P.PNANES_ITS ---
[facility] Disclaimer: The information contained in this section may have been updated after the patient was seen, as this information can be updated by other users. Medical History Pre-op exam Fatigue Sleep disorder breathing History of kidney stones Diabetes mellitus CAD (coronary artery disease) BPH (benign prostatic hyperplasia) RLS (restless legs syndrome) Chest pain HLD (hyperlipidemia) HTN (hypertension) Kidney stones Depression Insomnia Generalized anxiety disorder Bipolar II disorder Surgical History History of lithotripsy History of vasectomy History of rotator cuff surgery History of heart artery stent History of carpal tunnel surgery History of ankle surgery Family History Other Cancer Coronary artery disease Diabetes Heart attack Hyperlipidemia Hypertension Stroke Social History Smoking Status: Never smoker second hand exposure: No alcohol intake: never substance use type: denies use current occupational status: unemployed and disabled Travel in the last 8 weeks: None household members: spouse housing: other details: mobile home marital status: number of children: 2 current occupational exposures/hazards: No caffeine: Yes Have you lived/traveled outside US in past 30 days?: No Contact w/someone who lives/traveled outside US past 30 days?: No Exposure to someone with infectious disease in past 14 days?: No Do you have a fever (greater than 100.4 F or 38 C)?: No Have you tested positive for COVID-19: No Exposed to someone with COVID-19 in past 14 days?: No Do you have a sore throat?: No Do you have a cough?: No Do you have any weakness?: No Do you have any diarrhea?: No Are you experiencing any unusual bleeding?: No Do you have any muscle aches/pain?: No Do you have any abdominal pain?: No Are you experiencing loss of taste or smell?: No [facility] Anesthesia Checklist Patient Identification Patient Identification: Arm Band and Family Structural Data Admitted From: Home Planned Operative Procedure/s: RCR Consent for Planned Operative Procedure(s) Verified: Yes Verified Documents: Surgical Consent and History and Physical NPO Status Verified Time NPO: 00:00 Additional verifications Patient : No Anesthesia Reactions: No Hx Blood Transfusions: No Blood Transfusion Reaction: No Cephalosporin Allergy: No Previous Colonoscopy: No Airway Assessment Mallampati Score:: Class II C-Spine Mobility Assessed: Yes TMJ Mobility Assessed: Yes Dentition: Edentulous Neurological Assessment Level of Consciousness: Awake, Alert, Appropriate and Follows Commands Hx Seizures: No Numbness or tingling in extremities: No Anesthesia Plan Anesthesia Risk discussed: Yes ASA Class: II Anesthesia Type: General w/block Preoperative Comments Pre-Operative Comments: NIDDM, hEPATITIS AT AGE 19.
[2024-04-17] MEDS: CEFAZOLIN SODIUM 2 GM in 0.9 % SODIUM CHLORIDE 100 ML IV (07:30)
[2024-04-17] MEDS: RINGERS LACTATED 25 ML IR (08:11)
[2024-04-17] MEDS: EPINEPHrine 1MG/ML 30ML VIAL 30 MG (08:11)
--- NOTE | 2024-04-17 09:18 | P.OP_ITS ---
Date of procedure: 04/17/24 Pre-op Diagnosis:: Left shoulder rotator cuff tear Left shoulder impingement Left shoulder AC arthritis Left shoulder labral tear Post-op Diagnosis:: Left shoulder full-thickness tear supraspinatus infraspinatus Left shoulder impingement with subacromial bursitis Left shoulder AC arthritis Left shoulder degenerative labral tear Left shoulder frayed tear superior surface subscapularis Procedure performed:: 1. Left shoulder arthroscopy with rotator cuff repair 2. Left shoulder arthroscopy with subacromial decompression 3. Left shoulder arthroscopy with extensive debridement subscapularis subacromial bursa and anterior labrum Surgeon:: Ministerio Olivia DO Slitter Operator(s):: Mukesh [employer] SUPERVISOR:: Jake Santiago Anesthesia: GETA and regional Estimated blood loss (mL): 0 Operative findings:: As above see dictation Operative note:: Patient identified preoperatively. Left shoulder marked with yes and my initials. Transported operative suite after undergoing a regional block with anesthesia. Placed upon operating bed general anesthesia was administered airway secured. Once airway was secured patient was placed in a lateral position with a beanbag with all bony prominences well-padded and an axillary roll placed. Beanbag was inflated and the left arm was held within the arthroscopy arm sanders for the lateral positioner. Left shoulder was then prepped and draped in normal sterile fashion. Once prepped and draped final operative timeout performed to identify proper patient procedure and extremity. Everyone involved in the case agreed. There is no counter indications to beginning. Did receive preoperative antibiotics. Marking pen was used to jose miguel the bony landmarks of the shoulder and standard portal sites. Skin knife was used incise standard posterior viewing portal and blunt with trocar was placed in the glenohumeral joint. This was exchanged with a camera. I moved directly anteriorly just above the subscapularis tendon where the anterior working portal was made and exchanged with a purple cannula. Then placed the sucker shaver and probe into the glenohumeral joint. Evaluation of glenohumeral joint showed some fraying of the cartilage of the glenoid and the anterior inferior aspect. Some mild softening of the glenoid cartilage and humeral cartilage. There was degenerative tearing and fraying of the anterior labrum and superior labrum. But not a full detached tear. Debridement was performed with the sucker shaver electrocautery for the anterior labrum. Active stable rim. The biceps tendon was intact and attached to the superior labrum. Attention was then brought into the subacromial space. Cannulas were removed and replaced into the subacromial space posterior and anterior portals and then a lateral portal was made under direct visualization with the help of a spinal needle. And then the passport cannula was placed laterally. There was evidence of full-thickness rotator cuff tear present. Large supraspinatus tear with some slight retraction. Rotator cuff grasper was utilized to mobilize the tendon and placed it back to the footprint. I was able to mobilize the tendon and retracted back to the footprint. So decision was made for rotator cuff repair. First barrel bur was placed and subacromial decompression was performed of along with debridement of the subacromial bursa. Once subacromial decompression was complete the scorpion needle sanders was utilized for repair of the rotator cuff fiber tape was placed through the graft and then brought to a 4.75 mm swivel lock which gave good repair of the rotator cuff this was repeated for additional anchor this gave good repair and reduce the rotator cuff back to the footprint. Pictures were taken posteriorly and over the lateral portal to confirm reduction of the rotator cuff and closure of the hole. Cameras removed the joint was drained skin closed with nylon stitch sterile dressing placed patient placed in abduction pillow and sling taken recovery stable condition. Condition: stable Disposition: PACU Complications:: None apparent
--- NOTE | 2024-04-17 09:34 | P.PNANES_ITS ---
[facility] Anesthesia Record Part I Anesthesia Record I Intake, IV Amount: 1,000 Hydration: Adequate Estimated blood loss (mL): 0 Urine output (mL): 0 Blood Products used (#): none Blood Pressure: 108/76 SaO2: 93 Pulse Rate: 97 Airway Patency: Patent Respiratory Rate: 12 Temperature: 97.1 F Patient is:: Drowsy and Stable Stable to PACU at:: 09:24
--- NOTE | 2024-04-17 15:00 | P.PNANES_ITS ---
[facility] Anesthesia Record Part II Anesthesia Record Part II Discharge Time: 10:00 Destination: Surgical Day Care (OP Surgery) PACU nurse assessment reviewed?: Yes Patient Condition:: Good Anesthesia Complications:: None Swallowing reflex intact?: Yes Airway Patency: Patent Cyanosis?: No Blood Pressure: 144/72 SaO2: 93 Respiratory Rate: 14 Pulse Rate: 88 Temperature: 98.2 F Mental Status: Alert & Oriented Pain level:: 0 Nausea and/or vomitting:: None Intake, IV Amount: 0 Hydration: Adequate
== END 2024-04-17 10:30 | disposition home or self-care (01) ==
PROVIDERS: PCP Family Medicine; Visit Provider Orthopaedic Surgery
PROC: (CPT 29805; principal; 2024-04-17 07:30)
DX: M75.122 Complete rotator cuff tear or rupture of left shoulder, not specified as traumatic (principal); M75.42 Impingement syndrome of left shoulder; M19.012 Primary osteoarthritis, left shoulder; S43.402A Unspecified sprain of left shoulder joint, initial encounter; S46.812A Strain of other muscles, fascia and tendons at shoulder and upper arm level, left arm, initial encounter
CPT/HCPCS: 29823; 29826; 29827; 82962; 96374; J3490; C1713; J0171; J0690; J1100; J2405; J3010; J7120

== ENCOUNTER 2024-05-27 18:06 | Inpatient (IN) | payer OTHER, SELFPAY ==
[2024-05-27 18:10] VITALS: BP 183/100; PULSE 102; RESP 18; TEMP 37.1; O2SAT 100; BMI 34.7
[2024-05-27 18:29] LABS: Microscopic, Urine URINE MICROSCOPIC (MICROSCOPIC)
[2024-05-27 19:13] LABS: Appearance,Urine CLEAR (Clear); Bilirubin,Urine Negative (Negative); Blood, Urine Negative (Negative); Color,Urine YELLOW (Yellow); Glucose,Urine (UA) 3+ (Negative); Ketones,Urine Negative (Negative); Leukocyte Esterase,Urine Negative (Negative); Nitrate,Urine Negative (Negative); Protein,Urine 1+ (Negative); Urobilinogen,Urine 0.2 EU/dl (0.2)
[2024-05-27 19:16] VITALS: BP 156/97; PULSE 115; O2SAT 97
--- NOTE | 2024-05-27 19:49 | HMH.EDGENADL ---
Discharge Plan Disposition Patient Disposition: Admitted Chief Complaint: Abdominal Pain Prescriptions Prescriptions: No Action tamsulosin 0.4 mg capsule,extended release 24hr 0.4 mg PO DAILY metformin 1,000 mg tablet 1,000 mg PO BID oxybutynin chloride 15 mg tablet extended release 24hr 15 mg PO DAILY ezetimibe 10 mg tablet 10 mg PO DAILY omeprazole 20 mg capsule,delayed release(DR/EC) 20 mg PO DAILY quetiapine 100 mg tablet See Rx Instructions .ROUTE .COMPLEX Qty: 60 2RF Dose Instruction: TAKE 2 TABLETS BY MOUTH AT BEDTIME NIGHTLY Rx Instructions: TAKE 2 TABLETS BY MOUTH AT BEDTIME NIGHTLY venlafaxine 75 mg capsule,extended release 24hr See Rx Instructions .ROUTE .COMPLEX Qty: 90 0RF Dose Instruction: TAKE 1 CAPSULE BY MOUTH ONCE DAILY (TAKE DAILY WITH 150MG CAPSULE; TOTAL DOSE IS 225MG DAILY) Rx Instructions: TAKE 1 CAPSULE BY MOUTH ONCE DAILY (TAKE DAILY WITH 150MG CAPSULE; TOTAL DOSE IS 225MG DAILY) venlafaxine 150 mg capsule,extended release 24hr 150 mg PO DAILY 90 Days Qty: 90 0RF Jardiance 25 mg tablet 25 mg PO DAILY cholecalciferol (vitamin D3) 25 mcg (1,000 unit) capsule 25 mcg PO DAILY meloxicam 7.5 mg tablet See Rx Instructions .ROUTE .COMPLEX Qty: 60 3RF Dose Instruction: TAKE 1 TABLET BY MOUTH TWICE DAILY FOR PAIN TAKE WITH FOOD Rx Instructions: TAKE 1 TABLET BY MOUTH TWICE DAILY FOR PAIN TAKE WITH FOOD ropinirole 1 mg tablet 1 mg PO DAILY oxycodone 5 mg tablet 10 mg PO QIDP PRN (Reason: Moderate Pain (Scale Score 5-6)) furosemide 40 mg tablet 40 mg PO DAILY ibuprofen 800 mg tablet 800 mg PO Q6H PRN (Reason: pain) Qty: 90 0RF aspirin 81 MG tablet,chewable 81 mg PO DAILY Referrals Follow up/Referrals: Zurdo Masters MD [Primary Care Provider] - See instructions Clinical Impressions Clinical Impression: SBO (small bowel obstruction), Dehydration, moderate, MIKEY (acute kidney injury), Hyperbilirubinemia Instructions Patient Instructions: DI for Acute Abdominal Pain Print Language Print Language: [place] Discharge ED Provider: Mamie Pedroza General Adult HPI <ANAI Nma - Last Filed: 05/27/24 21:55> General Chief complaint: Abdominal Pain Stated complaint: Stomach pain,nausea,muscles cramping Time Seen by Provider: 05/27/24 19:41 Mode of Arrival: Ambulatory Source of Information: Patient Description of Symptoms (Recalled from ER Triage Doc. by RN): Pt presents for evaluation of abdominal pain that started suddenly yesterday morning. Pt states he has had nausea and severe abdominal cramping History of Present Illness HPI narrative: Patient presents for evaluation of abdominal pain nausea vomiting diarrhea. Patient states his symptoms began suddenly yesterday morning and he has had multiple episodes of watery stool. He denies any hemoptysis hematochezia melena. He is able to tolerate some oral intake but is actually vomited on arrival here. He has never had any abdominal surgeries but does have a past medical history of morbid obesity, type 2 diabetes mellitus BPH bipolar disorder obstructive sleep apnea coronary artery disease as well as hypertension hyperlipidemia. He denies any fever chills hemoptysis shortness of breath or chest pain. Related Data Home Medications ?Medication ?Instructions ?Recorded ?Confirmed aspirin 81 mg chewable tablet 81 mg PO DAILY 06/15/17 04/18/24 tamsulosin 0.4 mg capsule 0.4 mg PO DAILY 06/20/17 04/18/24 empagliflozin 25 mg tablet 25 mg PO DAILY 08/27/18 04/18/24 (Jardiance) metformin 1,000 mg tablet 1,000 mg PO BID 03/26/19 04/18/24 oxybutynin chloride 15 mg 15 mg PO DAILY 03/26/19 04/18/24 tablet,extended release 24 hr ezetimibe 10 mg tablet 10 mg PO DAILY 05/26/22 04/18/24 oxycodone 5 mg tablet 10 mg PO QIDP PRN Moderate Pain 07/23/23 04/18/24 (Scale Score 5-6) ropinirole 1 mg tablet 1 mg PO DAILY 07/23/23 04/18/24 furosemide 40 mg tablet 40 mg PO DAILY 07/24/23 04/18/24 cholecalciferol (vitamin D3) 25 25 mcg PO DAILY 04/15/24 04/18/24 mcg (1,000 unit) capsule omeprazole 20 mg capsule,delayed 20 mg PO DAILY 04/15/24 04/18/24 release Previous Rx's ?Medication ?Instructions ?Recorded meloxicam 7.5 mg tablet See Rx Instructions .Route 03/21/24 .COMPLEX #60 tabs quetiapine 100 mg tablet See Rx Instructions .Route 04/12/24 .COMPLEX #60 tabs venlafaxine 150 mg 150 mg PO DAILY 90 days #90 caps 04/12/24 capsule,extended release 24 hr venlafaxine 75 mg capsule,extended See Rx Instructions .Route 04/12/24 release 24 hr .COMPLEX #90 caps ibuprofen 800 mg tablet 800 mg PO Q6H PRN pain #90 tabs 04/17/24 Allergies Allergy/AdvReac Type Severity Reaction Status Date / Time sulfamethoxazole (From Allergy Intermediate Other Verified 04/17/24 06:31 Bactrim) trimethoprim (From Bactrim) Allergy Intermediate Other Verified 04/17/24 06:31 atorvastatin Allergy Mild myalgias Verified 04/17/24 06:31 rosuvastatin (From Crestor) Allergy Mild myaglias Verified 04/17/24 06:31 simvastatin (From Zocor) Allergy Mild myalgias Verified 04/17/24 06:31 fexofenadine (From YEFRI) Allergy Unknown UNKNOWN Verified 04/17/24 06:31 naproxen (NAPROXEN) Allergy Unknown HAND Verified 04/17/24 06:31 [facility]LLING [facility] <ANAI Nam - Last Filed: 05/27/24 21:55> [facility] Disclaimer: The information contained in this section may have been updated after the patient was seen, as this information can be updated by other users. Medical History Pre-op exam Fatigue Sleep disorder breathing History of kidney stones Diabetes mellitus CAD (coronary artery disease) BPH (benign prostatic hyperplasia) RLS (restless legs syndrome) Chest pain HLD (hyperlipidemia) HTN (hypertension) Kidney stones Depression Insomnia Generalized anxiety disorder Bipolar II disorder Surgical History History of lithotripsy History of vasectomy History of rotator cuff surgery History of heart artery stent History of carpal tunnel surgery History of ankle surgery Family History Other Cancer Coronary artery disease Diabetes Heart attack Hyperlipidemia Hypertension Stroke Social History Smoking Status: Never smoker second hand exposure: No alcohol intake: never substance use type: denies use current occupational status: unemployed and disabled Travel in the last 8 weeks: None household members: spouse housing: other details: mobile home marital status: number of children: 2 current occupational exposures/hazards: No caffeine: Yes Have you lived/traveled outside [place] in past 30 days?: No Contact w/someone who lives/traveled outside US past 30 days?: No Exposure to someone with infectious disease in past 14 days?: No Do you have a fever (greater than 100.4 F or 38 C)?: No Have you tested positive for COVID-19: No Exposed to someone with COVID-19 in past 14 days?: No Do you have a sore throat?: No Do you have a cough?: No Do you have any weakness?: No Do you have any diarrhea?: No Are you experiencing any unusual bleeding?: No Do you have any muscle aches/pain?: No Do you have any abdominal pain?: No Are you experiencing loss of taste or smell?: No Other Medical History Have you received the Flu Vaccine for this season: No Have you received the Pneumonia Vaccine: No <ANAI Nam - Last Filed: 05/27/24 21:55> ROS Obtained: Yes Systems reviewed as appropriate & no additional complaints except as documented Physical Exam <AANI Nam - Last Filed: 05/27/24 21:55> General General appearance: alert and in no apparent distress Respiratory Respiratory exam: Present normal lung sounds bilaterally and accessory muscle use Cardiovascular Cardiovascular exam: Present regular rate Neurological Exam Neurological exam: Present alert and oriented X3 Medical Decision Making <ANAI Nam - Last Filed: 05/27/24 21:55> Medical Records Medical records reviewed: Yes I reviewed the patient's medical records. Screening: Per USPSTF and CDC recommendations, given the prevalence of disease in our region, it is our hospital?s policy to screen for HIV and viral Hepatitis for all patients aged 18 and over and those with ongoing risk factors. Jose Inquiry Pt receiving controlled substance: No Vital Signs: 05/27/24 18:10 05/27/24 19:16 Temperature 98.7 F Temperature Source Oral Pulse Rate 115 H Pulse Rate [Right] 102 H Respiratory Rate 18 Blood Pressure 156/97 H Blood Pressure [Right Arm] 183/100 H Blood Pressure Mean [Right Arm] 127 Blood Pressure Source [Right Arm] Automatic Cuff Blood Pressure Position [Right Arm] Sitting 02 Sat by Pulse Oximetry 100 97 Lab Data Lab results reviewed: Yes I reviewed the patient's lab results. Lab Results 05/27/24 18:26: Urine Color Yellow, Urine Appearance Clear, Urine pH 6.0, Ur Specific [place] 1.020, Urine Protein 1+ A, Urine Glucose (UA) 3+, Urine Ketones Negative, Urine Blood Negative, Urine Nitrate Negative, Urine Bilirubin Negative, Urine Urobilinogen 0.2, Ur Leukocyte Esterase Negative, Urine RBC Occasional, Urine WBC None, Ur Squamous Epith Cells None, Urine Bacteria None 05/27/24 20:12: WBC 19.3 H, RBC 5.81, Hgb 16.6, Hct 48.3, MCV 83.1, MCH 28.6, MCHC 34.4, RDW 14.6, Plt Count 350, MPV 10.4, Neut % (Auto) 70.9, Lymph % (Auto) 21.4, Bibb % (Auto) 6.3, Eos % (Auto) 0.5, Baso % (Auto) 0.3, Neut # (Auto) 13.7 H, Lymph # (Auto) 4.1, Bibb # (Auto) 1.2 H, Eos # (Auto) 0.1, Baso # (Auto) 0.1, Total Counted 100, Neutrophils % (Manual) 80 H, Lymphocytes % (Manual) 17, Monocytes % (Manual) 3, Platelet Estimate Normal, RBC Morphology Normal, Sodium 141, Potassium 5.5 H, Chloride 106, Carbon Dioxide 10 L, Anion Gap 30.5 H, BUN 25 H, Creatinine 1.40 H, Estimated Creat Clear 82, Estimated GFR 51 L, Est GFR ( Amer) 62, Glucose 246 H, Calcium 10.5 H, Magnesium 2.4 H, Total Bilirubin 1.7 H, AST 121 H, ALT 96 H, Alkaline Phosphatase 128 H, Total Protein 11.0 H D, Albumin 5.8 H, Globulin 5.2 H, Albumin/Globulin Ratio 1.1, Lipase 134, Procalcitonin 0.278, Acetone Level None detected 05/27/24 20:42: VBG pH 7.40, VBG pCO2 21.8 L, VBG pO2 77.9 H, VBG HCO3 13.1 L, VBG Total CO2 13.8 L, VBG O2 Saturation 95.2 H, VBG Base Excess -11.7 L, VBG Lactic Acid 5.7 H 05/27/24 20:12 05/27/24 20:12 Orders (Tests/Meds): ED MEDICATIONS Generic Name Dose Route Start Last Admin Trade Name Frank PRN Reason Stop Dose Admin Sodium Chloride 2,120 mls @ 1,060 mls/hr 05/27/24 21:36 05/27/24 22:22 Sod Chlor 0.9% 1000ml Bag 30 ml/kg infuse over 2 hr (2120 ml) 05/27/24 23:35 1,060 mls/hr IV Administration .Q2H ONE Piperacillin Sod/Tazobactam 50 mls @ 100 mls/hr 05/27/24 21:45 05/27/24 22:10 Sod 3.375 gm/ Sodium Chloride IV 06/06/24 21:44 100 mls/hr Q6H SJ Administration Sodium Chloride 10 ml 05/27/24 20:57 05/27/24 20:57 Sodium Chloride 0.9% 10ml Syr (Rad Only) IV 06/26/24 20:56 10 ml NEEDED PRN Administration Maintain IV Site Discontinued Medications Generic Name Dose Route Start Last Admin Trade Name Frank PRN Reason Stop Dose Admin Acetaminophen 1,000 mg 05/27/24 19:53 05/27/24 20:00 Acetaminophen 1,000mg/100ml Vial IV 05/27/24 19:54 1,000 mg ONCE ONE Administration Sodium Chloride 1,000 mls @ 999 mls/hr 05/27/24 19:53 05/27/24 20:01 Sod Chlor 0.9% 1000ml Bag IV 05/27/24 20:53 999 mls/hr .Q1H1M ONE Administration Iopamidol 75 ml 05/27/24 20:57 05/27/24 20:57 Iopamidol-370 (76%);100ml Bottle IV 05/27/24 20:58 75 ml ONCE ONE Administration Morphine Sulfate 4 mg 05/27/24 22:10 05/27/24 22:26 Morphine 4mg/Ml Syringe IV 05/27/24 22:11 4 mg ONCE ONE Administration Ondansetron HCl 4 mg 05/27/24 19:53 05/27/24 20:01 Ondansetron 4mg/2ml Vial IV 05/27/24 19:54 4 mg ONCE ONE Administration Ondansetron HCl 4 mg 05/27/24 22:10 05/27/24 22:26 Ondansetron 4mg/2ml Vial IV 05/27/24 22:11 4 mg ONCE ONE Administration ORDERS Category Date Time Status CT angio abdomen pelvis Stat Cat Scan 05/27/24 20:47 Completed KUB (single view) [XR KUB] Stat Exams 05/27/24 22:31 Ordered Acetone, Serum (Rapid) Stat Lab 05/27/24 20:12 Completed CBC w/Auto Diff [Complete Blood Count Auto Diff] Stat Lab 05/27/24 20:12 Completed CMP [Comprehensive Metabolic Panel] Stat Lab 05/27/24 20:12 Completed Diarrhea 23 Panel, PCR Stat Lab 05/27/24 20:04 Received Lactate Venous Stat Lab 05/27/24 20:41 Ordered Lipase Stat Lab 05/27/24 20:12 Completed Magnesium Stat Lab 05/27/24 20:12 Completed Procalcitonin Stat Lab 05/27/24 20:12 Completed Urinalysis and Microscopic Stat Lab 05/27/24 18:26 Completed Blood Culture Stat Micro 05/27/24 22:28 Received Venous Blood Gas Stat RT 05/27/24 20:42 Completed Tissue Perfus/Sepsis Re-Eval Sepsis Re-Evaluation Performed: Yes Date Performed: 05/27/24 Time Performed: 21:51 Medical Decision Narrative: In summary patient is a 63-year-old gentleman who presents to the emergency department for evaluation of acute abdominal pain nausea vomiting diarrhea. Patient is hypertensive with a blood pressure 183/100 tachycardic with a heart rate of 102 and sinus tachycardia the bedside monitor breathing 18 times a minute satting at 100% on room air upon arrival, afebrile at 98.7. Physical exam reveals distended but soft and diffusely tender abdomen there is no rebound or guarding or rigidity. Bowel sounds are hyperactive.. Differential diagnosis includes gastroenteritis versus diverticulitis versus pancreatitis versus colitis etc. Initial workup will be conducted with hematologic labs CT scan abdomen pelvis urinalysis. Initial interventions include crystalloid bolus Toradol Tylenol Zofran. Initial workup reviewed by me and his white count is elevated at 19.3 H&H normal neutrophil count is 13.7 VBG shows a pH of 7.4 pCO2 of 21 VBG lactic acid of 5.7 potassium is 5.5 CO2 is 10 anion gap is 30.5 BUN 25 creatinine 1.4 GFR 51 glucose of 246 calcium 10.5 mag 2.4 total bilirubin 1.7 AST is 121 ALT is 96 alk phos 128 lipase 134 procalcitonin 0.278 urinalysis is bland and his acetone level was negative. I did consider euglycemic DKA however in the absence of ketones that seems less likely even though the patient is on Jardiance given this patient's GORDON broadened sepsis bolus ordered Zosyn ordered blood cultures ordered. My informal interpretation of his CT scan abdomen pelvis shows dilated stomach and proximal small bowel with decompressed distal small bowel and colon with no evidence of intra-abdominal free fluid or air prior to radiology read.. Care transitioned to Dr. Pedroza at 2200 hrs. <Mamie Pedroza MD - Last Filed: 05/27/24 22:42> Vital Signs: 05/27/24 18:10 05/27/24 19:16 Temperature 98.7 F Temperature Source Oral Pulse Rate 115 H Pulse Rate [Right] 102 H Respiratory Rate 18 Blood Pressure 156/97 H Blood Pressure [Right Arm] 183/100 H Blood Pressure Mean [Right Arm] 127 Blood Pressure Source [Right Arm] Automatic Cuff Blood Pressure Position [Right Arm] Sitting 02 Sat by Pulse Oximetry 100 97 Lab Data Lab Results 05/27/24 18:26: Urine Color Yellow, Urine Appearance Clear, Urine pH 6.0, Ur Specific [place] 1.020, Urine Protein 1+ A, Urine Glucose (UA) 3+, Urine Ketones Negative, Urine Blood Negative, Urine Nitrate Negative, Urine Bilirubin Negative, Urine Urobilinogen 0.2, Ur Leukocyte Esterase Negative, Urine RBC Occasional, Urine WBC None, Ur Squamous Epith Cells None, Urine Bacteria None 05/27/24 20:12: WBC 19.3 H, RBC 5.81, Hgb 16.6, Hct 48.3, MCV 83.1, MCH 28.6, MCHC 34.4, RDW 14.6, Plt Count 350, MPV 10.4, Neut % (Auto) 70.9, Lymph % (Auto) 21.4, Bibb % (Auto) 6.3, Eos % (Auto) 0.5, Baso % (Auto) 0.3, Neut # (Auto) 13.7 H, Lymph # (Auto) 4.1, Bibb # (Auto) 1.2 H, Eos # (Auto) 0.1, Baso # (Auto) 0.1, Total Counted 100, Neutrophils % (Manual) 80 H, Lymphocytes % (Manual) 17, Monocytes % (Manual) 3, Platelet Estimate Normal, RBC Morphology Normal, Sodium 141, Potassium 5.5 H, Chloride 106, Carbon Dioxide 10 L, Anion Gap 30.5 H, BUN 25 H, Creatinine 1.40 H, Estimated Creat Clear 82, Estimated GFR 51 L, Est GFR ( Amer) 62, Glucose 246 H, Calcium 10.5 H, Magnesium 2.4 H, Total Bilirubin 1.7 H, AST 121 H, ALT 96 H, Alkaline Phosphatase 128 H, Total Protein 11.0 H D, Albumin 5.8 H, Globulin 5.2 H, Albumin/Globulin Ratio 1.1, Lipase 134, Procalcitonin 0.278, Acetone Level None detected 05/27/24 20:42: VBG pH 7.40, VBG pCO2 21.8 L, VBG pO2 77.9 H, VBG HCO3 13.1 L, VBG Total CO2 13.8 L, VBG O2 Saturation 95.2 H, VBG Base Excess -11.7 L, VBG Lactic Acid 5.7 H Orders (Tests/Meds): ED MEDICATIONS Generic Name Dose Route Start Last Admin Trade Name Freq PRN Reason Stop Dose Admin Sodium Chloride 2,120 mls @ 1,060 mls/hr 05/27/24 21:36 05/27/24 22:22 Sod Chlor 0.9% 1000ml Bag 30 ml/kg infuse over 2 hr (2120 ml) 05/27/24 23:35 1,060 mls/hr IV Administration .Q2H ONE Piperacillin Sod/Tazobactam 50 mls @ 100 mls/hr 05/27/24 21:45 05/27/24 22:10 Sod 3.375 gm/ Sodium Chloride IV 06/06/24 21:44 100 mls/hr Q6H SJ Administration Sodium Chloride 10 ml 05/27/24 20:57 05/27/24 20:57 Sodium Chloride 0.9% 10ml Syr (Rad Only) IV 06/26/24 20:56 10 ml NEEDED PRN Administration Maintain IV Site Discontinued Medications Generic Name Dose Route Start Last Admin Trade Name Frank PRN Reason Stop Dose Admin Acetaminophen 1,000 mg 05/27/24 19:53 05/27/24 20:00 Acetaminophen 1,000mg/100ml Vial IV 05/27/24 19:54 1,000 mg ONCE ONE Administration Sodium Chloride 1,000 mls @ 999 mls/hr 05/27/24 19:53 05/27/24 20:01 Sod Chlor 0.9% 1000ml Bag IV 05/27/24 20:53 999 mls/hr .Q1H1M ONE Administration Iopamidol 75 ml 05/27/24 20:57 05/27/24 20:57 Iopamidol-370 (76%);100ml Bottle IV 05/27/24 20:58 75 ml ONCE ONE Administration Morphine Sulfate 4 mg 05/27/24 22:10 05/27/24 22:26 Morphine 4mg/Ml Syringe IV 05/27/24 22:11 4 mg ONCE ONE Administration Ondansetron HCl 4 mg 05/27/24 19:53 05/27/24 20:01 Ondansetron 4mg/2ml Vial IV 05/27/24 19:54 4 mg ONCE ONE Administration Ondansetron HCl 4 mg 05/27/24 22:10 05/27/24 22:26 Ondansetron 4mg/2ml Vial IV 05/27/24 22:11 4 mg ONCE ONE Administration ORDERS Category Date Time Status CT angio abdomen pelvis Stat Cat Scan 05/27/24 20:47 Completed KUB (single view) [XR KUB] Stat Exams 05/27/24 22:31 Ordered Acetone, Serum (Rapid) Stat Lab 05/27/24 20:12 Completed CBC w/Auto Diff [Complete Blood Count Auto Diff] Stat Lab 05/27/24 20:12 Completed CMP [Comprehensive Metabolic Panel] Stat Lab 05/27/24 20:12 Completed Diarrhea 23 Panel, PCR Stat Lab 05/27/24 20:04 Received Lactate Venous Stat Lab 05/27/24 20:41 Ordered Lipase Stat Lab 05/27/24 20:12 Completed Magnesium Stat Lab 05/27/24 20:12 Completed Procalcitonin Stat Lab 05/27/24 20:12 Completed Urinalysis and Microscopic Stat Lab 05/27/24 18:26 Completed Blood Culture Stat Micro 05/27/24 22:28 Received Venous Blood Gas Stat RT 05/27/24 20:42 Completed Medical Decision Narrative: In summary patient is a 63-year-old gentleman who presents to the emergency department for evaluation of acute abdominal pain nausea vomiting diarrhea. Patient is hypertensive with a blood pressure 183/100 tachycardic with a heart rate of 102 and sinus tachycardia the bedside monitor breathing 18 times a minute satting at 100% on room air upon arrival, afebrile at 98.7. Physical exam reveals distended but soft and diffusely tender abdomen there is no rebound or guarding or rigidity. Bowel sounds are hyperactive.. Differential diagnosis includes gastroenteritis versus diverticulitis versus pancreatitis versus colitis etc. Initial workup will be conducted with hematologic labs CT scan abdomen pelvis urinalysis. Initial interventions include crystalloid bolus Toradol Tylenol Zofran. Initial workup reviewed by me and his white count is elevated at 19.3 H&H normal neutrophil count is 13.7 VBG shows a pH of 7.4 pCO2 of 21 VBG lactic acid of 5.7 potassium is 5.5 CO2 is 10 anion gap is 30.5 BUN 25 creatinine 1.4 GFR 51 glucose of 246 calcium 10.5 mag 2.4 total bilirubin 1.7 AST is 121 ALT is 96 alk phos 128 lipase 134 procalcitonin 0.278 urinalysis is bland and his acetone level was negative. I did consider euglycemic DKA however in the absence of ketones that seems less likely even though the patient is on Jardiance given this patient's GORDON broadened sepsis bolus ordered Zosyn ordered blood cultures ordered. My informal interpretation of his CT scan abdomen pelvis shows dilated stomach and proximal small bowel with decompressed distal small bowel and colon with no evidence of intra-abdominal free fluid or air prior to radiology read.. Care transitioned to Dr. Pedroza at [address] Pedroza at 10:[address] scan performed which I personally interpreted and also discussed with radiology this is consistent with a small bowel obstruction with a transition point there is a significant dilatation of the stomach with fluid and debris therefore an NG tube was placed to decompress this for possible nonoperative management. Patient was given IV fluids and aggressively resuscitated also was given a dose of Zosyn. Serial assessments patient is feeling significantly better remains hemodynamically stable. I discussed the case with Dr. Julian who is aware of this patient. He will be following along with hospital medicine whom I spoke to and they agreed to admit for further management and intervention. Critical Care <ANAI Nam - Last Filed: 05/27/24 21:55> Critical Care Time Critical Care Time: Yes Attestation: On 05/27/24, the high probability of a clinically significant, sudden or life threatening deterioration of the following system(s) required my full and direct attention, intervention and personal management. The time I documented below is in addition to time spent performing reported procedures but includes the following listed in this critical care notation. Total Time Total Critical Care Time: 35
[2024-05-27] MEDS: ACETAMINOPHEN 1,000MG/100ML VIAL 1000 MG IV (20:00)
[2024-05-27] MEDS: 0.9 % SODIUM CHLORIDE 1000ML 1,000 ML 999 ML IV (20:01)
[2024-05-27] MEDS: ONDANSETRON 4MG/2ML VIAL 4 MG IV ×2 (20:01→22:26)
[2024-05-27 20:26] LABS: Albumin Level 5.8 g/dl (3.5-5.0); Chloride 106 mmol/L (98-107); Sodium 141 mmol/L (136-145)
[2024-05-27 20:27] LABS: Potassium 5.5 mmoL/L (3.5-5.1)
[2024-05-27 20:29] LABS: Alanine Aminotransferase 96 U/L (12-78); Alkaline Phosphatase 128 U/L (38-126); Anion Gap 30.5 mEq/L (5-15); Aspartate Amino Transferase 121 U/L (17-59); Bilirubin,Total 1.7 mg/dl (0.2-1.3); Blood Urea Nitrogen 25 mg/dl (9-20); Creatinine Clearance Estimated 82 mL/min (50-200); Estimated Glomerular Filt Rate 51 ml/min (>60); GFR (African American) 62 ML/MIN (>60)
[2024-05-27 20:30] LABS: Calcium 10.5 mg/dl (8.4-10.2); Glucose 246 mg/dl (74-100)
[2024-05-27 20:40] LABS: Lipase 134 U/L (23-300); Magnesium 2.4 mg/dl (1.6-2.3)
[2024-05-27 20:41] LABS: Carbon Dioxide 10 mmol/L (22.0-30.0)
[2024-05-27 20:42] LABS: Albumin/Globulin Ratio 1.1 (1.1-1.8); Globulin 5.2 g/dL (1.3-3.2)
--- NOTE | 2024-05-27 20:47 | CT_ITS ---
PROCEDURE INFORMATION: Exam: CTA Abdomen and Pelvis With Contrast Exam date and time: 05/27/2024 8:54 PM Age: 63 years old Clinical indication: Abdominal pain; Acute; Additional info: Acute abdominal pain euglycemic dka TECHNIQUE: Imaging protocol: Computed tomographic angiography of the abdomen and pelvis with contrast. Exam focused on the arteries. 3D rendering (Not supervised by radiologist): MIP and/or 3D reconstructed images were created by the technologist. Radiation optimization: All CT scans at this facility use at least one of these dose optimization techniques: automated exposure control; mA and/or kV adjustment per patient size (includes targeted exams where dose is matched to clinical indication); or iterative reconstruction. Contrast material: ISOVUE; Contrast volume: 75 ml; Contrast route: INTRAVENOUS (IV); COMPARISON: CT ABDOMEN PELVIS W CON 07/19/2023 4:41 AM FINDINGS: Aorta: Mild calcific atherosclerotic disease is scattered throughout the abdominal aorta without aneurysmal dilatation. Celiac trunk and mesenteric arteries: No occlusion or significant stenosis. Renal arteries: No occlusion or significant stenosis. Right iliac arteries: No occlusion or significant stenosis. Left iliac arteries: No occlusion or significant stenosis. Liver: There is diffuse hypoattenuation of the liver compatible with moderate hepatic steatosis. Gallbladder and biliary ducts: Unremarkable. No calcified stones. No ductal dilation. Pancreas: Fatty infiltration of the pancreas is demonstrated without inflammatory changes. Spleen: Unremarkable. No splenomegaly. Adrenal glands: Unremarkable. No mass. Kidneys and ureters: Unremarkable. No solid mass. No hydronephrosis. Stomach and bowel: Dilated loops of bowel measuring up to 6.1 cm in diameter with transition point best seen on image 60 of series 1001 compatible with bowel obstruction. Appendix: No evidence of appendicitis. Intraperitoneal space: Unremarkable. No free air. No significant fluid collection. Lymph nodes: Unremarkable. No enlarged lymph nodes. Urinary bladder: Unremarkable. No mass. Reproductive: Unremarkable as visualized. Bones/joints: Moderate loss of intervertebral disc space with degenerative changes involving lower thoracic and lumbar spine. Soft tissues: Unremarkable. IMPRESSION: Dilated loops of bowel measuring up to 6.1 cm in diameter with transition point best seen on image 60 of series 1001 compatible with bowel obstruction. Recommend surgical consultation.
[2024-05-27 20:52] LABS: VBG Base Excess -11.7 mmol/L (-2.4-2.3); VBG HCO3 13.1 mmol/L (23-30); VBG Oxygen Saturation 95.2 % (50-70); VBG PO2 77.9 mmol/L (28-40); VBG Total CO2 13.8 mmol/L (23-27)
[2024-05-27 20:54] LABS: VBG PCO2 21.8 mmol/L (35-51)
[2024-05-27 20:56] LABS: Lactate Venous 5.7 mmol/L (0.4-2.0)
[2024-05-27] MEDS: IOPAMIDOL-370 (76%);100ML BOTTLE 75 ML IV (20:57)
[2024-05-27] MEDS: SODIUM CHLORIDE 0.9% 10ML SYR (RAD ONLY) 10 ML IV (20:57)
[2024-05-27 20:58] LABS: Procalcitonin 0.278 ng/mL (0.0-2.0)
[2024-05-27 21:02] LABS: Basophils # 0.1 K/mm3 (0-0.2); Basophils % 0.3 % (0.1-2.0); Eosinophils # 0.1 K/mm3 (0.0-0.4); Eosinophils % 0.5 % (0.1-12.0); Hematocrit 48.3 % (42.0-52.0); Hemoglobin 16.6 g/dL (14.1-18.0); Lymphocytes # 4.1 K/mm3 (0.7-4.5); Lymphocytes % 21.4 % (10-50); Mean Corpuscular HGB Conc 34.4 g/dL (31.8-35.4); Mean Corpuscular Hemoglobin 28.6 pg (27.0-31.2); Mean Corpuscular Volume 83.1 fl (80-94); Mean Platelet Volume 10.4 fl (7.4-10.4); Monocytes # 1.2 K/mm3 (0.1-1.0); Monocytes % 6.3 % (1.7-9.3); Neutrophils # 13.7 K/mm3 (1.8-7.8); Neutrophils % 70.9 % (37.0-80.0); Nucleated Red Blood Cells # 0 10^3/uL; Nucleated Red Blood Cells % 0 %; Platelet Count 350 K/mm3 (142-424); Red Blood Count 5.81 M/mm3 (4.60-6.20); Red Cell Distribution Width 14.6 % (11.5-17.5); Red Cell Distribution Width-SD 44.3 fL; White Blood Count 19.3 K/mm3 (4.8-10.8)
[2024-05-27 21:11] LABS: MANUAL DIFFERENTIAL MANUAL DIFFERENTIAL (MANUAL DIFF)
[2024-05-27 21:16] LABS: Acetone, Serum (Rapid) None Detected (None Detect)
[2024-05-27 21:38] LABS: RBC,Urine Occasional #/hpf (0-3)
[2024-05-27 21:56] LABS: Lymphocytes % 17 % (10-50); Monocytes % 3 % (2-9); Neutrophils % 80 % (42-76); Platelet Estimate Normal; RBC Morphology Normal; Total Cells Counted 100
[2024-05-27 22:09] LABS: Adenovirus F 40/41, stool Not Detected (NotDetected); Astrovirus Not Detected (NotDetected); Campylobacter Not Detected (NotDetected); Clostridium Difficile A/B, PCR Not Detected (NotDetected); Cryptosporidium Not Detected (NotDetected); Cyclospora Cayetanesis Not Detected (NotDetected); Entamoeba histolytica Not Detected (NotDetected); Enteroaggregative E coli Not Detected (NotDetected); Enteropathogenic E coli Not Detected (NotDetected); Enterotoxigenic E coli Not Detected (NotDetected); Giardia lamblia Not Detected (NotDetected); Norovirus Not Detected (NotDetected); Plesimonas Shigalloides, PCR Not Detected (NotDetected); Rotavirus A Not Detected (NotDetected); Salmonella, PCR Not Detected (NotDetected); Sapovirus Not Detected (NotDetected); Shiga-like toxin E coli Not Detected (NotDetected); Shigella Enterovasive E coli Not Detected (NotDetected); Vibrio Cholerae Not Detected (NotDetected); Vibrio, PCR Not Detected (NotDetected); Yersinia Entercolitica, PCR Not Detected (NotDetected)
[2024-05-27] MEDS: PIPERCILLIN/TAZO 3.375 GM in 0.9 % SODIUM CHLORIDE 50 ML IV (22:10)
[2024-05-27] MEDS: 0.9 % SODIUM CHLORIDE 1000ML 2,120 ML 1060 ML IV (22:22)
[2024-05-27] MEDS: MORPHINE 4MG/ML SYRINGE 4 MG IV (22:26)
--- NOTE | 2024-05-27 22:31 | XR_ITS ---
PROCEDURE INFORMATION: Exam: XR Abdomen Exam date and time: 05/27/2024 10:40 PM Age: 63 years old Clinical indication: Device placement; Gi device; Nasogastric tube; Additional info: Ng insertion TECHNIQUE: Imaging protocol: Radiologic exam of the abdomen. Views: Frontal supine view of the abdomen. 1 View. COMPARISON: CT ANGIO ABDOMEN PELVIS 05/27/2024 8:54 PM FINDINGS: Tubes, catheters and devices: The enteric tube follows the course of the esophagus with the tip and side port terminating at the gastric bubble. Gastrointestinal tract: Dilated loops of bowel unchanged from prior exam. Bones/joints: Unremarkable. IMPRESSION: 1. The enteric tube follows the course of the esophagus with the tip and side port terminating at the gastric bubble. 2. Dilated loops of bowel unchanged from prior exam.
[2024-05-27 23:29] VITALS: BP 155/92; PULSE 95; RESP 18; TEMP 36.8; O2SAT 98
[2024-05-27 23:54] VITALS: BP 177/105; PULSE 98; RESP 16; TEMP 36.4; O2SAT 97
[2024-05-28] VITALS (8 sets, daily range): BP systolic 128–144; BP diastolic 70–94; PULSE 85–100; RESP 16–18; TEMP 36.6–37.4; O2SAT 93–95; BMI 15.7
[2024-05-28] MEDS: KETOROLAC 30MG/ML VIAL 30 MG IV ×3 (00:11→20:36)
[2024-05-28] MEDS: LACTATED RINGERS 1000ML 1,000 ML 100 ML IV ×3 (00:13→19:41)
[2024-05-28] MEDS: PROMETHAZINE HCL 25MG/ML 1ML VIAL 12.5 MG IV (00:49)
[2024-05-28 00:53] LABS: Reflex Lactic Add Lactic Reflex
[2024-05-28 01:46] LABS: Lactic Acid Follow Up (RFLX 1) 3.4 mmol/L (0.7-2.1)
--- NOTE | 2024-05-28 02:03 | P.HP_ITS ---
History of Present Illness *Admission Date: 05/27/24 *Reason for visit:: Abdominal pain *History of present illness: A 63-year-old male past medical history of hypertension, hyperlipidemia, SARKIS, type 2 diabetes mellitus, bipolar disorder, presents to the emergency department for evaluation of acute abdominal pain, nausea, vomiting, and diarrhea. The patient reports these symptoms started recently, though the exact onset is unspecified, and have been severe enough to prompt evaluation. He denies fevers or chills. He does state that he has chronic pain issues for which he takes opioid pain medications. On examination, the patient is hypertensive (blood pressure 183/100), tachycardi c (heart rate 102), afebrile (98.7), with a respiratory rate of 18 breaths per minute and oxygen saturation of 100 on room air. Physical exam reveals a distended but soft abdomen with diffuse tenderness, no rebound, guarding, or rigidity, and hyperactive bowel sounds. Lungs are clear, and cardiac exam shows sinus tachycardia on bedside monitor without murmurs. No lower extremity edema is noted. Diagnostic workup includes labs, urinalysis, and CT abdomen/pelvis. Labs reveal leukocytosis (WBC 19.3), normal hemoglobin (16.6) and hematocrit (48.3), elevated neutrophils (13.7), hyperglycemia (glucose 246), elevated anion gap (30.5), low carbon dioxide (10), hyperkalemia (potassium 5.5), elevated BUN (25), creatinine (1.4), reduced GFR (51), elevated calcium (10.5), magnesium (2.4), total bilirubin (1.7), AST (121), ALT (96), alkaline phosphatase (128), total protein (11.0), albumin (5.8), globulin (5.2), normal lipase (134), and procalcitonin (0.278). Venous blood gas (VBG) shows pH 7.4, low pCO2 (21.8), low bicarbonate (13.1), and elevated lactate (5.7). Urinalysis shows 3+ glucose, negative ketones, and is otherwise bland. Serum acetone is negative. CT abdomen/pelvis, independently interpreted, shows a small bowel obstruction (SBO) with a transition point, significant gastric dilatation with fluid and debris, and dilated proximal small bowel with decompressed distal bowel and colon, without free fluid or air. Treatments implemented in the emergency department include a crystalloid fluid bolus for sepsis resuscitation, intravenous piperacillin-tazobactam (Zosyn) for empiric antibiotic coverage, blood cultures, ketorolac (Toradol), acetaminophen (Tylenol), and ondansetron (Zofran) for pain and nausea. A nasogastric (NG) tube was placed to decompress the stomach and proximal bowel for possible nonoperative SBO management. On serial assessments, the patient reports significant symptom improvement and remains hemodynamically stable. The case was discussed with Dr. Julian, and the patient was accepted by [facility] medicine for admission. [facility] Disclaimer: The information contained in this section may have been updated after the patient was seen, as this information can be updated by other users. Medical History Pre-op exam Fatigue Sleep disorder breathing History of kidney stones Diabetes mellitus CAD (coronary artery disease) BPH (benign prostatic hyperplasia) RLS (restless legs syndrome) Chest pain HLD (hyperlipidemia) HTN (hypertension) Kidney stones Depression Insomnia Generalized anxiety disorder Bipolar II disorder Surgical History History of lithotripsy History of vasectomy History of rotator cuff surgery History of heart artery stent History of carpal tunnel surgery History of ankle surgery Family History Other Cancer Coronary artery disease Diabetes Heart attack Hyperlipidemia Hypertension Stroke Social History Smoking Status: Former smoker tobacco type: cigarettes second hand exposure: No alcohol intake: never substance use type: denies use current occupational status: unemployed and disabled Travel in the last 8 weeks: None household members: spouse housing: other details: mobile home marital status: number of children: 2 current occupational exposures/hazards: No caffeine: Yes Have you lived/traveled outside [place] in past 30 days?: No Contact w/someone who lives/traveled outside US past 30 days?: No Exposure to someone with infectious disease in past 14 days?: No Do you have a fever (greater than 100.4 F or 38 C)?: No Have you tested positive for COVID-19: No Exposed to someone with COVID-19 in past 14 days?: No Do you have a sore throat?: No Do you have a cough?: No Do you have any weakness?: No Are you experiencing any nausea/vomitting?: No Do you have any diarrhea?: No Are you experiencing any unusual bleeding?: No Do you have any muscle aches/pain?: No Do you have any abdominal pain?: No Are you experiencing loss of taste or smell?: No Other Medical History Have you received the Flu Vaccine for this season: No Have you received the Pneumonia Vaccine: No Review of Systems Review of Systems Review of systems (narrative): 13 point review of systems negative except as listed in HPI Meds Home Medications and Allergies Home Medications ?Medication ?Instructions ?Recorded ?Confirmed ?Type aspirin 81 mg chewable tablet 81 mg PO DAILY 06/15/17 05/28/24 History tamsulosin 0.4 mg capsule 0.4 mg PO HS 06/20/17 05/28/24 History empagliflozin 25 mg tablet 25 mg PO DAILY 08/27/18 05/28/24 History (Jardiance) metformin 1,000 mg tablet 1,000 mg PO BID 03/26/19 05/28/24 History oxybutynin chloride 15 mg 15 mg PO DAILY 03/26/19 05/28/24 History tablet,extended release 24 hr ezetimibe 10 mg tablet 10 mg PO DAILY 05/26/22 05/28/24 History oxycodone 5 mg tablet 10 mg PO QIDP PRN Moderate Pain 07/23/23 05/28/24 History (Scale Score 5-6) ropinirole 1 mg tablet 1 mg PO HS 07/23/23 05/28/24 History furosemide 40 mg tablet 40 mg PO DAILY 07/24/23 05/28/24 History venlafaxine 150 mg 150 mg PO DAILY 90 days #90 caps 04/12/24 05/28/24 Rx capsule,extended release 24 hr cholecalciferol (vitamin D3) 25 25 mcg PO DAILY 04/15/24 05/28/24 History mcg (1,000 unit) capsule omeprazole 20 mg capsule,delayed 20 mg PO DAILY 04/15/24 05/28/24 History release meloxicam 7.5 mg tablet 7.5 mg PO BID 05/28/24 05/28/24 History quetiapine 100 mg tablet 200 mg PO HS 05/28/24 05/28/24 History venlafaxine 75 mg capsule,extended 75 mg PO DAILY 05/28/24 05/28/24 History release 24 hr New Prescriptions to Start Prescriptions: Allergies Allergy/AdvReac Type Severity Reaction Status Date / Time sulfamethoxazole (From Allergy Intermediate Other Verified 04/17/24 06:31 Bactrim) trimethoprim (From Bactrim) Allergy Intermediate Other Verified 04/17/24 06:31 atorvastatin Allergy Mild myalgias Verified 04/17/24 06:31 rosuvastatin (From Crestor) Allergy Mild myaglias Verified 04/17/24 06:31 simvastatin (From Zocor) Allergy Mild myalgias Verified 04/17/24 06:31 fexofenadine (From YEFRI) Allergy Unknown UNKNOWN Verified 04/17/24 06:31 naproxen (NAPROXEN) Allergy Unknown HAND Verified 04/17/24 06:31 SWELLING Exam Data for Last 24 hours Vital signs and Labs for Last 24 Hours: Temp Pulse Resp BP Pulse Ox O2 Del Method 97.6 F 98 H 16 177/105 H 97 Room Air 05/27/24 23:54 05/27/24 23:54 05/27/24 23:54 05/27/24 23:54 05/27/24 23:54 05/28/24 00:28 Laboratory Results - last 24 hr 05/27/24 18:26: Urine Color Yellow, Urine Appearance Clear, Urine pH 6.0, Ur Specific [place] 1.020, Urine Protein 1+ A, Urine Glucose (UA) 3+, Urine Ketones Negative, Urine Blood Negative, Urine Nitrate Negative, Urine Bilirubin Negative, Urine Urobilinogen 0.2, Ur Leukocyte Esterase Negative, Urine RBC Occasional, Urine WBC None, Ur Squamous Epith Cells None, Urine Bacteria None 05/27/24 20:04: Stl Aeromonas (PCR) Not detected, Stl C. cayetanensis PCR Not detected, Stool Rotavirus (PCR) Not detected, Stl Adenov F 40/41 PCR Not detected, Stool Astrovirus (PCR) Not detected, Stool Campylobacter PCR Not detected, Stl C.difficile Tox PCR Not detected, Stool Cryptosporidium PCR Not detected, Stl E.coli Shiga Tox PCR Not detected, Stool E coli O157 PCR Not detected, Stl Enterotoxigenic E PCR Not detected, Stool EPEC (PCR) Not detected, Stool EAEC (PCR) Not detected, Stl E. histolytica PCR Not detected, Stool Giardia Lamblia PCR Not detected, Stool Salmonella PCR Not detected, Stool Sapovirus (PCR) Not detected, Stl P. shigelloides PCR Not detected, Stl Shigella/EIEC PCR Not detected, St Y.enterocolitica PCR Not detected, Stool Vibrio (PCR) Not detected, Stl Vibrio cholerae PCR Not detected, Stl Norovirus GI/GII PCR Not detected 05/27/24 20:12: WBC 19.3 H, RBC 5.81, Hgb 16.6, Hct 48.3, MCV 83.1, MCH 28.6, MCHC 34.4, RDW 14.6, Plt Count 350, MPV 10.4, Neut % (Auto) 70.9, Lymph % (Auto) 21.4, [place] % (Auto) 6.3, Eos % (Auto) 0.5, Baso % (Auto) 0.3, Neut # (Auto) 13.7 H, Lymph # (Auto) 4.1, [place] # (Auto) 1.2 H, Eos # (Auto) 0.1, Baso # (Auto) 0.1, Total Counted 100, Neutrophils % (Manual) 80 H, Lymphocytes % (Manual) 17, Monocytes % (Manual) 3, Platelet Estimate Normal, RBC Morphology Normal, Sodium 141, Potassium 5.5 H, Chloride 106, Carbon Dioxide 10 L, Anion Gap 30.5 H, BUN 25 H, Creatinine 1.40 H, Estimated Creat Clear 82, Estimated GFR 51 L, Est GFR ( Amer) 62, Glucose 246 H, Calcium 10.5 H, Magnesium 2.4 H, Total Bilirubin 1.7 H, AST 121 H, ALT 96 H, Alkaline Phosphatase 128 H, Total Protein 11.0 H D, Albumin 5.8 H, Globulin 5.2 H, Albumin/Globulin Ratio 1.1, Lipase 134, Procalcitonin 0.278, Acetone Level None detected 05/27/24 20:42: VBG pH 7.40, VBG pCO2 21.8 L, VBG pO2 77.9 H, VBG HCO3 13.1 L, VBG Total CO2 13.8 L, VBG O2 Saturation 95.2 H, VBG Base Excess -11.7 L, VBG Lactic Acid 5.7 H 05/28/24 01:24: Lactate 3.4 H I & O for Last 24 hours: Intake & Output 05/25/24 05/26/24 05/27/24 05/28/24 23:59 23:59 23:59 23:59 Weight 106.594 kg Constitutional Constitutional: no acute distress and obese *Routine HEENT Exam Head: Present normocephalic Eye: Present EOMI and PERRL ENT: Present mucous membranes moist *Routine Neck Exam Neck: Present supple; Absent lymphadenopathy *Routine Respiratory Exam Respiratory: Present CTA bilaterally *Routine Cardiovascular Exam Cardiovascular: Present RRR *Routine Abdominal Exam Abdominal: Present soft, normoactive bowel sounds and tenderness *Routine Rectal Exam Rectal:: deferred *Routine Genitalia Exam Genitalia:: deferred *Routine Extremities Exam Extremities: Absent cyanosis, clubbing or edema *Routine Skin Exam Skin: Present warm; Absent rash *Routine Neurological Exam Neurological: Present alert and oriented X3 Assessment and Plan *Assessment and plan (1) MIKEY (acute kidney injury): Status: Acute Category: Medical Code(s): N17.9 - Acute kidney failure, unspecified (2) Hyperbilirubinemia: Status: Acute Category: Medical Code(s): E80.6 - Other disorders of bilirubin metabolism (3) Dehydration, moderate: Status: Acute Category: Medical Code(s): E86.0 - Dehydration (4) BMI 32.0-32.9,adult: Status: Chronic Category: Medical Code(s): Z68.32 - Body mass index [BMI] 32.0-32.9, adult (5) HTN (hypertension): Status: Chronic Qualifiers: Hypertension type: essential hypertension Qualified Code(s): I10 - Essential (primary) hypertension Category: Medical Code(s): I10 - Essential (primary) hypertension (6) HLD (hyperlipidemia): Status: Chronic Qualifiers: Hyperlipidemia type: other hyperlipidemia Qualified Code(s): E78.4 - Other hyperlipidemia Category: Medical Code(s): E78.5 - Hyperlipidemia, unspecified (7) SARKIS (obstructive sleep apnea): Status: Acute Category: Medical Code(s): G47.33 - Obstructive sleep apnea (adult) (pediatric) (8) DM (diabetes mellitus): Status: Chronic Qualifiers: Diabetes mellitus complication status: with unspecified complications 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 * Continue NG tube decompression on low intermittent suction, monitor output every 4 hours. * Keep NPO; provide IV normal saline at 100 mL/hour to replace NG losses and maintain hydration. * Consult general surgery for SBO evaluation, nonoperative vs. operative management * Repeat abdominal X-ray in 24 hours to assess air-fluid levels; consider repeat CT if symptoms worsen or no improvement in 48 hours. * Monitor for perforation or ischemia (rebound, rigidity) every 4 hours. * Continue ondansetron 4 mg IV every 4 hours as needed for nausea. Alternate with Phenergan 12.5 mg IV every 6 for refractory nausea vomiting * Sepsis (Suspected, Lactate 5.7): Elevated lactate, leukocytosis (WBC 19.3, neutrophils 13.7), tachycardia, hypertension, meeting sepsis criteria, possibly from SBO or gut bacterial translocation, though low procalcitonin (0.278) and bland urinalysis. * Continue piperacillin-tazobactam (Zosyn) 3.375 g IV every 6 hours for intra-abdominal infection coverage. * Administer additional 30 mL/kg normal saline bolus if lactate remains >4 after initial resuscitation. * Monitor lactate every 4?6 hours until <2; check blood cultures for growth. * Monitor vital signs * Admit to hospital medicine with telemetry for sepsis monitoring. * Hyperglycemia (Glucose 246) with Anion Gap Acidosis: Elevated glucose, anion gap (30.5), low bicarbonate (13.1), 3+ glucose on urinalysis, negative ketones/acetone, in a patient on empagliflozin, suggesting metabolic stress or early DKA, though euglycemic DKA less likely without ketones. * Hold empagliflozin due to SBO and acidosis risk. * Start sliding-scale insulin * Monitor glucose every * Order hemoglobin A1c to assess chronic diabetes control. * Hyperkalemia (Potassium 5.5): Elevated potassium, likely from acidosis or renal stress (creatinine 1.4, GFR 51), no EKG changes reported. * Administer insulin (per sliding scale) to lower potassium; give 10 g dextrose IV with insulin to prevent hypoglycemia. * Recheck potassium every 4 hours until <5.0; avoid potassium-containing fluids. * Monitor EKG for peaked T-waves or arrhythmias if potassium rises. * Avoid potassium-sparing medications during admission. * Acute Kidney Injury (Creatinine 1.4, GFR 51): Elevated creatinine and BUN (25), likely prerenal from dehydration or sepsis, with SBO contributing to fluid shifts. * Continue normal saline to optimize renal perfusion. * Monitor urine output every 4 hours, targeting adequate flow. * Recheck creatinine and BUN in 12 hours. * Avoid nephrotoxic agents (e.g., ketorolac further, contrast unless critical). * Consult nephrology if creatinine rises above 1.8 or GFR falls below 40. * Elevated Liver Enzymes and Bilirubin: AST (121), ALT (96), alkaline phosphatase (128), total bilirubin (1.7), possibly from sepsis, SBO-related stasis, or underlying liver pathology. * Order right upper quadrant ultrasound to evaluate for biliary obstruction or liver pathology if enzymes rise. * Recheck liver function tests in 24 hours to trend. * Monitor for jaundice or right upper quadrant pain every 8 hours. * Consult gastroenterology if bilirubin exceeds 2.5 or symptoms develop. * Hypercalcemia (Calcium 10.5): Mildly elevated calcium, possibly from dehydration, sepsis, or underlying pathology (e.g., malignancy, hyperparathyroidism). * Continue IV fluids to enhance calcium excretion. * Recheck calcium every 12 hours; order ionized calcium if total calcium rises above 11. * Monitor for symptoms of hypercalcemia (confusion, constipation) every 8 hours. * Consider parathyroid hormone and 25-hydroxyvitamin D levels if persistent. * Elevated Total Protein and Globulin: Total protein (11.0), albumin (5.8), globulin (5.2), suggesting possible chronic inflammation or hematologic disorder. * Consult hematology if globulin remains elevated or electrophoresis abnormal. * Monitor for systemic symptoms (e.g., weight loss, bone pain) every 8 hours. Additional Orders: * Admit to hospital medicine for SBO, sepsis, and metabolic management. * Maintain telemetry and pulse oximetry for tachycardia and sepsis. * Check vital signs every per unit standard * Offer acetaminophen 650 mg oral every 6 hours as needed for pain, avoid further ketorolac. * Educate patient and family on SBO, sepsis, and diabetes concerns. * Arrange outpatient follow-up with surgery, endocrinology, and primary care post-discharge.
[2024-05-28] MEDS: PIPERCILLIN/TAZO 3.375 GM in 0.9 % SODIUM CHLORIDE 50 ML IV ×4 (02:46→20:45)
[2024-05-28] MEDS: LORazepam 2MG/ML VIAL 0.5 MG IV (03:14)
[2024-05-28] MEDS: SODIUM CHLORIDE 0.9% 10ML VIAL 10 ML IV (03:15)
[2024-05-28 03:27] LABS: Reflex Lactic (2 hrs) Add Lactic Reflex
[2024-05-28 04:03] LABS: Lactic Acid Follow up (RFLX 2) 2.5 mmol/L (0.7-2.1)
--- NOTE | 2024-05-28 04:53 | PC.NURSE ---
Pt is alert and oriented x4, and currently tolerating RA well at this time. Pt NG is placed to the right nare, @ 65, and connected to low wall suction. Pt did c/o pain and trouble sleeping this shift and was treated per APR. Pt vomited once this shift and was given additional nausea meds. Pt now denies pain and needs at this time and has had no other acute changes to note this shift.
[2024-05-28 06:30] LABS: Basophils % 0.3 % (0.1-2.0); Eosinophils # 0.1 K/mm3 (0.0-0.4); Eosinophils % 0.5 % (0.1-12.0); Hematocrit 39.1 % (42.0-52.0); Lymphocytes # 2.5 K/mm3 (0.7-4.5); Lymphocytes % 22.6 % (10-50); Mean Corpuscular Hemoglobin 28.3 pg (27.0-31.2); Mean Corpuscular Volume 83.2 fl (80-94); Mean Platelet Volume 9.8 fl (7.4-10.4); Monocytes # 0.8 K/mm3 (0.1-1.0); Monocytes % 7.3 % (1.7-9.3); Neutrophils # 7.5 K/mm3 (1.8-7.8); Nucleated Red Blood Cells # 0 10^3/uL; Nucleated Red Blood Cells % 0 %; Platelet Count 208 K/mm3 (142-424); Red Cell Distribution Width 14.6 % (11.5-17.5); Red Cell Distribution Width-SD 44.6 fL; White Blood Count 10.9 K/mm3 (4.8-10.8)
[2024-05-28 06:37] LABS: Chloride 111 mmol/L (98-107); Sodium 141 mmol/L (136-145)
[2024-05-28 06:38] LABS: Potassium 4.5 mmoL/L (3.5-5.1)
[2024-05-28 06:40] LABS: Anion Gap 19.5 mEq/L (5-15); Blood Urea Nitrogen 27 mg/dl (9-20); Carbon Dioxide 15 mmol/L (22.0-30.0); Creatinine Clearance Estimated 48 mL/min (50-200); Estimated Glomerular Filt Rate 68 ml/min (>60); GFR (African American) 82 ML/MIN (>60)
[2024-05-28 06:41] LABS: Calcium 8.9 mg/dl (8.4-10.2); Glucose 140 mg/dl (74-100); Phosphorous 5.2 mg/dl (2.5-4.5)
--- NOTE | 2024-05-28 07:10 | P.CONS_ITS ---
History of Present Illness *Admission Date: 05/27/24 *Reason for visit:: SBO *History of present illness: Patient is a 63-year-old disabled male from [facility] with history of coronary artery disease with previous stenting, hypertension, hyperlipidemia, obstructive sleep apnea, type 2 diabetes, bipolar disorder. He has chronic pain issues for which he is on opioid medications. He presented to the emergency department in the late evening of 05/27/2024 with a 2-day history of abdominal pain, nausea, vomiting and diarrhea. He has never had any prior abdominal surgeries. He was evaluated in the emergency department and was found to have a white blood cell count of 19,300. Laboratory studies were suggestive of dehydration with elevated anion gap, base deficit, and elevation of creatinine. He also had mild elevation of transaminases, bilirubin, and alkaline phosphatase. He underwent CT angiogram of the abdomen and pelvis which revealed dilated loops of bowel measuring up to 6.1 cm with a transition point. Plan was for admission and surgical consultation. He had nasogastric tube placed. Relatively recently had left shoulder arthroscopy prior to which he had undergone cardiac risk stratification. Patient has never had previous colonoscopy. He states that since nasogastric tube has been placed he does feel better. He is passing gas. No additional diarrhea. Stool panel negative for infectious etiology. [facility] Disclaimer: The information contained in this section may have been updated after the patient was seen, as this information can be updated by other users. Medical History Pre-op exam Fatigue Sleep disorder breathing History of kidney stones Diabetes mellitus CAD (coronary artery disease) BPH (benign prostatic hyperplasia) RLS (restless legs syndrome) Chest pain HLD (hyperlipidemia) HTN (hypertension) Kidney stones Depression Insomnia Generalized anxiety disorder Bipolar II disorder Surgical History History of lithotripsy History of vasectomy History of rotator cuff surgery History of heart artery stent History of carpal tunnel surgery History of ankle surgery Family History Other Cancer Coronary artery disease Diabetes Heart attack Hyperlipidemia Hypertension Stroke Social History Smoking Status: Former smoker tobacco type: cigarettes second hand exposure: No alcohol intake: never substance use type: denies use current occupational status: unemployed and disabled Travel in the last 8 weeks: None household members: spouse housing: other details: mobile home marital status: number of children: 2 current occupational exposures/hazards: No caffeine: Yes Have you lived/traveled outside [place] in past 30 days?: No Contact w/someone who lives/traveled outside US past 30 days?: No Exposure to someone with infectious disease in past 14 days?: No Do you have a fever (greater than 100.4 F or 38 C)?: No Have you tested positive for COVID-19: No Exposed to someone with COVID-19 in past 14 days?: No Do you have a sore throat?: No Do you have a cough?: No Do you have any weakness?: No Are you experiencing any nausea/vomitting?: No Do you have any diarrhea?: No Are you experiencing any unusual bleeding?: No Do you have any muscle aches/pain?: No Do you have any abdominal pain?: No Are you experiencing loss of taste or smell?: No Meds Home Medications and Allergies Home Medications ?Medication ?Instructions ?Recorded ?Confirmed ?Type aspirin 81 mg chewable tablet 81 mg PO DAILY 06/15/17 05/28/24 History tamsulosin 0.4 mg capsule 0.4 mg PO DAILY 06/20/17 05/28/24 History empagliflozin 25 mg tablet 25 mg PO DAILY 08/27/18 05/28/24 History (Jardiance) metformin 1,000 mg tablet 1,000 mg PO BID 03/26/19 05/28/24 History oxybutynin chloride 15 mg 15 mg PO DAILY 03/26/19 05/28/24 History tablet,extended release 24 hr ezetimibe 10 mg tablet 10 mg PO DAILY 05/26/22 05/28/24 History oxycodone 5 mg tablet 10 mg PO QIDP PRN Moderate Pain 07/23/23 05/28/24 History (Scale Score 5-6) ropinirole 1 mg tablet 1 mg PO DAILY 07/23/23 05/28/24 History furosemide 40 mg tablet 40 mg PO DAILY 07/24/23 05/28/24 History venlafaxine 150 mg 150 mg PO DAILY 90 days #90 caps 02/28/25 04/15/25 Rx capsule,extended release 24 hr cholecalciferol (vitamin D3) 25 25 mcg PO DAILY 04/15/24 05/28/24 History mcg (1,000 unit) capsule omeprazole 20 mg capsule,delayed 20 mg PO DAILY 04/15/24 05/28/24 History release quetiapine 100 mg tablet 200 mg PO HS 05/28/24 05/28/24 History venlafaxine 75 mg capsule,extended 75 mg PO DAILY 05/28/24 05/28/24 History release 24 hr New Prescriptions to Start Prescriptions: Allergies Allergy/AdvReac Type Severity Reaction Status Date / Time sulfamethoxazole (From Allergy Intermediate Other Verified 04/17/24 06:31 Bactrim) trimethoprim (From Bactrim) Allergy Intermediate Other Verified 04/17/24 06:31 atorvastatin Allergy Mild myalgias Verified 04/17/24 06:31 rosuvastatin (From Crestor) Allergy Mild myaglias Verified 04/17/24 06:31 simvastatin (From Zocor) Allergy Mild myalgias Verified 04/17/24 06:31 fexofenadine (From YEFRI) Allergy Unknown UNKNOWN Verified 04/17/24 06:31 naproxen (NAPROXEN) Allergy Unknown HAND Verified 04/17/24 06:31 SWELLING Exam (Inpt) Vital signs and Labs for Last 24 Hours: Temp Pulse Resp BP Pulse Ox O2 Del Method 98.0 F 100 H 16 142/85 H 95 Room Air 05/28/24 04:00 05/28/24 04:00 05/28/24 04:00 05/28/24 04:00 05/28/24 04:00 05/28/24 06:34 Laboratory Results - last 24 hr 05/27/24 18:26: Urine Color Yellow, Urine Appearance Clear, Urine pH 6.0, Ur Specific [place] 1.020, Urine Protein 1+ A, Urine Glucose (UA) 3+, Urine Ketones Negative, Urine Blood Negative, Urine Nitrate Negative, Urine Bilirubin Negative, Urine Urobilinogen 0.2, Ur Leukocyte Esterase Negative, Urine RBC Occasional, Urine WBC None, Ur Squamous Epith Cells None, Urine Bacteria None 05/27/24 20:04: Stl Aeromonas (PCR) Not detected, Stl C. cayetanensis PCR Not detected, Stool Rotavirus (PCR) Not detected, Stl Adenov F 40/41 PCR Not detected, Stool Astrovirus (PCR) Not detected, Stool Campylobacter PCR Not detected, Stl C.difficile Tox PCR Not detected, Stool Cryptosporidium PCR Not detected, Stl E.coli Shiga Tox PCR Not detected, Stool E coli O157 PCR Not detected, Stl Enterotoxigenic E PCR Not detected, Stool EPEC (PCR) Not detected, Stool EAEC (PCR) Not detected, Stl E. histolytica PCR Not detected, Stool Giardia Lamblia PCR Not detected, Stool Salmonella PCR Not detected, Stool Sapovirus (PCR) Not detected, Stl P. shigelloides PCR Not detected, Stl Shigella/EIEC PCR Not detected, St Y.enterocolitica PCR Not detected, Stool Vibrio (PCR) Not detected, Stl Vibrio cholerae PCR Not detected, Stl Norovirus GI/GII PCR Not detected 05/27/24 20:12: WBC 19.3 H, RBC 5.81, Hgb 16.6, Hct 48.3, MCV 83.1, MCH 28.6, MCHC 34.4, RDW 14.6, Plt Count 350, MPV 10.4, Neut % (Auto) 70.9, Lymph % (Auto) 21.4, [place] % (Auto) 6.3, Eos % (Auto) 0.5, Baso % (Auto) 0.3, Neut # (Auto) 13.7 H, Lymph # (Auto) 4.1, [place] # (Auto) 1.2 H, Eos # (Auto) 0.1, Baso # (Auto) 0.1, Total Counted 100, Neutrophils % (Manual) 80 H, Lymphocytes % (Manual) 17, Monocytes % (Manual) 3, Platelet Estimate Normal, RBC Morphology Normal, Sodium 141, Potassium 5.5 H, Chloride 106, Carbon Dioxide 10 L, Anion Gap 30.5 H, BUN 25 H, Creatinine 1.40 H, Estimated Creat Clear 82, Estimated GFR 51 L, Est GFR ( Amer) 62, Glucose 246 H, Calcium 10.5 H, Magnesium 2.4 H, Total Bilirubin 1.7 H, AST 121 H, ALT 96 H, Alkaline Phosphatase 128 H, Total Protein 11.0 H D, Albumin 5.8 H, Globulin 5.2 H, Albumin/Globulin Ratio 1.1, Lipase 134, Procalcitonin 0.278, Acetone Level None detected 05/27/24 20:42: VBG pH 7.40, VBG pCO2 21.8 L, VBG pO2 77.9 H, VBG HCO3 13.1 L, V BG Total CO2 13.8 L, VBG O2 Saturation 95.2 H, VBG Base Excess -11.7 L, VBG Lactic Acid 5.7 H 05/28/24 01:24: Lactate 3.4 H 05/28/24 03:38: Lactate 2.5 H 05/28/24 06:10: WBC 10.9 H D, RBC 4.70, Hct 39.1 L, MCV 83.2, MCH 28.3, MCHC 34.0, RDW 14.6, Plt Count 208 D, MPV 9.8, Neut % (Auto) 69.0, Lymph % (Auto) 22.6, [place] % (Auto) 7.3, Eos % (Auto) 0.5, Baso % (Auto) 0.3, Neut # (Auto) 7.5, Lymph # (Auto) 2.5, [place] # (Auto) 0.8, Eos # (Auto) 0.1, Baso # (Auto) 0.0, Sodium 141, Potassium 4.5, Chloride 111 H, Carbon Dioxide 15 L, Anion Gap 19.5 H , BUN 27 H, Creatinine 1.10 D, Estimated Creat Clear 48, Estimated GFR 68, Est GFR ( Amer) 82 D, Glucose 140 H D, Calcium 8.9, Phosphorus 5.2 H I & O for Labs for Last 24 Hours: Intake & Output 05/25/24 05/26/24 05/27/24 05/28/24 11:59 11:59 11:59 11:59 Intake Total 0 / 0 Output Total 1150 / 1150 Balance -1150 / -1150 Weight 106 lb 9.504 oz Constitutional: no acute distress Head: Present normocephalic Respiratory: Present CTA bilaterally Cardiac: Present S1/S2 Comments:: Distended. Relatively nontender except for some point tenderness in the epigastrium. Rectal (male): Present deferred (male): Present deferred Results Labs 05/28/24 06:10 05/28/24 06:10 Labs: Laboratory Results - last 24 hr 05/27/24 18:26: Urine Color Yellow, Urine Appearance Clear, Urine pH 6.0, Ur Specific [place] 1.020, Urine Protein 1+ A, Urine Glucose (UA) 3+, Urine Ketones Negative, Urine Blood Negative, Urine Nitrate Negative, Urine Bilirubin Negative, Urine Urobilinogen 0.2, Ur Leukocyte Esterase Negative, Urine RBC Occasional, Urine WBC None, Ur Squamous Epith Cells None, Urine Bacteria None 05/27/24 20:04: Stl Aeromonas (PCR) Not detected, Stl C. cayetanensis PCR Not detected, Stool Rotavirus (PCR) Not detected, Stl Adenov F 40/41 PCR Not detected, Stool Astrovirus (PCR) Not detected, Stool Campylobacter PCR Not detected, Stl C.difficile Tox PCR Not detected, Stool Cryptosporidium PCR Not detected, Stl E.coli Shiga Tox PCR Not detected, Stool E coli O157 PCR Not detected, Stl Enterotoxigenic E PCR Not detected, Stool EPEC (PCR) Not detected, Stool EAEC (PCR) Not detected, Stl E. histolytica PCR Not detected, Stool Giardia Lamblia PCR Not detected, Stool Salmonella PCR Not detected, Stool Sapovirus (PCR) Not detected, Stl P. shigelloides PCR Not detected, Stl Shigella/EIEC PCR Not detected, St Y.enterocolitica PCR Not detected, Stool Vibrio (PCR) Not detected, Stl Vibrio cholerae PCR Not detected, Stl Norovirus GI/GII PCR Not detected 05/27/24 20:12: WBC 19.3 H, RBC 5.81, Hgb 16.6, Hct 48.3, MCV 83.1, MCH 28.6, MCHC 34.4, RDW 14.6, Plt Count 350, MPV 10.4, Neut % (Auto) 70.9, Lymph % (Auto) 21.4, [place] % (Auto) 6.3, Eos % (Auto) 0.5, Baso % (Auto) 0.3, Neut # (Auto) 13.7 H, Lymph # (Auto) 4.1, [place] # (Auto) 1.2 H, Eos # (Auto) 0.1, Baso # (Auto) 0.1, Total Counted 100, Neutrophils % (Manual) 80 H, Lymphocytes % (Manual) 17, Monocytes % (Manual) 3, Platelet Estimate Normal, RBC Morphology Normal, Sodium 141, Potassium 5.5 H, Chloride 106, Carbon Dioxide 10 L, Anion Gap 30.5 H, BUN 25 H, Creatinine 1.40 H, Estimated Creat Clear 82, Estimated GFR 51 L, Est GFR ( Amer) 62, Glucose 246 H, Calcium 10.5 H, Magnesium 2.4 H, Total Bilirubin 1.7 H, AST 121 H, ALT 96 H, Alkaline Phosphatase 128 H, Total Protein 11.0 H D, Albumin 5.8 H, Globulin 5.2 H, Albumin/Globulin Ratio 1.1, Lipase 134, Procalcitonin 0.278, Acetone Level None detected 05/27/24 20:42: VBG pH 7.40, VBG pCO2 21.8 L, VBG pO2 77.9 H, VBG HCO3 13.1 L, V BG Total CO2 13.8 L, VBG O2 Saturation 95.2 H, VBG Base Excess -11.7 L, VBG Lactic Acid 5.7 H 05/28/24 01:24: Lactate 3.4 H 05/28/24 03:38: Lactate 2.5 H 05/28/24 06:10: WBC 10.9 H D, RBC 4.70, Hct 39.1 L, MCV 83.2, MCH 28.3, MCHC 34.0, RDW 14.6, Plt Count 208 D, MPV 9.8, Neut % (Auto) 69.0, Lymph % (Auto) 22.6, [place] % (Auto) 7.3, Eos % (Auto) 0.5, Baso % (Auto) 0.3, Neut # (Auto) 7.5, Lymph # (Auto) 2.5, [place] # (Auto) 0.8, Eos # (Auto) 0.1, Baso # (Auto) 0.0, Sodium 141, Potassium 4.5, Chloride 111 H, Carbon Dioxide 15 L, Anion Gap 19.5 H , BUN 27 H, Creatinine 1.10 D, Estimated Creat Clear 48, Estimated GFR 68, Est GFR ( Amer) 82 D, Glucose 140 H D, Calcium 8.9, Phosphorus 5.2 H Assessment and Plan *Assessment and plan (1) SBO (small bowel obstruction): Status: Acute Category: Medical Code(s): K56.609 - Unspecified intestinal obstruction, unspecified as to partial versus complete obstruction Plan Attempt at nonoperative management. I will see if he can undergo a small bowel follow-through.
[2024-05-28 07:14] LABS: Hemoglobin 13.3 g/dL (14.1-18.0)
--- NOTE | 2024-05-28 09:08 | FL_ITS ---
FINAL REPORT CLINICAL HISTORY: BOWEL OBSTRUCTION injected through NG tube FINDINGS: FLUOROSCOPY TIME: 0 minutes. 10 Spot images and overhead films. PROCEDURE: Barium was injected into the nasogastric tube. Spot and overhead films were obtained. FINDINGS: The obstetrics gynecology physician film is unremarkable. Contrast courses through dilated small bowel loops. The contrast reaches the colon by 2 hours and 15 minutes. No transition point is identified. However, evaluation is limited due to dilation of the more proximal small bowel loops. Residual contrast from prior CT is seen within the bladder. IMPRESSION: Finding concerning for at least a partial small bowel obstruction. Transition point is not identified. Recommend follow-up KUB to ensure improvement in small bowel caliber. Reviewed, Interpreted and Dictated by Sheree Kapoor MD Transcribed by Cindy Romero Authenticated and [facility]
[2024-05-28 11:56] LABS: POC Glucose,Bedside 172 (70-110)
[2024-05-28] MEDS: DIATRIZOATE MEG 66% & DIATRIZOATE NA 10% 30ML UDC 360 ML PO (11:58)
[2024-05-28 15:46] LABS: POC Glucose,Bedside 174 (70-110)
--- NOTE | 2024-05-28 16:10 | EXP.ACUTE.PN ---
Subjective *Date: 05/28/24 *Time: 16:34 Interval history: Feeling somewhat better today. Passed gas this morning. Had a bowel movement last night. NG currently clamped, bowel series pending. Currently only eating sips and chips. Remains afebrile. Denies any further nausea this morning. Feeling better after significant output from NG tube. Stable on room air. Medical Exam Vital signs and Labs for Last 24 Hours: Vital Signs Temp Pulse Pulse Resp BP BP Pulse Ox 05/28/24 14:28 05/28/24 12:45 05/28/24 12:00 100 H 05/28/24 12:00 99.3 F 98 H 18 132/79 93 L 05/28/24 11:00 05/28/24 08:16 05/28/24 08:00 100 H 05/28/24 08:00 05/28/24 08:00 97.8 F 95 H 16 140/94 H 95 05/28/24 06:34 05/28/24 04:45 05/28/24 04:00 95 H 05/28/24 04:00 98.0 F 100 H 16 142/85 H 95 05/28/24 02:57 05/28/24 02:32 144/87 H 05/28/24 01:00 05/28/24 00:28 05/28/24 00:00 90 05/27/24 23:54 97.6 F 98 H 16 177/105 H 97 05/27/24 23:29 98.3 F 95 H 18 155/92 H 05/27/24 23:00 05/27/24 19:16 115 H 156/97 H 97 05/27/24 18:10 98.7 F 102 H 18 183/100 H 100 O2 Del Method 05/28/24 14:28 Room Air 05/28/24 12:45 Room Air 05/28/24 12:00 05/28/24 12:00 Room Air 05/28/24 11:00 Room Air 05/28/24 08:16 Room Air 05/28/24 08:00 05/28/24 08:00 Room Air 05/28/24 08:00 Room Air 05/28/24 06:34 Room Air 05/28/24 04:45 Room Air 05/28/24 04:00 05/28/24 04:00 05/28/24 02:57 Room Air 05/28/24 02:32 05/28/24 01:00 Room Air 05/28/24 00:28 Room Air 05/28/24 00:00 05/27/24 23:54 Room Air 05/27/24 23:29 Room Air 05/27/24 23:00 Room Air 05/27/24 19:16 05/27/24 18:10 Intake and Output 05/28/24 05/28/24 05/28/24 07:59 15:59 23:59 Intake Total 0 / 275 275 / 275 Output Total 1150 / 2750 1600 / 2750 Balance -1150 / -2475 -1325 / -2475 Intake: Intake, Oral Amount 0 / 0 Intake, Total IV Amount 275 / 275 Lactated Ringers 1000ML 1,000 185 / 185 ml @ 100 mls/hr IV .Q10H S[facility] Rx #:[id number] Pipercillin/Tazo 3.375 gm In 0. 90 / 90 9 % Sodium Chloride 50 ml @ 100 mls/hr IV Q6H SJ Rx#:[id number] Output: Output, Urine Amount 650 / 650 Output, Gastric Drainage Amount 500 / 2100 1600 / 2100 Right Nare 500 / 2100 1600 / 2100 Other: Number of Bowel Movements 1 Weight 48.35 kg Patient Weight 05/28/24 23:59 Weight 48.35 kg Laboratory Results - last 24 hr 05/27/24 18:26: Urine Color Yellow, Urine Appearance Clear, Urine pH 6.0, Ur Specific [place] 1.020, Urine Protein 1+ A, Urine Glucose (UA) 3+, Urine Ketones Negative, Urine Blood Negative, Urine Nitrate Negative, Urine Bilirubin Negative, Urine Urobilinogen 0.2, Ur Leukocyte Esterase Negative, Urine RBC Occasional, Urine WBC None, Ur Squamous Epith Cells None, Urine Bacteria None 05/27/24 20:04: Stl Aeromonas (PCR) Not detected, Stl C. cayetanensis PCR Not detected, Stool Rotavirus (PCR) Not detected, Stl Adenov F 40/41 PCR Not detected, Stool Astrovirus (PCR) Not detected, Stool Campylobacter PCR Not detected, Stl C.difficile Tox PCR Not detected, Stool Cryptosporidium PCR Not detected, Stl E.coli Shiga Tox PCR Not detected, Stool E coli O157 PCR Not detected, Stl Enterotoxigenic E PCR Not detected, Stool EPEC (PCR) Not detected, Stool EAEC (PCR) Not detected, Stl E. histolytica PCR Not detected, Stool Giardia [place]lia PCR Not detected, Stool Salmonella PCR Not detected, Stool Sapovirus (PCR) Not detected, Stl P. shigelloides PCR Not detected, Stl Shigella/EIEC PCR Not detected, St Y.enterocolitica PCR Not detected, Stool Vibrio (PCR) Not detected, Stl Vibrio cholerae PCR Not detected, Stl Norovirus GI/GII PCR Not detected 05/27/24 20:12: WBC 19.3 H, RBC 5.81, Hgb 16.6, Hct 48.3, MCV 83.1, MCH 28.6, MCHC 34.4, RDW 14.6, Plt Count 350, MPV 10.4, Neut % (Auto) 70.9, Lymph % (Auto) 21.4, [place] % (Auto) 6.3, Eos % (Auto) 0.5, Baso % (Auto) 0.3, Neut # (Auto) 13.7 H, Lymph # (Auto) 4.1, [place] # (Auto) 1.2 H, Eos # (Auto) 0.1, Baso # (Auto) 0.1, Total Counted 100, Neutrophils % (Manual) 80 H, Lymphocytes % (Manual) 17, Monocytes % (Manual) 3, Platelet Estimate Normal, RBC Morphology Normal, Sodium 141, Potassium 5.5 H, Chloride 106, Carbon Dioxide 10 L, Anion Gap 30.5 H, BUN 25 H, Creatinine 1.40 H, Estimated Creat Clear 82, Estimated GFR 51 L, Est GFR ( Amer) 62, Glucose 246 H, Calcium 10.5 H, Magnesium 2.4 H, Total Bilirubin 1.7 H, AST 121 H, ALT 96 H, Alkaline Phosphatase 128 H, Total Protein 11.0 H D, Albumin 5.8 H, Globulin 5.2 H, Albumin/Globulin Ratio 1.1, Lipase 134, Procalcitonin 0.278, Acetone Level None detected 05/27/24 20:42: VBG pH 7.40, VBG pCO2 21.8 L, VBG pO2 77.9 H, VBG HCO3 13.1 L, VBG Total CO2 13.8 L, VBG O2 Saturation 95.2 H, VBG Base Excess -11.7 L, VBG Lactic Acid 5.7 H 05/28/24 01:24: Lactate 3.4 H 05/28/24 03:38: Lactate 2.5 H 05/28/24 06:10: WBC 10.9 H D, RBC 4.70, Hgb 13.3 L D, Hct 39.1 L, MCV 83.2, MCH 28.3, MCHC 34.0, RDW 14.6, Plt Count 208 D, MPV 9.8, Neut % (Auto) 69.0, Lymph % (Auto) 22.6, [place] % (Auto) 7.3, Eos % (Auto) 0.5, Baso % (Auto) 0.3, Neut # (Auto) 7.5, Lymph # (Auto) 2.5, [place] # (Auto) 0.8, Eos # (Auto) 0.1, Baso # (Auto) 0.0, Sodium 141, Potassium 4.5, Chloride 111 H, Carbon Dioxide 15 L, Anion Gap 19.5 H, BUN 27 H, Creatinine 1.10 D, Estimated Creat Clear 48, Estimated GFR 68, Est GFR ( Amer) 82 D, Glucose 140 H D, Calcium 8.9, Phosphorus 5.2 H 05/28/24 10:57: POC Glucose 172 H 05/28/24 15:36: POC Glucose 174 H I & O for Labs for Last 24 Hours: Intake & Output 05/25/24 05/26/24 05/27/24 05/28/24 23:59 23:59 23:59 23:59 Intake Total 275 / 275 Output Total 2750 / 2750 Balance -2475 / -2475 Weight 106.594 kg 48.35 kg Constitutional: Present mild distress, obese, chronically ill appearing and cooperative Head: Present atraumatic and normocephalic ENT: Present normal exam Comment:: NG in left nare Respiratory: Present normal respiratory effort; Absent rhonchi, wheezes or crackles Cardiac: Present Reg Rate and Rhythm GI: Present soft, distention, tenderness (Nonfocal) and normal bowel sounds; Absent guarding or rebound Extremities: Present normal inspection and full ROM Skin: Present intact; Absent erythema or rash Comment:: No petechiae or purpura Neuro: Present Grossly Intact, alert, awake, oriented x 3 and moves all extremities Assessment and Plan *Assessment and plan (1) SBO (small bowel obstruction): Status: Acute Category: Medical Code(s): K56.609 - Unspecified intestinal obstruction, unspecified as to partial versus complete obstruction (2) MIKEY (acute kidney injury): Status: Acute Category: Medical Code(s): N17.9 - Acute kidney failure, unspecified (3) Hyperbilirubinemia: Status: Acute Category: Medical Code(s): E80.6 - Other disorders of bilirubin metabolism (4) Dehydration, moderate: Status: Acute Category: Medical Code(s): E86.0 - Dehydration (5) HTN (hypertension): Status: Chronic Qualifiers: Hypertension type: essential hypertension Qualified Code(s): I10 - Essential (primary) hypertension Category: Medical Code(s): I10 - Essential (primary) hypertension (6) HLD (hyperlipidemia): Status: Chronic Qualifiers: Hyperlipidemia type: other hyperlipidemia Qualified Code(s): E78.4 - Other hyperlipidemia Category: Medical Code(s): E78.5 - Hyperlipidemia, unspecified (7) SARKIS (obstructive sleep apnea): Status: Acute Category: Medical Code(s): G47.33 - Obstructive sleep apnea (adult) (pediatric) (8) DM (diabetes mellitus): Status: Chronic Qualifiers: Diabetes mellitus type: type 2 Diabetes mellitus intermission coordinator insulin use: without intermission coordinator use Diabetes mellitus complication status: with unspecified complications Qualified Code(s): E11.8 - Type 2 diabetes mellitus with unspecified complications Category: Medical Code(s): E11.9 - Type 2 diabetes mellitus without complications (9) Sepsis: Status: Acute Category: Medical Code(s): A41.9 - Sepsis, unspecified organism (10) Hyponatremia: Status: Acute Category: Medical Code(s): E87.1 - Hypo-osmolality and hyponatremia (11) Transaminitis: Status: Acute Category: Medical Code(s): R74.01 - Elevation of levels of liver transaminase levels (12) Obesity (BMI 30.0-34.9): Status: Acute Category: Medical Code(s): E66.811 - Obesity, class 1 Plan 63-year-old male who presented with abdominal distention, nausea, vomiting. Found to have SBO on imaging. Case discussed with ER physician, request admission for further management. NG placed. Medicine agreed to admit for conservative management and surgical consultation. Showing some improvement after placement of NG and decompression of abdomen. Is passing gas this morning. Surgery evaluating. Continues to require patient management. Problems addressed as follows: Small Bowel Obstruction (SBO): Suspected sepsis - Acute abdominal pain, nausea, vomiting, diarrhea, with CT showing SBO with a transition point, dilated stomach and proximal small bowel, decompressed distal bowel/colon, no free fluid/air, hyperactive bowel sounds, and diffuse tenderness. -NG remains in place. Clamped at this time. Continue sips and chips. - Discussed case with surgery, obtain GI series to evaluate for bowel gas pattern. Attempt conservative management. - Continue LR at 100 cc IV an hour - Continue ondansetron 4 mg IV every 4 hours as needed for nausea. Alternate with Phenergan 12.5 mg IV every 6 for refractory nausea vomiting - continue piperacillin-tazobactam (Zosyn) 3.375 g IV every 6 hours for intra-abdominal infection coverage. -White count normal at 10.9, hemoglobin 13.3. Hyperglycemia (Glucose 246) with Anion Gap Acidosis: Elevated glucose, anion gap (30.5), low bicarbonate (13.1), 3+ glucose on urinalysis, negative ketones/acetone, in a patient on empagliflozin, suggesting metabolic stress or early DKA, though euglycemic DKA less likely without ketones. - Hold empagliflozin due to SBO and acidosis risk. -Continue SSI with fingersticks ACHS - Morning glucose 140. A1c pending. Mood disorder: Holding home meds pending improvement in p.o. tolerance. Will look to resume venlafaxine, Seroquel tomorrow if able tolerate p.o. intake BPH: Continue tamsulosin 0.4 mg nightly Hyperkalemia: Improved with potassium 4.5 this morning. Phosphorus 5.2. Kidney function normal with BUN 27, creatinine 1.1. Repeat CBC, CMP, magnesium ordered for the morning.
--- NOTE | 2024-05-28 17:38 | PC.NURSE ---
PT IS RESTING IN BED WITH FAMILY AT BEDSIDE. ALERT AND ORIENTED X4. PT HAS AMBULATED TO THE BATHROOM AND IN THE [place] THIS SHIFT. PASSING FLATUS AND STATES HE HAS HAD 4 BOWEL MOVEMENTS THIS SHIFT. NG TUBE NOTED TO RT NARE @ 65. TUBE WAS CLAMPED FOR A COUPLE OF HOURS DURING UPPER GI SERIES. TUBE WAS RECONNECTED TO LOW WALL SUCTION THIS AFTERNOON AND PT HAD OVER 2 L OF BROWN GASTRIC CONTENTS EMPTIED FROM CANISTER WITHIN 2 HOURS. PT HAS BEEN ENCOURAGED TO LIMIT ICE CHIPS. ABDOMEN SOFT/NON TENDER WITH ACTIVE BOWEL SOUNDS. NO N/V THIS SHIFT. NO COMPLAINTS OF ABDOMINAL PAIN. WILL CONTINUE TO MONITOR.
[2024-05-28] MEDS: QUETIAPINE 100MG TABLET 200 MG PO (20:36)
[2024-05-28] MEDS: ROPINIROLE 1MG TABLET 1 MG PO (20:36)
[2024-05-28] MEDS: TAMSULOSIN 0.4MG CAPSULE 0.4 MG PO (20:36)
[2024-05-28] MEDS: SODIUM CHLORIDE 0.9% 10ML FLUSH SYRINGE 10 ML IV (21:35)
[2024-05-28] MEDS: MORPHINE 2MG/ML SYRINGE 2 MG IV (22:55)
[2024-05-29] VITALS: BP 141/75; PULSE 96; RESP 17; TEMP 37.1; O2SAT 94
[2024-05-29] MEDS: PIPERCILLIN/TAZO 3.375 GM in 0.9 % SODIUM CHLORIDE 50 ML IV ×4 (03:32→20:56)
[2024-05-29] MEDS: SODIUM CHLORIDE 0.9% 10ML FLUSH SYRINGE 10 ML IV (03:34)
[2024-05-29 04:00] VITALS: BP 146/89; PULSE 85; PULSE 97; RESP 16; TEMP 37.2; O2SAT 94; BMI 32.0
[2024-05-29] MEDS: LACTATED RINGERS 1000ML 1,000 ML 100 ML IV (04:44)
--- NOTE | 2024-05-29 06:00 | XR_ITS ---
PROCEDURE INFORMATION: Exam: XR Complete Acute Abdomen Series Including Chest Exam date and time: 05/29/2024 4:39 AM Age: 63 years old Clinical indication: Abdominal pain; Additional info: Vomiting, abdominal pain TECHNIQUE: Imaging protocol: Radiologic exam. Complete acute abdomen series, including 2 or more views of the abdomen and a single view chest. COMPARISON: CR XR KUB 05/27/2024 10:40 PM FINDINGS: Tubes, catheters and devices: Enteric tube traverses midline, catheter tip and side fenestration in the left upper quadrant, subdiaphragmatic. Lungs: Left lower lung zone granulomas is stable from prior comparison. Pleural spaces: Normal. No pleural effusions. No pneumothorax. Heart/Mediastinum: Normal. No cardiomegaly. Gastrointestinal tract: Large bowel demonstrates enteric contrast. Paucity of central small bowel gas, a few scattered loops of air dilated small bowel are seen. Intraperitoneal space: Normal. No free air. Bones/joints: Diffuse degenerative change of the visualized osseous structures. Soft tissues: Normal. IMPRESSION: 1. Medical devices as above. 2. Nonspecific bowel gas pattern without obvious obstruction. Oral contrast throughout the large bowel.
[2024-05-29 06:26] LABS: Basophils % 0.3 % (0.1-2.0); Eosinophils # 0.1 K/mm3 (0.0-0.4); Eosinophils % 1.1 % (0.1-12.0); Hematocrit 38.9 % (42.0-52.0); Hemoglobin 13.1 g/dL (14.1-18.0); Lymphocytes # 2.3 K/mm3 (0.7-4.5); Lymphocytes % 28.6 % (10-50); Mean Corpuscular HGB Conc 33.7 g/dL (31.8-35.4); Mean Corpuscular Hemoglobin 28.4 pg (27.0-31.2); Mean Corpuscular Volume 84.2 fl (80-94); Monocytes # 0.5 K/mm3 (0.1-1.0); Monocytes % 6.3 % (1.7-9.3); Neutrophils # 5.1 K/mm3 (1.8-7.8); Neutrophils % 63.4 % (37.0-80.0); Nucleated Red Blood Cells # 0 10^3/uL; Nucleated Red Blood Cells % 0 %; Platelet Count 167 K/mm3 (142-424); Red Blood Count 4.62 M/mm3 (4.60-6.20); Red Cell Distribution Width 14.6 % (11.5-17.5); Red Cell Distribution Width-SD 44.7 fL
[2024-05-29 06:30] LABS: POC Glucose,Bedside 165 (70-110)
[2024-05-29 06:41] LABS: Chloride 109 mmol/L (98-107); Potassium 3.5 mmoL/L (3.5-5.1); Sodium 147 mmol/L (136-145)
[2024-05-29 06:44] LABS: Anion Gap 15.5 mEq/L (5-15); Blood Urea Nitrogen 37 mg/dl (9-20); Calcium 8.7 mg/dl (8.4-10.2); Carbon Dioxide 26 mmol/L (22.0-30.0); Creatinine Clearance Estimated 96 mL/min (50-200); Estimated Glomerular Filt Rate 68 ml/min (>60); GFR (African American) 82 ML/MIN (>60); Glucose 182 mg/dl (74-100)
--- NOTE | 2024-05-29 07:45 | EXP.SURG.PN ---
Subjective Patient reports: no new complaints, feels better, flatus and bowel movement Narrative: Per nursing the patient has had high-volume NG output over the past shift . Exam Data for Last 24 hours Vital signs and Labs for Last 24 Hours: Temp Pulse Resp BP Pulse Ox O2 Del Method 99.0 F 97 H 16 146/89 H 94 L Room Air 05/29/24 04:00 05/29/24 04:00 05/29/24 04:00 05/29/24 04:00 05/29/24 04:00 05/29/24 05:00 Laboratory Results - last 24 hr 05/28/24 10:57: POC Glucose 172 H 05/28/24 15:36: POC Glucose 174 H 05/29/24 06:14: WBC 8.0 D, RBC 4.62, Hgb 13.1 L, Hct 38.9 L, MCV 84.2, MCH 28.4, MCHC 33.7, RDW 14.6, Plt Count 167, MPV 10.0, Neut % (Auto) 63.4, Lymph % (Auto) 28.6, [place] % (Auto) 6.3, Eos % (Auto) 1.1, Baso % (Auto) 0.3, Neut # (Auto) 5.1, Lymph # (Auto) 2.3, [place] # (Auto) 0.5, Eos # (Auto) 0.1, Baso # (Auto) 0.0, Sodium 147 H, Potassium 3.5 D, Chloride 109 H, Carbon Dioxide 26, Anion Gap 15.5 H, BUN 37 H D, Creatinine 1.10, Estimated Creat Clear 96, Estimated GFR 68, Est GFR ( Amer) 82, Glucose 182 H, POC Glucose 165 H, Calcium 8.7 I & O for Last 24 hours: Intake & Output 05/26/24 05/27/24 05/28/24 05/29/24 11:59 11:59 11:59 11:59 Intake Total 0 / 0 1071 / 1071 Output Total 1150 / 1150 4950 / 4950 Balance -1150 / -1150 -3879 / -7933 Weight 106 lb 9.504 oz 216 lb Microbiology Reports for the Last 24 Hours: Microbiology 05/27/24 22:28 Blood Blood Culture - Preliminary NO GROWTH AFTER 24 HOURS 05/27/24 22:25 Blood Blood Culture - Preliminary NO GROWTH AFTER 24 HOURS Constitutional Constitutional: no acute distress *Routine Respiratory Exam Respiratory: Absent respiratory distress *Routine Cardiovascular Exam Cardiovascular: Absent tachycardia *Routine Abdominal Exam Abdominal: Present soft Progress Note: A&P Assessment and plan (1) SBO (small bowel obstruction): Status: Acute Assessment and plan: No evidence of complete obstruction per small bowel follow-through with follow-up plain films. The patient is having bowel function but continues to have fairly high-volume nasogastric output. Ileus, partial obstruction, or intermittent obstruction remain within the differential. Nasogastric tube to drain bag Continue serial abdominal exams (2) HTN (hypertension): Status: Chronic (3) HLD (hyperlipidemia): Status: Chronic (4) SARKIS (obstructive sleep apnea): Status: Acute (5) DM (diabetes mellitus): Status: Chronic
--- NOTE | 2024-05-29 07:52 | PC.NURSE ---
Pt. is alert and orientated x 4. Pt. is on room air. Pt. c/o RUQ and pain and chronic back pain due to disc problems. Pt. medicatedc x 2 overnight for pain. Pt. has NG Tube with dark brown output. Pt. taking ice chips and c/o feeling thiristy. Pt. slept well overnight. Pt. getting IV antibiotics. and IVF infusing. Personal items and call araujo in reach.
[2024-05-29 08:00] VITALS: BP 148/89; PULSE 87; RESP 16; TEMP 36.9; O2SAT 93
[2024-05-29 08:25] LABS: Hemoglobin A1C 6.9 % (4.0-6.0)
[2024-05-29] MEDS: VENLAFAXINE XR 75MG CAPSULE 150 MG PO (08:51)
[2024-05-29] MEDS: VENLAFAXINE XR 75MG CAPSULE 75 MG PO (08:51)
[2024-05-29 10:49] LABS: POC Glucose,Bedside 181 (70-110)
--- NOTE | 2024-05-29 12:30 | PC.NURSE ---
Addendum entered by Minnie Baldwin RN 05/29/24 14:28: UPDATED . AT 1415 ORDERED TO DC NG TUBE AND TO GO SLOW WITH CLEAR LIQUIDS. Original Note: NG WAS CONNECTED TO DRAIN BAG THIS MORNING. 25 ML'S RESIDUAL @ 1200. PT HAS AMBULATED AND HAD A BOWEL MOVEMENT THIS MORNING.
--- NOTE | 2024-05-29 13:52 | EXP.ACUTE.PN ---
Subjective *Date: 05/29/24 *Time: 13:52 Interval history: Still having significant output from NG however patient had large volume of ice chips overnight. Denies nausea or vomiting. No shortness of breath. Had multiple bowel movements increasing in volume overnight. Denies abdominal pain. Belly more soft this morning. Medical Exam Vital signs and Labs for Last 24 Hours: Vital Signs Temp Pulse Pulse Resp BP Pulse Ox O2 Del Method 05/29/24 11:00 Room Air 05/29/24 08:25 Room Air 05/29/24 08:00 Room Air 05/29/24 08:00 98.5 F 87 16 148/89 H 93 L Room Air 05/29/24 07:00 Room Air 05/29/24 05:00 Room Air 05/29/24 04:00 99.0 F 97 H 16 146/89 H 94 L Room Air 05/29/24 04:00 85 05/29/24 03:00 Room Air 05/29/24 01:00 Room Air 05/29/24 00:00 98.8 F 96 H 17 141/75 H 94 L Room Air 05/28/24 23:00 Room Air 05/28/24 21:00 Room Air 05/28/24 20:00 Room Air 05/28/24 20:00 85 05/28/24 19:49 98.3 F 90 17 128/70 94 L Room Air 05/28/24 18:33 Room Air 05/28/24 17:00 Room Air 05/28/24 16:00 90 05/28/24 16:00 99.3 F 93 H 16 138/75 93 L Room Air 05/28/24 14:28 Room Air Intake and Output 05/28/24 05/29/24 05/29/24 23:59 07:59 15:59 Intake Total 275 / 1071 796 / 796 0 / 796 Output Total 2600 / 5300 2350 / 2350 0 / 2350 Balance -2325 / -4229 -1554 / -1554 0 / -1554 Intake: Intake, Oral Amount 0 / 0 Intake, Total IV Amount 275 / 1071 796 / 796 Lactated Ringers 1000ML 1,000 185 / 931 746 / 746 ml @ 100 mls/hr IV .Q10H COUNT INCLUDES THE [facility] Rx #:[id number] Pipercillin/Tazo 3.375 gm In 0. 90 / 140 50 / 50 9 % Sodium Chloride 50 ml @ 100 mls/hr IV Q6H COUNT INCLUDES THE [facility] Rx#:[id number] Output: Output, Urine Amount 0 / 650 0 / 0 Output, Gastric Drainage Amount 2600 / 4650 2350 / 2350 Right Nare 2600 / 4650 2350 / 2350 Other: Number of Unmeasured Voids 1 1 Number of Bowel Movements 1 Weight 97.976 kg Patient Weight 05/29/24 23:59 Weight 97.976 kg Laboratory Results - last 24 hr 05/28/24 15:36: POC Glucose 174 H 05/29/24 06:14: WBC 8.0 D, RBC 4.62, Hgb 13.1 L, Hct 38.9 L, MCV 84.2, MCH 28.4, MCHC 33.7, RDW 14.6, Plt Count 167, MPV 10.0, Neut % (Auto) 63.4, Lymph % (Auto) 28.6, [place] % (Auto) 6.3, Eos % (Auto) 1.1, Baso % (Auto) 0.3, Neut # (Auto) 5.1, Lymph # (Auto) 2.3, [place] # (Auto) 0.5, Eos # (Auto) 0.1, Baso # (Auto) 0.0, Sodium 147 H, Potassium 3.5 D, Chloride 109 H, Carbon Dioxide 26, Anion Gap 15.5 H, BUN 37 H D, Creatinine 1.10, Estimated Creat Clear 96, Estimated GFR 68, Est GFR ( Amer) 82, Glucose 182 H, POC Glucose 165 H, Hemoglobin A1c 6.9 H, Calcium 8.7 05/29/24 10:40: POC Glucose 181 H I & O for Labs for Last 24 Hours: Intake & Output 05/26/24 05/27/24 05/28/24 05/29/24 23:59 23:59 23:59 23:59 Intake Total 275 / 1071 796 / 796 Output Total 3750 / 5300 2350 / 2350 Balance -3475 / -4229 -1554 / -1554 Weight 106.594 kg 48.35 kg 97.976 kg Microbiology Reports for the Last 24 Hours: Microbiology 05/27/24 22:28 Blood Blood Culture - Preliminary NO GROWTH AFTER 24 HOURS 05/27/24 22:25 Blood Blood Culture - Preliminary NO GROWTH AFTER 24 HOURS Constitutional: Present no acute distress, obese, chronically ill appearing and cooperative Head: Present atraumatic and normocephalic ENT: Present normal exam Comment:: NG in left nare Respiratory: Present normal respiratory effort; Absent rhonchi, wheezes or crackles Cardiac: Present Reg Rate and Rhythm GI: Present soft and normal bowel sounds; Absent distention, tenderness, guarding or rebound Extremities: Present normal inspection and full ROM Skin: Present intact; Absent erythema or rash Comment:: No petechiae or purpura Neuro: Present Grossly Intact, alert, awake, oriented x 3 and moves all extremities Assessment and Plan *Assessment and plan (1) SBO (small bowel obstruction): Status: Acute Category: Medical Code(s): K56.609 - Unspecified intestinal obstruction, unspecified as to partial versus complete obstruction (2) MIKEY (acute kidney injury): Status: Acute Category: Medical Code(s): N17.9 - Acute kidney failure, unspecified (3) Hyperbilirubinemia: Status: Acute Category: Medical Code(s): E80.6 - Other disorders of bilirubin metabolism (4) Dehydration, moderate: Status: Acute Category: Medical Code(s): E86.0 - Dehydration (5) HTN (hypertension): Status: Chronic Qualifiers: Hypertension type: essential hypertension Qualified Code(s): I10 - Essential (primary) hypertension Category: Medical Code(s): I10 - Essential (primary) hypertension (6) HLD (hyperlipidemia): Status: Chronic Qualifiers: Hyperlipidemia type: other hyperlipidemia Qualified Code(s): E78.4 - Other hyperlipidemia Category: Medical Code(s): E78.5 - Hyperlipidemia, unspecified (7) SARKIS (obstructive sleep apnea): Status: Acute Category: Medical Code(s): G47.33 - Obstructive sleep apnea (adult) (pediatric) (8) DM (diabetes mellitus): Status: Chronic Qualifiers: Diabetes mellitus type: type 2 Diabetes 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0-34.9): Status: Acute Category: Medical Code(s): E66.811 - Obesity, class 1 Plan 63-year-old male who presented with abdominal distention, nausea, vomiting. Found to have SBO on imaging. Case discussed with ER physician, request admission for further management. NG placed. Medicine agreed to admit for conservative management and surgical consultation. Showing some improvement after placement of NG and decompression of abdomen. Having bowel movements. Still having output from NG. Placing to gravity today. Surgery following along. Will try to advance diet in the next 24 hours. Continues to require inpatient management. Problems addressed as follows: Small Bowel Obstruction (SBO): Suspected sepsis - Acute abdominal pain, nausea, vomiting, diarrhea, with CT showing SBO with a transition point, dilated stomach and proximal small bowel, decompressed distal bowel/colon, no free fluid/air, hyperactive bowel sounds, and diffuse tenderness. - NG remains in place, currently to gravity. Continue sips and chips. - Discussed case with surgery, plan for conservative management. No plan for intervention at this time. - Continue LR at 100 cc IV an hour through 9:00 this evening. - Continue ondansetron 4 mg IV every 4 hours as needed for nausea. Alternate with Phenergan 12.5 mg IV every 6 for refractory nausea vomiting - continue piperacillin-tazobactam (Zosyn) 3.375 g IV every 6 hours for intra-abdominal infection coverage. - White count normal at 8. Hemoglobin 13. No active signs of infection. Will look to discontinue antibiotics tomorrow if cultures remain negative. Hyperglycemia (Glucose 246) with Anion Gap Acidosis: Elevated glucose, anion gap (30.5), low bicarbonate (13.1), 3+ glucose on urinalysis, negative ketones/acetone, in a patient on empagliflozin, suggesting metabolic stress or early DKA, though euglycemic DKA less likely without ketones. - Hold empagliflozin due to SBO and acidosis risk. - Continue SSI with fingersticks ACHS - Morning glucose 182. A1c 6.9 Mood disorder: resume venlafaxine, Seroquel tomorrow if able tolerate p.o. intake BPH: Continue tamsulosin 0.4 mg nightly Hyperkalemia: Potassium normal at 3.5, kidney function normal with BUN 37, creatinine 1.1. Repeat CBC, CMP, magnesium ordered for the morning. Full code
[2024-05-29 15:48] LABS: POC Glucose,Bedside 188 (70-110)
[2024-05-29 16:00] VITALS: BP 152/99; PULSE 94; RESP 18; TEMP 36.9; O2SAT 95
--- NOTE | 2024-05-29 16:37 | PC.NURSE ---
PT IS RESTING IN BED. ALERT AND ORIENTED X4. TOLERATING CLEAR LIQUIDS WELL IN MODERATION. PT HAS HAD SEVERAL SMALL TO MODERATE BOWEL MOVEMENTS THIS SHIFT. AMBULATES TO THE BATHROOM AND IN THE [place]. LUNG SOUNDS CLEAR. ABDOMEN SOFT WITH ACTIVE BOWEL SOUNDS. VSS. WILL CONTINUE TO MONITOR.
[2024-05-29] MEDS: MORPHINE 2MG/ML SYRINGE 2 MG IV (19:30)
[2024-05-29 20:00] VITALS: BP 152/95; PULSE 95; RESP 17; TEMP 36.9; O2SAT 97
[2024-05-29 20:14] LABS: POC Glucose,Bedside 185 (70-110)
[2024-05-29] MEDS: humaLOG 100 UNITS/ML 10ML VIAL (SSI) SUBCUT (20:15)
[2024-05-29] MEDS: ROPINIROLE 1MG TABLET 1 MG PO (20:16)
[2024-05-29] MEDS: TAMSULOSIN 0.4MG CAPSULE 0.4 MG PO (20:16)
[2024-05-29] MEDS: QUETIAPINE 100MG TABLET 200 MG PO (20:16)
[2024-05-30 04:00] VITALS: BP 114/53; PULSE 77; RESP 16; TEMP 36.9; O2SAT 95; BMI 31.6
[2024-05-30] MEDS: PIPERCILLIN/TAZO 3.375 GM in 0.9 % SODIUM CHLORIDE 50 ML IV ×2 (05:38→08:54)
--- NOTE | 2024-05-30 06:52 | PC.NURSE ---
Pt A&OX4 and has tolerated room air. Lung sounds clear and bowel sounds active. Pt has tolerated light well with no complaints of N/V. He has had multiple BM this shift. He has ambulated room independently. No complaints at this time, call light within reach.
[2024-05-30 06:55] LABS: Basophils % 0.1 % (0.1-2.0); Eosinophils # 0.1 K/mm3 (0.0-0.4); Eosinophils % 0.9 % (0.1-12.0); Hematocrit 35.4 % (42.0-52.0); Hemoglobin 11.9 g/dL (14.1-18.0); Lymphocytes # 2.5 K/mm3 (0.7-4.5); Lymphocytes % 36.5 % (10-50); Mean Corpuscular HGB Conc 33.6 g/dL (31.8-35.4); Mean Corpuscular Hemoglobin 28.6 pg (27.0-31.2); Mean Corpuscular Volume 85.1 fl (80-94); Mean Platelet Volume 10.3 fl (7.4-10.4); Monocytes # 0.4 K/mm3 (0.1-1.0); Monocytes % 6.4 % (1.7-9.3); Neutrophils # 3.9 K/mm3 (1.8-7.8); Neutrophils % 55.8 % (37.0-80.0); Nucleated Red Blood Cells # 0 10^3/uL; Nucleated Red Blood Cells % 0 %; Platelet Count 126 K/mm3 (142-424); Red Blood Count 4.16 M/mm3 (4.60-6.20); Red Cell Distribution Width 14.5 % (11.5-17.5); Red Cell Distribution Width-SD 44.6 fL; White Blood Count 6.9 K/mm3 (4.8-10.8)
[2024-05-30 07:11] LABS: Chloride 102 mmol/L (98-107)
[2024-05-30 07:12] LABS: Potassium 3.2 mmoL/L (3.5-5.1); Sodium 141 mmol/L (136-145)
[2024-05-30 07:15] LABS: Anion Gap 13.2 mEq/L (5-15); Calcium 7.9 mg/dl (8.4-10.2); Carbon Dioxide 29 mmol/L (22.0-30.0); Glucose 138 mg/dl (74-100)
[2024-05-30 07:20] LABS: Blood Urea Nitrogen 33 mg/dl (9-20); Creatinine Clearance Estimated 105 mL/min (50-200); Estimated Glomerular Filt Rate 86 ml/min (>60); GFR (African American) 103 ML/MIN (>60)
[2024-05-30 08:00] VITALS: BP 108/59; PULSE 70; RESP 18; TEMP 36.9; O2SAT 96
--- NOTE | 2024-05-30 08:09 | P.PN_ITS ---
Subjective *Date: 05/30/24 *Time: 08:09 Medical Exam Vital signs and Labs for Last 24 Hours: Vital Signs Temp Pulse Resp BP Pulse Ox O2 Del Method 05/30/24 06:44 Room Air 05/30/24 05:00 Room Air 05/30/24 04:00 98.4 F 77 16 114/53 L 95 Room Air 05/30/24 03:00 Room Air 05/30/24 01:00 Room Air 05/29/24 23:00 Room Air 05/29/24 21:00 Room Air 05/29/24 20:00 Room Air 05/29/24 20:00 98.4 F 95 H 17 152/95 H 97 Room Air 05/29/24 18:20 Room Air 05/29/24 17:00 Room Air 05/29/24 16:00 98.4 F 94 H 18 152/99 H 95 Room Air 05/29/24 14:48 Room Air 05/29/24 13:00 Room Air 05/29/24 11:00 Room Air 05/29/24 08:25 Room Air Intake and Output 05/29/24 05/30/24 05/30/24 23:59 07:59 15:59 Intake Total 1390 / 2186 Output Total 0 / 2900 0 / 0 Balance 1390 / -714 0 / 0 Intake: Intake, Oral Amount 1090 / 1090 Intake, Total IV Amount 300 / 1096 Lactated Ringers 1000ML 1,000 250 / 996 ml @ 100 mls/hr IV .Q10H [facility] Rx #:[id number] Pipercillin/Tazo 3.375 gm In 0. 50 / 100 9 % Sodium Chloride 50 ml @ 100 mls/hr IV Q6H [facility] Rx#:[id number] Output: Output, Urine Amount 0 / 0 0 / 0 Other: Number of Unmeasured Voids 1 1 Number of Bowel Movements 1 1 Weight 96.842 kg Patient Weight 05/30/24 23:59 Weight 96.842 kg Laboratory Results - last 24 hr 05/29/24 06:14: Hemoglobin A1c 6.9 H 05/29/24 10:40: POC Glucose 181 H 05/29/24 15:32: POC Glucose 188 H 05/29/24 19:57: POC Glucose 185 H 05/30/24 06:30: WBC 6.9, RBC 4.16 L, Hgb 11.9 L, Hct 35.4 L, MCV 85.1, MCH 28.6, MCHC 33.6, RDW 14.5, Plt Count 126 L, MPV 10.3, Neut % (Auto) 55.8, Lymph % (Auto) 36.5, [place] % (Auto) 6.4, Eos % (Auto) 0.9, Baso % (Auto) 0.1, Neut # (Auto) 3.9, Lymph # (Auto) 2.5, [place] # (Auto) 0.4, Eos # (Auto) 0.1, Baso # (Auto) 0.0, Sodium 141, Potassium 3.2 L, Chloride 102, Carbon Dioxide 29, Anion Gap 13.2, BUN 33 H, Creatinine 0.90, Estimated Creat Clear 105, Estimated GFR 86, Est GFR ( Amer) 103 D, Glucose 138 H, Calcium 7.9 L I & O for Labs for Last 24 Hours: Intake & Output 05/27/24 05/28/24 05/29/24 05/30/24 23:59 23:59 23:59 23:59 Intake Total 275 / 1071 2186 / 2186 Output Total 3750 / 5300 2900 / 2900 0 / 0 Balance -3475 / -4229 -714 / -714 0 / 0 Weight 106.594 kg 48.35 kg 97.976 kg 96.842 kg Microbiology Reports for the Last 24 Hours: Microbiology 05/27/24 22:28 Blood Blood Culture - Preliminary NO GROWTH AFTER 48 HOURS 05/27/24 22:25 Blood Blood Culture - Preliminary NO GROWTH AFTER 48 HOURS The patient's infection will respond to the chosen ABx?: Yes (BLOOD CX NO GROWTH, FOR SEPSIS/SMALL BOWEL OBSTRUCTION, AFEBRILE) Is the patient receiving the right drug, dose, and route?: Yes Could a more targeted ABx be ordered?: No
[2024-05-30] MEDS: VENLAFAXINE XR 75MG CAPSULE 225 MG PO (08:55)
[2024-05-30] MEDS: POTASSIUM CHLORIDE 20MEQ TAB 40 MEQ PO ×2 (08:58→11:46)
[2024-05-30] MEDS: LACTATED RINGERS 1000ML 1,000 ML 100 ML IV (11:24)
[2024-05-30 11:27] LABS: POC Glucose,Bedside 184 (70-110)
[2024-05-30] MEDS: humaLOG 100 UNITS/ML 10ML VIAL (SSI) SUBCUT (11:46)
--- NOTE | 2024-05-30 15:01 | EXP.DC.SUM ---
General Admission date:: 05/27/24 Discharge date: 05/30/24 HPI HPI HPI: Patient is a 63-year-old disabled male from [facility] with history of coronary artery disease with previous stenting, hypertension, hyperlipidemia, obstructive sleep apnea, type 2 diabetes, bipolar disorder. He has chronic pain issues for which he is on opioid medications. He presented to the emergency department in the late evening of 05/27/2024 with a 2-day history of abdominal pain, nausea, vomiting and diarrhea. He has never had any prior abdominal surgeries. He was evaluated in the emergency department and was found to have a white blood cell count of 19,300. Laboratory studies were suggestive of dehydration with elevated anion gap, base deficit, and elevation of creatinine. He also had mild elevation of transaminases, bilirubin, and alkaline phosphatase. He underwent CT angiogram of the abdomen and pelvis which revealed dilated loops of bowel measuring up to 6.1 cm with a transition point. Plan was for admission and surgical consultation. He had nasogastric tube placed. Relatively recently had left shoulder arthroscopy prior to which he had undergone cardiac risk stratification. Patient has never had previous colonoscopy. He states that since nasogastric tube has been placed he does feel better. He is passing gas. No additional diarrhea. Stool panel negative for infectious etiology. Hospital Course Hospital Course Hospital Course: 63-year-old male who presented with abdominal distention, nausea, vomiting. Found to have SBO on imaging. Case discussed with ER physician, request admission for further management. NG placed. Medicine agreed to admit for conservative management and surgical consultation. Patient began having bowel movements but still had significant distention and inability to tolerate p.o. intake for about 48 hours. As gastric output decreased and he had more bowel movements, diet was slowly advanced. Able to tolerate regular diet on day of discharge with bowel movements that morning. No significant abdominal pain. Stable to discharge home with follow-up as an outpatient. Small Bowel Obstruction (SBO): Suspected sepsis - Acute abdominal pain, nausea, vomiting, diarrhea, with CT showing SBO with a transition point, dilated stomach and proximal small bowel, decompressed distal bowel/colon, no free fluid/air, hyperactive bowel sounds, and diffuse tenderness. NG placed on admission. Gradually transition from suction to gravity to removal. Surgery was consulted, recommended conservative management. Gastric imaging performed showing movement of gas through bowels and improvement in obstruction. Initially received IV fluids, was transition to oral intake as tolerated. On antibiotics for possible intra-abdominal infection on admission. Discontinued at discharge. No indication for further antibiotics. White count normalized to 6.9 by day of discharge. Belly soft. Obstruction resolved without intervention. Hyperglycemia (Glucose 246) with Anion Gap Acidosis: Elevated glucose, anion gap (30.5), low bicarbonate (13.1), 3+ glucose on urinalysis, negative ketones/acetone, in a patient on empagliflozin, suggesting metabolic stress or early DKA, though euglycemic DKA less likely without ketones. - Started on sliding scale insulin during admission. A1c 6.9. Resume home regimen at discharge. Well-controlled with morning glucose of 138 on day of discharge Mood disorder: Continue home regimen with Seroquel and venlafaxine BPH: Continue tamsulosin 0.4 mg nightly Hyperkalemia: Potassium normalized. 3.2 on day of discharge. Kidney function normal with BUN 33, creatinine 0.9. Total time spent on discharge 32 minutes in counseling, documentation, chart review, and direct care with patient. Exam Data for Last 24 hours Vital signs and Labs for Last 24 Hours: Temp Pulse Resp BP Pulse Ox O2 Del Method 98.5 F 70 18 108/59 L 96 Room Air 05/30/24 08:00 05/30/24 08:00 05/30/24 08:00 05/30/24 08:00 05/30/24 08:00 05/30/24 13:00 Laboratory Results - last 24 hr 05/29/24 15:32: POC Glucose 188 H 05/29/24 19:57: POC Glucose 185 H 05/30/24 06:30: WBC 6.9, RBC 4.16 L, Hgb 11.9 L, Hct 35.4 L, MCV 85.1, MCH 28.6, MCHC 33.6, RDW 14.5, Plt Count 126 L, MPV 10.3, Neut % (Auto) 55.8, Lymph % (Auto) 36.5, [place] % (Auto) 6.4, Eos % (Auto) 0.9, Baso % (Auto) 0.1, Neut # (Auto) 3.9, Lymph # (Auto) 2.5, [place] # (Auto) 0.4, Eos # (Auto) 0.1, Baso # (Auto) 0.0, Sodium 141, Potassium 3.2 L, Chloride 102, Carbon Dioxide 29, Anion Gap 13.2, BUN 33 H, Creatinine 0.90, Estimated Creat Clear 105, Estimated GFR 86, Est GFR ( Amer) 103 D, Glucose 138 H, Calcium 7.9 L 05/30/24 11:20: POC Glucose 184 H I & O for Last 24 hours: Intake & Output 05/27/24 05/28/24 05/29/24 05/30/24 23:59 23:59 23:59 23:59 Intake Total 275 / 1071 2186 / 2186 960 / 960 Output Total 3750 / 5300 2900 / 2900 0 / 0 Balance -3475 / -4229 -714 / -714 960 / 960 Weight 106.594 kg 48.35 kg 97.976 kg 96.842 kg Microbiology Reports for the Last 24 Hours: Microbiology 05/27/24 22:28 Blood Blood Culture - Preliminary NO GROWTH AFTER 48 HOURS 05/27/24 22:25 Blood Blood Culture - Preliminary NO GROWTH AFTER 48 HOURS Constitutional Constitutional: no acute distress, obese, chronically ill appearing and cooperative *Routine HEENT Exam Head: Present normocephalic Eye: Present EOMI and PERRL ENT: Present mucous membranes moist *Routine Neck Exam Neck: Present supple; Absent lymphadenopathy *Routine Respiratory Exam Respiratory: Present CTA bilaterally; Absent wheezes or crackles *Routine Cardiovascular Exam Cardiovascular: Present RRR *Routine Abdominal Exam Abdominal: Present soft, normoactive bowel sounds, distended and guarding; Absent tenderness or rebound *Routine Rectal Exam Patient deferred: visual exam *Routine Exam Patient deferred: penile exam *Routine Extremities Exam Extremities: Absent cyanosis, clubbing or edema *Routine Skin Exam Skin: Present warm; Absent rash *Routine Neurological Exam Neurological: Present alert, oriented X3, CN II-XII intact and moving all extremities; Absent altered mental status Results Data Completed and Pending Labs on day of discharge: Labs from last 24 hours 05/30/24 05/30/24 05/29/24 11:20 06:30 19:57 WBC 6.9 RBC 4.16 L Hgb 11.9 L Hct 35.4 L MCV 85.1 MCH 28.6 MCHC 33.6 RDW 14.5 Plt Count 126 L MPV 10.3 Neut % (Auto) 55.8 Lymph % (Auto) 36.5 [place] % (Auto) 6.4 Eos % (Auto) 0.9 Baso % (Auto) 0.1 Neut # (Auto) 3.9 Lymph # (Auto) 2.5 [place] # (Auto) 0.4 Eos # (Auto) 0.1 Baso # (Auto) 0.0 Sodium 141 Potassium 3.2 L Chloride 102 Carbon Dioxide 29 Anion Gap 13.2 BUN 33 H Creatinine 0.90 Estimated Creat Clear 105 Estimated GFR 86 Est GFR ( Amer) 103 D Glucose 138 H POC Glucose 184 H 185 H Calcium 7.9 L 05/29/24 15:32 WBC RBC Hgb Hct MCV MCH MCHC RDW Plt Count MPV Neut % (Auto) Lymph % (Auto) [place] % (Auto) Eos % (Auto) Baso % (Auto) Neut # (Auto) Lymph # (Auto) [place] # (Auto) Eos # (Auto) Baso # (Auto) Sodium Potassium Chloride Carbon Dioxide Anion Gap BUN Creatinine Estimated Creat Clear Estimated GFR Est GFR ( Amer) Glucose POC Glucose 188 H Calcium Preliminary micro results at discharge 05/27/24 22:28 Blood Culture - Preliminary Blood NO GROWTH AFTER 48 HOURS 05/27/24 22:25 Blood Culture - Preliminary Blood NO GROWTH AFTER 48 HOURS DS: Diagnosis Discharge Diagnosis (1) SBO (small bowel obstruction): Status: Acute Code(s): K56.609 - Unspecified intestinal obstruction, unspecified as to partial versus complete obstruction (2) MIKEY (acute kidney injury): Status: Acute Code(s): N17.9 - Acute kidney failure, unspecified (3) Hyperbilirubinemia: Status: Acute Code(s): E80.6 - Other disorders of bilirubin metabolism (4) Dehydration, moderate: Status: Acute Code(s): E86.0 - Dehydration (5) HTN (hypertension): Status: Chronic Code(s): I10 - Essential (primary) hypertension Qualifiers: Hypertension type: essential hypertension Qualified Code(s): I10 - Essential (primary) hypertension (6) HLD (hyperlipidemia): Status: Chronic Code(s): E78.5 - Hyperlipidemia, unspecified Qualifiers: Hyperlipidemia type: other hyperlipidemia Qualified Code(s): E78.4 - Other hyperlipidemia (7) SARKIS (obstructive sleep apnea): Status: Acute Code(s): G47.33 - Obstructive sleep apnea (adult) (pediatric) (8) DM (diabetes mellitus): Status: Chronic Code(s): E11.9 - Type 2 diabetes mellitus without complications Qualifiers: Diabetes mellitus complication status: with unspecified complications Diabetes mellitus longterm insulin use: without longterm use Diabetes mellitus type: type 2 Qualified Code(s): E11.8 - Type 2 diabetes mellitus with unspecified complications (9) Sepsis: Status: Acute Code(s): A41.9 - Sepsis, unspecified organism (10) Hyponatremia: Status: Acute Code(s): E87.1 - Hypo-osmolality and hyponatremia (11) Transaminitis: Status: Acute Code(s): R74.01 - Elevation of levels of liver transaminase levels (12) Obesity (BMI 30.0-34.9): Status: Acute Code(s): E66.811 - Obesity, class 1 Meds Home Medications and Allergies Home Medications ?Medication ?Instructions ?Recorded ?Confirmed ?Type aspirin 81 mg chewable tablet 81 mg PO DAILY 06/15/17 05/28/24 History tamsulosin 0.4 mg capsule 0.4 mg PO HS 06/20/17 05/28/24 History empagliflozin 25 mg tablet 25 mg PO DAILY 08/27/18 05/28/24 History (Jardiance) metformin 1,000 mg tablet 1,000 mg PO BID 03/26/19 05/28/24 History oxybutynin chloride 15 mg 15 mg PO DAILY 03/26/19 05/28/24 History tablet,extended release 24 hr ezetimibe 10 mg tablet 10 mg PO DAILY 05/26/22 05/28/24 History oxycodone 5 mg tablet 10 mg PO QIDP PRN Moderate Pain 07/23/23 05/28/24 History (Scale Score 5-6) ropinirole 1 mg tablet 1 mg PO HS 07/23/23 05/28/24 History furosemide 40 mg tablet 40 mg PO DAILY 07/24/23 05/28/24 History venlafaxine 150 mg 150 mg PO DAILY 90 days #90 caps 04/12/24 05/28/24 Rx capsule,extended release 24 hr cholecalciferol (vitamin D3) 25 25 mcg PO DAILY 04/15/24 05/28/24 History mcg (1,000 unit) capsule omeprazole 20 mg capsule,delayed 20 mg PO DAILY 04/15/24 05/28/24 History release meloxicam 7.5 mg tablet 7.5 mg PO BID 05/28/24 05/28/24 History quetiapine 100 mg tablet 200 mg PO HS 05/28/24 05/28/24 History venlafaxine 75 mg capsule,extended 75 mg PO DAILY 05/28/24 05/28/24 History release 24 hr New Prescriptions to Start Prescriptions: Allergies Allergy/AdvReac Type Severity Reaction Status Date / Time sulfamethoxazole (From Allergy Intermediate Other Verified 04/17/24 06:31 Bactrim) trimethoprim (From Bactrim) Allergy Intermediate Other Verified 04/17/24 06:31 atorvastatin Allergy Mild myalgias Verified 04/17/24 06:31 rosuvastatin (From Crestor) Allergy Mild myaglias Verified 04/17/24 06:31 simvastatin (From Zocor) Allergy Mild myalgias Verified 04/17/24 06:31 fexofenadine (From YEFRI) Allergy Unknown UNKNOWN Verified 04/17/24 06:31 naproxen (NAPROXEN) Allergy Unknown HAND Verified 04/17/24 06:31 SWELLING Discharge Plan Disposition Patient Disposition: Home, Self-Care Condition: Fair Discharge Order Discharge Orders: Discharge Order (Routine); Ordered 05/30/24 Ordered By: Jake White Follow up Plan Follow up with: Bernard Julian MD [Staff Physician] - 06/18/24 9:15 am Prescriptions/Medication Reconciliation: Continued tamsulosin 0.4 mg capsule,extended release 24hr 0.4 mg PO HS metformin 1,000 mg tablet 1,000 mg PO BID oxybutynin chloride 15 mg tablet extended release 24hr 15 mg PO DAILY ezetimibe 10 mg tablet 10 mg PO DAILY omeprazole 20 mg capsule,delayed release(DR/EC) 20 mg PO DAILY venlafaxine 150 mg capsule,extended release 24hr 150 mg PO DAILY 90 Days Qty: 90 0RF Jardiance 25 mg tablet 25 mg PO DAILY cholecalciferol (vitamin D3) 25 mcg (1,000 unit) capsule 25 mcg PO DAILY ropinirole 1 mg tablet 1 mg PO HS oxycodone 5 mg tablet 10 mg PO QIDP PRN (Reason: Moderate Pain (Scale Score 5-6)) furosemide 40 mg tablet 40 mg PO DAILY venlafaxine 75 mg capsule,extended release 24hr 75 mg PO DAILY Rx Instructions: TAKE 1 CAPSULE BY MOUTH ONCE DAILY (TAKE DAILY WITH 150MG CAPSULE; TOTAL DOSE IS 225MG DAILY) quetiapine 100 mg tablet 200 mg PO HS meloxicam 7.5 mg tablet 7.5 mg PO BID aspirin 81 MG tablet,chewable 81 mg PO DAILY Problem Reconciliation Problems Reviewed?: Yes Patient Discharge Instructions ACTIVITY: Continue current activity DIET: continue same diet Patient Instructions: DI for Small Bowel Obstruction Print Language: Romanian Providers Primary Care Provider: Zurdo Masters Admit Provider: Lucho Castillo Attending Provider: Lucho Castillo
--- NOTE | 2024-05-31 10:04 | SW/DCPLANNER ---
Spoke with patient on the phone. Patient stated that he is doing well. Patient stated that he is aware of his appointment and has it written down. Patient stated that he wasn't prescribed any new medicine. Patient denies having any questions or concerns at this time. Rianna Tafoya
== END 2024-05-30 16:57 | disposition home or self-care (01) | DRG 389 ==
LOC: ER 22:42 → 2ND 05-28 06:13
PROVIDERS: Internal Medicine Adolescent Medicine; Nurse Practitioner Family; Physician Assistant; Admitting Provider Student in an Organized Health Care Education/Training Program; Emergency Provider Student in an Organized Health Care Education/Training Program; PCP Family Medicine; Visit Provider Student in an Organized Health Care Education/Training Program
DX: K56.609 Unspecified intestinal obstruction, unspecified as to partial versus complete obstruction (principal); F31.81 Bipolar II disorder; R11.2 Nausea with vomiting, unspecified; E11.65 Type 2 diabetes mellitus with hyperglycemia; E78.5 Hyperlipidemia, unspecified; N40.0 Benign prostatic hyperplasia without lower urinary tract symptoms; G89.29 Other chronic pain; I25.10 Atherosclerotic heart disease of native coronary artery without angina pectoris; R19.12 Hyperactive bowel sounds; R14.0 Abdominal distension (gaseous); E87.5 Hyperkalemia; G47.33 Obstructive sleep apnea (adult) (pediatric); F39 Unspecified mood [affective] disorder; E66.9 Obesity, unspecified; Z88.6 Allergy status to analgesic agent; Z68.31 Body mass index [BMI] 31.0-31.9, adult; Z79.82 Long term (current) use of aspirin; Z79.84 Long term (current) use of oral hypoglycemic drugs; Z79.891 Long term (current) use of opiate analgesic; Z79.899 Other long term (current) drug therapy; Z88.2 Allergy status to sulfonamides; Z88.8 Allergy status to other drugs, medicaments and biological substances; Z80.9 Family history of malignant neoplasm, unspecified; Z83.3 Family history of diabetes mellitus; Z82.3 Family history of stroke; Z82.49 Family history of ischemic heart disease and other diseases of the circulatory system; Z83.438 Family history of other disorder of lipoprotein metabolism and other lipidemia; Z95.5 Presence of coronary angioplasty implant and graft; Z87.891 Personal history of nicotine dependence
CPT/HCPCS: 36415; 74018; 74021; 74174; 74250; 80048; 80053; 81001; 82009; 82803; 82962; 83036; 83605; 83690; 83735; 84100; 84145; 85007; 85025; 87040; 87507; 99291; J0131; J1885; J2060; J2270; J2405; J2543; J2550; J7030; J7120; Q9963; Q9967

== ENCOUNTER 2024-09-09 13:53 | Outpatient (CLI) | payer OTHER, SELFPAY ==
--- OUTSIDE RECORDS SUMMARY | 2024-08-09 15:45 | XMS_ITS | Encounter Summary ---
[facility] Address [address] [place] [phone] Care Team Providers Care Facing Grinder Name Role Phone Zurdo Masters MD Primary Care Provider + Reason for Referral * Consultation (Routine) - Authorized Specialty Diagnoses / Procedures Referred By Contac t Referred To Contact Urology Diagnoses Low testosterone Procedures [place] OFFICE/OUTPATIENT NEW MODERATE MDM 45 MINUTES Zurdo Masters MD [address] [facility] [place] [address] Phone: tel: fax: Lucho Clemens MD [address] [place] [address] Phone: tel: fax: Referral ID Status Reason Start Date Expiration Date Visits Requested Visits Authorized [id number] Authorized Specialty Services Required 08/09/2024 11/08/2025 1 1 Scheduling Instructions Refer to [facility] Reason for Visit * Reason Comments Fatigue FU on chronic low back pain FU on Diab Type 2 Encounter Details Date Type Department Care Team (Latest Contact Info) Description 08/09/2024 3:45 PM EDT Office Visit [facility] [address] [place] [address] Zurdo Masters MD [address] [facility] [place] [address] 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 (Primary Dx); Type 2 diabetes mellitus without complication, without long-term current use of insulin; Degeneration of intervertebral disc of lumbar region with discogenic back pain; terminal gauger current use of opiate analgesic; Low testosterone; Statin intolerance Social History Tobacco Use Types Packs/Day Years Used Date Smoking Tobacco: Never Smokeless Tobacco: Never Alcohol Use Standard Drinks/Week Comments Not Currently 0 (1 standard drink = 0.6 oz pur e alcohol) PHQ-2 Answer Date Recorded Retired PHQ-9: Brief Depression Severity Measure Score 24 10/03/2022 PHQ-2 Answer Date Recorded Patient Health Questionnaire-9 Score 23 08/09/2024 Sex and Gender Information Value Date Recorded Sex Assigned at Not on file Legal Sex Male 11:46 AM EDT Gender Identity Not on file Sexual Orientation Not on file documented as of this encounter Last Filed Vital Signs Vital Sign Reading Time Taken Comments Blood Pressure 130/80 08/09/2024 2:59 PM EDT Pulse 76 08/09/2024 2:59 PM EDT Temperature 36.2 C (97.1 F) 08/09/2024 2:59 PM EDT Respiratory Rate 20 08/09/2024 2:59 PM EDT Oxygen Saturation 99% 08/09/2024 2:59 PM EDT Inhaled Oxygen Concentration - - Weight 110 kg (242 lb 9.6 oz) 08/09/2024 2:59 PM EDT Height 175.3 cm (5' 9 ) 08/09/2024 2:59 PM EDT Body Mass Index 35.83 08/09/2024 2:59 PM EDT documented in this encounter Functional Status documented as of this encounter Progress Notes * Zurdo Masters MD - 08/09/2024 3:45 PM EDT Chief Complaint Patient presents with Fatigue FU on chronic low back pain FU on Diab Type 2 Subjective Santo Diaz is a 63 y.o. who presents for chronic care. Details are under assessment and plan The following portions of the patient's history were reviewed and updated as appropriate: allergies, current medications, past family history, past medical history, past social history, past surgicalhistory, and problem list. Review of Systems Objective Vital Signs: BP 130/80 Pulse 76 Temp 97.1 ??F (36.2 ??C) Resp 20 Ht 175.3 cm (69 ) Wt 110 kg (242 lb 9.6 oz) SpO2 99% BMI 35.83 kg/m?? Physical Exam Constitutional: Appearance: Normal appearance. HENT: Head: Normocephalic and atraumatic. Right Ear: Tympanic membrane and ear canal normal. Left Ear: Tympanic membrane and ear canal normal. Nose: Nose normal. Mouth/Throat: Mouth: Mucous membranes are moist. Pharynx: Oropharynx is clear. Eyes: Conjunctiva/sclera: Conjunctivae normal. Cardiovascular: Rate and Rhythm: Normal rate and regular rhythm. Heart sounds: Normal heart sounds. No murmur heard. Pulmonary: Effort: Pulmonary effort is normal. No respiratory distress. Breath sounds: Normal breath sounds. Musculoskeletal: Cervical back: Normal range of motion and neck supple. No tenderness. Lymphadenopathy: Cervical: No cervical adenopathy. Skin: General: Skin is warm and dry. Neurological: Mental Status: He is alert. Psychiatric: Mood and Affect: Mood normal. Result Review The following data was reviewed by: Zurdo Masters MD on 08/09/2024: Data reviewed : UDS shows compliance. UACR < 30 mg/g Assessment and Plan Diagnoses and all orders for this visit: 1. 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 Dispense: 30 tablet; Refill: 9 2. Type 2 diabetes mellitus without complication, without long-term current use of insulin - POC Albumin/Creatinine Ratio Urine - Lipid Panel - Hemoglobin A1c - empagliflozin (Jardiance) 25 MG tablet tablet; Take 1 tablet by mouth Daily. Dispense: 30 tablet;Refill: 5 3. Degeneration of intervertebral disc of lumbar region with discogenic back pain 4. terminal gauger current use of opiate analgesic - POC Medline 12 Panel Urine Drug Screen 5. Low testosterone - Ambulatory Referral to Urology 6. Statin intolerance - ezetimibe (ZETIA) 10 MG tablet; Take 1 tablet by mouth Daily. Dispense: 30 tablet; Refill: 9 Other orders - metFORMIN (GLUCOPHAGE) 1000 MG tablet; Take 1 tablet by mouth 2 (Two) Times a Day With Meals. Dispense: 60 tablet; Refill: 5 - omeprazole (priLOSEC) 20 MG capsule; Take 1 capsule by mouth Daily. Dispense: 90 capsule; Refill:0 - oxybutynin XL (DITROPAN XL) 15 MG 24 hr tablet; Take 1 tablet by mouth Daily. Dispense: 30 tablet; Refill: 2 Plan 1. CAD-stable. Continue aspirin, statin 2. Diabetes-likely remains controlled. Continue metformin and Jardiance 3. Chronic low back pain-stable. Is becoming questionable whether he is getting any further benefitfrom opiate-based treatments. He will continue nightly use of medication with efforts placed on reduction in daytime use. Opiates contribute to his use of Benadryl as the oxycodone causes mild chronic pruritus 4. Fatigue/low testosterone/SARKIS-he is to contact his sleep medicine physician to begin treatment for his untreated SARKIS. He will be referred to [facility] urology for his low testosterone. Previous attempts to correct low T with TRT were unsuccessful with topical treatments. 5. I did emphasize to the patient that he needs more frequent follow-up which he understands. I spent 40 minutes caring for Santo on this date of service. This time includes time spent by me inthe following activities:preparing for the visit, reviewing tests, performing a medically appropriate examination and/or evaluation , counseling and educating the patient/family/caregiver, ordering medications, tests, or procedures, and documenting information in the medical record Follow Up Return in about 4 months (around 12/09/2024) for Next scheduled follow up. Patient was given instructions and counseling regarding his condition or for health maintenance advice. Please see specific information pulled into the AVS if appropriate. documented in this encounter Plan of Treatment Upcoming Encounters Date Type Department Care Team (Late st Contact Info) Description 12/13/2024 3:00 PM EDT Office Visit [facility] [address] [phone] Zurdo Masters MD [address] [place] [address] documented as of this encounter Procedures Procedure Name Priority Date/Time Associated Diagnosis Comments POCT MEDLINE 12 PANEL URINE DRUG SCREEN Routine 08/09/2024 4:32 PM EDT terminal gauger current use of opiate analgesic POC ALBUMIN/CREATININE RATIO Routine 08/09/2024 4:25 PM EDT Type 2 diabetes mellitus without complication, without long-term current use of insulin CBC (NO DIFF) Routine 08/09/2024 4:00 PM EDT 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 HEMOGLOBIN A1C Routine 08/09/2024 4:00 PM EDT Type 2 diabetes mellitus without complication, without long-term current use of insulin LIPID PANEL Routine 08/09/2024 4:00 PM EDT 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 Type 2 diabetes mellitus without complication, without long-term current use of insulin COMPREHENSIVE METABOLIC PANEL Routine 08/09/2024 4:00 PM EDT 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 documented in this encounter Results * (ABNORMAL) POC Medline 12 Panel Urine Drug Screen (08/09/2024 4:32 PM EDT) Pathologist [facility] Amphetamine Screen, Urine Negative Negative AMP INTERNAL CONTROL Passed Passed Barbiturates Screen, Urine Negative Negative BARBITURATE INTERNAL CONTROL Passed Passed Buprenorphine, Screen, Urine Negative Negative BUPRENORPHINE INTERNAL CONTROL Passed Passed Benzodiazepine Screen, Urine Negative Negative BENZODIAZEPINE INTERNAL CONTROL Passed Passed Cocaine Screen, Urine Negative Negative COCAINE INTERNAL CONTROL Passed Passed MDMA (ECSTASY) Negative Negative MDMA (ECSTASY) INTERNAL CONTROL Passed Passed Methamphetamine, Ur Negative Negative METHAMPHETAMINE INTERNAL CONTROL Passed Passed Morphine/Opiates Screen, Urine Negative Negative MOR INTERNAL CONTROL Passed Passed Methadone Screen, Urine Negative Negative METHADONE INTERNAL CONTROL Passed Passed Oxycodone Screen, Urine Positive(A) Negative OXYCODONE INTERNAL CONTROL Passed Passed Phencyclidine (PCP), Urine Negative Negative PHENCYCLIDINE INTERNAL CONTROL Passed Passed THC, Screen, Urine Negative Negative THC INTERNAL CONTROL Passed Passed Lot Number [id number] Expiration Date 11/26/2025 Urine 08/09/2024 4:32 PM EDT Zurdo Masters MD POINT OF CARE TEST ORDER JOAO Final Result * POC Albumin/Creatinine Ratio Urine (08/09/2024 4:25 PM EDT) POC ALBUMIN, URINE 10 mg/L POC CREATININE, URINE 100 mg/dL POC Urine Albumin Creatinine Ratio < 30 mg/g <30 Comment:normal Lot Number [id number] Expiration Date 06/12/2025 Urine 08/09/2024 4:25 PM EDT Zurdo Masters MD POINT OF CARE TEST ORDER JOAO Final Result * (ABNORMAL) Hemoglobin A1c (08/09/2024 4:00 PM EDT) Hemoglobin A1C 7.4(H) 4.8 - 5.6 % [facility] Comment: Prediabetes: 5.7 - 6.4 Diabetes: >6.4 Glycemic control for adults with diabetes: <7.0 Blood 08/09/2024 4:00 PM EDT 08/09/2024 Narrative [facility] (AMBULATORY) - 08/13/2024 8:11 AM EDT Performed at: - [facility] [id number] Spring Machine Operator: Darron Maria PhD, Phone: [phone] Patient Fasting: Y Zurdo Masters MD LAB BLOOD ORDERABLES Fin al Result [facility] (AMBULATORY) [address] [place] [address], [facility] [address] [place] [address], * (ABNORMAL) CBC (No Diff) (08/09/2024 4:00 PM EDT) Pathologist [facility] WBC 7.6 3.4 - 10.8 x10E3/uL [facility] RBC 4.47 4.14 - 5.80 x10E6/uL [facility] Hemoglobin 12.6(L) 13.0 - 17.7 g/dL [facility] Hematocrit 40.9 37.5 - 51.0 % [facility] MCV 92 79 - 97 fL [facility] MCH 28.2 26.6 - 33.0 pg [facility] MCHC 30.8(L) 31.5 - 35.7 g/dL [facility] RDW 14.7 11.6 - 15.4 % [facility] Platelets 156 150 - 450 x10E3/uL [facility] Blood 08/09/2024 4:00 PM EDT 08/09/[address] [facility] - 08/13/2024 8:11 AM EDT Performed at: - [address] [id number] Spring Machine Operator: Darron Maria PhD, Phone: [phone] Patient Fasting: Y Zurdo Masters MD LAB BLOOD ORDERABLES Fin al Result [facility] [address] [place] [address], [facility] [address] [place] [address], * Comprehensive Metabolic Panel (08/09/2024 4:00 PM EDT) Pathologist [facility] Glucose 93 70 - 99 mg/dL [facility] BUN 18 8 - 27 mg/dL [facility] Creatinine 0.92 0.76 - 1.27 mg/dL [facility] EGFR Result 94 >59 mL/min/1.7 3 [facility] BUN/Creatinine Ratio 20 10 - 24 [facility] Sodium 136 134 - 144 mmol/L [facility] Potassium 4.8 3.5 - 5.2 mmol/L [facility] Chloride 98 96 - 106 mmol/L [facility] Total CO2 20 20 - 29 mmol/L [facility] Calcium 9.3 8.6 - 10.2 mg/dL [facility] Total Protein 7.4 6.0 - 8.5 g/dL [facility] Albumin 4.7 3.9 - 4.9 g/dL [facility] Globulin 2.7 1.5 - 4.5 g/dL [facility] Total Bilirubin 0.3 0.0 - 1.2 mg/dL [facility] Alkaline Phosphatase 98 44 - 121 IU/L [facility] AST (SGOT) 20 0 - 40 IU/L [facility] ALT (SGPT) 20 0 - 44 IU/L [facility] Blood 08/09/2024 4:00 PM EDT 08/09/[address] [facility] - 08/13/2024 8:11 AM EDT Performed at: [address] [place] [id number] Spring Machine Operator: Darron Maria PhD, Phone: [phone] Patient Fasting: Y us Zurdo Masters MD LAB BLOOD ORDERABLES Fin al Result [facility] [address] [place] [address], [facility] [address] [place] [address], * (ABNORMAL) Lipid Panel (08/09/2024 4:00 PM EDT) Total Cholesterol 295(H) 100 - 199 mg/dL [facility] Triglycerides 307(H) 0 - 149 mg/dL [facility] HDL Cholesterol 35(L) >39 mg/dL [facility] VLDL Cholesterol Cesar 62(H) 5 - 40 mg/dL [facility] LDL Chol Calc (NIH) 198(H) 0 - 99 mg/dL [facility] LDL Calc Comment Comment [facility] Comment: Consider evaluating for Familial Hypercholesterolemia(FH), if clinically indicated. 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
--- OUTSIDE RECORDS SUMMARY | 2024-09-09 14:00 | XMS_ITS | Encounter Summary ---
[facility] Address [address] [place] [phone] Care Team Providers Care Mirror Framer Name Role Phone Zurdo Masters MD Primary Care Provider + Reason for Visit * Reason Comments Med Refill Encounter Details Date Type Department Care Team (Late st Contact Info) Description 08/27/2024 Refill [facility] [address] [place] [address] Zurdo Mastres MD [address] [facility] [place] [address] Lumbar degenerative disc disease Social History Tobacco Use Types Packs/Day Years [...] on file documented as of this encounter Plan of Treatment Upcoming Encounters Date Type Department Care Team (Late st Contact Info) Description 12/13/2024 3:00 PM EDT Office Visit [facility] [address] [address] Zurdo Masters MD [address] [place] [address] documented as of this encounter Visit Diagnoses Diagnosis Lumbar degenerative disc disease documented in this encounter Additional Health Concerns Assessment Noted Time PHQ-2 Depression Total Score: 6 04/06/19 24 2:46 PM EST documented as of this encounter Care Teams Mirror Framer Relationship Specialty Start Date End Date Zurdo Masters MD PCP - General Family Medicine 04/04/19 documented as of this encounter
--- OUTSIDE RECORDS SUMMARY | 2024-09-09 14:00 | XMS_ITS | Encounter Summary ---
[facility] Address [address] [place] [phone] Care Team Providers Care Cardiac Rehabilitation Program Director Name Role Phone Zurdo Masters MD Primary Care Provider + Reason for Visit * Reason Onset Date Comments Medication Problem 08/27/2024 Encounter Details Date Type Department Care Team (Late st Contact Info) Description 08/27/2024 Refill [facility] [address] [place] [address] Zurdo Masters MD [address] [place] [address] Lumbar degenerative disc disease Social [...] on file documented as of this encounter Miscellaneous Notes * Telephone Encounter - Tea Eli RegSched Rep - 08/27/2024 2:57 PM EDT Caller: Astrid Diaz Relationship: Emergency Contact Best call back number: [phone] Requested Prescriptions: Requested Prescriptions Pending Prescriptions Disp Refills oxyCODONE (ROXICODONE) 5 MG immediate release tablet 240 tablet 0 Sig: Take 2 tablets by mouth Every 6 (Six) Hours As Needed for Moderate Pain. [facility] [address] [facility] [phone] [facility] [phone] FX Last office visit with prescribing clinician: 08/09/2024 Last telemedicine visit with prescribing clinician: Visit date not found Next office visit with prescribing clinician: 12/13/2024 Additional details provided by patient: Does the patient have less than a 3 day supply: [x] Yes [] No Would you like a call back once the refill request has been completed: [] Yes [x] No If the office needs to give you a call back, can they leave a voicemail: [] Yes [x] No America Ulloa 08/27/24 14:58 EDT documented in this encounter Plan of Treatment Upcoming Encounters Date Type Department Care Team (Late st Contact Info) Description 12/13/2024 3:00 PM EDT Office Visit [facility] [address] [place] [phone] Zurdo Masters MD [address] [place], [place] [phone] documented as of this encounter Visit Diagnoses Diagnosis Lumbar degenerative disc disease documented in this encounter Additional Health Concerns Assessment Noted Time PHQ-2 Depression Total Score: 6 04/06/19 24 2:46 PM EST documented as of this encounter Care Teams Cardiac Rehabilitation Program Director Relationship Specialty Start Date End Date Zurdo Masters MD PCP - General Family Medicine 04/04/19 documented as of this encounter
--- OUTSIDE RECORDS SUMMARY | 2024-09-09 14:00 | XMS_ITS | Encounter Summary ---
[facility] Address [address] [place] [phone] Care Team Providers Care Waste Collector Name Role Phone Zurdo Masters MD Primary Care Provider + Reason for Visit * Reason Onset Date Comments Prior Authorization 08/29/2024 Oxycodone Encounter Details Date Type Department Care Team (Late st Contact Info) Description 08/29/2024 Telephone [facility] [address] [place] [address] Zurdo Masters MD [address] [place] [address] Prior Authorization (Oxycodone ) Social History Tobacco Use Types Packs/Day Years [...] encounter Miscellaneous Notes * Telephone Encounter - Gretchen Fritz MA - 08/29/2024 6:09 PM EDT Submitted prior auth for Oxycodone via Cover My Meds (Bell: [id number]) The request has been approved. The authorization is effective from 08/29/2024 to 03/01/2025, as long as the member is enrolled in their current health plan. A written notification letter will follow with additional details. documented in this encounter Plan of Treatment Upcoming Encounters Date Type Department Care Team (Late st Contact Info) Description 12/13/2024 3:00 PM EDT Office Visit [facility] [address] [facility] [place] [phone] Zurdo Masters MD [address] [place] [address] documented as of this encounter Visit Diagnoses Not on filedocumented in this encounter Additional Health Concerns Assessment Noted Time PHQ-2 Depression Total Score: 6 04/06/19 24 2:46 PM EST documented as of this encounter Care Teams Waste Collector Relationship Specialty Start Date End Date Zurdo Masters MD PCP - General Family Medicine 04/04/19 documented as of this encounter
--- OUTSIDE RECORDS SUMMARY | 2024-09-09 14:00 | XMS_ITS | Encounter Summary ---
[facility] Address [address] [place] [address] Care Team Providers Care Wound Care Coordinator Name Role Phone Zurdo Masters MD Primary Care Provider + Reason for Visit * Reason Onset Date Comments Med Refill 04/26/2022 Encounter Details Date Type Department Care Team (Late st Contact Info) Description 04/26/2022 Refill [facility] [address] [place] [address] Zurdo Masters MD [address] [place] [address] Lumbar degenerative disc disease Social History Tobacco Use Types Packs/Day Years Used Date Smoking Tobacco: Never Smokeless Tobacco: Never Alcohol Use Standard Drinks/Week Comments Not Currently 0 (1 standard drink = 0.6 oz pur e alcohol) PHQ-2 Answer Date Recorded Retired PHQ-9: Brief Depression Severity Measure Score 24 07/22/2021 Sex and Gender Information Value Date Recorded Sex Assigned at Not on file Legal Sex Male 11:46 AM EDT Gender Identity Not on file Sexual Orientation Not on file documented as of this encounter Miscellaneous Notes * Telephone Encounter - Vicente Dominguez RegSched Rep - 04/26/2022 10:58 AM EDT Caller: Jayson Diaz Relationship: Emergency Contact Best call back number: [phone] Requested Prescriptions: Requested Prescriptions Pending Prescriptions Disp Refills ??? oxyCODONE (ROXICODONE) 10 MG tablet 120 tablet 0 Sig: Take 1 tablet by mouth Every 6 (Six) Hours As Needed for Moderate Pain or Severe Pain. Pharmacy where request should be sent: [facility] [place] - [address] [facility] [phone] [facility] [phone] FX Additional details provided by patient: JAYSON STATED THAT THE PRESCRIPTION IS DUE ON 05-01-22 Does the patient have less than a 3 day supply: [] Yes [x] No Would you like a call back once the refill request has been completed: [x] Yes [] No If the office needs to give you a call back, can they leave a voicemail: [x] Yes [] No [facility] Call 04/26/22 10:58 EDT documented in this encounter Plan of Treatment Upcoming Encounters Date Type Department Care Team (Late st Contact Info) Description 12/13/2024 3:00 PM EDT Office Visit [facility] [address] [place] [phone] Zurdo Masters MD [address] [place], [place] [phone] documented as of this encounter Visit Diagnoses Diagnosis Lumbar degenerative disc disease documented in this encounter Additional Health Concerns Assessment Noted Time PHQ-2 Depression Total Score: 6 07/23/19 22 12:24 PM EDT documented as of this encounter Care Teams Wound Care Coordinator Relationship Specialty Start Date End Date Zurdo Masters MD PCP - General Family Medicine 04/04/19 documented as of this encounter
--- OUTSIDE RECORDS SUMMARY | 2024-09-09 14:00 | XMS_ITS | Encounter Summary ---
[facility] Address [address] [place] [id number] Care Team Providers Care Research Editor Name Role Phone Zurdo Masters MD Primary Care Provider + Reason for Visit * Reason Onset Date Comments Prior Authorization 07/03/2024 Oxycodone Encounter Details Date Type Department Care Team (Late st Contact Info) Description 07/03/2024 Telephone [facility] [address] [place] [address] Zurdo Masters MD [address] [place] [address] Prior Authorization (Oxycodone ) Social History Tobacco Use Types Packs/Day Years Used Date Smoking Tobacco: Never Smokeless Tobacco: Never Alcohol Use Standard Drinks/Week Comments Not Currently 0 (1 standard drink = 0.6 oz pur e alcohol) PHQ-2 Answer Date Recorded Retired PHQ-9: Brief Depression Severity Measure Score 24 10/03/2022 PHQ-2 Answer Date Recorded Retired PHQ-9: Brief Depression Severity Measure Score 23 04/06/2023 Sex and Gender Information Value Date Recorded Sex Assigned at Not on file Legal Sex Male 11:46 AM EDT Gender Identity Not on file Sexual Orientation Not on file documented as of this encounter Miscellaneous Notes * Telephone Encounter - Gretchen Fritz MA - 07/03/2024 6:05 PM EDT Tried to submit a prior auth for pt's Oxycodone via Cover My Meds [employer]# [id number] Stopped with question: Has an appropriate UDS been submitted in the past year? One has not been completed. If you want to place order, we can call pt and inform him. He missed his May follow up appt, Has not been seen since last August. documented in this encounter Plan of Treatment Upcoming Encounters Date Type Department Care Team (Late st Contact Info) Description 12/13/2024 3:00 PM EDT Office Visit [facility] [address] [place] [address] Zurdo Masters MD [address] [facility], [place] [id number] documented as of this encounter Visit Diagnoses Not on filedocumented in this encounter Additional Health Concerns Assessment Noted Time PHQ-2 Depression Total Score: 6 04/06/19 24 2:46 PM EST documented as of this encounter Care Teams Research Editor Relationship Specialty Start Date End Date Zurdo Masters MD PCP - General Family Medicine 04/04/19 documented as of this encounter
--- OUTSIDE RECORDS SUMMARY | 2024-09-09 14:00 | XMS_ITS | Encounter Summary ---
[facility] [address] [place] [id number] Care Team Providers Care Colorectal Surgeon Name Role Phone Zurdo Masters MD Primary Care Provider + Reason for Visit * Reason Onset Date Comments Med Refill 07/30/2021 Encounter Details Date Type Department Care Team (Late st Contact Info) Description 07/30/2021 Refill [facility] [address] [place] [address] Zurdo Masters MD [address] [place] [address] Lumbar degenerative disc disease Social [...] encounter Miscellaneous Notes * Telephone Encounter - Roberto Carlos Moreno RegSched Rep - 07/30/2021 10:28 AM EDT Caller: Santo Diaz Relationship: Self Best call back number: [phone] Requested Prescriptions: Requested Prescriptions Pending Prescriptions Disp Refills ??? oxyCODONE (ROXICODONE) 10 MG tablet 120 tablet 0 Pharmacy where request should be sent: [facility] - [facility]VARE[facility] - [address] [facility] [phone] [facility] [phone] FX Does the patient have less than a 3 day supply: [] Yes [x] No America Jenkins 07/30/21 10:28 EDT documented in this encounter Plan of Treatment Upcoming Encounters Date Type Department Care Team (Late st Contact Info) Description 12/13/2024 3:00 PM EDT Office Visit [facility] [address] [place] [id number] Zurdo Masters MD [address] [place] [address] documented as of this encounter Visit Diagnoses Diagnosis Lumbar degenerative disc disease documented in this encounter Additional Health Concerns Assessment Noted Time PHQ-2 Depression Total Score: 6 07/23/19 22 12:24 PM EDT documented as of this encounter Care Teams Colorectal Surgeon Relationship Specialty Start Date End Date Zurdo Masters MD PCP - General Family Medicine 04/04/19 documented as of this encounter
--- OUTSIDE RECORDS SUMMARY | 2024-09-09 14:00 | XMS_ITS | Encounter Summary ---
[facility] Address [address] [place] [address] Care Team Providers Care Sandblaster Stone Name Role Phone Zurdo Masters MD Primary Care Provider + Reason for Visit * Reason Comments Med Refill Encounter Details Date Type Department Care Team (Late st Contact Info) Description 01/29/2024 Refill [facility] [address] [place] [address] Zurdo Masters MD [address] [place] [address] Lumbar degenerative disc disease Social [...] Description 12/13/2024 3:00 PM EDT Office Visit [facility] [address] [place] [address] Zurdo Masters MD [address] [place] [address] documented as of this encounter Visit Diagnoses Diagnosis Lumbar degenerative disc disease documented in this encounter Additional Health Concerns Assessment Noted Time PHQ-2 Depression Total Score: 6 04/06/19 24 2:46 PM EST documented as of this encounter Care Teams Sandblaster Stone Relationship Specialty Start Date End Date Zurdo Masters MD PCP - General Family Medicine 04/04/19 documented as of this encounter
--- OUTSIDE RECORDS SUMMARY | 2024-09-09 14:01 | XMS_ITS | Encounter Summary ---
[facility] Address [address] [place] [phone] Care Team Providers Care Trash Collector Name Role Phone Zurdo Masters MD Primary Care Provider + Encounter Details Date Type Department Care Team (Latest Contact Info) Description 08/09/2024 Travel Social History Tobacco Use Types Packs/Day Years [...] on file documented as of this encounter Functional Status documented as of this encounter Plan of Treatment Upcoming Encounters Date Type Department Care Team (Late st Contact Info) Description 12/13/2024 3:00 PM EDT Office Visit [facility] [address] [facility] [address] Zurdo Msaters MD [address] [facility] [place] [address] documented as of this encounter Visit Diagnoses Not on filedocumented in this encounter Additional Health Concerns Assessment Noted Time PHQ-2 Depression Total Score: 6 04/06/19 24 2:46 PM EST documented as of this encounter Care Teams Trash Collector Relationship Specialty Start Date End Date Zurdo Masters MD PCP - General Family Medicine 04/04/19 documented as of this encounter
--- OUTSIDE RECORDS SUMMARY | 2024-09-09 14:01 | XMS_ITS | Encounter Summary ---
[facility] [address] [place] [address] Care Team Providers Care Fan Runner Name Role Phone Zurdo Masters MD Primary Care Provider + Reason for Visit * Reason Comments Med Refill Encounter Details Date Type Department Care Team (Late st Contact Info) Description 07/31/2023 Refill [facility] [address] [place] [address] Zurdo Masters MD [address] [place] [address] Lumbar degenerative disc disease Social [...] Description 12/13/2024 3:00 PM EDT Office Visit [facility] [address] [place] [address] Zurdo Masters MD [address] [place] [address] documented as of this encounter Visit Diagnoses Diagnosis Lumbar degenerative disc disease documented in this encounter Additional Health Concerns Assessment Noted Time PHQ-2 Depression Total Score: 6 04/06/19 24 2:46 PM EST documented as of this encounter Care Teams Fan Runner Relationship Specialty Start Date End Date Zurdo Masters MD PCP - General Family Medicine 04/04/19 documented as of this encounter
--- OUTSIDE RECORDS SUMMARY | 2024-09-09 14:01 | XMS_ITS | Encounter Summary ---
[facility] Address [address] [place] [phone] Care Team Providers Care Green Marketing Analyst Name Role Phone Zurdo Masters MD Primary Care Provider + Reason for Visit * Reason Comments Med Refill Encounter Details Date Type Department Care Team (Late st Contact Info) Description 07/29/2024 Refill [facility] [address] [facility] [place] [address] Zurdo Masters MD [address] [facility] [place] [address] Coronary artery disease involving [place] coronary artery of [place] heart without angina pectoris; Statin intolerance Social History Tobacco Use Types [...] 3:00 PM EDT Office Visit [facility] [address] [place] [address] Zurdo Masters MD [address] [place] [id number] documented as of this encounter Visit Diagnoses Diagnosis Coronary artery disease involving [place] coronary artery of [place] heart without angina pectoris Statin intolerance documented in this encounter Additional Health Concerns Assessment Noted Time PHQ-2 Depression Total Score: 6 04/06/19 24 2:46 PM EST documented as of this encounter Care Teams Green Marketing Analyst Relationship Specialty Start Date End Date Zurdo Masters MD PCP - General Family Medicine 04/04/19 documented as of this encounter
--- OUTSIDE RECORDS SUMMARY | 2024-09-09 14:01 | XMS_ITS | Clinical Summary ---
Author Organization [facility] Address [address] [place] [address] Phone Care Team Providers Care Senior Executive Compensation Analyst Name Role Phone Zurdo Masters Nicholas Primary Care Provider Allergies No known active allergies Medications aspirin 81 mg Oral Tablet, Chewable Take 81 mg by mouth daily. Active atorvastatin (LIPITOR) 80 mg Oral Tablet Take 80 mg by mouth daily. Active metFORMIN (GLUCOPHAGE) 500 mg Oral Tablet Take 500 mg by mouth 2 times daily. Active HYDROcodone-maxime taminophen (NORCO) 10-325 mg Oral Tablet Take 1 Tab by mouth every 6 hours as needed for Pain. Active baclofen (LIORESAL) 20 mg Oral Tablet Take 20 mg by mouth 3 times daily. Active metoprolol (LOPRESSOR) 25 mg Oral Tablet Take 25 mg by mouth 2 times daily. Active cetirizine (ZYRTEC) 10 mg Oral Tablet Take 10 mg by mouth daily. Active fenofibrate (LOFIBRA) 160 mg Oral Tablet Take 160 mg by mouth daily. Active zolpidem (AMBIEN) 10 mg Oral Tablet Take by mouth nightly. Active SUMAtriptan (IMITREX) 50 mg Oral Tablet Take 100 mg by mouth once as needed for Pain. Active nitroGLYCERIN (NITROSTAT) 0.4 mg SL Tablet, Sublingual Place under the tongue every 5 minutes as needed for Chest pain. Active Active Problems No known active problems Surgical History Surgery Date Site/Laterality Comments ANGIOPLASTY age 36? CYSTOSCOPY with lithotripsy FOOT SURGERY Left VASECTOMY CARPAL TUNNEL RELEASE Bilateral SHOULDER SURGERY Left rotater cuff repair ANKLE ARTHROSCOPY 05/20/2014 Right RIGHT ANKLE ARTHROSCOPY WITH BONE SPUR EXCISION ; Surgeon: Lazaro Bernal DPM; Location: [facility]; Service: Podiatry FOOT SURGERY 05/20/2014 Right Surgeon: Lazaro Bernal DPM; Location: [facility]; Service: Podiatry Medical History Medical History Date Comments Seasonal allergies Hypertension Hyperlipidemia Other and unspecified angina pectoris Heartburn Constipation Hepatitis age 19 years-hep B? Arthritis all over body-ba ck, neck Headache(784.0) migraines Diabetes mellitus (HCC) Chronic kidney disease kidney [facility] in past Anxiety panic attacks Social History Tobacco Use Types Packs/Day Years Used Date Smoking Tobacco: Never Alcohol Use Standard Drinks/Week Comments No 0 (1 standard drink = 0.6 oz pur e alcohol) Sex and Gender Information Value Date Recorded Sex Assigned at Not on file Legal Sex Male 11:04 PM EDT Gender Identity Not on file Sexual Orientation Not on file Obstetrics History Last Filed Vital Signs Vital Sign Reading Time Taken Comments Blood Pressure 126/78 05/20/2014 10:45 AM EDT Pulse 78 05/20/2014 10:45 AM EDT Temperature 36.6 C (97.9 F) 05/20/2014 10:45 AM EDT Respiratory Rate 18 05/20/2014 10:45 AM EDT Oxygen Saturation 96% 05/20/2014 10:45 AM EDT Inhaled Oxygen Concentration - - Weight 110.8 kg (244 lb 4 oz) 05/20/2014 6:48 AM EDT Height 175.3 cm (5' 9 ) 05/20/2014 6:48 AM EDT Body Mass Index 36.07 05/20/2014 6:48 AM EDT Plan of Treatment Health Maintenance Due Date Last Done Comments Annual Wellness Exam 1964 Hepatitis C Screening 10/30/1979 DTaP/TDaP/Td (1 - Tdap) 1980 Cologuard 2006 Colon Cancer Screening 2006 Colonoscopy 2006 FIT 2006 Sigmoidoscopy 2006 Virtual Colonography 2006 Pneumococcal Vaccine 50+ (1 of 1 - PCV) 10/30/2011 Zoster (1 of 2) 10/30/2011 COVID-19 Vaccine ( - 2023-2 5 season) 2023 Influenza Vaccine (#1) 2024 Hepatitis B Vaccine Aged Out No longe r eligible based on patient's age to complete this topic Meningococcal B Vaccine Aged Out No l onger eligible based on patient's age to complete this topic Care Teams Senior Executive Compensation Analyst Relationship Specialty Start Date End Date Zurdo Masters [address] [place] [address] PCP - General Family Medicine 02/26/14
--- OUTSIDE RECORDS SUMMARY | 2024-09-09 14:01 | XMS_ITS | Encounter Summary ---
Author Organization [facility] Address [address] [place] [phone] Care Team Providers Care Automatic Engraver Name Role Phone Zurdo Masters MD Primary Care Provider + Encounter Details Date Type Department Care Team (Late st Contact Info) Description 08/13/2024 Results Follow-Up [facility] [address] [facility] [place] [address] Zurdo Masters MD [address] [place] [address] Social History Tobacco Use Types Packs/Day Years [...] Description 12/13/2024 3:00 PM EDT Office Visit [facility] [address] [place] [address] Zurdo Masters MD [address] [place] [address] documented as of this encounter Visit Diagnoses Not on filedocumented in this encounter Additional Health Concerns Assessment Noted Time PHQ-2 Depression Total Score: 6 04/06/19 24 2:46 PM EST documented as of this encounter Care Teams Automatic Engraver Relationship Specialty Start Date End Date Zurdo Masters MD PCP - General Family Medicine 04/04/19 documented as of this encounter
--- OUTSIDE RECORDS SUMMARY | 2024-09-09 14:01 | XMS_ITS | Clinical Summary ---
Author Organization [facility] Address [address] [place] [phone] Care Team Providers Care Real Estate Agent Name Role Phone Zurdo Masters MD Primary Care Provider + Allergies Active Allergy Reactions Criticality Noted Date Comments Naproxen Swelling 07/22/2021 Fexofenadine Swelling 07/22/2021 Atorvastatin Myalgia Low 05/21/2021 Rosuvastatin Myalgia Low 05/21/2021 Simvastatin Myalgia Low 05/21/2021 Medications * This document contains information received from the source organization and may not represent a complete record from that organization. aspirin 81 MG chewable tablet Chew 1 tablet Daily. Active furosemide (LASIX) 40 MG tablet 2 Active glucose monitor monitoring kitIndications:T ype 2 diabetes mellitus with hyperglycemia, without long-term current use of insulin Check glucose daily 1 each 3 Active meloxicam (MOBIC) 7.5 MG tablet Take 1 tablet by mouth 2 (Two) Times a Day. 3 Active QUEtiapine (SEROquel) 100 MG tablet Take 1 tablet by mouth. 3 Active venlafaxine XR (EFFEXOR-XR) 150 MG 24 hr capsule Take 1 capsule by mouth Daily. 3 Active venlafaxine XR (EFFEXOR-XR) 75 MG 24 hr capsule Take 1 capsule by mouth Daily. 3 Active OneTouch Ultra Test test stripIndications :Type 2 diabetes mellitus with hyperglycemia, without long-term current use of insulin CHECK BLOOD SUGAR DAILY 50 each 11 4 Active cholecalciferol (Vitamin D, Cholecalciferol, ) 25 MCG (1000 UT) tabletIndication s:Vitamin D deficiency Take 1 tablet by mouth Daily. 30 tablet 5 5 Active Lancets (OneTouch Delica Plus [id number]) miscIndications: Type 2 diabetes mellitus with hyperglycemia, without long-term current use of insulin USE ONE DAILY TO CHECK BLOOD GLUCOSE 100 each 10 5 Active rOPINIRole (REQUIP) 1 MG tablet TAKE 1 TABLET BY MOUTH EVERY NIGHT (TAKE 1 HOUR BEFORE BEDTIME) 30 tablet 4 5 Active tamsulosin (FLOMAX) 0.4 MG capsule 24 hr capsule TAKE 1 CAPSULE BY MOUTH ONCE DAILY 30 capsule 10 5 Active diphenhydrAMINE (BENADRYL) 50 MG capsule TAKE 1 CAPSULE BY MOUTH EVERY 6 (SIX) HOURS NEEDED FOR ITCHING MAY CAUSE DROWSINESS 120 capsule 5 Active empagliflozin (Jardiance) 25 MG tablet tabletIndication s:Type 2 diabetes mellitus without complication, without long-term current use of insulin Take 1 tablet by mouth Daily. 30 tablet 5 5 Active ezetimibe (ZETIA) 10 MG tabletIndication s:Coronary artery disease involving qagan tayagungin coronary artery of qagan tayagungin heart without angina pectoris,Statin intolerance Take 1 tablet by mouth Daily. 30 tablet 9 5 Active metFORMIN (GLUCOPHAGE) 1000 MG tablet Take 1 tablet by mouth 2 (Two) Times a Day With Meals. 60 tablet 5 5 Active omeprazole (priLOSEC) 20 MG capsule Take 1 capsule by mouth Daily. 90 capsule 5 Active oxybutynin XL (DITROPAN XL) 15 MG 24 hr tablet Take 1 tablet by mouth Daily. 30 tablet 2 5 Active oxyCODONE (ROXICODONE) 5 MG immediate release tabletIndication s:Lumbar degenerative disc disease Take 2 tablets by mouth Every 6 (Six) Hours As Needed for Moderate Pain. 240 tablet 5 Active oxyCODONE (ROXICODONE) 5 MG immediate release tabletIndication s:Lumbar degenerative disc disease Take 2 tablets by mouth Every 6 (Six) Hours As Needed for Moderate Pain. 240 tablet 5 08/28/19 25 Discontinu ed(Reorder ) Active Problems Problem Noted Date Diagnosed Date Type 2 diabetes mellitus wit hout complication, without long-term current use of insulin 06/30/2022 Assessment & Plan (11/28/2022 4:54 PM EDT): Diabetes is improving with treatment. Continue current treatment regimen. Diabetes will be reassessed in 6 months. Coronary artery disease invo lving qagan tayagungin coronary artery of qagan tayagungin heart without angina pectoris 06/30/2022 buttermaker continuous churn current use of opiate analgesic 2022 Lumbar degenerative disc disease 06/30/2022 Assessment & Plan (11/28/2022 4:54 PM EDT): Pain is stable and condition is not expected to improve. Continue current treatment with use of oxycodone Encounters Date Type Department Care Team Description 08/29/2024 Telephone [facility] [address] [place] [address] Zurdo Masters MD Prior Authorization (Oxycodone ) 08/27/2024 Refill [facility] [address] [phone] Zurdo Masters MD Lumbar degenerative disc disease 08/27/2024 Refill [facility] [address] [address] Zurdo Masters MD Lumbar degenerative disc disease 08/13/2024 Results Follow-Up [facility] [address] [phone] Zurod Masters MD 08/09/2024 3:45 PM EDT Office Visit [facility] [address] [address] Zurdo Masters MD Coronary artery disease involving qagan tayagungin coronary artery of qagan tayagungin heart without angina pectoris (Primary Dx); Type 2 diabetes mellitus without complication, without long-term current use of insulin; Degeneration of intervertebral disc of lumbar region with discogenic back pain; custodial current use of opiate analgesic; Low testosterone; Statin intolerance 08/09/2024 Travel 07/29/[address] [facility] [address] [facility] [place] [address] Zurdo Masters MD Prior Authorization 07/29/[address] [facility] [address] [facility] [facility] [place] [address] Zurdo Masters MD Coronary artery disease involving qagan tayagungin coronary artery of qagan tayagungin heart without angina pectoris; Statin intolerance 07/25/[address] [facility] [address] [facility] [facility] [place] [address] Zurdo Masters MD Lumbar degenerative disc disease 07/03/2024 [facility] [address] [facility] [place] [address] Zurdo Masters MD Prior Authorization (Oxycodone ) 07/02/[address] [facility] [address] [facility] [place] [address] Zurdo Masters MD 06/27/2024 Refill [facility] [address] [facility] [place] [address] Zurdo Masters MD Lumbar degenerative disc disease 06/18/[address] [facility] [address] [place] [address] Zurdo Masters MD from Last 3 Months Immunizations Immunization Administration Dates Next Due Flu Vaccine Quad PF >36MO 12/11/2015 Fluzone (or Fluarix & Flulaval for VFC) >6mos Social History Tobacco Use Types Packs/Day Years [...] on file Sexual Orientation Not on file Last Filed Vital Signs Vital Sign Reading [...] Mass Index 35.83 08/09/2024 2:59 PM EDT Plan of Treatment Upcoming Encounters Date Type Department Care Team (Late st Contact Info) Description 12/13/2024 3:00 PM EDT Office Visit [facility] [address] [place] [address] Zurdo Masters MD [address] [place] [address] Health Maintenance Due Date Last Done Comments Pneumococcal Vaccine 50+ (1 of 2 - PCV) 1980 TDAP/TD VACCINES (1 - Tdap) 1980 COLOGUARD 2006 COLON CANCER SCREENING 5 YEA R SIGMOIDOSCOPY 2006 COLONOSCOPY [address] CANCER SCREENING 2006 CT COLONOGRAPHY 2006 FECAL OCCULT BLOOD TEST 2006 FIT Testing (1 year) 2006 ZOSTER VACCINE (1 of 2) 10/30/2011 HEPATITIS C SCREENING 04/04/2019 ANNUAL PHYSICAL 07/01/2023 06/30/2022 DIABETIC FOOT EXAM 07/01/2023 06/30/2022, 0 06/30/2022, 06/30/2022 COVID-19 Vaccine (2023-2 5 season) 2023 DIABETIC EYE EXAM 09/17/2024 09/18/2023 INFLUENZA VACCINE 11/13/2024 12/11/2015, 12/11/2015 HEMOGLOBIN A1C 02/08/2025 08/09/2024, 07/0 09/2023, 11/28/2022, Additional history exists URINE MICROALBUMIN-CREATININ E RATIO (uACR) 08/09/2025 08/09/2024 Procedures Procedure Name Priority Date/Time Associated Diagnosis Comments POCT MEDLINE 12 PANEL URINE DRUG SCREEN Routine 08/09/2024 4:32 PM EDT custodial current use of opiate analgesic POC ALBUMIN/CREATININE RATIO Routine 08/09/2024 4:25 PM EDT Type 2 diabetes mellitus without complication, without long-term current use of insulin HEMOGLOBIN A1C Routine 08/09/2024 4:00 PM EDT Type 2 diabetes mellitus without complication, without long-term current use of insulin CBC (NO DIFF) Routine 08/09/2024 4:00 PM EDT Coronary artery disease involving qagan tayagungin coronary artery of qagan tayagungin heart without angina pectoris COMPREHENSIVE METABOLIC PANEL Routine 08/09/2024 4:00 PM EDT Coronary artery disease involving qagan tayagungin coronary artery of qagan tayagungin heart without angina pectoris LIPID PANEL Routine 08/09/2024 4:00 PM EDT Coronary artery disease involving qagan tayagungin coronary artery of qagan tayagungin heart without angina pectoris Type 2 diabetes mellitus without complication, without long-term current use of insulin SCANNED - EYE EXAM 09/18/2023 from Last 3 Months or Most Recently Relevant to Health Maintenance Results * (ABNORMAL) POC Medline 12 Panel Urine Drug Screen (08/09/2024 4:32 PM EDT) Amphetamine Screen, Urine Negative Negative AMP INTERNAL [...] THC INTERNAL CONTROL Passed Passed Lot Number [id number] Expiration Date 11/26/2025 Urine 08/09/2024 4:32 PM [...] TEST ORDER JOAO Final Result * (ABNORMAL) CBC (No Diff) (08/09/2024 4:00 PM EDT) WBC 7.6 3.4 - 10.8 x10E3/uL [facility] [...] 08/09/2024 4:00 PM EDT 08/09/2024 Narrative [facility] (AMBULATORY) - 08/13/2024 8:11 AM EDT Performed at: [facility] [id number] Window Treatment Installer: Darron Maria PhD, Phone: [phone] Patient Fasting: Y Zurdo Masters MD LAB BLOOD ORDERABLES Fin al Result Performing Organization Address [facility] Co de Phone Number [facility] [address] [place] [address], [facility] [address] [place] [address], [place] [phone] * (ABNORMAL) Hemoglobin A1c (08/09/2024 4:00 PM EDT) [facility] Hemoglobin A1C 7.4(H) 4.8 - 5.6 % [facility] Comment: Prediabetes: 5.7 - 6.4 Diabetes: >6.4 Glycemic control for adults with diabetes: <7.0 Blood 08/09/2024 4:00 PM EDT 08/09/2024 Narrative [facility] (AMBULATORY) - 08/13/2024 8:11 AM EDT Performed at: [address] [id number] Window Treatment Installer: Darron Maria PhD, Phone: [phone] Patient Fasting: Y Zurdo Masters MD LAB BLOOD ORDERABLES Fin al Result Performing Organization Address [facility] Co de Phone Number [facility] [address] [place] [address], [place] [phone] [facility] [address] [place] [id number], * (ABNORMAL) Lipid Panel (08/09/2024 4:00 PM EDT) Pathologist [facility] Total Cholesterol 295(H) 100 - 199 mg/dL [...] Blood 08/09/2024 4:00 PM EDT 08/09/2024 Narrative [facility] - 08/13/2024 8:11 AM EDT Performed at: - [address] [id number] Window Treatment Installer: Darron Maria PhD, Phone: [phone] Patient Fasting: Y Zurdo Masters MD LAB BLOOD ORDERABLES Fin al Result [facility] [address] [place] [address], [facility] [address] [place] [address], * Comprehensive Metabolic Panel (08/09/2024 4:00 PM EDT) [facility] Glucose 93 70 - 99 mg/dL [facility] [...] 08/09/2024 4:00 PM EDT 08/09/2024 Narrative [facility] (AMBULATORY) - 08/13/2024 8:11 AM EDT Performed at: [facility] [address] [place] [id number] Window Treatment Installer: Darron Maria PhD, Phone: [phone] Patient Fasting: Y Zurdo Masters MD LAB BLOOD ORDERABLES Fin al Result [facility] [address] [place] [address], [place] [phone] [facility] [address] [place] [address], [place] [phone] * EYE EXAM SCANNED (09/18/2023) Anatomical Region Laterality Modality Other Zurdo Masters MD CHART REVIEW TABS Fin al Result from Last 3 Months or Most Recently Relevant to Health Maintenance Insurance [id number] Care Teams Real Estate Agent Relationship Specialty Start Date End Date Zurdo Masters MD PCP - General Family Medicine 04/04/19
--- OUTSIDE RECORDS SUMMARY | 2024-09-09 14:01 | XMS_ITS | Encounter Summary ---
[facility] Address [address] [place] [address] Care Team Providers Care Instructor Adjunct Surgical Technician Name Role Phone Zurdo Masters MD Primary Care Provider + Reason for Visit * Reason Comments Med Refill Encounter Details Date Type Department Care Team (Late st Contact Info) Description 07/25/2024 Refill [facility] [address] [place] [address] Zurdo Masters MD [address] [place] [address] Lumbar degenerative disc disease Social [...] Description 12/13/2024 3:00 PM EDT Office Visit [facility] [address] [place] [address] Zurdo Masters MD [address] [place] [address] documented as of this encounter Visit Diagnoses Diagnosis Lumbar degenerative disc disease documented in this encounter Additional Health Concerns Assessment Noted Time PHQ-2 Depression Total Score: 6 04/06/19 24 2:46 PM EST documented as of this encounter Care Teams Instructor Adjunct Surgical Technician Relationship Specialty Start Date End Date Zurdo Masters MD PCP - General Family Medicine 04/04/19 documented as of this encounter
--- OUTSIDE RECORDS SUMMARY | 2024-09-09 14:01 | XMS_ITS | Encounter Summary ---
[facility] Address [address] [place] [address] Care Team Providers Care Loading Machine Operator Helper Name Role Phone Zurdo Masters MD Primary Care Provider + Reason for Visit * Reason Comments Med Refill Encounter Details Date Type Department Care Team (Late st Contact Info) Description 04/29/2023 Refill [facility] [address] [place] [address] Zurdo Masters MD [address] [place] [address] Lumbar degenerative disc disease Social [...] 3:00 PM EDT Office Visit [facility] [address] [place] [address] Zurdo Masters MD [address] [place] [address] documented as of this encounter Visit Diagnoses Diagnosis Lumbar degenerative disc disease documented in this encounter Additional Health Concerns Assessment Noted Time PHQ-2 Depression Total Score: 6 04/06/19 24 2:46 PM EST documented as of this encounter Care Teams Loading Machine Operator Helper Relationship Specialty Start Date End Date Zurdo Masters MD PCP - General Family Medicine 04/04/19 documented as of this encounter
--- OUTSIDE RECORDS SUMMARY | 2024-09-09 14:01 | XMS_ITS | Encounter Summary ---
[facility] Address [address] [place] [phone] Care Team Providers Care Mainspring Former Brace End Name Role Phone Zurdo Masters MD Primary Care Provider + Reason for Visit * Reason Onset Date Comments Prior Authorization 07/29/2024 Encounter Details Date Type Department Care Team (Late st Contact Info) Description 07/29/2024 Telephone [facility] [address] [place] [address] Zurdo Masters MD [address] [place] [address] Prior Authorization Social History Tobacco Use Types Packs/Day Years [...] Telephone Encounter - Gretchen Fritz MA - 07/29/2024 1:35 PM EDT Informed pt's that he has to have a follow up appt and UDS for us to complete a prior auth on his pain med. * Telephone Encounter - Marla Luu RegSched Rep - 07/29/2024 11:03 AM EDT Caller: EmilySusanah Relationship: Emergency Contact Best call back number: [phone] What is the best time to reach you: ANYTIME Who are you requesting to speak with (clinical staff, provider, specific staff member): CLINICAL STAFF What was the call regarding: PATIENT'S IS CALLING ABOUT THE PRIOR AUTHORIZATION FOR OXYCODONE.SHE SAYS THAT THEY JUST HAD TO PAY $100 FOR THE MEDICATION. THEY ARE ASKING TO FIND OUT THE STATUS OF THE PRIOR AUTHORIZATION AND TO GET A CALL BACK. SHE SAYS THAT ONCE THEY PS IS DONE THEY CAN GET THE MONEY BACK FROM THE PHARMACY. Is it okay if the provider responds through MyChart: YES documented in this encounter Plan of Treatment Upcoming Encounters Date Type Department Care Team (Late st Contact Info) Description 12/13/2024 3:00 PM EDT Office Visit [facility] [address] [place] [phone] Zurdo Masters MD [address] [place] [address] documented as of this encounter Visit Diagnoses Not on filedocumented in this encounter Additional Health Concerns Assessment Noted Time PHQ-2 Depression Total Score: 6 04/06/19 24 2:46 PM EST documented as of this encounter Care Teams Mainspring Former Brace End Relationship Specialty Start Date End Date Zurdo Masters MD PCP - General Family Medicine 04/04/19 documented as of this encounter
--- OUTSIDE RECORDS SUMMARY | 2024-09-09 14:01 | XMS_ITS | Encounter Summary ---
Author Organization [facility] Address [address] [place] [address] Care Team Providers Care Scarf And Anneal Operator Name Role Phone Zurdo Masters MD Primary Care Provider + Encounter Details Date Type Department Care Team (Late Contact Info) Description 08/25/2023 Telephone [facility] PATIENT CONNECTION [facility] Central Scheduling [address] [place] [phone] Zurdo Masters MD [address] [place] [address] Social History Tobacco Use Types Packs/Day [...] Encounters Date Type Department Care Team (Late Contact Info) Description 12/13/2024 3:00 PM EDT Office Visit [facility] [address] [place] [address] Zurdo Masters MD [address] [facility] [address] documented as of this encounter Visit Diagnoses Not on filedocumented in this encounter Additional Health Concerns Assessment Noted Time PHQ-2 Depression Total Score: 6 04/06/19 24 2:46 PM EST documented as of this encounter Care Teams Scarf And Anneal Operator Relationship Specialty Start Date End Date Zurdo Masters MD PCP - General Family Medicine 04/04/19 documented as of this encounter
--- OUTSIDE RECORDS SUMMARY | 2024-09-09 14:01 | XMS_ITS | Encounter Summary ---
Author Organization [facility] Address [address] [place] [phone] Care Team Providers Care Technical Product Manager Name Role Phone Zurdo Masters MD Primary Care Provider + Reason for Visit * Reason Onset Date Comments Medication Problem 08/29/2023 Encounter Details Date Type Department Care Team (Late st Contact Info) Description 08/29/2023 Refill [facility] [address] [place] [address] Zurdo Masters MD [address] [place] [address] Lumbar degenerative disc disease Social [...] Encounter - Tea Eli RegSched Rep - 08/29/2023 11:13 AM EDT Caller: Astrid Diaz Relationship: Emergency Contact Best call back number: [phone] Requested Prescriptions: Requested Prescriptions Pending Prescriptions Disp Refills oxyCODONE (ROXICODONE) 5 MG immediate release tablet 240 tablet 0 Sig: Take 2 tablets by mouth Every 6 (Six) Hours As Needed for Moderate Pain. Pharmacy where request should be sent: [facility] [place], [place] - [address] [facility] - [phone] [facility] [phone] FX Last office visit with prescribing clinician: 08/21/2023 Last telemedicine visit with prescribing clinician: Visit date not found Next office visit with prescribing clinician: 09/07/2023 Additional details provided by patient: Does the patient have less than a 3 day supply: [] Yes [x] No Would you like a call back once the refill request has been completed: [] Yes [x] No If the office needs to give you a call back, can they leave a voicemail: [] Yes [x] No America Ulloa 08/29/23 11:14 EDT documented in this encounter Plan of Treatment Upcoming Encounters Date Type Department Care Team (Late st Contact Info) Description 12/13/2024 3:00 PM EDT Office Visit [facility] [address] [place] [phone] Zurdo Masters MD [address] [place] [address] documented as of this encounter Visit Diagnoses Diagnosis Lumbar degenerative disc disease documented in this encounter Additional Health Concerns Assessment Noted Time PHQ-2 Depression Total Score: 6 04/06/19 24 2:46 PM EST documented as of this encounter Care Teams Technical Product Manager Relationship Specialty Start Date End Date Zurdo Masters MD PCP - General Family Medicine 04/04/19 documented as of this encounter
[2024-09-09 14:38] LABS: Hematocrit 40.5 % (42.0-52.0); Hemoglobin 13.3 g/dL (14.1-18.0); Immature Granulocytes % 0.3 %; Mean Corpuscular HGB Conc 32.8 g/dL (31.8-35.4); Mean Corpuscular Hemoglobin 27.3 pg (27.0-31.2); Mean Corpuscular Volume 83.0 fl (80-94); Nucleated Red Blood Cells % 0 %; Platelet Count 170 K/mm3 (142-424); Red Blood Count 4.88 M/mm3 (4.60-6.20); Red Cell Distribution Width-SD 42.7 fL; White Blood Count 6.5 K/mm3 (4.8-10.8)
[2024-09-09 15:06] LABS: Blood Urea Nitrogen 20 mg/dl (9-20); Creatinine,Serum 1.10 mg/dl (0.66-1.25); Estimated Glomerular Filt Rate 68 ml/min (>60); GFR (African American) 82 ML/MIN (>60)
[2024-09-10 08:12] LABS: PSA, Free 0.05 ng/mL; Testosterone,Total 14 ng/dL (264-916)
== END 2024-09-09 23:59 | disposition home or self-care (01) ==
LOC: LAB 13:53
PROVIDERS: PCP Family Medicine; Visit Provider Urology
DX: N40.1 Benign prostatic hyperplasia with lower urinary tract symptoms (principal)
CPT/HCPCS: 36415; 82565; 84153; 84154; 84270; 84403; 84520; 85025

== ENCOUNTER 2025-01-17 17:14 | Emergency (ER) | payer OTHER, SELFPAY ==
[2025-01-17 17:23] VITALS: BP 141/93; PULSE 86; RESP 21; TEMP 36.4; O2SAT 96; BMI 35.4
[2025-01-17 17:25] VITALS: BP 150/80; PULSE 80; RESP 20; O2SAT 98
[2025-01-17] MEDS: METHOCARBAMOL 500MG TABLET 1000 MG PO (18:09)
[2025-01-17] MEDS: KETOROLAC 30MG/ML VIAL 30 MG IM (18:10)
[2025-01-17] MEDS: LIDOCAINE 5% TRANSDERMAL PATCH 1 EACH TD (18:10)
[2025-01-17] MEDS: ACETAMINOPHEN 500MG TAB 1000 MG PO (18:10)
--- NOTE | 2025-01-17 19:14 | [facility].EDGENADL ---
Discharge Plan Disposition Patient Disposition: Home, Self-Care Condition: Good Prescriptions Prescriptions: New methocarbamol 500 mg tablet 500 mg PO Q8H 7 Days Qty: 21 0RF No Action metformin 1,000 mg tablet 1,000 mg PO BID ezetimibe 10 mg tablet 10 mg PO DAILY omeprazole 20 mg capsule,delayed release(DR/EC) 20 mg PO DAILY venlafaxine 150 mg capsule,extended release 24hr 150 mg PO DAILY 90 Days Qty: 90 0RF quetiapine 150 mg tablet 150 mg PO DAILY Qty: 7 0RF oxybutynin chloride 15 mg tablet extended release 24hr 15 mg PO DAILY 90 Days Qty: 90 1RF tamsulosin 0.4 mg capsule 0.4 mg PO HS 90 Days Qty: 90 1RF Rx Instructions: Take 1/2 hour after the same meal daily testosterone cypionate [Depo-Testosterone] 200 mg/mL oil 100 mg SQ WEEKLY 90 Days Qty: 10 0RF Rx Instructions: Give 0.5 ml every Thrusday Jardiance 25 mg tablet 25 mg PO DAILY cholecalciferol (vitamin D3) 25 mcg (1,000 unit) capsule 25 mcg PO DAILY venlafaxine 75 mg capsule,extended release 24hr 75 mg PO DAILY Qty: 30 2RF Rx Instructions: TAKE 1 CAPSULE BY MOUTH ONCE DAILY (TAKE DAILY WITH 150MG CAPSULE; TOTAL DOSE IS 225MG DAILY) doxepin 25 mg capsule 25 mg PO HS Qty: 30 2RF celecoxib 100 mg capsule See Rx Instructions .ROUTE .COMPLEX Qty: 60 1RF Dose Instruction: TAKE 1 CAPSULE BY MOUTH TWICE A DAY FOR POST OP PAIN Rx Instructions: TAKE 1 CAPSULE BY MOUTH TWICE A DAY FOR POST OP PAIN ropinirole 1 mg tablet 1 mg PO HS oxycodone 5 mg tablet 10 mg PO QIDP PRN (Reason: Moderate Pain (Scale Score 5-6)) furosemide 40 mg tablet 40 mg PO DAILY meloxicam 7.5 mg tablet 7.5 mg PO BID aspirin 81 MG tablet,chewable 81 mg PO DAILY Referrals Follow up/Referrals: Zurdo Masters MD [Primary Care Provider, Medical] - See instructions Activity Restrictions/Add. Instructions Additional Instructions/Restrictions: If you begin experiencing numbness and tingling in your legs, pain radiating down your leg, numbness in your groin region, urinary retention, or urinary incontinence, please return to the emergency department for further evaluation. You may take Robaxin 3 times daily for the next 7 days to assist with pain relief. Please follow-up with your primary care physician to ensure resolution of symptoms Clinical Impressions Clinical Impression: Low back pain Qualifiers: Chronicity: acute Back pain laterality: right Sciatica presence: without sciatica Qualified Code(s): M54.50 - Low back pain, unspecified Instructions Patient Instructions: DI for Low Back Pain Print Language Print Language: Armenian Discharge ED Provider: Aidan Sebastian General Adult HPI General Chief complaint: Back Pain/Injury Stated complaint: Hurt back 3 days ago, felt some pull Time Seen by Provider: 01/17/25 17:31 Mode of Arrival: Ambulatory Source of Information: Patient Description of Symptoms (Recalled from ER Triage Doc. 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 Pt stated the incident happened 3 days ago and the pain has just gotten worse. History of Present Illness HPI narrative: This is a 64-year-old male patient, with past medical history of hypertension, hyperlipidemia, coronary artery disease, and degenerative disc disease, who is presenting to the emergency department today for evaluation of back pain. Patient states that around 3 days ago he was helping to lift his after she fell to the ground and he felt something pull in his back. He has had significant pain in the right side of his back since that time. He is not having any lower extremity radiculopathy symptoms, no saddle anesthesia, no urinary retention, and no urinary incontinence. He states that he has not had any difficulty with walking. He does state that for his chronic pain he takes 5 mg of oxycodone at home and his last dose was 2 hours ago and he did not have any significant reduction in symptoms with this and this ultimately prompted his visit to the emergency department this evening Related Data Home Medications ?Medication ?Instructions ?Recorded ?Confirmed aspirin 81 mg chewable tablet 81 mg PO DAILY 06/15/17 11/04/24 empagliflozin 25 mg tablet 25 mg PO DAILY 08/27/18 11/04/24 (Jardiance) metformin 1,000 mg tablet 1,000 mg PO BID 03/26/19 11/04/24 ezetimibe 10 mg tablet 10 mg PO DAILY 05/26/22 11/04/24 oxycodone 5 mg tablet 10 mg PO QIDP PRN Moderate Pain 07/23/23 11/04/24 (Scale Score 5-6) ropinirole 1 mg tablet 1 mg PO HS 07/23/23 11/04/24 furosemide 40 mg tablet 40 mg PO DAILY 07/24/23 11/04/24 cholecalciferol (vitamin D3) 25 25 mcg PO DAILY 04/15/24 11/04/24 mcg (1,000 unit) capsule omeprazole 20 mg capsule,delayed 20 mg PO DAILY 04/15/24 11/04/24 release meloxicam 7.5 mg tablet 7.5 mg PO BID 05/28/24 11/04/24 Previous Rx's ?Medication ?Instructions ?Recorded quetiapine 150 mg tablet 150 mg PO DAILY #7 tabs 09/26/24 venlafaxine 150 mg 150 mg PO DAILY 90 days #90 caps 09/26/24 capsule,extended release 24 hr doxepin 25 mg capsule 25 mg PO HS #30 caps 10/24/24 venlafaxine 75 mg capsule,extended 75 mg PO DAILY #30 caps 10/24/24 release 24 hr celecoxib 100 mg capsule See Rx Instructions .Route 10/29/24 .COMPLEX #60 caps oxybutynin chloride 15 mg 15 mg PO DAILY 90 days #90 tabs 11/04/24 tablet,extended release 24 hr tamsulosin 0.4 mg capsule 0.4 mg PO HS 90 days #90 caps 11/04/24 testosterone cypionate 200 mg/mL 100 mg (0.5 mL) SQ WEEKLY 90 days 11/04/24 intramuscular oil #10 mL (Depo-Testosterone) methocarbamol 500 mg tablet 500 mg PO Q8H 7 days #21 tabs 01/17/25 Allergies Allergy/AdvReac Type Severity Reaction Status Date / Time sulfamethoxazole (From Allergy Intermediate Other Verified 11/04/24 10:39 Bactrim) trimethoprim (From Bactrim) Allergy Intermediate Other Verified 11/04/24 10:39 atorvastatin Allergy Mild myalgias Verified 11/04/24 10:39 rosuvastatin (From Crestor) Allergy Mild myaglias Verified 11/04/24 10:39 simvastatin (From Zocor) Allergy Mild myalgias Verified 11/04/24 10:39 fexofenadine (From YEFRI) Allergy Unknown UNKNOWN Verified 11/04/24 10:39 naproxen (NAPROXEN) Allergy Unknown HAND Verified 11/04/24 10:39 SWELLING PFSH PFS Disclaimer: The information contained in this section may have been updated after the patient was seen, as this information can be updated by other users. Medical History Pre-op exam Fatigue Sleep disorder breathing History of kidney stones Diabetes mellitus CAD (coronary artery disease) BPH (benign prostatic hyperplasia) RLS (restless legs syndrome) Chest pain HLD (hyperlipidemia) HTN (hypertension) Kidney stones Depression Insomnia Generalized anxiety disorder Bipolar II disorder Surgical History History of lithotripsy History of vasectomy History of rotator cuff surgery History of heart artery stent History of carpal tunnel surgery History of ankle surgery Family History Other Cancer Coronary artery disease Diabetes Heart attack Hyperlipidemia Hypertension Stroke Social History Smoking Status: Current every day smoker tobacco type: cigarettes second hand exposure: No alcohol intake: never substance use type: denies use current occupational status: unemployed and disabled Travel in the last 8 weeks?: None household members: spouse housing: other details: mobile home marital status: number of children: 2 current occupational exposures/hazards: No caffeine: Yes Have you lived/traveled outside [place] in past 30 days?: No Contact w/someone who lives/traveled outside [place] past 30 days?: No Exposure to someone with infectious disease in past 14 days?: No Do you have a fever (greater than 100.4 F or 38 C)?: No Have you tested positive for COVID-19?: No Exposed to someone with COVID-19 in past 14 days?: No Do you have a sore throat?: No Do you have a cough?: No Do you have any weakness?: No Do you have any diarrhea?: No Are you experiencing any unusual bleeding?: No Do you have any muscle aches/pain?: No Do you have any abdominal pain?: No Are you experiencing loss of taste or smell?: No Other Medical History Have you received the Flu Vaccine for this season: No Have you received the Pneumonia Vaccine: No ROS Obtained: Yes Systems reviewed as appropriate & no additional complaints except as documented Physical Exam General General appearance: other (See MDM) Respiratory Respiratory exam: Present other (See MDM) Cardiovascular Cardiovascular exam: Present other (See MDM) Neurological Exam Neurological exam: Present other (See MDM) Medical Decision Making Medical Records Medical records reviewed: Yes I reviewed the patient's medical records. Screening: Per USPSTF and CDC recommendations, given the prevalence of disease in our region, it is our hospital?s policy to screen for HIV and viral Hepatitis for all patients aged 18 and over and those with ongoing risk factors. Jose Inquiry Pt receiving controlled substance: No Jose was queried for this patient: No Vital Signs: 01/17/25 17:23 01/17/25 17:25 Temperature 97.5 F L Temperature Source Oral Pulse Rate 80 Pulse Rate [Left] 86 Respiratory Rate 21 20 Blood Pressure 150/80 H Blood Pressure [Right Arm] 141/93 H Blood Pressure Mean [Right Arm] 109 Blood Pressure Source Automatic Cuff Blood Pressure Source [Right Arm] Automatic Cuff Blood Pressure Position Sitting Blood Pressure Position [Right Arm] Sitting 02 Sat by Pulse Oximetry 96 98 Oxygen Delivery Method Room Air Room Air Orders (Tests/Meds): ED MEDICATIONS Discontinued Medications Generic Name Dose Route Start Last Admin Trade Name Familiaq PRN Reason Stop Dose Admin Acetaminophen 1,000 mg 01/17/25 17:52 01/17/25 18:10 Acetaminophen 500mg Tab PO 01/17/25 17:53 1,000 mg ONCE ONE Administration Ketorolac Tromethamine 30 mg 01/17/25 17:52 01/17/25 18:10 Ketorolac 30mg/Ml Vial IM 01/17/25 17:53 30 mg ONCE ONE Administration Lidocaine 1 each 01/17/25 17:52 01/17/25 18:10 Lidocaine 5% Transdermal Patch TD 01/17/25 17:53 1 each ONCE ONE Administration Methocarbamol 1,000 mg 01/17/25 17:53 01/17/25 18:09 Methocarbamol 500mg Tablet PO 01/17/25 17:54 1,000 mg ONCE ONE Administration Medical Decision Narrative: In summary, this is a 64-year-old male patient who is presenting to the emergency department today for evaluation of lower back pain that has persisted since assisting his off the ground 3 days ago. His comorbidities include hypertension, hyperlipidemia, diabetes, and degenerative disc disease for which he takes oxycodone on a regular basis. On initial evaluation of the patient they were resting comfortably in no acute distress and nontoxic in appearance. They are hemodynamically stable, saturating well room air, and are neurologically intact. On physical examination he is appropriately alert and oriented with a GCS of 15. He has no midline tenderness of the C, T, or L-spine. He has normal sensation in his lower extremities and he has normal motor function in his lower extremities with 5 out of 5 strength bilaterally. The patient does have hypertonicity of the right paraspinal lumbar musculature with tenderness within the muscle belly. Differential diagnosis includes muscle strain, herniated disc, sciatica, among others. I have a low suspicion for spinal cord syndrome as we have obtained a postvoid residual that showed 0 mL of postvoid volume in the bladder. While in the emergency department we treated the patient with with 1 g of Robaxin, 30 mg of Toradol, and 1 g of acetaminophen as well as a lidocaine patch. On repeat reassessment of the patient his pain had significantly improved. He is comfortable with discharge home. I have asked him to follow-up with his primary care physician and to return if he begins experiencing any red flag back symptoms. At this time all questions were answered and all parties were agreeable with the decision to Critical Care Critical Care Time Critical Care Time: No
[2025-01-17 19:27] VITALS: BP 140/89; PULSE 100; RESP 20; TEMP 37.2; O2SAT 98
== END 2025-01-17 19:27 | disposition home or self-care (01) ==
PROVIDERS: Emergency Provider Student in an Organized Health Care Education/Training Program; PCP Family Medicine
DX: M54.50 Low back pain, unspecified (principal); X50.0XXA Overexertion from strenuous movement or load, initial encounter
CPT/HCPCS: 51798; 96372; 99284; 99285; J1885